=== PATIENT | male | born 1940 | race Caucasian/White ===

== ENCOUNTER 2017-09-27 11:43 | Emergency (ER) | payer MEDICARE ==
[2017-09-27] MEDS ORDERED: MAG HYDROX/AL HYDROX/SIMETH SUSP 30 ML UDCUP PO ONE (12:36)
[2017-09-27] MEDS ORDERED: ACETAMINOPHEN 325 MG TABLET PO ONE (12:36)
[2017-09-27] MEDS ORDERED: DIPHENHYDRAMINE HCL 25 MG/10 ML UDC PO ONE (12:36)
[2017-09-27] MEDS ORDERED: LIDOCAINE 2% VISCOUS SOLN 20 ML UDCUP PO ONE (12:36)
--- NOTE | 2017-09-27 12:37 | ER Document Report ---
ED ENT - General Chief Complaint: Sore Throat Stated Complaint: SORE THROAT, STIFF NECK Time Seen by Provider: 09/27/17 12:27 Mode of Arrival: Ambulatory Information source: Patient Notes: Patient is a 76-year-old male who presents to the ER today for sore throat and neck stiffness, bilateral eye drainage has been yellow/green in color, all times approximately 3 days. Patient has been taking Tylenol for his pain which is not been helping. Patient states that it hurts to eat and drink. He denies any cough, runny nose, sinus congestion or other symptoms. Patient does state that his granddaughter who lives with him recently was diagnosed with strep throat. He admits to feeling like he had fever and chills at home but they did not take his temperature.patient does wear oxygen all the time with a history of COPD. TRAVEL OUTSIDE OF THE [place] IN LAST 30 DAYS: No - Related Data Allergies/Adverse Reactions: No Known Allergies Allergy (Verified 09/27/17 12:02) Past Medical History - General Information source: Patient, Relative - Social History Smoking Status: Unknown if Ever Smoked Family History: Reviewed & Not Pertinent Review of Systems - Review of Systems Constitutional: See HPI EENT: See HPI Cardiovascular: No symptoms reported Respiratory: No symptoms reported Gastrointestinal: No symptoms reported Genitourinary: No symptoms reported Male Genitourinary: No symptoms reported Musculoskeletal: No symptoms reported Skin: No symptoms reported Hematologic/Lymphatic: No symptoms reported Neurological/Psychological: No symptoms reported Physical Exam - Vital signs Vitals: Temp Pulse Resp BP Pulse Ox 97.6 F 87 20 109/62 94 09/27/17 11:57 09/27/17 11:57 09/27/17 11:57 09/27/17 11:57 09/27/17 11:57 - Notes Notes: PHYSICAL EXAMINATION: GENERAL: Mildly ill-appearing, wearing nasal cannula oxygen, but in no acute distress. HEAD: Atraumatic, normocephalic. EYES: Pupils equal round and reactive to light, extraocular movements intact, sclera anicteric, conjunctiva with yellow/green discharge bilaterally, eyelashes matted ENT: ear canals without erythema or foreign body, TMs pearly soto with good bony landmarks, nares patent, oropharynx erythematous with bilaterally enlarged tonsils with copious white exudate. Moist mucous membranes. NECK: Normal range of motion, supple with tender bilateral cervical lymphadenopathy LUNGS: CTAB and equal. No wheezes rales or rhonchi. HEART: Regular rate and rhythm without murmurs ABDOMEN: Soft, no tenderness. No guarding, no rebound BACK: no vertebral tenderness, normal ROM GI/: no CVA tenderness EXTREMITIES: Normal range of motion, no pitting edema. No cyanosis. NEUROLOGICAL: Cranial nerves grossly intact. Normal sensory/motor exams. PSYCH: Normal mood, normal affect. SKIN: Warm, Dry, normal turgor, no rashes or lesions noted Course - Vital Signs Vital signs: Temp Pulse Resp BP Pulse Ox 98.3 F 106 H 18 105/49 L 92 09/27/17 13:42 09/27/17 13:42 09/27/17 13:42 09/27/17 13:42 09/27/17 13:42 Discharge - Discharge Clinical Impression: Strep throat exposure, Sore throat Conjunctivitis, acute, bilateral Qualifiers: Acute conjunctivitis type: unspecified Qualified Code(s): H10.33 - Unspecified acute conjunctivitis, bilateral Condition: Stable Disposition: HOME, SELF-CARE Additional Instructions: Return immediately for any new or worsening symptoms. Follow up with primary care provider, call tomorrow to make followup appointment. Prescriptions: Amoxicillin 500 mg PO TID #30 capsule Nystatin/Dexameth/Diphen [Magic Mouthwash ([facility] Formula) Susp] 5 ml PO QID #120 ml Polymyxin B Sulf/Trimethoprim [Polytrim Eye Drops] 1 drop OU Q3H #1 bot
--- NOTE | 2017-09-27 13:16 | RADIOLOGY REPORT (SQ) ---
EXAM DESCRIPTION: SOFT TISSUE NECK COMPLETED DATE/TIME: 09/27/2017 1:07 pm REASON FOR STUDY: sore throat, neck pain COMPARISON: None. NUMBER OF VIEWS: Two views. TECHNIQUE: AP and lateral radiographic image of the soft tissues of the neck. LIMITATIONS: None. FINDINGS: EPIGLOTTIS: Normal. Contour normal. Aryepiglottic folds normal. PREVERTEBRAL SOFT TISSUES: Normal. No soft tissue swelling. SUBGLOTTIC AREA: Normal. No narrowing. RETROPHARYNGEAL SPACE: Normal. No soft tissue masses. BONES: No significant findings. LUNG APICES: Normal. OTHER: Heavily calcified carotid bifurcations IMPRESSION: No prevertebral soft tissue swelling. Epiglottis normal thickness. Heavily calcified carotid bifurcations TECHNICAL DOCUMENTATION: JOB ID: [id number]- All Rights Reserved Reading location - IP/workstation name: [email or web address]
[2017-09-27 13:44] VITALS: BP 105/49
== END 2017-09-27 13:47 | disposition home or self-care (01) ==
LOC: ER 11:43
DX: J02.9 Acute pharyngitis, unspecified (principal); Z20.818 Contact with and (suspected) exposure to other bacterial communicable diseases; H10.33 Unspecified acute conjunctivitis, bilateral; M43.6 Torticollis; J44.9 Chronic obstructive pulmonary disease, unspecified; Z99.81 Dependence on supplemental oxygen
CPT/HCPCS: 99283; 87070; 87880; 70360; A9270 ×2; J3490

== ENCOUNTER 2017-10-30 17:09 | Emergency (ER) | payer MEDICARE ==
--- NOTE | 2017-10-30 17:58 | ER Document Report ---
ED General - General Mode of Arrival: Stretcher Information source: Patient TRAVEL OUTSIDE OF THE [place] IN LAST 30 DAYS: No <KALYANI ANGULO - Last Filed: 10/30/17 21:46> <MEETJAGUAR Velazco - Last Filed: 11/04/17 14:41> - General Chief Complaint: Laceration Stated Complaint: LEFT ARM LACERATION Time Seen by Provider: 10/30/17 17:49 Notes: 76 y.o male presents to the ED with a skin tear to his LUE. Pt reports that yesterday he was being wheeled through a door and sheared his arm on the door frame. Pt's daughter reports that yesterday he was not bleeding very much but today she cleaned the wound with Hydrogen-Peroxide and since has not stopped bleeding, bleeding through sizable gauze every hour. Pt reports that he is feeling weak and dizzy. Pt has a PMHx of [place], tripple bypass, and a stroke this past July. Pt is on Xarelto and Aspirin daily. Pt's last tetanus vaccination is unknown. (KALYANI ANGULO) - Related Data Allergies/Adverse Reactions: No Known Allergies Allergy (Verified 09/27/17 12:02) Past Medical History - General Information source: Patient - Social History Smoking Status: Never Smoker Chew tobacco use (# tins/day): No Drug Abuse: None Family History: Reviewed & Not Pertinent Patient has suicidal ideation: No Patient has homicidal ideation: No - Past Medical History Cardiac Medical History: Reports: Hx Heart Attack, Hx Hypercholesterolemia, Hx Hypertension Pulmonary Medical History: Reports: Hx COPD, Hx Pneumonia Endocrine Medical History: Reports: Hx Diabetes Mellitus Type 2 Renal/ Medical History: Denies: Hx Peritoneal Dialysis GI Medical History: Reports: Hx Gastroesophageal Reflux Disease Musculoskeletal Medical History: Reports Hx Arthritis Past Surgical History: Reports: Hx Abdominal Surgery, Hx Appendectomy, Hx Cardiac Surgery - triple bypass, AAA repair, Hx Tonsillectomy <KALYANI ANGULO - Last Filed: 10/30/17 21:46> Review of Systems - Review of Systems Constitutional: See HPI, Weakness, Other - dizziness EENT: No symptoms reported Cardiovascular: No symptoms reported Respiratory: No symptoms reported Gastrointestinal: No symptoms reported Genitourinary: No symptoms reported Male Genitourinary: No symptoms reported Musculoskeletal: No symptoms reported Skin: See HPI, Other - skin tear Hematologic/Lymphatic: No symptoms reported Neurological/Psychological: No symptoms reported -: Yes All other systems reviewed and negative <KALYANI ANGULO - Last Filed: 10/30/17 21:46> Physical Exam <KALYANI ANGULO - Last Filed: 10/30/17 21:46> - Skin Skin Temperature: Warm - Approximately 4-1/2 inch irregular skin tear with small amount of active bleeding on left upper extremity just proximal to the elbow on the lateral aspect of upper arm. No foreign bodies noted <JAGUAR DSOUZA - Last Filed: 11/04/17 14:41> - Vital signs Vitals: Temp Pulse Resp BP Pulse Ox 98.3 F 139 H 24 H 133/73 H 87 L 10/30/17 17:19 10/30/17 17:19 10/30/17 17:19 10/30/17 17:19 10/30/17 17:19 - Notes Notes: Physical Exam: General: Alert, appears well. HEENT: Normocephalic. Atraumatic. PERRL. Extraocular movements intact. No pallor. Oropharynx clear. Neck: Supple. Non-tender. Respiratory: No respiratory distress. Clear and equal breath sounds bilaterally. Cardiovascular: Regular rate and rhythm. Abdominal: Normal Inspection. Non-tender. No distension. Normal Bowel Sounds. Back: Non-tender. No deformity or step off. Extremities: Moves all four extremities. Upper extremities: Normal ROM. See skin below. Lower extremities: Normal inspection. No edema. Normal ROM. Neurological: Normal cognition. AAOx3. Normal speech. Psychological: Normal affect. Normal Mood. (KALYANI ANGULO) Course <KALYANI ANGULO - Last Filed: 10/30/17 21:46> <JAGUAR DSOUZA - Last Filed: 11/04/17 14:41> - Re-evaluation Re-evalutation: 10/30/17 18:15 3 packs of quarter inch Steri-Strips were used to approximate skin tear after skin tear was washed with Shur-Clens and saline. Unknown last tetanus shot per patient will be provided in the emergency room. Quick clot and then 4 x 4's were placed over Steri-Strips and then Coban pressure dressing applied. Patient tolerated procedure well. Advised patient and daughter at bedside to keep dressing on wound for at least 3days and then they can take off dressing and let Steri-Strips fall off naturally do not pull them off. Return precautions provided regarding any signs of infection never seek medical reevaluation. 10/30/17 18:29 Patient's on oxygen and home his oxygen had been taken off when initial vitals were performed. Discharge vitals patient normotensive, pulse rate of 94, history of A. fib, oxygen 97% on home O2 2 L. Patient denies any chest pain or shortness of breath asymptomatic will be discharged. (JAGUAR DSOUZA) - Vital Signs Vital signs: Temp Pulse Resp BP Pulse Ox 98.3 F 94 18 117/66 97 10/30/17 18:21 10/30/17 18:21 10/30/17 18:21 10/30/17 18:21 10/30/17 18:21 Procedures - Laceration/Wound Repair Left Arm Wound length (cm): 9 Wound's Depth, Shape: Superficial Laceration pre-procedure: Chloraprep applied Wound explored: Clean Irrigated w/ Saline (mLs): 20 Wound Repaired With: Steri-strips, Other - Quick clot and Koban <JAGUAR DSOUZA - Last Filed: 11/04/17 14:41> Discharge <KALYANI ANGULO - Last Filed: 10/30/17 21:46> <JAGUAR DSOUZA - Last Filed: 11/04/17 14:41> - Discharge Clinical Impression: Skin tear of left upper arm without complication Qualifiers: Encounter type: initial encounter Qualified Code(s): S41.112A - Laceration without foreign body of left upper arm, initial encounter Disposition: HOME, SELF-CARE Instructions: Skin Tear ([facility]), Tetanus Immunization Given ([facility]) Additional Instructions: Please keep pressure dressing on for 3 days then remove and keep Steri-Strips on until they fall off naturally. Per discussion, return to the emergency department or family doctor for any concerning signs of infection. Scribe Attestation: 11/04/17 14:41 I personally performed the services described in the documentation, reviewed and edited the documentation which was dictated to the scribe in my presence, and it accurately records my words and actions. (JAGUAR DSOUZA) Scribe Documentation - Scribe Written by Roxanna:: Roxanna Jensen 10/30/17 1800 acting as scribe for :: Meet <KALYANI ANGULO - Last Filed: 10/30/17 21:46>
[2017-10-30] MEDS ORDERED: DIPH/PERTUSS(ACELL)/TETANUS VAC/PF 0.5 ML SYR (>=10YO) IM ONE (18:18)
[2017-10-30 18:30] VITALS: BP 117/66
== END 2017-10-30 18:55 | disposition home or self-care (01) ==
LOC: ER 17:09
PROC: 0HQCXZZ Repair Left Upper Arm Skin, External Approach (ICD-10-PCS; principal; 2017-10-30)
DX: S41.112A Laceration without foreign body of left upper arm, initial encounter (principal); R53.1 Weakness; W22.8XXA Striking against or struck by other objects, initial encounter; I25.2 Old myocardial infarction; Z95.1 Presence of aortocoronary bypass graft; Z86.73 Personal history of transient ischemic attack (TIA), and cerebral infarction without residual deficits; Z79.01 Long term (current) use of anticoagulants; Z79.82 Long term (current) use of aspirin; I10 Essential (primary) hypertension; E11.9 Type 2 diabetes mellitus without complications; Z99.81 Dependence on supplemental oxygen
CPT/HCPCS: 90471; 90715; 99282

== ENCOUNTER 2017-10-31 13:38 | Emergency (ER) | payer MEDICARE ==
--- NOTE | 2017-10-31 14:57 | ER Document Report ---
ED Medical Screen (RME) - General Chief Complaint: Skin Problem Stated Complaint: LEFT ARM PAIN Time Seen by Provider: 10/31/17 14:55 Mode of Arrival: Wheelchair Information source: Patient, Relative Notes: Patient presents with chief complaint of skin tear to his left arm just distal to the elbow. Patient's family member states that he was seen here yesterday for this, Steri-Strips were placed however at the bleeding became so heavy that the Steri-Strips came off with the first dressing change. Family member reports dressing has been changed 4-5 times and has been saturated each time. Patient is on Xarelto and aspirin daily. Bandage was changed in triage, there is no hemorrhaging noted however there is a very slow trickle of bleeding and noted. I have greeted and performed a rapid initial assessment of this patient. A comprehensive ED assessment and evaluation of the patient, analysis of test results and completion of the medical decision making process will be conducted by additional ED providers. Dictation of this chart was performed using voice recognition software; therefore, there may be some unintended grammatical errors. TRAVEL OUTSIDE OF THE [place] IN LAST 30 DAYS: No - Related Data Allergies/Adverse Reactions: No Known Allergies Allergy (Verified 09/27/17 12:02) Past Medical History - Past Medical History Cardiac Medical History: Reports: Hx Heart Attack, Hx Hypercholesterolemia, Hx Hypertension Pulmonary Medical History: Reports: Hx COPD, Hx Pneumonia Endocrine Medical History: Reports: Hx Diabetes Mellitus Type 2 Renal/ Medical History: Denies: Hx Peritoneal Dialysis GI Medical History: Reports: Hx Gastroesophageal Reflux Disease Musculoskeltal Medical History: Reports Hx Arthritis Past Surgical History: Reports: Hx Abdominal Surgery, Hx Appendectomy, Hx Cardiac Surgery - triple bypass, AAA repair, Hx Tonsillectomy Physical Exam - Vital signs Vitals: Temp Pulse Resp BP Pulse Ox 98.2 F 75 16 111/71 92 10/31/17 13:55 10/31/17 13:55 10/31/17 13:55 10/31/17 13:55 10/31/17 13:55 Course - Vital Signs Vital signs: Temp Pulse Resp BP Pulse Ox 98.2 F 75 16 111/71 92 10/31/17 13:55 10/31/17 13:55 10/31/17 13:55 10/31/17 13:55 10/31/17 13:55
--- NOTE | 2017-10-31 16:34 | ER Document Report ---
ED General - General Chief Complaint: Skin Problem Stated Complaint: LEFT ARM PAIN Time Seen by Provider: 10/31/17 14:55 Mode of Arrival: Wheelchair TRAVEL OUTSIDE OF THE [place] IN LAST 30 DAYS: No - HPI Notes: 68-year-old male who was seen yesterday for a skin tear that he obtained while he was being wheeled to the door and he shared his arm on a door frame presents for reevaluation after he keeps bleeding through his bandages. Patient was given a tetanus shot yesterday, patient reports that he was advised yesterday that if he keeps bleeding through to come to the ED for Dermabond placed in a dressing of wound. Patient is taking Xarelto for history of A. fib. Denies any new trauma. Denies falling hitting head, patient has not been keeping the wound elevated above level of heart. Family states that patient bled through Steri-Strips that were placed yesterday. Denies fevers, chills, chest pain, palpitations, shortness of breath, dyspnea, nausea, vomiting, diarrhea, abdominal pain, hematuria,blurred vision, double vision, loss of vision, speech changes, LH, dizziness, syncope, headaches, wheezing, ST, URI, neck pain, weakness, bowel or bladder dysfunction, saddle anesthesia, numbness or tingling in bilateral upper or lower extremities equally, muscle paralysis, weakness in bilateral upper or lower extremities equally or rash. Denies IV drug use. - Related Data Allergies/Adverse Reactions: No Known Allergies Allergy (Verified 09/27/17 12:02) Past Medical History - General Information source: Patient, Relative - Social History Smoking Status: Unknown if Ever Smoked Family History: Reviewed & Not Pertinent - Past Medical History Cardiac Medical History: Reports: Hx Heart Attack, Hx Hypercholesterolemia, Hx Hypertension Pulmonary Medical History: Reports: Hx COPD, Hx Pneumonia Endocrine Medical History: Reports: Hx Diabetes Mellitus Type 2 Renal/ Medical History: Denies: Hx Peritoneal Dialysis GI Medical History: Reports: Hx Gastroesophageal Reflux Disease Musculoskeletal Medical History: Reports Hx Arthritis Past Surgical History: Reports: Hx Abdominal Surgery, Hx Appendectomy, Hx Cardiac Surgery - triple bypass, AAA repair, Hx Tonsillectomy Review of Systems - Review of Systems Constitutional: No symptoms reported EENT: No symptoms reported Cardiovascular: No symptoms reported Respiratory: No symptoms reported Gastrointestinal: No symptoms reported Genitourinary: No symptoms reported Male Genitourinary: No symptoms reported Musculoskeletal: No symptoms reported Skin: See HPI Hematologic/Lymphatic: No symptoms reported Neurological/Psychological: No symptoms reported Physical Exam - Vital signs Vitals: Temp Pulse Resp BP Pulse Ox 98.2 F 75 16 111/71 92 10/31/17 13:55 10/31/17 13:55 10/31/17 13:55 10/31/17 13:55 10/31/17 13:55 - Notes Notes: PHYSICAL EXAMINATION: GENERAL: Well-appearing, well-nourished and in no acute distress. HEAD: Atraumatic, normocephalic. EYES: Pupils equal round and reactive to light, extraocular movements intact, sclera anicteric, conjunctiva are normal. ENT: Nares patent, oropharynx clear without exudates. Moist mucous membranes. NECK: Normal range of motion, supple without lymphadenopathy LUNGS: Breath sounds clear to auscultation bilaterally and equal. No wheezes rales or rhonchi. HEART: Regular rate and rhythm without murmurs ABDOMEN: Soft, nontender, nondistended abdomen. No guarding, no rebound. No masses appreciated. Musculoskeletal: Normal range of motion, no pitting or edema. No cyanosis. NEUROLOGICAL: Cranial nerves grossly intact. Normal speech, normal gait. Normal sensory, motor exams PSYCH: Normal mood, normal affect. SKIN: Warm, Dry, normal turgor, no rashes or lesions noted. 5 cm linear well approximated skin tear that is slightly bleeding. No surrounding erythema, induration. Pulses +2 bilateral upper extremities equally. Full motor and sensory function of bilateral upper extremities equally. Design Drafter +2 bilaterally and equally. No other injury on inspection. Course - Re-evaluation Re-evalutation: 10/31/17 18:15 76-year-old male who is afebrile vitals stable and in no distress presents for evaluation of skin tear that keeps actually bleeding while he is on Xarelto and baby aspirin. Patient has not been keeping her arm elevated and does not have a compression dressing to wound and family took off earlier this morning. Tetanus is up-to-date. This provider remove dressing, irrigated pressure normal saline, foreign body seen. Once area was dry, area applied Dermabond to well approximated that helps her keep slightly bleeding to form a surgical glue clot. There is no bleeding once Dermabond was placed. Telfa gauze placed once the glue was dry, Coban wrapped around after several gauzes were placed on top of 12. Patient stayed in the emergency room for another 20 minutes to reassess to see if there was any active bleeding. No active bleeding was seen. After performing a Medical Screening Examination, I estimate there is LOW risk for OPEN FRACTURE, COMPARTMENT SYNDROME, TENDON RUPTURE, ACUTE NEUROVASCULAR INJURY , or RETAINED FOREIGN BODY, thus I consider the discharge disposition reasonable. Also, there is no evidence or peritonitis, sepsis, or toxicity. I have reevaluated this patient multiple times and no significant life threatening changes are noted. The patient and I have discussed the diagnosis and risks, and we agree with discharging home with close follow-up with the understanding that symptoms and presentations can change. We also discussed returning to the Emergency Department immediately if new or worsening symptoms occur. We have discussed the symptoms which are most concerning (e.g., changing or worsening pain, fever, numbness, weakness, cool or painful digits) that necessitate immediate return. - Vital Signs Vital signs: Temp Pulse Resp BP Pulse Ox 98.2 F 75 16 111/71 92 10/31/17 13:55 10/31/17 13:55 10/31/17 13:55 10/31/17 13:55 10/31/17 13:55 Discharge - Discharge Clinical Impression: Skin tear Skin tear of left upper arm without complication Qualifiers: Encounter type: initial encounter Qualified Code(s): S41.112A - Laceration without foreign body of left upper arm, initial encounter Condition: Stable Disposition: HOME, SELF-CARE Instructions: Skin Tear ([facility]) Additional Instructions: Dermabond (Skin Adhesive Closure) Skin adhesive (such as Dermabond) is a quick-drying glue that remains slightly flexible while it holds wound edges together. It can substitute for stitches on some cuts. The film will usually fall off the skin after 5 to 10 days. Keep the wound area clean and dry. Do not soak or scrub the wound. Don't swim. You can shower briefly after 24 hours. Gently blot the area dry with a soft towel. Don't apply ointments. If there is a dressing, change it immediately if it gets wet. Do not place tape directly over the adhesive film, because the tape may pull the film off your skin as you remove it. Don't bump the wound area. If there's risk of injury, keep the area well- padded. Avoid stretching of the skin. Do not scratch or pick at the adhesive film. Avoid prolonged exposure to sunlight or tanning lamps. Return if there is increasing pain, swelling, redness, or drainage, or if the wound edges seem to open or separate. Monitor for any signs and symptoms of infection such as redness, swelling, erythema around wound. Keep dressing on for 3 days or take up sooner if you are having any increased pain or extensive bleeding. Return to the ED if you are continually bleeding was placed. Will take longer to form a clot due to being on Xarelto. Return immediately for any new or worsening symptoms. Follow up with primary care provider, call tomorrow to make followup appointment. Referrals: GANGA CARSON MD [NO LOCAL MD] - Follow up in 3-5 days
[2017-10-31 18:52] VITALS: BP 108/53
== END 2017-10-31 18:52 | disposition home or self-care (01) ==
LOC: ER 13:38
DX: S41.112A Laceration without foreign body of left upper arm, initial encounter (principal); W22.8XXA Striking against or struck by other objects, initial encounter; I48.91 Unspecified atrial fibrillation; Z79.01 Long term (current) use of anticoagulants; I10 Essential (primary) hypertension; E11.9 Type 2 diabetes mellitus without complications; J44.9 Chronic obstructive pulmonary disease, unspecified; I25.2 Old myocardial infarction; Z95.1 Presence of aortocoronary bypass graft; Z79.82 Long term (current) use of aspirin
CPT/HCPCS: 99283

== ENCOUNTER → 2017-12-15 | Outpatient (CLI) | payer MEDICARE, BC ==
--- NOTE | 2017-12-15 10:34 | RADIOLOGY REPORT (SQ) ---
EXAM DESCRIPTION: U/S SCROTUM W/DOPPLER COMPLETED DATE/TIME: 12/15/2017 10:16 am REASON FOR STUDY: OTHER SPECIFIED DISORDERS OF THE MALE GENITAL ORGANS (N50.89) N50.89 OTHER SPECIF IED DISORDERS OF THE MALE GENITAL ORGANS COMPARISON: None. TECHNIQUE: Static and realtime galan scale imaging of the scrotum and testes. Selected color Doppler and spectral images recorded to document blood flow. LIMITATIONS: None. FINDINGS: RIGHT: TESTICLE: Normal size. Normal echotexture. Normal blood flow. No mass. EPIDIDYMIS: The epididymis demonstrates heterogeneous echotexture. It is normal in size. No focal m asses. HYDROCELE OR VARICOCELE: There is a hydrocele with echogenic debris. HERNIA OR EXTRA-TESTICULAR MASS: No. OTHER: There is thickening of the lateral scrotal wall. LEFT: TESTICLE: Normal size. Normal echotexture. Normal blood flow. No mass. EPIDIDYMIS: Normal. HYDROCELE OR VARICOCELE: There is a hydrocele with mobile debris. There is a varicocele as well. HERNIA OR EXTRA-TESTICULAR MASS: No. OTHER: No other significant finding. IMPRESSION: Thickening of the right lateral scrotal wall. There are bilateral hydroceles with debri s. The right epididymis is heterogeneous in echotexture. No evidence of torsion. TECHNICAL DOCUMENTATION: JOB ID: [id number]- All Rights Reserved Reading location - IP/workstation name: [email or web address]
== END ==
LOC: RAD 09:19
PROVIDERS: ATTEND Internal Medicine Geriatric Medicine
DX: N50.89 Other specified disorders of the male genital organs (principal)
CPT/HCPCS: 76870; 93976

== ENCOUNTER 2018-02-03 09:05 | Inpatient (IN) | payer MEDICARE, OTHER ==
[2018-02-03] MEDS ORDERED: IPRATROPIUM/ALBUTEROL 0.5-2.5 MG/3 ML AMPUL NEB ONE ×2 (09:27→09:31)
[2018-02-03] MEDS ORDERED: MAGNESIUM SULFATE/D5W 1 GM/100 ML RTUPB IV ONE ×2 (09:31→10:56)
[2018-02-03] MEDS ORDERED: METHYLPREDNISOLONE INJ 125 MG/2 ML SDV IV ONE (09:31)
[2018-02-03] MEDS ORDERED: ALBUTEROL SULFATE 0.083% NEB 2.5 MG/3 ML AMPUL NEB ONE ×2 (09:31→10:56)
[2018-02-03 10:00] LABS: ABSOLUTE BASOPHILS # (AUTO) 0.1 10^3/uL (0.0-0.2); ABSOLUTE EOSINOPHILS # (AUTO) 0.1 10^3/uL (0.0-0.6); ABSOLUTE MONOCYTES (AUTO) 0.7 10^3/uL (0.1-1.4); ABSOLUTE NEUT (AUTO) 6.3 10^3/uL (1.7-8.2); BASOPHILS % (AUTO) 1.3 % (0-2); EOSINOPHILS % (AUTO) 1.3 % (0-6); HEMATOCRIT 35.2 % (37.9-51.0); HEMOGLOBIN 11.5 g/dL (13.5-17.0); LYMPHOCYTES % (AUTO) 12.8 % (13-45); MEAN CORPUSCULAR HEMOGLOBIN 30.6 pg (27.0-33.4); MEAN CORPUSCULAR HGB CONC 32.5 g/dL (32.0-36.0); MEAN CORPUSCULAR VOLUME 94 fl (80-97); MONOCYTES % (AUTO) 8.1 % (3-13); PLATELET COUNT 259 10^3/uL (150-450); RED BLOOD COUNT 3.74 10^6/uL (4.35-5.55); RED CELL DISTRIBUTION WIDTH 17.1 % (11.5-14.0); SEGMENTED NEUTROPHILS % (AUTO) 76.5 % (42-78); TOTAL CELLS COUNTED % (AUTO) 100 %; VENOUS BLOOD BASE EXCESS -4.6 mmol/L; VENOUS BLOOD HCO3 20.9 mmol/L (20-32); VENOUS BLOOD PH 7.34 (7.30-7.42); WHITE BLOOD COUNT 8.2 10^3/uL (4.0-10.5)
[2018-02-03 10:05] LABS: INTERNATIONAL RATION (INR) 3.78; PROTHROMBIN TIME 39.1 SEC (11.4-15.4)
[2018-02-03 10:18] LABS: ALANINE AMINOTRANSFERASE 13 U/L (21-72); ALBUMIN 3.9 g/dL (3.5-5.0); ALKALINE PHOSPHATASE 112 U/L (38-126); ANION GAP 18 (5-19); ASPARTATE AMINO TRANSFERASE 15 U/L (17-59); BILIRUBIN,DIRECT 0.2 mg/dL (0.0-0.4); BILIRUBIN,TOTAL 0.9 mg/dL (0.2-1.3); BLOOD UREA NITROGEN 22 mg/dL (7-20); CALCIUM 9.6 mg/dL (8.4-10.2); CARBON DIOXIDE 21 mmol/L (22-30); CHLORIDE 106 mmol/L (98-107); CREATINE KINASE 50 U/L (55-170); GLUCOSE 160 mg/dL (75-110); LIPASE 101.4 U/L (23-300); POTASSIUM 4.1 mmol/L (3.6-5.0); SODIUM 145.1 mmol/L (137-145); TOTAL PROTEIN 7.3 g/dL (6.3-8.2)
[2018-02-03 10:29] LABS: CREATINE KINASE MB 2.03 ng/mL (<4.55); TROPONIN I 0.014 ng/mL
--- NOTE | 2018-02-03 10:42 | EKG REPORT ---
SEVERITY:- ABNORMAL ECG - ATRIAL FIBRILLATION PAIRED VENTRICULAR PREMATURE COMPLEXES LOW VOLTAGE IN FRONTAL LEADS MINIMAL ST DEPRESSION, LATERAL LEADS : Confirmed by: Silvia Reeves 03-Feb-2018 10:41:35
--- NOTE | 2018-02-03 11:01 | RADIOLOGY REPORT (SQ) ---
EXAM DESCRIPTION: CHEST SINGLE VIEW COMPLETED DATE/TIME: 02/03/2018 10:29 am REASON FOR STUDY: sob COMPARISON: None. EXAM PARAMETERS: NUMBER OF VIEWS: One view. TECHNIQUE: Single frontal radiographic view of the chest acquired. RADIATION DOSE: NA LIMITATIONS: None. FINDINGS: LUNGS AND PLEURA: There is an ill-defined, rounded opacity in the right midlung with a sma ll associated pleural effusion. MEDIASTINUM AND HILAR STRUCTURES: No masses. Contour normal. HEART AND VASCULAR STRUCTURES: Cardiomegaly status post median sternotomy. BONES: No acute findings. HARDWARE: None in the chest. OTHER: No other significant finding. IMPRESSION: 1. There is an ill-defined, rounded opacity in the right mid lung with a small associat ed pleural effusion, findings concerning for infection. Underlying mass cannot be excluded; consider CT to further evaluate or at minimum radiographic follow-up in 6-8 weeks to ensure complete resoluti on. 2. Cardiomegaly. TECHNICAL DOCUMENTATION: JOB ID: [id number] [employer]- All Rights Reserved Reading location - IP/workstation name: [email or web address]
[2018-02-03] MEDS ORDERED: LEVOFLOXACIN 500 MG/D5W RTU 500 MG/100 ML RTUPB IV ONE (11:03)
[2018-02-03] MEDS ORDERED: NORMAL SALINE 1000 ML 1,000 ML IV ONE (11:04)
--- NOTE | 2018-02-03 12:00 | RADIOLOGY REPORT (SQ) ---
EXAM DESCRIPTION: CT CHEST WITHOUT COMPLETED DATE/TIME: 02/03/2018 11:44 am REASON FOR STUDY: f/u chest xray findings very short of breath, improved after nebulizer treatment COMPARISON: AP chest 02/03/2018 TECHNIQUE: CT scan performed of the chest without intravenous contrast. Images reviewed with lung, soft tissue and bone windows. Reconstructed coronal and sagittal MPR images reviewed. All images st ored on PACS. All CT scanners at this facility use dose modulation, iterative reconstruction, and/or weight based d osing when appropriate to reduce radiation dose to as low as reasonably achievable (ALARA). [facility]: Dose Right [facility]: CareDose [facility]: Dose Right [facility]: Teradose 4D [facility]: Smart Splashscore RADIATION DOSE: CT Rad equipment meets quality standard of care and radiation dose reduction techniq ues were employed. CTDIvol: 19.8 mGy. DLP: 809 mGy-cm. mGy. LIMITATIONS: No technical limitations. FINDINGS: LUNGS AND PLEURA: Thickened interlobular septa are present throughout the lungs worrisome for interstitial pulmonary edema. Trace left and small right pleural effusions are present, with right-sided fluid tracking into the ma ernesto and minor fissures. There is spotty consolidation in the dependent portion of the right upper lobe and in both posterior costophrenic sulci, atelectasis favored over pneumonia. No pneumothorax HILAR AND MEDIASTINAL STRUCTURES: Mediastinal adenopathy follows: Right paratracheal 2.2 x 1.4 cm node axial image 21 Precarinal 3.3 x 1.7 cm lymph node axial image 25 Prevascular 2.8 x 1.7 cm lymph node axial image 24 Aortopulmonary window lymph node 2.8 x 1.7 cm axial image 25 Sub- carinal 3.6 x 1.6 cm lymph node axial image 35 HEART AND VASCULAR STRUCTURES: Moderate cardiomegaly, old CABG. Heavily calcified aortic valve and m itral annulus. No pericardial effusion UPPER ABDOMEN: Small hiatal hernia. Heavily calcified upper abdominal aorta and visceral arteries. THYROID AND OTHER SOFT TISSUES: No masses. No adenopathy. BONES: No significant finding. HARDWARE: None in the chest. OTHER: No other significant findings. IMPRESSION: Interstitial pulmonary edema with small right and trace left pleural effusions. Depende nt airspace disease in both lungs likely atelectasis. 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 Mediastinal adenopathy TECHNICAL DOCUMENTATION: JOB ID: [id number] Quality ID # [id number]: Final reports with documentation of one or more dose reduction techniques (e.g., Au tomated exposure control, adjustment of the mA and/or kV according to patient size, use of iterative reconstruction technique) 2010 [employer]- All Rights Reserved Reading location - IP/workstation name: [email or web address] [id number]
--- NOTE | 2018-02-03 14:52 | ER Document Report ---
ED General - General Chief Complaint: Breathing Difficulty Stated Complaint: DIFFICULTY BREATHING Time Seen by Provider: 02/03/18 09:22 TRAVEL OUTSIDE OF THE [place] IN LAST 30 DAYS: No - HPI Patient complains to provider of: Difficulty breathing Notes: Patient has a history of COPD CHF coming in for difficulty breathing along with the last 4 days. Patient states productive sputum as well night sweats no fevers. Patient denies any recent antibiotics. Patient states also having pain in his chest earlier this morning that has now resolved. Patient is on home O2 and did bring it here to the ER however has not been wearing it over the last few minutes. Patient upon triage was found to be hypoxic in the 70s. Patient was brought back to the main ER placed back on his oxygen. Patient slightly tachypneic. Denies any nausea vomiting denies any abdominal pain - Related Data Allergies/Adverse Reactions: No Known Allergies Allergy (Verified 09/27/17 12:02) Past Medical History - Social History Smoking Status: Never Smoker Chew tobacco use (# tins/day): No Frequency of alcohol use: None Family History: Reviewed & Not Pertinent Patient has suicidal ideation: No Patient has homicidal ideation: No - Past Medical History Cardiac Medical History: Reports: Hx Heart Attack, Hx Hypercholesterolemia, Hx Hypertension Pulmonary Medical History: Reports: Hx COPD, Hx Pneumonia Endocrine Medical History: Reports: Hx Diabetes Mellitus Type 2 Renal/ Medical History: Denies: Hx Peritoneal Dialysis GI Medical History: Reports: Hx Gastroesophageal Reflux Disease Musculoskeletal Medical History: Reports Hx Arthritis Past Surgical History: Reports: Hx Abdominal Surgery, Hx Appendectomy, Hx Cardiac Surgery - triple bypass, AAA repair, Hx Tonsillectomy Review of Systems - Review of Systems Constitutional: No symptoms reported EENT: No symptoms reported Cardiovascular: Chest pain Respiratory: Cough, Short of breath, Wheezing Gastrointestinal: No symptoms reported Genitourinary: No symptoms reported Male Genitourinary: No symptoms reported Musculoskeletal: No symptoms reported Skin: No symptoms reported Hematologic/Lymphatic: No symptoms reported Neurological/Psychological: No symptoms reported -: Yes All other systems reviewed and negative Physical Exam - Vital signs Vitals: Pulse Resp BP Pulse Ox 121 H 40 H 107/65 81 L 02/03/18 09:27 02/03/18 09:27 02/03/18 09:27 02/03/18 09:27 Interpretation: Hypoxic - General General appearance: Appears well, Alert - HEENT Head: Normocephalic, Atraumatic Eyes: Normal Pupils: PERRL - Respiratory Respiratory status: Respiratory distress Chest status: Nontender Breath sounds: Wheezing Chest palpation: Normal - Cardiovascular Rhythm: Regular Heart sounds: Normal auscultation Murmur: No - Abdominal Inspection: Normal Distension: No distension Bowel sounds: Normal Tenderness: Nontender Organomegaly: No organomegaly - Back Back: Normal, Nontender - Extremities General upper extremity: Normal inspection, Nontender, Normal color, Normal ROM , Normal temperature General lower extremity: Normal inspection, Nontender, Normal color, Normal ROM , Normal temperature, Normal weight bearing. No: Yair's sign - Neurological Neuro grossly intact: Yes Cognition: Normal Orientation: AAOx4 [place] Coma Scale Eye Opening: Spontaneous [place] Coma Scale Verbal: Oriented Kevin Coma Scale Motor: Obeys Commands [place] Coma Scale Total: 15 Speech: Normal Motor strength normal: LUE, RUE, LLE, RLE Sensory: Normal - Psychological Associated symptoms: Normal affect, Normal mood - Skin Skin Temperature: Warm Skin Moisture: Dry Skin Color: Normal Course - Re-evaluation Re-evalutation: 02/03/18 18:33 Chest x-ray with possible pneumonia with possible change of her CHF. Therefore CT scan was performed again showing possible CHF versus pneumonia. Patient was given antibiotics. Patient continued to not improve with just breathing to Mr. for was placed on BiPAP. At the BiPAP patient was able to rest discussed with PCP will admit the patient for further evaluation. - Vital Signs Vital signs: Temp Pulse Resp BP Pulse Ox 97.6 F 54 L 28 H 120/71 94 02/03/18 17:38 02/03/18 17:38 02/03/18 17:38 02/03/18 17:38 02/03/18 17:38 - Laboratory Result Diagrams: 02/03/18 09:30 02/03/18 09:30 Laboratory results interpreted by me: 02/03/18 02/03/18 02/03/18 09:30 09:30 09:30 RBC 3.74 L Hgb 11.5 L Hct 35.2 L RDW 17.1 H Lymphocytes % 12.8 L PT 39.1 H Sodium 145.1 H Carbon Dioxide 21 L BUN 22 H Creatinine 1.51 H Est GFR ( Amer) 54 L Est GFR (Non-Af Amer) 45 L Glucose 160 H Lactic Acid Magnesium 1.5 L AST 15 L ALT 13 L Creatine Kinase 50 L NT-Pro-B Natriuret Pep 02/03/18 02/03/18 09:30 10:00 RBC Hgb Hct RDW Lymphocytes % PT Sodium Carbon Dioxide BUN Creatinine Est GFR ( Amer) Est GFR (Non-Af Amer) Glucose Lactic Acid 2.5 H Magnesium AST ALT Creatine Kinase NT-Pro-B Natriuret Pep 3540 H Discharge - Discharge Clinical Impression: Respiratory distress, History of atrial fibrillation Pneumonia Qualifiers: Pneumonia type: due to unspecified organism Laterality: unspecified laterality Lung location: unspecified part of lung Qualified Code(s): J18.9 - Pneumonia, unspecified organism Condition: Stable Disposition: ADMITTED INPATIENT Admitting Provider: Vilma Solomon COVERING Unit Admitted: [facility]
[2018-02-03] MEDS ORDERED: ALBUTEROL SULFATE HFA (90 MCG/PUFF) 200 PUFF/8.5 GM MDI IH PRN (19:28)
[2018-02-03] MEDS ORDERED: AMLODIPINE PO SCH (19:30)
[2018-02-03] MEDS ORDERED: (PENDING PHARMACY ID) (Tiotropium Bromide [Spiriva Respimat] 2 PUFF) IH SCH (19:30)
[2018-02-03] MEDS ORDERED: (PENDING PHARMACY ID) (Lisinopril [Prinivil 2.5 Mg Tablet] 2.5 MG) PO SCH (19:30)
[2018-02-03] MEDS ORDERED: ATORVASTATIN PO SCH (19:30)
[2018-02-03] MEDS ORDERED: (PENDING PHARMACY ID) (Folic Acid [Folic Acid] 0.8 MG) PO SCH (19:30)
[2018-02-03] MEDS ORDERED: (PENDING PHARMACY ID) (Omega-3/Dha/Epa/Fish Oil [Fish Oil 1,000 Mg Softgel] 1 EACH) PO SCH (19:30)
[2018-02-03] MEDS ORDERED: (PENDING PHARMACY ID) (Docusate Calcium [Stool Softener] 240 MG) PO SCH (19:30)
[2018-02-03] MEDS ORDERED: (PENDING PHARMACY ID) (Atenolol [Tenormin] 25 MG) PO SCH (19:30)
[2018-02-03] MEDS ORDERED: (PENDING PHARMACY ID) (Cholecalciferol (Vitamin D3) [Vitamin D3 2000 Unit Tablet] 2,000 UN PO SCH (19:30)
[2018-02-03 19:56] LABS: ARTERIAL BLOOD BASE EXCESS -3.1 mmol/L; ARTERIAL BLOOD H2CO3 0.97 mmol/L (1.05-1.35); ARTERIAL BLOOD HCO3 20.5 mmol/L (20-24); ARTERIAL BLOOD PCO2 32.1 mmHg (35-45); ARTERIAL BLOOD PH 7.42 (7.35-7.45); ARTERIAL BLOOD PO2 57.8 mmHg (80-100); ARTERIAL BLOOD TOTAL CO2 21.5 mmol/L (23-27)
[2018-02-03 19:58] LABS: ARTERIAL BLOOD FIO2 40%
[2018-02-03] MEDS ORDERED: METFORMIN HCL 500 MG TABLET PO SCH (20:00)
[2018-02-03 20:06] LABS: INTERNATIONAL RATION (INR) 4.23; PROTHROMBIN TIME 42.7 SEC (11.4-15.4)
[2018-02-03 20:29] LABS: CREATINE KINASE MB 1.97 ng/mL (<4.55); TROPONIN I < 0.012 ng/mL
[2018-02-03] MEDS ORDERED: FAMOTIDINE 20 MG TABLET PO SCH (20:30)
--- NOTE | 2018-02-03 21:28 | PDOC H&P ---
History of Present Illness Admission Date/PCP: 02/03/18 15:14 EJ WATTS History of Present Illness: DONALD WESTON is a 77 year old male, he has a history of very severe chronic obstructive pulmonary disease, chronic systolic heart failure he came to the emergency room for evaluation of difficulty breathing for the last 4 days. He also complained of productive cough night sweats but no fever he normally is on home oxygen via nasal cannula at 2 L/min in the emergency room he was found to be hypoxic the oxygen saturation was in the 70s, he was also found to have tachycardia, the pulse rate was 121 bpm, he has a history of chronic atrial fibrillation on chronic anticoagulation with Coumadin. In the emergency room the initial chest x-ray could not completely rule out pneumonia versus CHF CT chest without contrast was ordered in the ER, it demonstrated thickened interlobular septa present throughout the lungs worrisome for interstitial pulmonary edema also found was trace bilateral pleural effusions with right- sided fluid tracking into the major and minor fissure there was also spotty consolidation in the dependent portion of the right upper lobe and in both posterior costophrenic sulci, the BNP was elevated suggesting congestive heart failure. A 2D echo was ordered because of concern that he may have CHF, 2D echo showed ejection fraction left ventricle 50-55% there is mild concentric left ventricular hypertrophy, the diastolic function could not be adequately assessed because of atrial fibrillation. The left atrium is severely dilated the right atrium is severely dilated there is mild to moderate mitral regurgitation, moderate tricuspid regurgitation there is severe pulmonary hypertension by echo the RVSP 65-70 mmHg based on the echo finding he probably have acute on chronic diastolic heart failure, the BNP is elevated, the left atrium is severely dilated this suggest diastolic dysfunction of left ventricle unfortunately this could not be assessed with Doppler because of the atrial fibrillation but one can make reasonable inference that he has diastolic heart failure. Pneumonia cannot be completely rule out, patient daughter stated that he has a history of recurrent pneumonia most likely because of very severe COPD the pulmonary hypertension is secondary to severe lung disease from COPD. He has a history of tobacco use though he has stopped smoking. Past Medical History Cardiac Medical History: Reports: Atrial Fibrillation, Myocardial Infarction, Hyperlipidema, Hypertension, Other - Chronic diastolic heart failure Pulmonary Medical History: Reports: Chronic Obstructive Pulmonary Disease (COPD) , Pneumonia Endocrine Medical History: Reports: Diabetes Mellitus Type 2 GI Medical History: Reports: Gastroesophageal Reflux Disease Musculoskeltal Medical History: Reports: Arthritis Past Surgical History Past Surgical History: Reports: Appendectomy, Tonsillectomy Social History Smoking Status: Never Smoker Last Time Smoked: 10 years ago Frequency of Alcohol Use: None Hx Recreational Drug Use: No Drugs: None Hx Prescription Drug Abuse: No Family History Family History: Reviewed & Not Pertinent Parental Family History Reviewed: Yes Children Family History Reviewed: Yes Sibling(s) Family History Reviewed.: Yes Medication/Allergy Home Medications: Albuterol Sulfate [Proair Hfa Inhalation Aerosol 8.5 gm Mdi] 1 puff IH Q4HP PRN 02/03/18 Allopurinol [Zyloprim 300 mg Tablet] 300 mg PO DAILY 02/03/18 Amlodipine/Atorvastatin [Amlodipine-Atorvast 10-40 mg] 1 each PO DAILY 02/03/18 Ascorbic Acid [Vitamin C 500 mg Tablet] 500 mg PO DAILY 02/03/18 Aspirin [Ecotrin 81 mg EC Tablet] 81 mg PO DAILY 02/03/18 Atenolol [Tenormin] 25 mg PO DAILY 02/03/18 Cholecalciferol (Vitamin D3) [Vitamin D3 2000 unit Tablet] 2,000 unit PO DAILY 02/03/18 Cyanocobalamin (Vitamin B-12) [Vitamin B-12] 1,000 mcg PO DAILY 02/03/18 Docusate Calcium [Stool Softener] 240 mg PO DAILY MDD 2 CAPS 02/03/18 Famotidine [Pepcid 20 mg Tablet] 20 mg PO BID 02/03/18 Ferrous Sulfate [Feosol 325 mg Tablet] 325 mg PO DAILY 02/03/18 Finasteride [Proscar 5 mg Tablet] 5 mg PO DAILY 02/03/18 Fluticasone/Salmeterol [Advair 500-50 Diskus 14 Dose/Diskus] 1 inh IH Q12 Folic Acid 0.8 mg PO DAILY 02/03/18 Furosemide [Lasix 20 mg Tablet] 20 mg PO QAM 02/03/18 Insulin Regular, Human [Humulin R (Pyxis) Insulin 100 Unit/ml 3Ml] 0 unit SUBCUT .SLD SCALE 02/03/18 Lisinopril [Prinivil 2.5 mg Tablet] 2.5 mg PO DAILY 02/03/18 Metformin HCl [Glucophage 500 mg Tablet] 500 mg PO BID 02/03/18 Chandler-3/Dha/Epa/Fish Oil [Fish Oil 1,000 mg Softgel] 1 each PO DAILY 02/03/18 Potassium Chloride [Klor-Con 10 Meq Capsule ER] 20 meq PO DAILY 02/03/18 Tamsulosin HCl [Flomax 0.4 mg Cap.sr] 0.4 mg PO DAILY 02/03/18 Tiotropium Yale [Spiriva Respimat] 2 puff IH DAILY 02/03/18 Warfarin Sodium [Coumadin 2.5 mg Tablet] 2.5 mg PO SUSA@219902/03/18 Warfarin Sodium [Coumadin 5 mg Tablet] 5 mg PO MOTUWETHFR@219902/03/18 Allergies/Adverse Reactions: No Known Allergies Allergy (Verified 09/27/17 12:02) Review of Systems Constitutional: PRESENT: chills Eyes: ABSENT: visual disturbances Ears: ABSENT: hearing changes Cardiovascular: ABSENT: chest pain, dyspnea on exertion, edema, orthropnea, palpitations Respiratory: PRESENT: cough, dyspnea Gastrointestinal: ABSENT: abdominal pain, constipation, diarrhea, hematemesis, hematochezia, nausea, vomiting Genitourinary: ABSENT: dysuria, hematuria Musculoskeletal: ABSENT: joint swelling Integumentary: ABSENT: rash, wounds Neurological: ABSENT: abnormal gait, abnormal speech, confusion, dizziness, focal weakness, syncope Psychiatric: ABSENT: anxiety, depression, homidical ideation, suicidal ideation Endocrine: ABSENT: cold intolerance, heat intolerance, menstrual abnormalities, polydipsia, polyuria Hematologic/Lymphatic: ABSENT: easy bleeding, easy bruising, lymphadenopathy Physical Exam Vital Signs: Temp Pulse Resp BP Pulse Ox 97.4 F 87 22 H 131/72 H 99 02/03/18 19:35 02/03/18 19:35 02/03/18 20:32 02/03/18 19:35 02/03/18 19:35 Intake & Output 02/02/18 02/03/18 02/04/18 06:59 06:59 06:59 Intake Total 0 Output Total 150 Balance -150 Weight 94.9 kg General appearance: PRESENT: severe distress Head exam: PRESENT: atraumatic, normocephalic Eye exam: PRESENT: PERRLA Neck exam: PRESENT: full ROM Respiratory exam: PRESENT: rhonchi Cardiovascular exam: PRESENT: RRR, +S1, +S2 Pulses: PRESENT: normal dorsalis pedis pul, +2 pedal pulses bilateral Vascular exam: PRESENT: normal capillary refill GI/Abdominal exam: PRESENT: normal bowel sounds, soft Rectal exam: PRESENT: deferred Neurological exam: PRESENT: alert, CN II-XII grossly intact Psychiatric exam: PRESENT: appropriate affect, normal mood Skin exam: PRESENT: dry, intact, warm Results Laboratory Results: 02/03/18 02/03/18 18:30 19:33 Carbonic Acid 0.97 L HCO3/H2CO3 Ratio 21:1 ABG pH 7.42 ABG pCO2 32.1 L ABG pO2 57.8 L ABG HCO3 20.5 ABG O2 Saturation 91.0 L ABG Base Excess -3.1 FiO2 40% Lactic Acid 1.9 02/03/18 02/03/18 02/03/18 15:27 19:45 19:45 Creatine Kinase 46 L CK-MB (CK-2) 1.97 Troponin I < 0.012 < 0.012 Impressions: Chest X-Ray 02/03/18 09:30 IMPRESSION: 1. There is an ill-defined, rounded opacity in the right mid lung with a small associated pleural effusion, findings concerning for infection. Underlying mass cannot be excluded; consider CT to further evaluate or at minimum radiographic follow-up in 6-8 weeks to ensure complete resolution. 2. Cardiomegaly. Chest CT 02/03/18 11:03 IMPRESSION: Interstitial pulmonary edema with small right and trace left pleural effusions. Dependent airspace disease in both lungs likely atelectasis. 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 Mediastinal adenopathy Assessment & Plan - Diagnosis (1) Acute hypoxemic respiratory failure Is this a current diagnosis for this admission?: Yes Plan: He has acute hypoxic respiratory failure presently on noninvasive positive pressure ventilation BiPAP hopefully we can prevent intubation, the etiology is most likely from the combination of acute diastolic heart failure and also pneumonia (2) Acute on chronic diastolic heart failure Is this a current diagnosis for this admission?: Yes Plan: continue diuretic and other anti-CHF regimen (3) Pneumonia Qualifiers: Pneumonia type: due to unspecified organism Laterality: right Lung location: upper lobe of lung Qualified Code(s): J18.1 - Lobar pneumonia, unspecified organism Is this a current diagnosis for this admission?: Yes Plan: Patient will be treated with antibiotic to cover acquired pneumonia (4) Pulmonary hypertension Is this a current diagnosis for this admission?: Yes Plan: This is secondary pulmonary hypertension due to very severe lung disease/COPD (5) Chronic atrial fibrillation Is this a current diagnosis for this admission?: Yes (6) COPD (chronic obstructive pulmonary disease) Qualifiers: COPD type: COPD with acute lower respiratory infection Qualified Code(s): J44.0 - Chronic obstructive pulmonary disease with acute lower respiratory infection Is this a current diagnosis for this admission?: Yes
[2018-02-03] MEDS ORDERED: WARFARIN SODIUM 5 MG TABLET PO SCH (22:00)
[2018-02-03] MEDS ORDERED: (PENDING PHARMACY ID) (Warfarin Sodium 5 MG) PO SCH (22:00)
[2018-02-03 22:26] LABS: APPEARANCE,URINE TURBID; BILIRUBIN,URINE NEGATIVE (NEGATIVE); GLUCOSE, URINE NEGATIVE (NEGATIVE); KETONES,URINE NEGATIVE (NEGATIVE); LEUKOCYTE ESTERASE,URINE LARGE (NEGATIVE); NITRITE,URINE NEGATIVE (NEGATIVE); PROTEIN,URINE 100 mg/dL (NEGATIVE); URINE SPECIFIC GRAVITY 1.014; UROBILINOGEN,URINE NEGATIVE mg/dL (<2.0)
[2018-02-03 22:27] LABS: COLOR,URINE YELLOW
[2018-02-03] MEDS ORDERED: AMLODIPINE BESYLATE 10 MG TABLET PO ONE ×2 (23:00→23:20)
[2018-02-03] MEDS: FUROSEMIDE 20 MG TABLET PO SCH (23:00)
[2018-02-03] MEDS: FERROUS SULFATE 325 MG TABLET PO SCH (23:00)
[2018-02-03] MEDS: ASPIRIN 81 MG TABLET, ENT COATED PO SCH (23:00)
[2018-02-03] MEDS: FINASTERIDE 5 MG TABLET PO SCH (23:01)
[2018-02-03] MEDS: POTASSIUM CHLORIDE 10 MEQ CAPSULE.ER PO SCH (23:01)
[2018-02-03] MEDS: TAMSULOSIN HCL 0.4 MG CAP.SR.24H PO SCH (23:01)
[2018-02-03] MEDS: ASCORBIC ACID 500 MG TABLET PO SCH (23:01)
[2018-02-03] MEDS: LISINOPRIL 5 MG TABLET PO SCH (23:02)
[2018-02-03] MEDS: ATENOLOL 50 MG TABLET PO SCH (23:03)
[2018-02-03] MEDS ORDERED: ATORVASTATIN CALCIUM 40 MG TABLET PO ONE (23:15)
[2018-02-03] MEDS ORDERED: FAMOTIDINE 20 MG TABLET PO ONE (23:15)
[2018-02-03] MEDS ORDERED: METFORMIN HCL 500 MG TABLET PO ONE (23:20)
[2018-02-03] MEDS: FLUTICASONE/SALMETEROL DISKUS 500-50 MCG/DOSE IH SCH (23:31)
[2018-02-03] MEDS: AMLODIPINE BESYLATE 10 MG TABLET PO SCH (23:41)
[2018-02-03] MEDS: CEFEPIME 2 GM/D5W RTU 2 GM/50 ML RTUPB IV SCH (23:41)
[2018-02-03] MEDS: ATORVASTATIN CALCIUM 40 MG TABLET PO SCH (23:41)
[2018-02-04 06:05] LABS: HEMATOCRIT 30.3 % (37.9-51.0); HEMOGLOBIN 10.1 g/dL (13.5-17.0); MEAN CORPUSCULAR HEMOGLOBIN 31.2 pg (27.0-33.4); MEAN CORPUSCULAR HGB CONC 33.3 g/dL (32.0-36.0); MEAN CORPUSCULAR VOLUME 94 fl (80-97); PLATELET COUNT 230 10^3/uL (150-450); RED BLOOD COUNT 3.24 10^6/uL (4.35-5.55); RED CELL DISTRIBUTION WIDTH 17.3 % (11.5-14.0); WHITE BLOOD COUNT 5.1 10^3/uL (4.0-10.5)
[2018-02-04 06:11] LABS: INTERNATIONAL RATION (INR) 4.91
[2018-02-04 06:26] LABS: ALANINE AMINOTRANSFERASE 18 U/L (21-72); ALBUMIN 3.3 g/dL (3.5-5.0); ALKALINE PHOSPHATASE 94 U/L (38-126); ANION GAP 14 (5-19); ASPARTATE AMINO TRANSFERASE 17 U/L (17-59); BILIRUBIN,DIRECT 0.3 mg/dL (0.0-0.4); BILIRUBIN,TOTAL 0.6 mg/dL (0.2-1.3); BLOOD UREA NITROGEN 30 mg/dL (7-20); CALCIUM 9.2 mg/dL (8.4-10.2); CARBON DIOXIDE 21 mmol/L (22-30); CHLORIDE 108 mmol/L (98-107); GLUCOSE 164 mg/dL (75-110); POTASSIUM 4.8 mmol/L (3.6-5.0); TOTAL PROTEIN 6.3 g/dL (6.3-8.2)
[2018-02-04] MEDS: FUROSEMIDE 20 MG TABLET PO SCH (09:23)
[2018-02-04] MEDS: FLUTICASONE/SALMETEROL DISKUS 500-50 MCG/DOSE IH SCH ×2 (09:27→21:53)
[2018-02-04] MEDS: POTASSIUM CHLORIDE 10 MEQ CAPSULE.ER PO SCH (09:29)
[2018-02-04] MEDS: FAMOTIDINE 20 MG TABLET PO SCH ×2 (09:30→17:13)
[2018-02-04] MEDS: FERROUS SULFATE 325 MG TABLET PO SCH (09:30)
[2018-02-04] MEDS: FINASTERIDE 5 MG TABLET PO SCH (09:30)
[2018-02-04] MEDS: TAMSULOSIN HCL 0.4 MG CAP.SR.24H PO SCH (09:30)
[2018-02-04] MEDS: OMEGA-3 ACID ETHYL ESTERS 1 GM CAPSULE PO SCH (09:31)
[2018-02-04] MEDS: DOCUSATE SODIUM 100 MG CAPSULE PO SCH (09:31)
[2018-02-04] MEDS: FOLIC ACID 1 MG TABLET PO SCH (09:31)
[2018-02-04] MEDS: ALLOPURINOL 300 MG TABLET PO SCH (09:31)
[2018-02-04] MEDS: ATORVASTATIN CALCIUM 40 MG TABLET PO SCH (09:32)
[2018-02-04] MEDS: CHOLECALCIFEROL (D3) 1,000 UNIT TABLET PO SCH (09:32)
[2018-02-04] MEDS: ASPIRIN 81 MG TABLET, ENT COATED PO SCH (09:33)
[2018-02-04] MEDS: AMLODIPINE BESYLATE 10 MG TABLET PO SCH (09:33)
[2018-02-04] MEDS: CYANOCOBALAMIN (VITAMIN B-12) 1,000 MCG TABLET PO SCH (09:33)
[2018-02-04] MEDS: METFORMIN HCL 500 MG TABLET PO SCH ×2 (09:33→17:13)
[2018-02-04] MEDS: LISINOPRIL 5 MG TABLET PO SCH (09:34)
[2018-02-04] MEDS: ATENOLOL 50 MG TABLET PO SCH (09:34)
[2018-02-04] MEDS: LEVOFLOXACIN 750 MG/D5W RTU 750 MG/150 ML RTUPB IV SCH (09:36)
[2018-02-04] MEDS: ASCORBIC ACID 500 MG TABLET PO SCH (09:36)
--- NOTE | 2018-02-04 09:50 | XCELERA REPORT ---
[address] [address] Transthoracic Echocardiogram Report Name: DONALD WESTON Age: 77 yrs Gender: Male : 1940 Patient Status: Inpatient Patient Location: [address] [place] [address] Study Date: 02/03/2018 07:52 PM Height: 68 in Weight: 209 lb BSA: 2.1 m2 Procedure: A complete two-dimensional transthoracic echocardiogram was performed (2D, M-mode, spectral and color flow Doppler). The study was technically adequate with some images being suboptimal in quality. Reason For Study: chf Ordering Physician: AMERICA CORREA Performed By: Shanae Grossman Interpretation Summary The Ejection Fraction estimate is 50-55% Left ventricular systolic function is borderline reduced. There is mild concentric left ventricular hypertrophy. The left ventricle is grossly normal size. LV diastolic function could not be adequately assessed. Wall motion cannot be accurately commented on, but no definite regional wall motion abnormalities noted. The right ventricle is mildly dilated. Right ventricular function cannot be assessed due to poor image quality. The left atrium is severely dilated. The right atrium is moderate to severely dilated. There is a mild to moderate amount of mitral regurgitation There is no mitral valve stenosis. There is mild aortic stenosis There is a trace to mild amount of aortic regurgitation There is a moderate amount of tricuspid regurgitation There is servere pulmonary hypertension by echo Best estimated RVSP is approximately approx 65-70 mm/Hg. The aortic root is not well visualized but is probably normal size. The inferior vena cava appeared dilated and decreased < 50% with respiration (RAP 15-20 mmHg) There is no pericardial effusion. MMode/2D Measurements & Calculations RVDd: 2.7 cm LVIDd: 5.5 cm FS: 29.2 % Ao root diam: 3.3 cm IVSd: 1.3 cm LVIDs: 3.9 cm EDV(Teich): 146.8 ml Ao root area: 8.4 cm2 LVPWd: 1.3 cm ESV(Teich): 65.3 ml LA dimension: 5.1 cm EF(Teich): 55.5 % LVOT diam: 2.0 cm LVOT area: 3.0 cm2 Doppler Measurements & Calculations MV E max joshua: MV P1/2t max joshua: Ao V2 max: AI max joshua: 133.8 cm/sec 152.0 cm/sec 251.1 cm/sec 187.9 cm/sec MV P1/2t: 71.8 msec Ao max PG: AI max PG: MVA(P1/2t): 3.1 cm2 25.2 mmHg 14.1 mmHg MV dec slope: Ao V2 mean: AI dec slope: 167.5 cm/sec 119.7 cm/sec2 620.2 cm/sec2 Ao mean PG: AI P1/2t: MV dec time: 0.21 sec13.2 mmHg 459.6 msec Ao V2 VTI: 54.8 cm CRISTINA(I,D): 1.1 cm2 CRISTINA(V,D): 1.2 cm2 LV V1 max PG: SV(LVOT): 58.9 ml PA V2 max: TR max joshua: 4.2 mmHg 105.9 cm/sec 361.1 cm/sec LV V1 mean PG: PA max PG: TR max P.9 mmHg 4.5 mmHg 52.1 mmHg LV V1 max: 102.0 cm/sec LV V1 mean: 63.4 cm/sec LV V1 VTI: 19.4 cm AV P1/2t-pr_phl: MV P1/2t-pr_phl: 459.6 msec 71.8 msec Left Ventricle The left ventricle is grossly normal size. There is mild concentric left ventricular hypertrophy. Left ventricular systolic function is borderline reduced. The Ejection Fraction estimate is 50-55%. LV diastolic function could not be adequately assessed. Wall motion cannot be accurately commented on, but no definite regional wall motion abnormalities noted. Right Ventricle The right ventricle is mildly dilated. Right ventricular function cannot be assessed due to poor image quality. Atria The right atrium is moderate to severely dilated. The left atrium is severely dilated. Mitral Valve There is mild mitral leaflet calcification. There is mild mitral annular calcification. There is no mitral valve stenosis. There is a mild to moderate amount of mitral regurgitation. Aortic Valve The aortic valve is mildly calcified. There is mild aortic stenosis. There is a trace to mild amount of aortic regurgitation. Tricuspid Valve The tricuspid valve is not well visualized, but is grossly normal. There is no tricuspid stenosis. There is a moderate amount of tricuspid regurgitation. There is servere pulmonary hypertension by echo. Best estimated RVSP is approximately approx 65-70 mm/Hg. Pulmonic Valve The pulmonic valve is not well visualized. Great Vessels The aortic root is not well visualized but is probably normal size. The inferior vena cava appeared dilated and decreased < 50% with respiration (RAP 15-20 mmHg). Effusions There is no pericardial effusion. : AMERICA CORREA > Silvia Reeves
[2018-02-04] MEDS ORDERED: GLUCAGON,HUMAN RECOMB 1 MG INJ IM PRN (13:17)
[2018-02-04] MEDS ORDERED: DEXTROSE 50%-WATER SYRINGE 25 GM/50 ML DOSE IV PRN (13:17)
[2018-02-04] MEDS ORDERED: DEXTROSE 50%-WATER SYRINGE 12.5 GM/25 ML DOSE IV PRN (13:17)
[2018-02-04] MEDS ORDERED: DEXTROSE 40% GEL 15 GM TUBE X 2 PO PRN (13:17)
[2018-02-04] MEDS ORDERED: DEXTROSE 40% GEL 15 GM TUBE PO PRN (13:17)
--- NOTE | 2018-02-04 13:23 | PDOC PROGRESS REPORT ---
Subjective Progress Note for:: 02/04/18 Subjective:: Patient seen by the bedside, he feels much better this morning, compared to yesterday, no longer requiring noninvasive positive pressure ventilation BiPAP, the INR is supratherapeutic Reason For Visit: PNEUMONIA, CHF Physical Exam Vital Signs: Temp Pulse Resp BP Pulse Ox 97.6 F 68 27 H 105/58 L 99 02/04/18 11:10 02/04/18 11:10 02/04/18 12:03 02/04/18 11:10 02/04/18 12:03 Intake & Output 02/03/18 02/04/18 02/05/18 06:59 06:59 06:59 Intake Total 500 150 Output Total 375 Balance 125 150 Weight 94.3 kg General appearance: PRESENT: no acute distress Head exam: PRESENT: atraumatic, normocephalic Eye exam: PRESENT: PERRLA Neck exam: PRESENT: full ROM Respiratory exam: PRESENT: clear to auscultation nelda Cardiovascular exam: PRESENT: RRR, +S1, +S2 Pulses: PRESENT: normal dorsalis pedis pul, +2 pedal pulses bilateral Vascular exam: PRESENT: normal capillary refill GI/Abdominal exam: PRESENT: normal bowel sounds, soft Rectal exam: PRESENT: deferred Neurological exam: PRESENT: alert, awake, oriented to person, oriented to place , oriented to time, oriented to situation, CN II-XII grossly intact Psychiatric exam: PRESENT: appropriate affect, normal mood Skin exam: PRESENT: dry, intact, warm. ABSENT: cyanosis, rash Results Laboratory Results: 02/04/18 05:43 02/04/18 05:43 02/03/18 02/03/18 02/03/18 18:30 19:33 21:45 WBC RBC Hgb Hct MCV MCH MCHC RDW Plt Count Carbonic Acid 0.97 L HCO3/H2CO3 Ratio 21:1 ABG pH 7.42 ABG pCO2 32.1 L ABG pO2 57.8 L ABG HCO3 20.5 ABG O2 Saturation 91.0 L ABG Base Excess -3.1 FiO2 40% Sodium Potassium Chloride Carbon Dioxide Anion Gap BUN Creatinine Est GFR ( Amer) Est GFR (Non-Af Amer) Glucose Lactic Acid 1.9 Calcium Total Bilirubin AST ALT Alkaline Phosphatase Total Protein Albumin Urine Color YELLOW Urine Appearance TURBID Urine pH 5.0 Ur Specific [place] 1.014 Urine Protein 100 H Urine Glucose (UA) NEGATIVE Urine Ketones NEGATIVE Urine Blood NEGATIVE Urine Nitrite NEGATIVE Ur Leukocyte Esterase LARGE H Urine WBC (Auto) >182 Urine RBC (Auto) 23 02/04/18 02/04/18 05:43 05:43 WBC 5.1 RBC 3.24 L Hgb 10.1 L Hct 30.3 L MCV 94 MCH 31.2 MCHC 33.3 RDW 17.3 H Plt Count 230 Carbonic Acid HCO3/H2CO3 Ratio ABG pH ABG pCO2 ABG pO2 ABG HCO3 ABG O2 Saturation ABG Base Excess FiO2 Sodium 143.0 Potassium 4.8 Chloride 108 H Carbon Dioxide 21 L Anion Gap 14 BUN 30 H Creatinine 1.51 H Est GFR ( Amer) 54 L Est GFR (Non-Af Amer) 45 L Glucose 164 H Lactic Acid Calcium 9.2 Total Bilirubin 0.6 AST 17 ALT 18 L Alkaline Phosphatase 94 Total Protein 6.3 Albumin 3.3 L Urine Color Urine Appearance Urine pH Ur Specific [place] Urine Protein Urine Glucose (UA) Urine Ketones Urine Blood Urine Nitrite Ur Leukocyte Esterase Urine WBC (Auto) Urine RBC (Auto) 02/03/18 21:45 Sputum Nocardia Susceptibility - Final Not Reportable 02/03/18 21:45 Sputum Nocardia Susceptibility - Final Not Reportable 02/03/18 21:45 Sputum Nocardia Susceptibility - Final Not Reportable 02/03/18 21:45 Sputum Nocardia Susceptibility - Final Not Reportable 02/03/18 21:45 Sputum Nocardia Susceptibility - Final Not Reportable 02/03/18 21:45 Sputum Nocardia Susceptibility - Final Not Reportable 02/03/18 21:45 Sputum Nocardia Susceptibility - Final Not Reportable 02/03/18 21:45 Sputum Microbiology Comment - Final Not Reportable 02/03/18 02/03/18 02/03/18 15:27 19:45 19:45 Creatine Kinase 46 L CK-MB (CK-2) 1.97 Troponin I < 0.012 < 0.012 NT-Pro-B Natriuret Pep 02/04/18 05:43 Creatine Kinase CK-MB (CK-2) Troponin I NT-Pro-B Natriuret Pep 4560 H Impressions: Chest X-Ray 02/03/18 09:30 IMPRESSION: 1. There is an ill-defined, rounded opacity in the right mid lung with a small associated pleural effusion, findings concerning for infection. Underlying mass cannot be excluded; consider CT to further evaluate or at minimum radiographic follow-up in 6-8 weeks to ensure complete resolution. 2. Cardiomegaly. Chest CT 02/03/18 11:03 IMPRESSION: Interstitial pulmonary edema with small right and trace left pleural effusions. Dependent airspace disease in both lungs likely atelectasis. 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 Mediastinal adenopathy Assessment & Plan - Diagnosis (1) Acute hypoxemic respiratory failure Is this a current diagnosis for this admission?: Yes (2) Acute on chronic diastolic heart failure Is this a current diagnosis for this admission?: Yes (3) Pneumonia Qualifiers: Pneumonia type: due to unspecified organism Laterality: right Lung location: upper lobe of lung Qualified Code(s): J18.1 - Lobar pneumonia, unspecified organism Is this a current diagnosis for this admission?: Yes (4) Pulmonary hypertension Is this a current diagnosis for this admission?: Yes (5) Chronic atrial fibrillation Is this a current diagnosis for this admission?: Yes (6) COPD (chronic obstructive pulmonary disease) Qualifiers: COPD type: COPD with acute lower respiratory infection Qualified Code(s): J44.0 - Chronic obstructive pulmonary disease with acute lower respiratory infection Is this a current diagnosis for this admission?: Yes - Plan Summary Plan Summary: Continue IV antibiotic and other treatment
[2018-02-04] MEDS ORDERED: TRAMADOL HCL 50 MG TABLET PO PRN (14:22)
[2018-02-04 14:56] LABS: APPEARANCE,URINE TURBID; BILIRUBIN,URINE NEGATIVE (NEGATIVE); COLOR,URINE YELLOW; GLUCOSE, URINE NEGATIVE (NEGATIVE); KETONES,URINE NEGATIVE (NEGATIVE); LEUKOCYTE ESTERASE,URINE LARGE (NEGATIVE); NITRITE,URINE NEGATIVE (NEGATIVE); PROTEIN,URINE 30 mg/dL (NEGATIVE); URINE SPECIFIC GRAVITY 1.016; UROBILINOGEN,URINE NEGATIVE mg/dL (<2.0)
[2018-02-04] MEDS: CEFEPIME 2 GM/D5W RTU 2 GM/50 ML RTUPB IV SCH (21:59)
[2018-02-04] MEDS ORDERED: WARFARIN SODIUM 2.5 MG TABLET PO SCH (22:00)
[2018-02-05 06:37] LABS: ABSOLUTE LYMPHOCYTES (AUTO) 1.3 10^3/uL (0.5-4.7); ABSOLUTE MONOCYTES (AUTO) 0.8 10^3/uL (0.1-1.4); ABSOLUTE NEUT (AUTO) 7.3 10^3/uL (1.7-8.2); BASOPHILS % (AUTO) 0.3 % (0-2); HEMATOCRIT 29.8 % (37.9-51.0); HEMOGLOBIN 9.8 g/dL (13.5-17.0); LYMPHOCYTES % (AUTO) 13.5 % (13-45); MEAN CORPUSCULAR HEMOGLOBIN 30.9 pg (27.0-33.4); MEAN CORPUSCULAR HGB CONC 32.7 g/dL (32.0-36.0); MEAN CORPUSCULAR VOLUME 95 fl (80-97); MONOCYTES % (AUTO) 8.9 % (3-13); PLATELET COUNT 237 10^3/uL (150-450); RED BLOOD COUNT 3.15 10^6/uL (4.35-5.55); RED CELL DISTRIBUTION WIDTH 17.2 % (11.5-14.0); SEGMENTED NEUTROPHILS % (AUTO) 77.3 % (42-78); TOTAL CELLS COUNTED % (AUTO) 100 %; WHITE BLOOD COUNT 9.5 10^3/uL (4.0-10.5)
[2018-02-05 07:07] LABS: ALANINE AMINOTRANSFERASE 27 U/L (21-72); ALBUMIN 3.2 g/dL (3.5-5.0); ALKALINE PHOSPHATASE 82 U/L (38-126); ANION GAP 9 (5-19); ASPARTATE AMINO TRANSFERASE 26 U/L (17-59); BILIRUBIN,DIRECT 0.6 mg/dL (0.0-0.4); BILIRUBIN,TOTAL 0.7 mg/dL (0.2-1.3); BLOOD UREA NITROGEN 46 mg/dL (7-20); CALCIUM 9.1 mg/dL (8.4-10.2); CARBON DIOXIDE 23 mmol/L (22-30); CHLORIDE 108 mmol/L (98-107); GLUCOSE 143 mg/dL (75-110); SODIUM 140.2 mmol/L (137-145); TOTAL PROTEIN 6.1 g/dL (6.3-8.2)
[2018-02-05 08:38] LABS: INTERNATIONAL RATION (INR) 5.88; PROTHROMBIN TIME 55.2 SEC (11.4-15.4)
[2018-02-05] MEDS: FUROSEMIDE 20 MG TABLET PO SCH (08:54)
[2018-02-05] MEDS: FLUTICASONE/SALMETEROL DISKUS 500-50 MCG/DOSE IH SCH ×2 (09:39→22:19)
[2018-02-05] MEDS: POTASSIUM CHLORIDE 10 MEQ CAPSULE.ER PO SCH (09:40)
[2018-02-05] MEDS: DOCUSATE SODIUM 100 MG CAPSULE PO SCH (09:40)
[2018-02-05] MEDS: TAMSULOSIN HCL 0.4 MG CAP.SR.24H PO SCH (09:41)
[2018-02-05] MEDS: FINASTERIDE 5 MG TABLET PO SCH (09:41)
[2018-02-05] MEDS: FAMOTIDINE 20 MG TABLET PO SCH ×2 (09:41→17:04)
[2018-02-05] MEDS: METFORMIN HCL 500 MG TABLET PO SCH ×2 (09:41→17:04)
[2018-02-05] MEDS: ASPIRIN 81 MG TABLET, ENT COATED PO SCH (09:42)
[2018-02-05] MEDS: FOLIC ACID 1 MG TABLET PO SCH (09:42)
[2018-02-05] MEDS: ASCORBIC ACID 500 MG TABLET PO SCH (09:42)
[2018-02-05] MEDS: ALLOPURINOL 300 MG TABLET PO SCH (09:42)
[2018-02-05] MEDS: ATORVASTATIN CALCIUM 40 MG TABLET PO SCH (09:42)
[2018-02-05] MEDS: FERROUS SULFATE 325 MG TABLET PO SCH (09:43)
[2018-02-05] MEDS: OMEGA-3 ACID ETHYL ESTERS 1 GM CAPSULE PO SCH (09:43)
[2018-02-05] MEDS: LISINOPRIL 5 MG TABLET PO SCH (09:44)
[2018-02-05] MEDS: AMLODIPINE BESYLATE 10 MG TABLET PO SCH (09:44)
[2018-02-05] MEDS: CHOLECALCIFEROL (D3) 1,000 UNIT TABLET PO SCH (09:44)
[2018-02-05] MEDS: ATENOLOL 50 MG TABLET PO SCH (09:45)
[2018-02-05] MEDS: CYANOCOBALAMIN (VITAMIN B-12) 1,000 MCG TABLET PO SCH (09:45)
--- NOTE | 2018-02-05 12:48 | PDOC PROGRESS REPORT ---
Subjective Progress Note for:: 02/05/18 Subjective:: Patient seen by the bedside, sputum culture grew cocci in clusters, INR supratherapeutic. Reason For Visit: PNEUMONIA, CHF Physical Exam Vital Signs: Temp Pulse Resp BP Pulse Ox 97.7 F 77 20 104/91 H 92 02/05/18 11:45 02/05/18 11:45 02/05/18 11:45 02/05/18 11:45 02/05/18 11:45 Intake & Output 02/04/18 02/05/18 02/06/18 06:59 06:59 06:59 Intake Total 500 1351 Output Total 375 625 Balance 125 726 Weight 94.3 kg 94.9 kg General appearance: PRESENT: no acute distress Eye exam: PRESENT: PERRLA Respiratory exam: PRESENT: clear to auscultation nelda Cardiovascular exam: PRESENT: +S1, +S2 GI/Abdominal exam: PRESENT: soft Neurological exam: PRESENT: alert Results Laboratory Results: 02/05/18 05:56 02/05/18 05:56 02/04/18 02/05/18 02/05/18 14:20 04:04 05:56 WBC 9.5 RBC 3.15 L Hgb 9.8 L Hct 29.8 L MCV 95 MCH 30.9 MCHC 32.7 RDW 17.2 H Plt Count 237 Seg Neutrophils % 77.3 Lymphocytes % 13.5 Monocytes % 8.9 Eosinophils % 0.0 Basophils % 0.3 Absolute Neutrophils 7.3 Absolute Lymphocytes 1.3 Absolute Monocytes 0.8 Absolute Eosinophils 0.0 Absolute Basophils 0.0 Sodium Potassium Chloride Carbon Dioxide Anion Gap BUN Creatinine Est GFR ( Amer) Est GFR (Non-Af Amer) Glucose Calcium Total Bilirubin AST ALT Alkaline Phosphatase Total Protein Albumin Urine Color YELLOW Urine Appearance TURBID Urine pH 5.0 Ur Specific [place] 1.016 Urine Protein 30 H Urine Glucose (UA) NEGATIVE Urine Ketones NEGATIVE Urine Blood NEGATIVE Urine Nitrite NEGATIVE Ur Leukocyte Esterase LARGE H Urine WBC (Auto) >182 Urine RBC (Auto) 30 Stool Occult Blood NEGATIVE 02/05/18 05:56 WBC RBC Hgb Hct MCV MCH MCHC RDW Plt Count Seg Neutrophils % Lymphocytes % Monocytes % Eosinophils % Basophils % Absolute Neutrophils Absolute Lymphocytes Absolute Monocytes Absolute Eosinophils Absolute Basophils Sodium 140.2 Potassium 5.0 Chloride 108 H Carbon Dioxide 23 Anion Gap 9 BUN 46 H Creatinine 1.66 H Est GFR ( Amer) 49 L Est GFR (Non-Af Amer) 40 L Glucose 143 H Calcium 9.1 Total Bilirubin 0.7 AST 26 ALT 27 Alkaline Phosphatase 82 Total Protein 6.1 L Albumin 3.2 L Urine Color Urine Appearance Urine pH Ur Specific [place] Urine Protein Urine Glucose (UA) Urine Ketones Urine Blood Urine Nitrite Ur Leukocyte Esterase Urine WBC (Auto) Urine RBC (Auto) Stool Occult Blood 02/03/18 02/03/18 02/03/18 15:27 19:45 19:45 Creatine Kinase 46 L CK-MB (CK-2) 1.97 Troponin I < 0.012 < 0.012 NT-Pro-B Natriuret Pep 02/04/18 05:43 Creatine Kinase CK-MB (CK-2) Troponin I NT-Pro-B Natriuret Pep 4560 H Impressions: Chest X-Ray 02/03/18 09:30 IMPRESSION: 1. There is an ill-defined, rounded opacity in the right mid lung with a small associated pleural effusion, findings concerning for infection. Underlying mass cannot be excluded; consider CT to further evaluate or at minimum radiographic follow-up in 6-8 weeks to ensure complete resolution. 2. Cardiomegaly. Chest CT 02/03/18 11:03 IMPRESSION: Interstitial pulmonary edema with small right and trace left pleural effusions. Dependent airspace disease in both lungs likely atelectasis. 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 Mediastinal adenopathy Assessment & Plan - Diagnosis (1) Acute hypoxemic respiratory failure Is this a current diagnosis for this admission?: Yes (2) Acute on chronic diastolic heart failure Is this a current diagnosis for this admission?: Yes (3) Pneumonia Qualifiers: Pneumonia type: due to unspecified organism Laterality: right Lung location: upper lobe of lung Qualified Code(s): J18.1 - Lobar pneumonia, unspecified organism Is this a current diagnosis for this admission?: Yes Plan: Continue present IV antibiotic coverage (4) Pulmonary hypertension Is this a current diagnosis for this admission?: Yes (5) Chronic atrial fibrillation Is this a current diagnosis for this admission?: Yes (6) COPD (chronic obstructive pulmonary disease) Qualifiers: COPD type: COPD with acute lower respiratory infection Qualified Code(s): J44.0 - Chronic obstructive pulmonary disease with acute lower respiratory infection Is this a current diagnosis for this admission?: Yes
[2018-02-05 15:54] LABS: FREE T3 2.75 pg/mL (2.77-5.27); FREE T4 (FREE THYROXINE) 1.1 ng/dL (0.78-2.19)
[2018-02-05 16:08] LABS: THYROID STIMULATING HORMONE 2.04 uIU/mL (0.47-4.68)
[2018-02-05] MEDS: CEFEPIME 2 GM/D5W RTU 2 GM/50 ML RTUPB IV SCH (22:19)
[2018-02-06 04:57] LABS: ABSOLUTE BASOPHILS # (AUTO) 0.1 10^3/uL (0.0-0.2); ABSOLUTE EOSINOPHILS # (AUTO) 0.2 10^3/uL (0.0-0.6); ABSOLUTE LYMPHOCYTES (AUTO) 1.5 10^3/uL (0.5-4.7); ABSOLUTE MONOCYTES (AUTO) 0.8 10^3/uL (0.1-1.4); ABSOLUTE NEUT (AUTO) 5.8 10^3/uL (1.7-8.2); BASOPHILS % (AUTO) 0.9 % (0-2); EOSINOPHILS % (AUTO) 2.4 % (0-6); HEMATOCRIT 29.8 % (37.9-51.0); HEMOGLOBIN 9.9 g/dL (13.5-17.0); LYMPHOCYTES % (AUTO) 17.4 % (13-45); MEAN CORPUSCULAR HEMOGLOBIN 31.4 pg (27.0-33.4); MEAN CORPUSCULAR HGB CONC 33.2 g/dL (32.0-36.0); MEAN CORPUSCULAR VOLUME 95 fl (80-97); MONOCYTES % (AUTO) 9.8 % (3-13); PLATELET COUNT 200 10^3/uL (150-450); RED BLOOD COUNT 3.15 10^6/uL (4.35-5.55); RED CELL DISTRIBUTION WIDTH 17.3 % (11.5-14.0); SEGMENTED NEUTROPHILS % (AUTO) 69.5 % (42-78); TOTAL CELLS COUNTED % (AUTO) 100 %; WHITE BLOOD COUNT 8.4 10^3/uL (4.0-10.5)
[2018-02-06 05:03] LABS: INTERNATIONAL RATION (INR) 4.65
[2018-02-06 05:18] LABS: ALANINE AMINOTRANSFERASE 26 U/L (21-72); ALKALINE PHOSPHATASE 77 U/L (38-126); ANION GAP 8 (5-19); ASPARTATE AMINO TRANSFERASE 25 U/L (17-59); BILIRUBIN,DIRECT 0.3 mg/dL (0.0-0.4); BILIRUBIN,TOTAL 0.5 mg/dL (0.2-1.3); BLOOD UREA NITROGEN 50 mg/dL (7-20); CARBON DIOXIDE 22 mmol/L (22-30); CHLORIDE 110 mmol/L (98-107); GLUCOSE 129 mg/dL (75-110); POTASSIUM 5.1 mmol/L (3.6-5.0); SODIUM 140.4 mmol/L (137-145); TOTAL PROTEIN 5.9 g/dL (6.3-8.2)
[2018-02-06] MEDS: FUROSEMIDE 20 MG TABLET PO SCH (08:20)
[2018-02-06] MEDS: ATORVASTATIN CALCIUM 40 MG TABLET PO SCH (10:44)
[2018-02-06] MEDS: OMEGA-3 ACID ETHYL ESTERS 1 GM CAPSULE PO SCH (10:44)
[2018-02-06] MEDS: LEVOFLOXACIN 750 MG/D5W RTU 750 MG/150 ML RTUPB IV SCH (10:44)
[2018-02-06] MEDS: ALLOPURINOL 300 MG TABLET PO SCH (10:45)
[2018-02-06] MEDS: FERROUS SULFATE 325 MG TABLET PO SCH (10:45)
[2018-02-06] MEDS: CHOLECALCIFEROL (D3) 1,000 UNIT TABLET PO SCH (10:45)
[2018-02-06] MEDS: ASPIRIN 81 MG TABLET, ENT COATED PO SCH (10:45)
[2018-02-06] MEDS: FAMOTIDINE 20 MG TABLET PO SCH ×2 (10:45→17:04)
[2018-02-06] MEDS: CYANOCOBALAMIN (VITAMIN B-12) 1,000 MCG TABLET PO SCH (10:45)
[2018-02-06] MEDS: AMLODIPINE BESYLATE 10 MG TABLET PO SCH (10:45)
[2018-02-06] MEDS: FINASTERIDE 5 MG TABLET PO SCH (10:46)
[2018-02-06] MEDS: DOCUSATE SODIUM 100 MG CAPSULE PO SCH (10:46)
[2018-02-06] MEDS: TAMSULOSIN HCL 0.4 MG CAP.SR.24H PO SCH (10:46)
[2018-02-06] MEDS: METFORMIN HCL 500 MG TABLET PO SCH ×2 (10:46→17:04)
[2018-02-06] MEDS: ASCORBIC ACID 500 MG TABLET PO SCH (10:46)
[2018-02-06] MEDS: FOLIC ACID 1 MG TABLET PO SCH (10:46)
[2018-02-06] MEDS: LISINOPRIL 5 MG TABLET PO SCH (10:47)
[2018-02-06] MEDS: FLUTICASONE/SALMETEROL DISKUS 500-50 MCG/DOSE IH SCH ×2 (10:52→21:34)
[2018-02-06] MEDS: INSULIN REG, HUMAN 100 UNIT/ML 3 ML VIAL (PYX) SUBCUT PRN (12:42)
--- NOTE | 2018-02-06 20:31 | PDOC PROGRESS REPORT ---
Subjective Progress Note for:: 02/06/18 Subjective:: Patient reported comparative improvement in his breathing. he denied chest pain. No fever or chills. No nausea, vomiting or abdominal pain. Reason For Visit: PNEUMONIA, CHF Physical Exam Vital Signs: Temp Pulse Resp BP Pulse Ox 97.6 F 72 19 124/58 L 86 L 02/06/18 16:27 02/06/18 16:27 02/06/18 16:27 02/06/18 16:27 02/06/18 16:27 Intake & Output 02/05/18 02/06/18 02/07/18 06:59 06:59 06:59 Intake Total 1351 1238 1044 Output Total 625 1150 500 Balance 726 88 544 Weight 94.9 kg 97.1 kg General appearance: PRESENT: mild distress - remain on supplemental oxygen via nasal cannula and BiPAP while sleeping., obese Head exam: PRESENT: atraumatic, normocephalic Eye exam: PRESENT: conjunctiva pink, EOMI, PERRLA. ABSENT: scleral icterus Ear exam: PRESENT: normal external ear exam Mouth exam: PRESENT: moist Respiratory exam: PRESENT: clear to auscultation nelda, decreased breath sounds Cardiovascular exam: PRESENT: RRR. ABSENT: diastolic murmur, rubs, systolic murmur Vascular exam: PRESENT: normal capillary refill. ABSENT: pallor GI/Abdominal exam: PRESENT: normal bowel sounds, soft. ABSENT: distended, guarding, mass, organolmegaly, rebound, tenderness Rectal exam: PRESENT: deferred Extremities exam: ABSENT: pedal edema Musculoskeletal exam: PRESENT: deformity - related to multiple joints involvement with arthritis Neurological exam: PRESENT: alert, awake, oriented to person, oriented to place , oriented to time, oriented to situation, CN II-XII grossly intact. ABSENT: motor sensory deficit Psychiatric exam: PRESENT: appropriate affect, normal mood. ABSENT: homicidal ideation, suicidal ideation Skin exam: PRESENT: dry, intact, warm. ABSENT: cyanosis, rash Results Laboratory Results: 02/06/18 04:21 02/06/18 04:21 02/06/18 02/06/18 04:21 04:21 WBC 8.4 RBC 3.15 L Hgb 9.9 L Hct 29.8 L MCV 95 MCH 31.4 MCHC 33.2 RDW 17.3 H Plt Count 200 Seg Neutrophils % 69.5 Lymphocytes % 17.4 Monocytes % 9.8 Eosinophils % 2.4 Basophils % 0.9 Absolute Neutrophils 5.8 Absolute Lymphocytes 1.5 Absolute Monocytes 0.8 Absolute Eosinophils 0.2 Absolute Basophils 0.1 Sodium 140.4 Potassium 5.1 H Chloride 110 H Carbon Dioxide 22 Anion Gap 8 BUN 50 H Creatinine 1.30 H Est GFR ( Amer) > 60 Est GFR (Non-Af Amer) 53 L Glucose 129 H Calcium 9.0 Total Bilirubin 0.5 AST 25 ALT 26 Alkaline Phosphatase 77 Total Protein 5.9 L Albumin 3.0 L 02/03/18 21:45 Sputum Gram Stain - Final 02/03/18 21:45 Sputum Sputum Culture - Final NORMAL GURU 02/03/18 02/03/18 02/03/18 15:27 19:45 19:45 Creatine Kinase 46 L CK-MB (CK-2) 1.97 Troponin I < 0.012 < 0.012 NT-Pro-B Natriuret Pep 02/04/18 05:43 Creatine Kinase CK-MB (CK-2) Troponin I NT-Pro-B Natriuret Pep 4560 H Impressions: Chest X-Ray 02/03/18 09:30 IMPRESSION: 1. There is an ill-defined, rounded opacity in the right mid lung with a small associated pleural effusion, findings concerning for infection. Underlying mass cannot be excluded; consider CT to further evaluate or at minimum radiographic follow-up in 6-8 weeks to ensure complete resolution. 2. Cardiomegaly. Chest CT 02/03/18 11:03 IMPRESSION: Interstitial pulmonary edema with small right and trace left pleural effusions. Dependent airspace disease in both lungs likely atelectasis. 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 (2) Lobar pneumonia, unspecified organism Is this a current diagnosis for this admission?: Yes Plan: Continue IV Levofloxacin and Cefepime coverage. Follow up on culture reports. (3) COPD (chronic obstructive pulmonary disease) Qualifiers: COPD type: COPD with acute lower respiratory infection Qualified Code(s): J44.0 - Chronic obstructive pulmonary disease with acute lower respiratory infection Is this a current diagnosis for this admission?: Yes Plan: Maintain on current bronchodilators therapy. Encouraged use of supplemental oxygen and BiPAP as arranged. (4) Chronic atrial fibrillation Is this a current diagnosis for this admission?: Yes Plan: Continue to hold Coumadin for INR > 3.2 to reduce risk of bleeding. (5) Diabetes mellitus type 2 in obese Is this a current diagnosis for this admission?: Yes Plan: Continue current medication and dietary restrictions management. (6) BPH loc w urin obs/LUTS Is this a current diagnosis for this admission?: Yes Plan: Maintain on pre-admission medication management. (7) HTN (hypertension) Qualifiers: Hypertension type: essential hypertension Qualified Code(s): I10 - Essential (primary) hypertension Is this a current diagnosis for this admission?: Yes Plan: Continue current anti HTN medication management. (8) HLD (hyperlipidemia) Qualifiers: Hyperlipidemia type: unspecified Qualified Code(s): E78.5 - Hyperlipidemia , unspecified Is this a current diagnosis for this admission?: Yes Plan: Maintain on pre-admission medication management. - Time Time Spent with patient: 25-34 minutes Medications reviewed and adjusted accordingly: Yes Anticipated discharge: Home with Homehealth Within: Other - Inpatient Certification Based on my medical assessment, after consideration of the patient's comorbidities, presenting symptoms, or acuity I expect that the services needed warrant INPATIENT care.: Yes I certify that my determination is in accordance with my understanding of Medicare's requirements for reasonable and necessary INPATIENT services [42 CFR 412.3e].: Yes Medical Necessity: Need Close Monitoring Due to Risk of Patient Decompensation, Need For IV Fluids, Need For Continuous Telemetry Monitoring, Need for Nebulizer Therapy and Monitoring of Response, Need for IV Antibiotics, Risk of Complication if Not Cared For in Hospital Post Hospital Care: D/C [employer] Documentation - Plan Summary Plan Summary: Continue IV Levofloxacin and Cefepime coverage. Follow up on culture reports. Maintain on IV Furosemide and anti HTN medication management. Continue accuchek achs with Humalog insulin sliding scale coverage. Obtain BMP, CBC with diff and NT-Pro BNP in am.
--- NOTE | 2018-02-06 21:10 | PDOC CONSULTATION ---
Consultation-Blank Consultation: CARDIOLOGY CONSULTATION by Dr. Sierra Yu, on 02/06/2018. Patient seen at 12:30 PM on 02/06/2018 REASON FOR CONSULTATION. Patient with a history of chronic atrial fibrillation with bradycardia, and patient with a history of coronary artery disease and coronary bypass graft surgery, old myocardial infarction with congestive heart failure. HISTORY OF PRESENT ILLNESS: Patient is a 77-year-old male with known history of oxygen dependent severe COPD, on 2 L of nasal cannula home oxygen, hypertension, diabetes mellitus, probably chronic chronic kidney disease, history of coronary artery disease, old myocardial infarction, and history of coronary bypass graft surgery, history of peripheral vascular disease, and probably chronic kidney disease admitted with a few days of increasing shortness of breath with cough and sputum production. The sputum was dark brown in color. The patient denies any chest pain or discomfort. The patient when he came in was on atenolol 12.5 mg p.o. daily, and his potassium was also elevated. Also of note is lactic acid was mildly elevated,, which later normalized. His GFR improved from 40-53 mL/min today. I had asked the nurse to stop the patient's atenolol, and since then the patient's heart rate has been in the 70s. He denies any chest pain or discomfort. He is not sure if he had a fever. He denies any leg edema or PND or orthopnea. He denies any rapid beating of the heart although in the emergency room his heart rate was 121. Later that night his heart rate was in the 30s, but with a stable blood pressure , with the patient being asymptomatic. This is resolved with the patient's atenolol being stopped. Also as per the wishes of the patient I discussed with the patient's daughter, and she states that the patient's has been seen to stop breathing in his sleep, and as that snoring when he sleeps. He has not had a sleep study. PAST MEDICAL HISTORY: The patient has history of coronary artery disease, history of myocardial infarction history of coronary bypass graft surgery, the details of which is not note. He had his coronary bypass graft surgery in [place]. Records elevated. He has had no recent anginal symptoms. It seems that he has not had a stress test in a few years. He has a history of hypertension. He also has a history of chronic atrial fibrillation and is on chronic anticoagulation with Coumadin. He states in July he had symptoms which led to the diagnosis of TIA, and this has not recurred. He has a history of diabetes mellitus. He has no history of thyroid disease. He has history of severe COPD and is on 2 L nasal cannula home oxygen. Recent symptoms of cough and sputum production suggestive of pneumonia. The chest x-ray also is consistent with a with mild heart associated heart failure, with a echo showing LV ejection fraction which is borderline reduced at 50-50%. He also has severe pulmonary hypertension by his echocardiogram. He also has mild aortic stenosis. He has mild to moderate mitral regurgitation, and moderate tricuspid regurgitation. He has symptoms suggestive of sleep apnea, but has not had a sleep study. He also has a history of peripheral vascular disease, and states that he had 2 abdominal aortic aneurysms that were repaired in the past. The patient is not very active and hence is no definite claudication. He does seem to have chronic renal failure, but the patient is not aware of this. PAST SURGICAL HISTORY: He has a history of coronary artery bypass graft surgery , history of 2 surgeries abdominal aortic aneurysm. He has had a appendectomy he also has a history of tonsillectomy. FAMILY HISTORY is positive for coronary artery disease, and hypertension, SOCIAL HISTORY: The patient quit smoking 10 years ago. There is no EtOH abuse. No history of chronic pain medication, or street drug abuse. ALLERGIES: No known allergies. DISPOSITION: The patient now is a full code. His daughter has decided get healthcare decision maker. REVIEW OF SYMPTOMS: CONSTITUTIONAL: He is not aware if he had fevers or not. He denies any chills. He did have night sweats. He has generalized fatigue and generalized weakness. HEAD: Denies headache or head injury. Eyes: No Diplopia or Amblyopia. No Amaurosis Fugax. EARS: No Vertigo. No Tinnitus. No Recurrent Ear Infections. NOSE: No History of Hayfever No History of Nosebleeds. MULTIPLE No Altered Taste Sensation. No Ulcers in the Mouth. No Bleeding from the Gums. THROAT: No Odynophagia or Dysphagia. No Recurrence of Clots. SKIN: No History of Skin Cancer or Psoriasis. No Pruritus. No Alert Discoloration of Skin. NECK: No History of Neck Pain. No History of Swelling in the Neck. No Goiter. LUNGS: History of COPD on Home Oxygen. Patient with Increasing Shortness of Breath and Cough Productive of Dark Brown Sputum. CT Scan Is Conducive with Right Upper Lobe Patchy Consolidation/Pneumonia. No History of Pulmonary Embolism. Symptoms of Sleep Apnea, but the Patient Has Not Had a Sleep Study. No Pleuritic Chest Pain. No Hemoptysis. CARDIAC: History of Coronary Artery Disease. Old NV. No Anginal Symptoms since Some Time. Rubio Artery Bypass Graft Surgery Present. Patient Seems to Have Mild Congestive Heart Failure. Cardiomyopathy with Borderline Reduced LV Ejection Fraction. He Has Mild Aortic Stenosis. Bradycardia. This Resolved with the Stopping of Atenolol. Most Likely the Patient Not Only Has a Synovial Disease but Also AV Vik Disease History of Hypertension. No Syncope. Patient Denies Palpitations. History of Chronic Atrial Fibrillation on Chronic Anticoagulation. The Patient's INR Is Supratherapeutic. GI: No History of Peptic Ulcer Disease. No History of GERD. No Fatty Food Intolerance. No History of GI Bleed. No History of Hepatitis. No History of Cirrhosis. No History of Altered Bowel Movements. ENDOCRINE History of Diabetes Mellitus Present. No History of Polydipsia Polyuria. No History of Heat or Cold Intolerance. No History of Thyroid Disorder. RENAL: The Patient Probably Has Chronic Kidney Disease but Does Not Know It.. No Symptoms of UTI. No History of Hematuria Pyuria or Dysuria. No Symptoms of Enlarged Prostate and Flomax. MUSCULOSKELETAL: Denies Arthritis or Collagen Vascular Disease. 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 No History of Headaches Migraines or CVA. No History of Seizures. PSYCHIATRIC. No History of Anxiety or Depression. No Suicidal Ideation. No Homicidal Ideation. VASCULAR: History of Peripheral Vascular Disease. History of Surgeries x2 for Abdominal Aortic Aneurysm. No Symptoms of Claudication, but the Patient Is Not Very Active. No History of DVT. Hematological: Patient Does Have Some Anemia Most Likely Secondary to His Chronic Kidney Disease. Note That the Patient Stool Occult Blood Is Negative.. No History of Bleeding Diathesis. No History of Clotting Disorders. METABOLIC: History of hyperlipidemia present patient on statin. History of gout patient on Zyloprim. History of obesity present. PHYSICAL EXAMINATION: The Patient Is Moderately Obese. He Is Mildly Short of Breath. There Is No Accessory Muscles of Respiration Use. He Is Well-Groomed. Selected Entries 02/06/18 02/06/18 12:08 12:12 Temperature 97.5 F Temperature Oral Source Pulse Rate 73 Blood Pressure 114/59 L Blood Pressure 77 Mean BP Location Left Arm BP Position Supine O2 Sat by Pulse 90 L Oximetry Fraction of 40 Inspired Oxygen (FIO2) Oxygen Flow 4.50 Rate Oxygen Delivery Nasal Cannula Method HEAD: Is atraumatic normocephalic. EYES: Pupils are equal round regular react to light and accommodation. EYES: Extraocular movements are normal. There is no clinical pallor. There is no scleral icterus. EARS: Tympanic membranes are intact. External auditory canals are clear. NOSE: There is no deviated nasal septum. There is no information of nasal mucous membrane. MOUTH: Mucous members of the mouth are moist. Tongue is moist. There is no ulcers in the mouth. There is no bleeding from the gums. THROAT: There is no redness of the oropharynx. There is no exudates. Skin: There is no petechia or ecchymosis. There is no skin rashes or skin lesions. NECK: Is supple. There is no JVD. Carotids are equal there is no bruits there is no lymphadenopathy. There is no goiter. There is no accessory muscles of respiration in use. Trachea central. LUNGS: Shows a few dry crackles in the right upper lobe there are scattered rhonchi. There is no wheezing. There is diminished air entry and prolonged expiration all over. There is hyperresonance on percussion. There is no chest wall tenderness on palpation. HEART: S1-S2 is heard there is no S3 gallop there is no spelled gallop. S1 is of variable intensity. There is murmur of tricuspid regurgitation and mitral regurgitation present. There is mild aortic stenosis murmur present. A 2 is preserved. There is no rub ABDOMEN: Soft obese. Nontender. There is no hepato-splenomegaly. Bowel sounds are well heard. Has no tender areas masses. There is no rebound guarding or rigidity. EXTREMITIES: Femorals are diminished femorals are deep there is no femoral bruits leg pulses are diminished. There is no pedal edema. There is no DVT or cellulitis. There is no calf tenderness. There is no cyanosis or clubbing. Capillary refill is normal. ASSISTANT INFANT TODDLER TEACHER: The patient is conscious awake alert oriented x3 with no focal deficits. PSYCHIATRIC: The patient's judgment and insight are intact. His affect is normal. 02/03/18 02/03/18 02/03/18 10:00 15:27 18:30 WBC Hgb Hct MCV MCH MCHC RDW Plt Count PT INR Carbonic Acid HCO3/H2CO3 Ratio ABG pH ABG pCO2 ABG pO2 ABG HCO3 ABG Total CO2 ABG O2 Saturation ABG Base Excess FiO2 Sodium Potassium Chloride Carbon Dioxide Anion Gap BUN Creatinine Est GFR (Non-Af Amer) Glucose Hemoglobin A1c % Lactic Acid 2.5 H 1.9 Calcium Total Bilirubin Direct Bilirubin Neonat Total Bilirubin Neonat Direct Bilirubin Neonat Indirect Bili AST ALT Alkaline Phosphatase Creatine Kinase CK-MB (CK-2) Troponin I < 0.012 NT-Pro-B Natriuret Pep Total Protein Albumin TSH Free T4 Free T3 pg/mL Stool Occult Blood AFB Smear 02/03/18 02/03/18 02/03/18 19:33 19:45 19:45 WBC Hgb Hct MCV MCH MCHC RDW Plt Count PT INR Carbonic Acid 0.97 L HCO3/H2CO3 Ratio 21:1 ABG pH 7.42 ABG pCO2 32.1 L ABG pO2 57.8 L ABG HCO3 20.5 ABG Total CO2 21.5 L ABG O2 Saturation 91.0 L ABG Base Excess -3.1 FiO2 40% Sodium Potassium Chloride Carbon Dioxide Anion Gap BUN Creatinine Est GFR (Non-Af Amer) Glucose Hemoglobin A1c % Lactic Acid Calcium Total Bilirubin Direct Bilirubin Neonat Total Bilirubin Neonat Direct Bilirubin Neonat Indirect Bili AST ALT Alkaline Phosphatase Creatine Kinase 46 L CK-MB (CK-2) 1.97 Troponin I < 0.012 NT-Pro-B Natriuret Pep Total Protein Albumin TSH Free T4 Free T3 pg/mL Stool Occult Blood AFB Smear 02/03/18 02/04/18 02/04/18 21:45 05:43 05:43 WBC Hgb Hct MCV MCH MCHC RDW Plt Count PT INR Carbonic Acid HCO3/H2CO3 Ratio ABG pH ABG pCO2 ABG pO2 ABG HCO3 ABG Total CO2 ABG O2 Saturation ABG Base Excess FiO2 Sodium Potassium Chloride Carbon Dioxide Anion Gap BUN Creatinine Est GFR (Non-Af Amer) Glucose Hemoglobin A1c % 6.3 H Lactic Acid Calcium Total Bilirubin Direct Bilirubin Neonat Total Bilirubin Neonat Direct Bilirubin Neonat Indirect Bili AST ALT Alkaline Phosphatase Creatine Kinase CK-MB (CK-2) Troponin I NT-Pro-B Natriuret Pep Total Protein 6.3 Albumin 3.3 L TSH Free T4 Free T3 pg/mL Stool Occult Blood AFB Smear NO ACID FAST BACILLI 02/04/18 02/04/18 02/05/18 05:43 10:22 04:04 WBC Hgb Hct MCV MCH MCHC RDW Plt Count PT INR Carbonic Acid HCO3/H2CO3 Ratio ABG pH ABG pCO2 ABG pO2 ABG HCO3 ABG Total CO2 ABG O2 Saturation ABG Base Excess FiO2 Sodium Potassium Chloride Carbon Dioxide Anion Gap BUN Creatinine Est GFR (Non-Af Amer) Glucose Hemoglobin A1c % Lactic Acid Calcium Total Bilirubin Direct Bilirubin Neonat Total Bilirubin Neonat Direct Bilirubin Neonat Indirect Bili AST ALT Alkaline Phosphatase Creatine Kinase CK-MB (CK-2) Troponin I NT-Pro-B Natriuret Pep 4560 H Total Protein Albumin TSH Free T4 Free T3 pg/mL Stool Occult Blood NEGATIVE AFB Smear NO ACID FAST BACILLI 02/05/18 02/05/18 02/05/18 05:56 05:56 10:40 WBC Hgb Hct MCV MCH MCHC RDW Plt Count PT INR Carbonic Acid HCO3/H2CO3 Ratio ABG pH ABG pCO2 ABG pO2 ABG HCO3 ABG Total CO2 ABG O2 Saturation ABG Base Excess FiO2 Sodium 140.2 Potassium 5.0 Chloride 108 H Carbon Dioxide 23 Anion Gap 9 BUN 46 H Creatinine 1.66 H Est GFR (Non-Af Amer) 40 L Glucose 143 H Hemoglobin A1c % Lactic Acid Calcium Total Bilirubin Direct Bilirubin Neonat Total Bilirubin Neonat Direct Bilirubin Neonat Indirect Bili AST ALT Alkaline Phosphatase Creatine Kinase CK-MB (CK-2) Troponin I NT-Pro-B Natriuret Pep Total Protein Albumin TSH 2.04 Free T4 1.10 Free T3 pg/mL 2.75 L Stool Occult Blood AFB Smear NO ACID FAST BACILLI 02/06/18 02/06/18 02/06/18 04:21 04:21 04:21 WBC 8.4 Hgb 9.9 L Hct 29.8 L MCV 95 MCH 31.4 MCHC 33.2 RDW 17.3 H Plt Count 200 PT 46.0 H INR 4.65 Carbonic Acid HCO3/H2CO3 Ratio ABG pH ABG pCO2 ABG pO2 ABG HCO3 ABG Total CO2 ABG O2 Saturation ABG Base Excess FiO2 Sodium 140.4 Potassium 5.1 H Chloride 110 H Carbon Dioxide 22 Anion Gap 8 BUN 50 H Creatinine 1.30 H Est GFR (Non-Af Amer) 53 L Glucose 129 H Hemoglobin A1c % Lactic Acid Calcium 9.0 Total Bilirubin 0.5 Direct Bilirubin 0.3 Neonat Total Bilirubin Not Reportable Neonat Direct Bilirubin Not Reportable Neonat Indirect Bili Not Reportable AST 25 ALT 26 Alkaline Phosphatase 77 Creatine Kinase CK-MB (CK-2) Troponin I NT-Pro-B Natriuret Pep Total Protein 5.9 L Albumin 3.0 L TSH Free T4 Free T3 pg/mL Stool Occult Blood AFB Smear 02/03/18 19:28 Albuterol Sulfate [Proair Hfa Inhalation Aerosol 8.5 gm Mdi] 1 puff IH Q4HP PRN 02/03/18 19:30 Tiotropium [place] [Spiriva Respimat] 2 puff IH .DAILY 02/03/18 20:00 Aspirin [Ecotrin 81 mg EC Tablet] 81 mg PO DAILY 02/03/18 20:30 Ascorbic Acid [Vitamin C 500 mg Tablet] 500 mg PO DAILY 02/03/18 21:00 Tamsulosin HCl [Flomax 0.4 mg Cap.sr] 0.4 mg PO DAILY 02/03/18 22:00 Amlodipine Besylate [Norvasc 10 mg Tablet] 10 mg PO DAILY Atorvastatin Calcium [Lipitor 40 mg Tablet] 40 mg PO DAILY Normal Saline [Saline Flush 2.5 ml Monoject Prefil Syrin] 2.5 ml IV Q8 Warfarin Sodium [Coumadin 5 mg Tablet] 5 mg PO [id number]@2200 02/04/18 10:00 Allopurinol [Zyloprim 300 mg Tablet] 300 mg PO DAILY Cholecalciferol (Vitamin D3) [Vitamin D3 1000 Unit Tablet] 2,000 unit PO DAILY Cyanocobalamin (Vitamin B-12) [Vitamin B-12 1000 Mcg Tablet] 1,000 mcg PO DAILY Metformin HCl [Glucophage 500 mg Tablet] 500 mg PO BID [place]-3 Acid Ethyl Esters [Lovaza 1 gm Capsule] 1 gm PO DAILY 02/04/18 13:17 Dextrose 50%-Water [Dextrose Inj 50% Syringe (25 gm/50 ml)] 12.5 gm IV PRN PRN Dextrose 50%-Water [Dextrose Inj 50% Syringe (25 gm/50 ml)] 25 gm IV PRN PRN Dextrose [Glutose 40% Gel 15 gm Tube] 15 gm PO PRN PRN Dextrose [Glutose 40% Gel 15 gm Tube] 30 gm PO PRN PRN 02/04/18 14:22 Tramadol HCl [Ultram 50 mg Tablet] 50 mg PO Q6HP PRN 02/04/18 22:00 Warfarin Sodium [Coumadin 2.5 mg Tablet] 2.5 mg PO SuSa@2200 On Hold, EKG: Shows atrial fibrillation with a controlled ventricular response. CHEST x- ray shows ill-defined infiltrate in the right middle lung. The patient's CT scan is suggestive of congestive heart failure and right upper lobe spotting consolidation. THE patient's echocardiogram shows borderline reduced LV ejection fraction of 50% to 55%. Mild concentric LVH. There is mild aortic stenosis which is hemodynamically insignificant. There is mild aortic regurgitation. There is mild to moderate mitral regurgitation. There is moderate tricuspid regurgitation there is severe pulmonary hypertension with right systolic pressure of 65-70 mmHg. IMPRESSION/RECOMMENDATION: 1. Bradycardia in a patient with chronic atrial fibrillation. This is most likely secondary to patient's potassium being slightly elevated, on the patient' s beta-corinne. The patient heart rate came up and bradycardia resolved after the patient's beta-corinne was stopped. 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 Recommend to stop all usage of AV vik blocking agents, and get her 30-day event monitor as an outpatient to assess if the patient's heart rate does go up. 2. PNEUMONIA: Continue antibiotics, and oxygen. 3. CHF: This seems to be systolic heart failure in a patient with borderline reduced LV ejection fraction compounded by valvular disease, and volume overload secondary to patient's renal failure. Note that the patient's GFR is improved slightly. We will be cautious in using diuretics. 4. Severe COPD on home oxygen: There might be an element of acute exacerbation of COPD also. Would recommend continue anti-COPD treatment, and nasal oxygen. Chronic atrial fibrillation: The patient is on chronic anticoagulation. Note that the patient's INR is supratherapeutic, and hence Coumadin at present is on hold. Resume Coumadin later. 5. Coronary artery disease in a patient with prior history of NV, and history of coronary bypass graft surgery. No evidence of NV this admission by biomarkers, and no anginal symptoms. Would recommend getting records from [place]. Continue Norvasc. Date of once the patient stabilizes, would recommend getting an outpatient Lexiscan Cardiolite stress test if the patient agrees. 6. Hypertension: Seems to be well-controlled. Continue current antihypertensives. 7. Chronic kidney disease at present stage III A. Most likely the patient has chronic underlying renal disease due to his diabetes. No all lab data available. Would recommend getting records from [place]. 8.Diabetes mellitus: Continue antidiabetic medication. 9. Peripheral vascular disease, at present seems to be stable. 10. Symptoms suggestive of obstructive sleep apnea, would recommend outpatient sleep study. This may help the patient's heart rate and also the patient's pulmonary hypertension. 11. Severe pulmonary hypertension. Later if the blood pressure allows will start the patient on an MARNIE inhibitor. 12. Hyperlipidemia: Continue statin. His medications have been reviewed. Plan of care/management plans discussed with attending physician. Medical decision making is of high complexity. 60 minutes spent on this patient more than 50% of time spent in direct patient care. As per patient's wishes discussed with the patient's daughter on the telephone. I have brought her up-to-date on the patient's clinical condition. We will follow with you.
[2018-02-06] MEDS: CEFEPIME 2 GM/D5W RTU 2 GM/50 ML RTUPB IV SCH (21:30)
[2018-02-06] MEDS ORDERED: WARFARIN SODIUM 5 MG TABLET PO SCH (22:00)
[2018-02-07 05:13] LABS: ABSOLUTE BASOPHILS # (AUTO) 0.1 10^3/uL (0.0-0.2); ABSOLUTE EOSINOPHILS # (AUTO) 0.4 10^3/uL (0.0-0.6); ABSOLUTE LYMPHOCYTES (AUTO) 1.7 10^3/uL (0.5-4.7); ABSOLUTE MONOCYTES (AUTO) 0.9 10^3/uL (0.1-1.4); BASOPHILS % (AUTO) 0.8 % (0-2); EOSINOPHILS % (AUTO) 4.7 % (0-6); HEMATOCRIT 30.5 % (37.9-51.0); HEMOGLOBIN 10.2 g/dL (13.5-17.0); LYMPHOCYTES % (AUTO) 18.3 % (13-45); MEAN CORPUSCULAR HEMOGLOBIN 31.5 pg (27.0-33.4); MEAN CORPUSCULAR HGB CONC 33.5 g/dL (32.0-36.0); MEAN CORPUSCULAR VOLUME 94 fl (80-97); MONOCYTES % (AUTO) 10.1 % (3-13); PLATELET COUNT 210 10^3/uL (150-450); RED BLOOD COUNT 3.24 10^6/uL (4.35-5.55); RED CELL DISTRIBUTION WIDTH 17.5 % (11.5-14.0); SEGMENTED NEUTROPHILS % (AUTO) 66.1 % (42-78); TOTAL CELLS COUNTED % (AUTO) 100 %
[2018-02-07 05:31] LABS: INTERNATIONAL RATION (INR) 2.85; PROTHROMBIN TIME 31.3 SEC (11.4-15.4)
[2018-02-07 05:34] LABS: ALANINE AMINOTRANSFERASE 19 U/L (21-72); ALBUMIN 3.1 g/dL (3.5-5.0); ALKALINE PHOSPHATASE 84 U/L (38-126); ANION GAP 13 (5-19); ASPARTATE AMINO TRANSFERASE 15 U/L (17-59); BILIRUBIN,DIRECT 0.2 mg/dL (0.0-0.4); BILIRUBIN,TOTAL 0.5 mg/dL (0.2-1.3); BLOOD UREA NITROGEN 46 mg/dL (7-20); CALCIUM 9.3 mg/dL (8.4-10.2); CARBON DIOXIDE 21 mmol/L (22-30); CHLORIDE 107 mmol/L (98-107); GLUCOSE 130 mg/dL (75-110); POTASSIUM 5.1 mmol/L (3.6-5.0); SODIUM 141.1 mmol/L (137-145); URIC ACID 5.5 mg/dL (3.5-8.5)
[2018-02-07] MEDS: FUROSEMIDE 20 MG TABLET PO SCH (08:29)
[2018-02-07] MEDS: DOCUSATE SODIUM 100 MG CAPSULE PO SCH (09:36)
[2018-02-07] MEDS: FERROUS SULFATE 325 MG TABLET PO SCH (09:36)
[2018-02-07] MEDS: FOLIC ACID 1 MG TABLET PO SCH (09:36)
[2018-02-07] MEDS: METFORMIN HCL 500 MG TABLET PO SCH ×2 (09:37→17:29)
[2018-02-07] MEDS: ALLOPURINOL 300 MG TABLET PO SCH (09:37)
[2018-02-07] MEDS: CHOLECALCIFEROL (D3) 1,000 UNIT TABLET PO SCH (09:37)
[2018-02-07] MEDS: ATORVASTATIN CALCIUM 40 MG TABLET PO SCH (09:37)
[2018-02-07] MEDS: FAMOTIDINE 20 MG TABLET PO SCH ×2 (09:37→17:29)
[2018-02-07] MEDS: ASCORBIC ACID 500 MG TABLET PO SCH (09:37)
[2018-02-07] MEDS: ASPIRIN 81 MG TABLET, ENT COATED PO SCH (09:37)
[2018-02-07] MEDS: TAMSULOSIN HCL 0.4 MG CAP.SR.24H PO SCH (09:37)
[2018-02-07] MEDS: CYANOCOBALAMIN (VITAMIN B-12) 1,000 MCG TABLET PO SCH (09:37)
[2018-02-07] MEDS: OMEGA-3 ACID ETHYL ESTERS 1 GM CAPSULE PO SCH (09:37)
[2018-02-07] MEDS: FLUTICASONE/SALMETEROL DISKUS 500-50 MCG/DOSE IH SCH ×2 (09:39→21:13)
[2018-02-07] MEDS: FINASTERIDE 5 MG TABLET PO SCH (09:41)
[2018-02-07] MEDS: LISINOPRIL 5 MG TABLET PO SCH ×2 (09:41→21:12)
[2018-02-07] MEDS: AMLODIPINE BESYLATE 10 MG TABLET PO SCH (09:41)
[2018-02-07] MEDS: INSULIN REG, HUMAN 100 UNIT/ML 3 ML VIAL (PYX) SUBCUT PRN (12:47)
[2018-02-07 15:18] LABS: APPEARANCE,URINE CLEAR; BILIRUBIN,URINE NEGATIVE (NEGATIVE); COLOR,URINE STRAW; GLUCOSE, URINE NEGATIVE (NEGATIVE); KETONES,URINE NEGATIVE (NEGATIVE); LEUKOCYTE ESTERASE,URINE NEGATIVE (NEGATIVE); NITRITE,URINE NEGATIVE (NEGATIVE); PROTEIN,URINE NEGATIVE (NEGATIVE); UROBILINOGEN,URINE NEGATIVE mg/dL (<2.0)
--- NOTE | 2018-02-07 20:20 | PDOC PROGRESS REPORT ---
Subjective Progress Note for:: 02/07/18 Subjective:: Patient reported comparative improvement in his breathing. he denied chest pain. No fever or chills. No nausea, vomiting or abdominal pain. Reason For Visit: PNEUMONIA, CHF Physical Exam Vital Signs: Temp Pulse Resp BP Pulse Ox 97.7 F 69 23 H 100/51 L 98 02/07/18 08:00 02/07/18 08:00 02/07/18 08:00 02/07/18 08:00 02/07/18 08:00 Intake & Output 02/06/18 02/07/18 02/08/18 06:59 06:59 06:59 Intake Total 1238 1244 Output Total 1150 1250 Balance 88 -6 Weight 97.1 kg 96.4 kg Physical Exam: General appearance: PRESENT: mild distress - remain on supplemental oxygen via nasal cannula and BiPAP while sleeping., obese Head exam: PRESENT: atraumatic, normocephalic Eye exam: PRESENT: conjunctiva pink, EOMI, PERRLA. ABSENT: scleral icterus Ear exam: PRESENT: normal external ear exam Mouth exam: PRESENT: moist Respiratory exam: PRESENT: clear to auscultation nelda, decreased breath sounds Cardiovascular exam: PRESENT: RRR. ABSENT: diastolic murmur, rubs, systolic murmur Vascular exam: PRESENT: normal capillary refill. ABSENT: pallor GI/Abdominal exam: PRESENT: normal bowel sounds, soft. ABSENT: distended, guarding, mass, organomegaly, rebound, tenderness Rectal exam: PRESENT: deferred Extremities exam: ABSENT: pedal edema Musculoskeletal exam: PRESENT: deformity - related to multiple joints involvement with arthritis Neurological exam: PRESENT: alert, awake, oriented to person, oriented to place , oriented to time, oriented to situation, CN II-XII grossly intact. ABSENT: motor sensory deficit Psychiatric exam: PRESENT: appropriate affect, normal mood. ABSENT: homicidal ideation, suicidal ideation Skin exam: PRESENT: dry, intact, warm. ABSENT: cyanosis, rash Results Laboratory Results: 02/07/18 04:37 02/07/18 04:37 02/07/18 02/07/18 04:37 04:37 WBC 9.0 RBC 3.24 L Hgb 10.2 L Hct 30.5 L MCV 94 MCH 31.5 MCHC 33.5 RDW 17.5 H Plt Count 210 Seg Neutrophils % 66.1 Lymphocytes % 18.3 Monocytes % 10.1 Eosinophils % 4.7 Basophils % 0.8 Absolute Neutrophils 6.0 Absolute Lymphocytes 1.7 Absolute Monocytes 0.9 Absolute Eosinophils 0.4 Absolute Basophils 0.1 Sodium 141.1 Potassium 5.1 H Chloride 107 Carbon Dioxide 21 L Anion Gap 13 BUN 46 H Creatinine 1.32 H Est GFR ( Amer) > 60 Est GFR (Non-Af Amer) 52 L Glucose 130 H Uric Acid 5.5 Calcium 9.3 Total Bilirubin 0.5 AST 15 L ALT 19 L Alkaline Phosphatase 84 Total Protein 6.0 L Albumin 3.1 L 02/03/18 21:45 Sputum Gram Stain - Final 02/03/18 21:45 Sputum Sputum Culture - Final NORMAL GURU 02/03/18 02/03/18 02/03/18 15:27 19:45 19:45 Creatine Kinase 46 L CK-MB (CK-2) 1.97 Troponin I < 0.012 < 0.012 NT-Pro-B Natriuret Pep 02/04/18 02/07/18 05:43 04:37 Creatine Kinase CK-MB (CK-2) Troponin I NT-Pro-B Natriuret Pep 4560 H 1960 H Impressions: Chest X-Ray 02/03/18 09:30 IMPRESSION: 1. There is an ill-defined, rounded opacity in the right mid lung with a small associated pleural effusion, findings concerning for infection. Underlying mass cannot be excluded; consider CT to further evaluate or at minimum radiographic follow-up in 6-8 weeks to ensure complete resolution. 2. Cardiomegaly. Chest CT 02/03/18 11:03 IMPRESSION: Interstitial pulmonary edema with small right and trace left pleural effusions. Dependent airspace disease in both lungs likely atelectasis. 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 Mediastinal adenopathy Assessment & Plan - Diagnosis (1) Acute on chronic diastolic heart failure Is this a current diagnosis for this admission?: Yes (2) Lobar pneumonia, unspecified organism Is this a current diagnosis for this admission?: Yes Plan: Continue IV Levofloxacin and Cefepime coverage. Follow up on culture reports. (3) COPD (chronic obstructive pulmonary disease) Qualifiers: COPD type: COPD with acute lower respiratory infection Qualified Code(s): J44.0 - Chronic obstructive pulmonary disease with acute lower respiratory infection Is this a current diagnosis for this admission?: Yes (4) Chronic atrial fibrillation Is this a current diagnosis for this admission?: Yes Plan: Continue to hold Coumadin for INR > 3.2 to reduce risk of bleeding. (5) Diabetes mellitus type 2 in obese Is this a current diagnosis for this admission?: Yes (6) BPH loc w urin obs/LUTS Is this a current diagnosis for this admission?: Yes (7) HTN (hypertension) Qualifiers: Hypertension type: essential hypertension Qualified Code(s): I10 - Essential (primary) hypertension Is this a current diagnosis for this admission?: Yes (8) HLD (hyperlipidemia) Qualifiers: Hyperlipidemia type: unspecified Qualified Code(s): E78.5 - Hyperlipidemia , unspecified Is this a current diagnosis for this admission?: Yes (9) UTI due to Klebsiella species Is this a current diagnosis for this admission?: Yes Plan: Continue IV Levofloxacin and Cefepime coverage. Consider discontinuation of Cefepime and change IV Levofloxacin to oral route if blood culture is no growth after 5 days. - Time Time Spent with patient: 25-34 minutes Medications reviewed and adjusted accordingly: Yes Anticipated discharge: Home with Homehealth - Inpatient Certification Based on my medical assessment, after consideration of the patient's comorbidities, presenting symptoms, or acuity I expect that the services needed warrant INPATIENT care.: Yes I certify that my determination is in accordance with my understanding of Medicare's requirements for reasonable and necessary INPATIENT services [42 CFR 412.3e].: Yes Medical Necessity: Need Close Monitoring Due to Risk of Patient Decompensation, Need For IV Fluids, Need For Continuous Telemetry Monitoring, Need for IV Antibiotics, Risk of Complication if Not Cared For in Hospital Post 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 Cardiology input appreciated. Cardiac status improving with downward trend of his NT-Pro BNP level. Maintain on all other current medication management.
[2018-02-07] MEDS: WARFARIN SODIUM 2 MG TABLET PO SCH (21:11)
[2018-02-07] MEDS: CEFEPIME 2 GM/D5W RTU 2 GM/50 ML RTUPB IV SCH (21:15)
--- NOTE | 2018-02-07 21:43 | Progress Note ---
Provider Note Provider Note: CARDIOLOGY PROGRESS NOTES by Dr. Sierra Yu on 02/07/2018. BJECTIVE: The patient states he feels much better. Earlier he did use the BiPAP. At present he is on nasal cannula. His shortness of breath is much improved but still does have some shortness of breath. His cough is improved, but still has some cough productive of some small quantities of sputum which is dark brown in color. There is no chest pain or discomfort. He has no leg edema. There is no PND orthopnea. The patient has no anginal symptoms. There is no arrhythmias seen on the monitor except for atrial fibrillation which is now a controlled ventricular response. The patient's INR is now therapeutic, and would recommend Coumadin be resumed. There is no TIA or CVA symptoms. There is no bleeding on Coumadin. The patient is moderately obese. He is not in any acute distress. He is well- groomed. Selected Entries 02/07/18 02/07/18 02/07/18 07:46 08:00 12:43 Temperature 97.7 F 97.4 F Temperature Axillary Oral Source Pulse Rate 69 71 Respiratory 17 Rate Blood Pressure 100/51 L 123/59 L Blood Pressure 67 80 Mean BP Location Left Arm Left Arm BP Position Prone Supine O2 Sat by Pulse 91 L Oximetry Fraction of 35 Inspired Oxygen (FIO2) Oxygen Flow 4.50 Rate Oxygen Delivery Nasal Cannula Method HEAD: Is atraumatic normocephalic. EYES: Pupils are equal round regular react to light and accommodation. EYES: Extraocular movements are normal. There is no clinical pallor. There is no scleral icterus. EARS: Tympanic membranes are intact. External auditory canals are clear. NOSE: There is no deviated nasal septum. There is no information of nasal mucous membrane. MOUTH: Mucous members of the mouth are moist. Tongue is moist. There is no ulcers in the mouth. There is no bleeding from the gums. THROAT: There is no redness of the oropharynx. There is no exudates. Skin: There is no petechia or ecchymosis. There is no skin rashes or skin lesions. NECK: Is supple. There is no JVD. Carotids are equal there is no bruits there is no lymphadenopathy. There is no goiter. There is no accessory muscles of respiration in use. Trachea central. LUNGS: Shows a few dry crackles in the right upper lobe there are scattered rhonchi. There is no wheezing. There is diminished air entry and prolonged expiration all over. There is hyperresonance on percussion. There is no chest wall tenderness on palpation. HEART: S1-S2 is heard there is no S3 gallop there is no spelled gallop. S1 is of variable intensity. There is murmur of tricuspid regurgitation and mitral regurgitation present. There is mild aortic stenosis murmur present. A 2 is preserved. There is no rub ABDOMEN: Soft obese. Nontender. There is no hepato-splenomegaly. Bowel sounds are well heard. Has no tender areas masses. There is no rebound guarding or rigidity. EXTREMITIES: Femorals are diminished femorals are deep there is no femoral bruits leg pulses are diminished. There is no pedal edema. There is no DVT or cellulitis. There is no calf tenderness. There is no cyanosis or clubbing. Capillary refill is normal. 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 PSYCHIATRIC: The patient's judgment and insight are intact. His affect is normal. 02/07/18 02/07/18 02/07/18 04:37 04:37 04:37 WBC 9.0 Hgb 10.2 L Hct 30.5 L Plt Count 210 PT 31.3 H INR 2.85 Sodium 141.1 Potassium 5.1 H Chloride 107 Carbon Dioxide 21 L BUN 46 H Creatinine 1.32 H Est GFR (Non-Af Amer) 52 L Glucose 130 H Uric Acid 5.5 Calcium 9.3 Total Bilirubin 0.5 Direct Bilirubin 0.2 Neonat Total Bilirubin Not Reportable Neonat Direct Bilirubin Not Reportable Neonat Indirect Bili Not Reportable AST 15 L ALT 19 L Alkaline Phosphatase 84 IMPRESSION/RECOMMENDATION: 1. Bradycardia in a patient with chronic atrial fibrillation. This is most likely secondary to patient's potassium being slightly elevated, on the patient' s beta-corinne. The patient heart rate came up and bradycardia resolved after the patient's beta-corinne was stopped. 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 Recommend to stop all usage of AV zahraa blocking agents, and get her 30-day event monitor as an outpatient to assess if the patient's heart rate does go up. 2. PNEUMONIA: Continue antibiotics, and oxygen. We will recheck the patient's chest x-ray in the a.m. 3. CHF: This seems to be systolic heart failure in a patient with borderline reduced LV ejection fraction compounded by valvular disease, and volume overload secondary to patient's renal failure. Note that the patient's GFR is improved slightly. We will be cautious in using diuretics. Would increase the patient's lisinopril to 2.5 mg p.o. every 12 hours. 4. Severe COPD on home oxygen: There might be an element of acute exacerbation of COPD also. Would recommend continue anti-COPD treatment, and nasal oxygen. Chronic atrial fibrillation: The patient is on chronic anticoagulation. Note that the patient's INR is therapeutic, and hence would recommend restarting Coumadin. 5. Coronary artery disease in a patient with prior history of DC, and history of coronary bypass graft surgery. No evidence of DC this admission by biomarkers, and no anginal symptoms. Would recommend getting records from [place]. Continue Norvasc. Date of once the patient stabilizes, would recommend getting an outpatient Lexiscan Cardiolite stress test if the patient agrees. 6. Hypertension: Seems to be well-controlled. Continue current antihypertensives. 7. Chronic kidney disease at present stage III A. Most likely the patient has chronic underlying renal disease due to his diabetes. No all lab data available. Would recommend getting records from [place]. 8.Diabetes mellitus: Continue antidiabetic medication. 9. Peripheral vascular disease, at present seems to be stable. 10. Symptoms suggestive of obstructive sleep apnea, would recommend outpatient sleep study. This may help the patient's heart rate and also the patient's pulmonary hypertension. We will place the patient empirically on BiPAP at night 11. Severe pulmonary hypertension. The patient's MARNIE inhibitor has been increased. 12. Hyperlipidemia: Continue statin. His medications have been reviewed. Medications adjusted. Plan of care/ management plans discussed with attending physician. Medical decision making is of high complexity. 60 minutes spent on this patient more than 50% of time spent in direct We will follow with you.
[2018-02-08 05:54] LABS: INTERNATIONAL RATION (INR) 1.98; PROTHROMBIN TIME 23.5 SEC (11.4-15.4)
[2018-02-08] MEDS: FUROSEMIDE 20 MG TABLET PO SCH (08:01)
[2018-02-08] MEDS: TIOTROPIUM BROMIDE DPI 5 CAP/KIT (18 MCG/CAP) IH SCH (09:38)
[2018-02-08] MEDS: FOLIC ACID 1 MG TABLET PO SCH (09:39)
[2018-02-08] MEDS: ASCORBIC ACID 500 MG TABLET PO SCH (09:39)
[2018-02-08] MEDS: DOCUSATE SODIUM 100 MG CAPSULE PO SCH (09:39)
[2018-02-08] MEDS: FLUTICASONE/SALMETEROL DISKUS 500-50 MCG/DOSE IH SCH ×2 (09:39→21:40)
[2018-02-08] MEDS: LEVOFLOXACIN 750 MG/D5W RTU 750 MG/150 ML RTUPB IV SCH (09:39)
[2018-02-08] MEDS: FAMOTIDINE 20 MG TABLET PO SCH ×2 (09:39→17:49)
[2018-02-08] MEDS: TAMSULOSIN HCL 0.4 MG CAP.SR.24H PO SCH (09:39)
[2018-02-08] MEDS: ASPIRIN 81 MG TABLET, ENT COATED PO SCH (09:39)
[2018-02-08] MEDS: METFORMIN HCL 500 MG TABLET PO SCH ×2 (09:39→17:49)
[2018-02-08] MEDS: ATORVASTATIN CALCIUM 40 MG TABLET PO SCH (09:40)
[2018-02-08] MEDS: FERROUS SULFATE 325 MG TABLET PO SCH (09:40)
[2018-02-08] MEDS: FINASTERIDE 5 MG TABLET PO SCH (09:40)
[2018-02-08] MEDS: ALLOPURINOL 300 MG TABLET PO SCH (09:40)
[2018-02-08] MEDS: OMEGA-3 ACID ETHYL ESTERS 1 GM CAPSULE PO SCH (09:40)
[2018-02-08] MEDS: AMLODIPINE BESYLATE 10 MG TABLET PO SCH (09:40)
[2018-02-08] MEDS: CHOLECALCIFEROL (D3) 1,000 UNIT TABLET PO SCH (09:40)
[2018-02-08] MEDS: CYANOCOBALAMIN (VITAMIN B-12) 1,000 MCG TABLET PO SCH (09:40)
[2018-02-08] MEDS: LISINOPRIL 5 MG TABLET PO SCH ×2 (09:40→21:39)
[2018-02-08 12:05] LABS: APPEARANCE,URINE CLEAR; BILIRUBIN,URINE NEGATIVE (NEGATIVE); COLOR,URINE YELLOW; GLUCOSE, URINE NEGATIVE (NEGATIVE); KETONES,URINE NEGATIVE (NEGATIVE); LEUKOCYTE ESTERASE,URINE TRACE (NEGATIVE); NITRITE,URINE NEGATIVE (NEGATIVE); PROTEIN,URINE NEGATIVE (NEGATIVE); URINE SPECIFIC GRAVITY 1.011; UROBILINOGEN,URINE NEGATIVE mg/dL (<2.0)
--- NOTE | 2018-02-08 14:09 | RADIOLOGY REPORT (SQ) ---
EXAM DESCRIPTION: CHEST SINGLE VIEW COMPLETED DATE/TIME: 02/08/2018 1:57 pm REASON FOR STUDY: AARON, IONA COMPARISON: 02/03/2018 EXAM PARAMETERS: NUMBER OF VIEWS: One view. TECHNIQUE: Single frontal radiographic view of the chest acquired. RADIATION DOSE: NA LIMITATIONS: None. FINDINGS: LUNGS AND PLEURA: The previously described consolidative process in the right lung base an d associated pleural changes are essentially unchanged. Remaining lung hernadez are clear. Further fo llowup is recommended. Chest CT scan may be of value for further evaluation. MEDIASTINUM AND HILAR STRUCTURES: No masses. Contour normal. HEART AND VASCULAR STRUCTURES: Cardiac silhouette remains enlarged and is unchanged in configuration. BONES: No acute findings. HARDWARE: Patient is status post median sternotomy. OTHER: No other significant finding. IMPRESSION: The previously described consolidative process in the right lung base and associated ple ural changes are essentially unchanged. Further followup is recommended. Chest CT scan may be of va lue for further evaluation. Other findings as noted above TECHNICAL DOCUMENTATION: JOB ID: [id number] [employer]- All Rights Reserved Reading location - IP/workstation name: [email or web address]
--- NOTE | 2018-02-08 18:41 | PDOC PROGRESS REPORT ---
Subjective Progress Note for:: 02/08/18 Subjective:: Patient denied any chest pain or difficulty with breathing. Remain on supplemental oxygen via nasal cannula. No fever or chills. No nausea, vomiting or abdominal pain. Reason For Visit: PNEUMONIA, CHF Physical Exam Vital Signs: Temp Pulse Resp BP Pulse Ox 97.8 F 71 18 121/63 98 02/08/18 07:52 02/08/18 07:52 02/08/18 07:52 02/08/18 07:52 02/08/18 07:52 Intake & Output 02/07/18 02/08/18 02/09/18 06:59 06:59 06:59 Intake Total 1244 642 Output Total 1250 950 Balance -6 -308 Weight 96.4 kg 95.2 kg Physical Exam: General appearance: PRESENT: mild distress - remain on supplemental oxygen via nasal cannula and BiPAP while sleeping., obese Head exam: PRESENT: atraumatic, normocephalic Eye exam: PRESENT: conjunctiva pink, EOMI, PERRLA. ABSENT: scleral icterus Ear exam: PRESENT: normal external ear exam Mouth exam: PRESENT: moist Respiratory exam: PRESENT: clear to auscultation nelda, decreased breath sounds Cardiovascular exam: PRESENT: RRR. ABSENT: diastolic murmur, rubs, systolic murmur Vascular exam: ABSENT: pallor GI/Abdominal exam: PRESENT: normal bowel sounds, soft. ABSENT: distended, guarding, mass, organomegaly, rebound, tenderness Rectal exam: PRESENT: deferred Extremities exam: ABSENT: pedal edema Musculoskeletal exam: PRESENT: deformity - related to multiple joints involvement with arthritis Neurological exam: PRESENT: alert, awake, oriented to person, oriented to place , oriented to time, oriented to situation, CN II-XII grossly intact. ABSENT: motor sensory deficit Psychiatric exam: PRESENT: appropriate affect, normal mood. ABSENT: homicidal ideation, suicidal ideation Skin exam: PRESENT: dry, intact, warm. ABSENT: cyanosis, rash Results Laboratory Results: 02/07/18 04:37 02/07/18 04:37 02/07/18 02/07/18 11:42 14:45 Urine Color STRAW Urine Appearance CLEAR Urine pH 5.0 Ur Specific [place] 1.010 Urine Protein NEGATIVE Urine Glucose (UA) NEGATIVE Urine Ketones NEGATIVE Urine Blood NEGATIVE Urine Nitrite NEGATIVE Ur Leukocyte Esterase NEGATIVE Urine WBC (Auto) 3 Urine RBC (Auto) 1 Stool Occult Blood NEGATIVE 02/04/18 10:22 Sputum AFB Smear Concentration - Final 02/04/18 10:22 Sputum Acid Fast Bacilli Smear - Final 02/03/18 21:45 Sputum AFB Smear Concentration - Final 02/03/18 21:45 Sputum Acid Fast Bacilli Smear - Final 02/03/18 02/03/18 02/03/18 15:27 19:45 19:45 Creatine Kinase 46 L CK-MB (CK-2) 1.97 Troponin I < 0.012 < 0.012 NT-Pro-B Natriuret Pep 02/04/18 02/07/18 05:43 04:37 Creatine Kinase CK-MB (CK-2) Troponin I NT-Pro-B Natriuret Pep 4560 H 1960 H Impressions: Chest X-Ray 02/03/18 09:30 IMPRESSION: 1. There is an ill-defined, rounded opacity in the right mid lung with a small associated pleural effusion, findings concerning for infection. Underlying mass cannot be excluded; consider CT to further evaluate or at minimum radiographic follow-up in 6-8 weeks to ensure complete resolution. 2. Cardiomegaly. Chest CT 02/03/18 11:03 IMPRESSION: Interstitial pulmonary edema with small right and trace left pleural effusions. Dependent airspace disease in both lungs likely atelectasis. 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 Mediastinal adenopathy Assessment & Plan - Diagnosis (1) Acute on chronic diastolic heart failure Is this a current diagnosis for this admission?: Yes (2) Lobar pneumonia, unspecified organism Is this a current diagnosis for this admission?: Yes (3) COPD (chronic obstructive pulmonary disease) Qualifiers: COPD type: COPD with acute lower respiratory infection Qualified Code(s): J44.0 - Chronic obstructive pulmonary disease with acute lower respiratory infection Is this a current diagnosis for this admission?: Yes (4) Chronic atrial fibrillation Is this a current diagnosis for this admission?: Yes (5) Diabetes mellitus type 2 in obese Is this a current diagnosis for this admission?: Yes (6) BPH loc w urin obs/LUTS Is this a current diagnosis for this admission?: Yes (7) HTN (hypertension) Qualifiers: Hypertension type: essential hypertension Qualified Code(s): I10 - Essential (primary) hypertension Is this a current diagnosis for this admission?: Yes (8) HLD (hyperlipidemia) Qualifiers: Hyperlipidemia type: unspecified Qualified Code(s): E78.5 - Hyperlipidemia , unspecified Is this a current diagnosis for this admission?: Yes (9) UTI due to Klebsiella species Is this a current diagnosis for this admission?: Yes - Time Time Spent with patient: 25-34 minutes Medications reviewed and adjusted accordingly: Yes Anticipated discharge: Home with Homehealth Within: within 24 hours - Inpatient Certification Based on my medical assessment, after consideration of the patient's comorbidities, presenting symptoms, or acuity I expect that the services needed warrant INPATIENT care.: Yes I certify that my determination is in accordance with my understanding of Medicare's requirements for reasonable and necessary INPATIENT services [42 CFR 412.3e].: Yes Medical Necessity: Need Close Monitoring Due to Risk of Patient Decompensation, Need For IV Fluids, Need For Continuous Telemetry Monitoring, Need for IV Antibiotics 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 Start on Levofloxacin 500 mg po daily. Maintain on other current medication management.
--- NOTE | 2018-02-08 19:01 | Progress Note ---
Provider Note Provider Note: PROGRESS NOTE ON 02/08/18
[2018-02-08] MEDS: WARFARIN SODIUM 2 MG TABLET PO SCH (21:38)
[2018-02-08] MEDS: LEVOFLOXACIN 500 MG TABLET PO SCH (21:40)
[2018-02-09] MEDS: FUROSEMIDE 20 MG TABLET PO SCH (07:45)
[2018-02-09] MEDS: OMEGA-3 ACID ETHYL ESTERS 1 GM CAPSULE PO SCH (10:15)
[2018-02-09] MEDS: FOLIC ACID 1 MG TABLET PO SCH (10:15)
[2018-02-09] MEDS: ASCORBIC ACID 500 MG TABLET PO SCH (10:15)
[2018-02-09] MEDS: ATORVASTATIN CALCIUM 40 MG TABLET PO SCH (10:15)
[2018-02-09] MEDS: CYANOCOBALAMIN (VITAMIN B-12) 1,000 MCG TABLET PO SCH (10:15)
[2018-02-09] MEDS: CHOLECALCIFEROL (D3) 1,000 UNIT TABLET PO SCH (10:15)
[2018-02-09] MEDS: FAMOTIDINE 20 MG TABLET PO SCH ×2 (10:15→17:19)
[2018-02-09] MEDS: ASPIRIN 81 MG TABLET, ENT COATED PO SCH (10:16)
[2018-02-09] MEDS: FERROUS SULFATE 325 MG TABLET PO SCH (10:16)
[2018-02-09] MEDS: METFORMIN HCL 500 MG TABLET PO SCH ×2 (10:16→17:19)
[2018-02-09] MEDS: ALLOPURINOL 300 MG TABLET PO SCH (10:16)
[2018-02-09] MEDS: TAMSULOSIN HCL 0.4 MG CAP.SR.24H PO SCH (10:16)
[2018-02-09] MEDS: LISINOPRIL 5 MG TABLET PO SCH ×2 (10:16→21:07)
[2018-02-09] MEDS: DOCUSATE SODIUM 100 MG CAPSULE PO SCH (10:16)
[2018-02-09] MEDS: AMLODIPINE BESYLATE 10 MG TABLET PO SCH (10:16)
[2018-02-09] MEDS: TIOTROPIUM BROMIDE DPI 5 CAP/KIT (18 MCG/CAP) IH SCH (10:19)
[2018-02-09] MEDS: FLUTICASONE/SALMETEROL DISKUS 500-50 MCG/DOSE IH SCH ×2 (10:20→21:08)
[2018-02-09] MEDS: FINASTERIDE 5 MG TABLET PO SCH (10:21)
[2018-02-09 12:41] LABS: ANION GAP 12 (5-19); BLOOD UREA NITROGEN 31 mg/dL (7-20); CALCIUM 10.2 mg/dL (8.4-10.2); CARBON DIOXIDE 28 mmol/L (22-30); CHLORIDE 101 mmol/L (98-107); GLUCOSE 133 mg/dL (75-110); POTASSIUM 5.2 mmol/L (3.6-5.0); SODIUM 140.5 mmol/L (137-145)
[2018-02-09 19:19] LABS: INTERNATIONAL RATION (INR) 1.41
[2018-02-09] MEDS: LEVOFLOXACIN 500 MG TABLET PO SCH (21:06)
--- NOTE | 2018-02-09 21:30 | Progress Note ---
Provider Note Provider Note: CARDIOLOGY PROGRESS NOTES by Dr. Sierra Yu on 02/09/2018 . SUBJECTIVE: The patient states he feels much better. Earlier he did use the BiPAP. At present he is on nasal cannula. His shortness of breath is much improved but still does have some shortness of breath. His cough is improved, but still has some cough productive of some small quantities of sputum which is dark brown in color. There is no chest pain or discomfort. He has no leg edema. There is no PND orthopnea. The patient has no anginal symptoms. There is no arrhythmias seen on the monitor except for atrial fibrillation which is now a controlled ventricular response. The patient's INR is now therapeutic, and would recommend Coumadin be resumed. There is no TIA or CVA symptoms. There is no bleeding on Coumadin. The patient is moderately obese. He is not in any acute distress. He is well- groomed. Selected Entries 02/09/18 11:54 Temperature 97.6 F Temperature Oral Source Pulse Rate 74 Respiratory 18 Rate Blood Pressure 113/64 Blood Pressure 80 Mean BP Location Right Arm BP Position Sitting O2 Sat by Pulse 96 Oximetry Oxygen Flow 4.00 Rate Oxygen Delivery Nasal Cannula Method HEAD: Is atraumatic normocephalic. EYES: Pupils are equal round regular react to light and accommodation. EYES: Extraocular movements are normal. There is no clinical pallor. There is no scleral icterus. EARS: Tympanic membranes are intact. External auditory canals are clear. NOSE: There is no deviated nasal septum. There is no information of nasal mucous membrane. MOUTH: Mucous members of the mouth are moist. Tongue is moist. There is no ulcers in the mouth. There is no bleeding from the gums. THROAT: There is no redness of the oropharynx. There is no exudates. Skin: There is no petechia or ecchymosis. There is no skin rashes or skin lesions. NECK: Is supple. There is no JVD. Carotids are equal there is no bruits there is no lymphadenopathy. There is no goiter. There is no accessory muscles of respiration in use. Trachea central. LUNGS: Shows a few dry crackles in the right upper lobe there are scattered rhonchi. There is no wheezing. There is diminished air entry and prolonged expiration all over. There is hyperresonance on percussion. There is no chest wall tenderness on palpation. HEART: S1-S2 is heard there is no S3 gallop there is no spelled gallop. S1 is of variable intensity. There is murmur of tricuspid regurgitation and mitral regurgitation present. There is mild aortic stenosis murmur present. A 2 is preserved. There is no rub ABDOMEN: Soft obese. Nontender. There is no hepato-splenomegaly. Bowel sounds are well heard. Has no tender areas masses. There is no rebound guarding or rigidity. EXTREMITIES: Femorals are diminished femorals are deep there is no femoral bruits leg pulses are diminished. There is no pedal edema. There is no DVT or cellulitis. There is no calf tenderness. There is no cyanosis or clubbing. Capillary refill is normal. 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 PSYCHIATRIC: The patient's judgment and insight are intact. His affect is normal. 02/09/18 11:36 Sodium 140.5 Potassium 5.2 H Chloride 101 Carbon Dioxide 28 BUN 31 H Creatinine 1.22 Est GFR (Non-Af Amer) 57 L Glucose 133 H Calcium 10.2 IMPRESSION/RECOMMENDATION: 1. Bradycardia in a patient with chronic atrial fibrillation. This is most likely secondary to patient's potassium being slightly elevated, on the patient' s beta-corinne. The patient heart rate came up and bradycardia resolved after the patient's beta-corinne was stopped. 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 Recommend to stop all usage of AV zahraa blocking agents, and get her 30-day event monitor as an outpatient to assess if the patient's heart rate does go up. Also will get IV Lexiscan Cardiolite stress test as an outpatient. 2. PNEUMONIA: Continue antibiotics, and oxygen. We will recheck the patient's chest x-ray in the a.m. 3. CHF: This seems to be systolic heart failure in a patient with borderline reduced LV ejection fraction compounded by valvular disease, and volume overload secondary to patient's renal failure. Note that the patient's GFR is improved slightly. We will be cautious in using diuretics. At present his heart failure is compensated.The patient's lisinopril has been increased to 2.5 mg p.o. every 12 hours. 4. Severe COPD on home oxygen: There might be an element of acute exacerbation of COPD also. Would recommend continue anti-COPD treatment, and nasal oxygen. Chronic atrial fibrillation: The patient is on chronic anticoagulation. Note that the patient's INR is therapeutic, and hence would recommend restarting Coumadin. 5. Coronary artery disease in a patient with prior history of NE, and history of coronary bypass graft surgery. No evidence of NE this admission by biomarkers, and no anginal symptoms. Would recommend getting records from [place]. Continue Norvasc. Date of once the patient stabilizes, would recommend getting an outpatient Lexiscan Cardiolite stress test if the patient agrees. 6. Hypertension: Seems to be well-controlled. Continue current antihypertensives. 7. Chronic kidney disease at present stage III A. His GFR is improved to 57 mL /min. Most likely the patient has chronic underlying renal disease due to his diabetes. Patient's potassium is still slightly elevated at 5.2 would recommend getting records from [place]. 8.Diabetes mellitus: Continue antidiabetic medication. 9. Peripheral vascular disease, at present seems to be stable. 10. Symptoms suggestive of obstructive sleep apnea, would recommend outpatient sleep study. This may help the patient's heart rate and also the patient's pulmonary hypertension. We will place the patient empirically on BiPAP at night 11. Severe pulmonary hypertension. The patient's MARNIE inhibitor has been increased. 12. Hyperlipidemia: Continue statin. His medications have been reviewed. Medications adjusted. Plan of care/ management plans discussed with attending physician. Medical decision making is of high complexity. 40 minutes spent on this patient more than 50% of time spent in direct care of the patient. The patient's cardiac status is stable.We will sign off. The patient desires to follow-up with me in the office. I have asked the patient is asked to follow-up with me in the office. My cell phone number given to the patient
[2018-02-09] MEDS ORDERED: WARFARIN SODIUM 2 MG TABLET PO SCH (22:00)
[2018-02-10 04:43] LABS: APPEARANCE,URINE CLEAR; BILIRUBIN,URINE NEGATIVE (NEGATIVE); COLOR,URINE YELLOW; GLUCOSE, URINE NEGATIVE (NEGATIVE); KETONES,URINE NEGATIVE (NEGATIVE); LEUKOCYTE ESTERASE,URINE NEGATIVE (NEGATIVE); NITRITE,URINE NEGATIVE (NEGATIVE); PROTEIN,URINE NEGATIVE (NEGATIVE); URINE SPECIFIC GRAVITY 1.012; UROBILINOGEN,URINE NEGATIVE mg/dL (<2.0)
[2018-02-10 05:38] LABS: INTERNATIONAL RATION (INR) 1.39; PROTHROMBIN TIME 17.8 SEC (11.4-15.4)
[2018-02-10] MEDS: FUROSEMIDE 20 MG TABLET PO SCH (07:37)
[2018-02-10] MEDS: FLUTICASONE/SALMETEROL DISKUS 500-50 MCG/DOSE IH SCH (09:26)
[2018-02-10] MEDS: TAMSULOSIN HCL 0.4 MG CAP.SR.24H PO SCH (09:27)
[2018-02-10] MEDS: DOCUSATE SODIUM 100 MG CAPSULE PO SCH (09:27)
[2018-02-10] MEDS: FOLIC ACID 1 MG TABLET PO SCH (09:27)
[2018-02-10] MEDS: OMEGA-3 ACID ETHYL ESTERS 1 GM CAPSULE PO SCH (09:27)
[2018-02-10] MEDS: CHOLECALCIFEROL (D3) 1,000 UNIT TABLET PO SCH (09:27)
[2018-02-10] MEDS: AMLODIPINE BESYLATE 10 MG TABLET PO SCH (09:27)
[2018-02-10] MEDS: ATORVASTATIN CALCIUM 40 MG TABLET PO SCH (09:28)
[2018-02-10] MEDS: ASCORBIC ACID 500 MG TABLET PO SCH (09:28)
[2018-02-10] MEDS: ALLOPURINOL 300 MG TABLET PO SCH (09:28)
[2018-02-10] MEDS: CYANOCOBALAMIN (VITAMIN B-12) 1,000 MCG TABLET PO SCH (09:28)
[2018-02-10] MEDS: LISINOPRIL 5 MG TABLET PO SCH (09:28)
[2018-02-10] MEDS: METFORMIN HCL 500 MG TABLET PO SCH (09:28)
[2018-02-10] MEDS: FAMOTIDINE 20 MG TABLET PO SCH (09:28)
[2018-02-10] MEDS: ASPIRIN 81 MG TABLET, ENT COATED PO SCH (09:28)
[2018-02-10] MEDS: FERROUS SULFATE 325 MG TABLET PO SCH (09:29)
[2018-02-10] MEDS: FINASTERIDE 5 MG TABLET PO SCH (09:29)
[2018-02-10] MEDS: TIOTROPIUM BROMIDE DPI 5 CAP/KIT (18 MCG/CAP) IH SCH (09:33)
[2018-02-10 16:20] VITALS: BP 116/69
--- NOTE | 2018-02-10 18:21 | PDOC DISCHARGE SUMMARY ---
General - Admit/Disc Date/PCP Admission Date/Primary Care Provider: 02/03/18 15:14 EJ MAC Discharge Date: 02/10/18 - Discharge Diagnosis (1) Acute on chronic diastolic heart failure Is this a current diagnosis for this admission?: Yes (2) Lobar pneumonia, unspecified organism Is this a current diagnosis for this admission?: Yes (3) COPD (chronic obstructive pulmonary disease) Is this a current diagnosis for this admission?: Yes (4) Chronic atrial fibrillation Is this a current diagnosis for this admission?: Yes (5) Diabetes mellitus type 2 in obese Is this a current diagnosis for this admission?: Yes (6) BPH loc w urin obs/LUTS Is this a current diagnosis for this admission?: Yes (7) HTN (hypertension) Is this a current diagnosis for this admission?: Yes (8) HLD (hyperlipidemia) Is this a current diagnosis for this admission?: Yes (9) UTI due to Klebsiella species Is this a current diagnosis for this admission?: Yes - Additional Information Discharge Diet: Cardiac, Diabetic Discharge Activity: Activity As Tolerated, Balance Activity w/Rest, Weigh Daily Prescriptions: Levofloxacin [Levaquin 500 mg Tablet] 500 mg PO QHS #5 tablet Home Medications: Albuterol Sulfate [Proair HFA Inhalation Aerosol 8.5 gm MDI] 1 puff IH Q4HP PRN 02/03/18 Allopurinol [Zyloprim 300 mg Tablet] 300 mg PO DAILY 02/03/18 Amlodipine/Atorvastatin [Amlodipine-Atorvast 10-40 mg] 1 each PO DAILY 02/03/18 Ascorbic Acid [Vitamin C 500 mg Tablet] 500 mg PO DAILY 02/03/18 Aspirin [Ecotrin 81 mg EC Tablet] 81 mg PO DAILY 02/03/18 Atenolol [Tenormin] 25 mg PO DAILY 02/03/18 Cholecalciferol (Vitamin D3) [Vitamin D3 2000 unit Tablet] 2,000 unit PO DAILY 02/03/18 Cyanocobalamin (Vitamin B-12) [Vitamin B-12] 1,000 mcg PO DAILY 02/03/18 Docusate Calcium [Stool Softener] 240 mg PO DAILY MDD 2 CAPS 02/03/18 Famotidine [Pepcid 20 mg Tablet] 20 mg PO BID 02/03/18 Ferrous Sulfate [Feosol 325 mg Tablet] 325 mg PO DAILY 02/03/18 Finasteride [Proscar 5 mg Tablet] 5 mg PO DAILY 02/03/18 Fluticasone/Salmeterol [Advair 500-50 Diskus 14 Dose/Diskus] 1 inh IH Q12 Folic Acid 0.8 mg PO DAILY 02/03/18 Furosemide [Lasix 20 mg Tablet] 20 mg PO QAM 02/03/18 Insulin Regular, Human [Humulin R (Reg) Insulin 100 unit/mL] 0 unit SUBCUT .SLD SCALE 02/03/18 Lisinopril [Prinivil 2.5 mg Tablet] 2.5 mg PO DAILY 02/03/18 Metformin HCl [Glucophage 500 mg Tablet] 500 mg PO BID 02/03/18 [place]-3/Dha/Epa/Fish Oil [Fish Oil 1,000 mg Softgel] 1 each PO DAILY 02/03/18 Tamsulosin HCl [Flomax 0.4 mg Cap.sr] 0.4 mg PO DAILY 02/03/18 Tiotropium [place] [Spiriva Respimat] 2 puff IH DAILY 02/03/18 Warfarin Sodium [Coumadin 2.5 mg Tablet] 2.5 mg PO SUSA@0 02/03/18 Warfarin Sodium [Coumadin 5 mg Tablet] 5 mg PO MOTUWETHFR@[id number]/03/18 Levofloxacin [Levaquin 500 mg Tablet] 500 mg PO QHS #5 tablet 02/09/18 History of Present Illness History of Present Illness: DONALD WESTON is a 77 year old male, he has a history of very severe chronic obstructive pulmonary disease, chronic systolic heart failure he came to the emergency room for evaluation of difficulty breathing for the last 4 days. He also complained of productive cough night sweats but no fever he normally is on home oxygen via nasal cannula at 2 L/min in the emergency room he was found to be hypoxic the oxygen saturation was in the 70s, he was also found to have tachycardia, the pulse rate was 121 bpm, he has a history of chronic atrial fibrillation on chronic anticoagulation with Coumadin. In the emergency room the initial chest x-ray could not completely rule out pneumonia versus CHF CT chest without contrast was ordered in the ER, it demonstrated thickened interlobular septa present throughout the lungs worrisome for interstitial pulmonary edema also found was trace bilateral pleural effusions with right- sided fluid tracking into the major and minor fissure there was also spotty consolidation in the dependent portion of the right upper lobe and in both posterior costophrenic sulci, the BNP was elevated suggesting congestive heart failure. A 2D echo was ordered because of concern that he may have CHF, 2D echo showed ejection fraction left ventricle 50-55% there is mild concentric left ventricular hypertrophy, the diastolic function could not be adequately assessed because of atrial fibrillation. The left atrium is severely dilated the right atrium is severely dilated there is mild to moderate mitral regurgitation, moderate tricuspid regurgitation there is severe pulmonary hypertension by echo the RVSP 65-70 mmHg based on the echo finding he probably have acute on chronic diastolic heart failure, the BNP is elevated, the left atrium is severely dilated this suggest diastolic dysfunction of left ventricle unfortunately this could not be assessed with Doppler because of the atrial fibrillation but one can make reasonable inference that he has diastolic heart failure. Pneumonia cannot be completely rule out, patient daughter stated that he has a history of recurrent pneumonia most likely because of very severe COPD the pulmonary hypertension is secondary to severe lung disease from COPD. He has a history of tobacco use though he has stopped smoking. Hospital Course Hospital Course: Patient was admitted for exacerbated COPD with hypoxemia and lobar pneumonia. The was managed with bronchodilators, IV steroid, and antibiotic coverage including IV Levofloxacin and Cefepime. His urine culture grew Klebsiella pneumoniae and Staphylococcus aureus sensitive to Levofloxacin and Cefepime coverage. There was concern for CHF and his TTE echocardiogram did revealed LVEF about 55% with severe pulmonary hypertension. He was seen in consultation by Dr. Machado, photography instructor. He remain on Coumadin therapy but his INR was elevated due to drug-drug interaction with his antibiotic therapy. Adjustment was made to his warfarin dosage during hospitalization. He will resume his preadmission schedule upon discharge. He was instructed to complete outpatient PT/INR on 02/13/18. He will need outpatient sleep study for obstructive sleep apnea. He will be discharge home with oral Levofloxacin 500 mg po daily for five days. he will follow up with Dr Machado and myself as instructed upon discharge. Physical Exam Vital Signs: Temp Pulse Resp BP Pulse Ox 97.9 F 75 18 116/69 98 02/10/18 15:47 02/10/18 15:47 02/10/18 15:47 02/10/18 15:47 02/10/18 15:47 Intake & Output 02/09/18 02/10/18 02/11/18 06:59 06:59 06:59 Intake Total 1497 640 592 Output Total 1750 5880 250 Balance -253 -910 342 Weight 96.7 kg 96 kg Physical Exam: General appearance: PRESENT: Remain on supplemental oxygen via nasal cannula, obese Head exam: PRESENT: atraumatic, normocephalic Eye exam: PRESENT: conjunctiva pink, EOMI, PERRLA. ABSENT: scleral icterus Ear exam: PRESENT: normal external ear exam Mouth exam: PRESENT: moist Respiratory exam: PRESENT: clear to auscultation nelda, decreased breath sounds Cardiovascular exam: PRESENT: RRR. ABSENT: diastolic murmur, rubs, systolic murmur Vascular exam: ABSENT: pallor GI/Abdominal exam: PRESENT: normal bowel sounds, soft. ABSENT: distended, guarding, mass, organomegaly, rebound, tenderness Rectal exam: PRESENT: deferred Extremities exam: ABSENT: pedal edema Musculoskeletal exam: PRESENT: deformity - related to multiple joints involvement with arthritis Neurological exam: PRESENT: alert, awake, oriented to person, oriented to place , oriented to time, oriented to situation, CN II-XII grossly intact. ABSENT: motor sensory deficit Psychiatric exam: PRESENT: appropriate affect, normal mood. ABSENT: homicidal ideation, suicidal ideation Skin exam: PRESENT: dry, intact, warm. ABSENT: cyanosis, rash Results Laboratory Results: 02/07/18 04:37 02/09/18 11:36 02/10/18 04:25 Urine Color YELLOW Urine Appearance CLEAR Urine pH 5.0 Ur Specific [place] 1.012 Urine Protein NEGATIVE Urine Glucose (UA) NEGATIVE Urine Ketones NEGATIVE Urine Blood NEGATIVE Urine Nitrite NEGATIVE Ur Leukocyte Esterase NEGATIVE Urine WBC (Auto) 4 Urine RBC (Auto) 3 02/03/18 21:45 Clean Catch Midstream Urine Culture - Final Staphylococcus Aureus Klebsiella Pneumoniae 02/03/18 02/03/18 02/03/18 15:27 19:45 19:45 Creatine Kinase 46 L CK-MB (CK-2) 1.97 Troponin I < 0.012 < 0.012 NT-Pro-B Natriuret Pep 02/04/18 02/07/18 05:43 04:37 Creatine Kinase CK-MB (CK-2) Troponin I NT-Pro-B Natriuret Pep 4560 H 1960 H Impressions: Chest CT 11/16/18 11:03 IMPRESSION: Interstitial pulmonary edema with small right and trace left pleural effusions. Dependent airspace disease in both lungs likely atelectasis. 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 Mediastinal adenopathy Chest X-Ray 02/08/18 00:00 IMPRESSION: The previously described consolidative process in the right lung base and associated pleural changes are essentially unchanged. Further followup is recommended. Chest CT scan may be of value for further evaluation. Other findings as noted above Qualifiers - * PATIENT BEING DISCHARGED WITH ANY OF THE FOLLOWING DIAGNOSIS: No Plan Discharge Plan: D/C home today. Follow up in the office with Dr. Machado and myself as instructed upon discharge.
--- NOTE | 2018-02-10 18:31 | PDOC PROGRESS REPORT ---
Subjective Progress Note for:: 02/09/18 Subjective:: Patient denied any chest pain or difficulty with breathing. Remain on supplemental oxygen via nasal cannula. No fever or chills. No nausea, vomiting or abdominal pain. Reason For Visit: PNEUMONIA, CHF Physical Exam Vital Signs: Temp Pulse Resp BP Pulse Ox 97.9 F 75 24 H 104/54 L 95 02/09/18 15:45 02/09/18 15:45 02/09/18 15:45 02/09/18 15:45 02/09/18 15:45 Intake & Output 02/08/18 02/09/18 02/10/18 06:59 06:59 06:59 Intake Total 642 1497 640 Output Total 950 1750 1025 Balance -308 -253 -385 Weight 95.2 kg 96.7 kg Physical Exam: General appearance: PRESENT: mild distress - remain on supplemental oxygen via nasal cannula and BiPAP while sleeping., obese Head exam: PRESENT: atraumatic, normocephalic Eye exam: PRESENT: conjunctiva pink, EOMI, PERRLA. ABSENT: scleral icterus Ear exam: PRESENT: normal external ear exam Mouth exam: PRESENT: moist Respiratory exam: PRESENT: clear to auscultation nelda, decreased breath sounds Cardiovascular exam: PRESENT: RRR. ABSENT: diastolic murmur, rubs, systolic murmur Vascular exam: ABSENT: pallor GI/Abdominal exam: PRESENT: normal bowel sounds, soft. ABSENT: distended, guarding, mass, organomegaly, rebound, tenderness Rectal exam: PRESENT: deferred Extremities exam: ABSENT: pedal edema Musculoskeletal exam: PRESENT: deformity - related to multiple joints involvement with arthritis Neurological exam: PRESENT: alert, awake, oriented to person, oriented to place , oriented to time, oriented to situation, CN II-XII grossly intact. ABSENT: motor sensory deficit Psychiatric exam: PRESENT: appropriate affect, normal mood. ABSENT: homicidal ideation, suicidal ideation Skin exam: PRESENT: dry, intact, warm. ABSENT: cyanosis, rash Results Laboratory Results: 02/07/18 04:37 02/09/18 11:36 02/09/18 02/09/18 09:34 11:36 Sodium 140.5 Potassium 5.2 H Chloride 101 Carbon Dioxide 28 Anion Gap 12 BUN 31 H Creatinine 1.22 Est GFR ( Amer) > 60 Est GFR (Non-Af Amer) 57 L Glucose 133 H Calcium 10.2 Stool Occult Blood NEGATIVE 02/03/18 21:45 Clean Catch Midstream Urine Culture - Final Staphylococcus Aureus Klebsiella Pneumoniae 02/03/18 02/03/18 02/03/18 15:27 19:45 19:45 Creatine Kinase 46 L CK-MB (CK-2) 1.97 Troponin I < 0.012 < 0.012 NT-Pro-B Natriuret Pep 02/04/18 02/07/18 05:43 04:37 Creatine Kinase CK-MB (CK-2) Troponin I NT-Pro-B Natriuret Pep 4560 H 1960 H Impressions: Chest CT 02/03/18 11:03 IMPRESSION: Interstitial pulmonary edema with small right and trace left pleural effusions. Dependent airspace disease in both lungs likely atelectasis. 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 Mediastinal adenopathy Chest X-Ray 02/08/18 00:00 IMPRESSION: The previously described consolidative process in the right lung base and associated pleural changes are essentially unchanged. Further followup is recommended. Chest CT scan may be of value for further evaluation. Other findings as noted above Assessment & Plan - Diagnosis (1) Acute on chronic diastolic heart failure Is this a current diagnosis for this admission?: Yes (2) Lobar pneumonia, unspecified organism Is this a current diagnosis for this admission?: Yes (3) COPD (chronic obstructive pulmonary disease) Qualifiers: COPD type: COPD with acute lower respiratory infection Qualified Code(s): J44.0 - Chronic obstructive pulmonary disease with acute lower respiratory infection Is this a current diagnosis for this admission?: Yes (4) Chronic atrial fibrillation Is this a current diagnosis for this admission?: Yes (5) Diabetes mellitus type 2 in obese Is this a current diagnosis for this admission?: Yes (6) BPH loc w urin obs/LUTS Is this a current diagnosis for this admission?: Yes (7) HTN (hypertension) Qualifiers: Hypertension type: essential hypertension Qualified Code(s): I10 - Essential (primary) hypertension Is this a current diagnosis for this admission?: Yes (8) HLD (hyperlipidemia) Qualifiers: Hyperlipidemia type: unspecified Qualified Code(s): E78.5 - Hyperlipidemia , unspecified Is this a current diagnosis for this admission?: Yes (9) UTI due to Klebsiella species Is this a current diagnosis for this admission?: Yes - Time Time Spent with patient: 25-34 minutes Medications reviewed and adjusted accordingly: Yes Anticipated discharge: Home with Homehealth Within: Other - Inpatient Certification Based on my medical assessment, after consideration of the patient's comorbidities, presenting symptoms, or acuity I expect that the services needed warrant INPATIENT care.: Yes I certify that my determination is in accordance with my understanding of Medicare's requirements for reasonable and necessary INPATIENT services [42 CFR 412.3e].: Yes Medical Necessity: Need Close Monitoring Due to Risk of Patient Decompensation, Need For IV Fluids, Need For Continuous Telemetry Monitoring, Need for Nebulizer Therapy and Monitoring of Response, Need for IV Antibiotics, Risk of Complication if Not Cared For in Hospital Post Hospital Care: D/C [employer] Documentation - Plan Summary Plan Summary: D/C IV Levofloxacin and Cefepime. Start on oral Levofloxacin 500 mg po daily. Continue Coumadin at current dosing since INR is presently sub-therapeutic due to drug-drug interaction. Possible d/c home tomorrow if patient remain clinically stable.
[2018-02-11] MEDS ORDERED: WARFARIN SODIUM 2.5 MG TABLET PO SCH (22:00)
== END 2018-02-10 16:55 | disposition home or self-care (01) | DRG 291 ==
LOC: ER 09:05 → EH 15:14 → 3S 17:24 → 3N 02-05 21:36
PROVIDERS: ADMIT Internal Medicine Geriatric Medicine; ATTEND Internal Medicine Geriatric Medicine
PROC: 5A09357 Assistance with Respiratory Ventilation, Less than 24 Consecutive Hours, Continuous Positive Airway Pressure (ICD-10-PCS; principal; 2018-02-03)
DX: I11.0 Hypertensive heart disease with heart failure (principal); I50.33 Acute on chronic diastolic (congestive) heart failure; J18.1 Lobar pneumonia, unspecified organism; J44.1 Chronic obstructive pulmonary disease with (acute) exacerbation; J44.0 Chronic obstructive pulmonary disease with (acute) lower respiratory infection; N39.0 Urinary tract infection, site not specified; B95.61 Methicillin susceptible Staphylococcus aureus infection as the cause of diseases classified elsewhere; B96.1 Klebsiella pneumoniae [K. pneumoniae] as the cause of diseases classified elsewhere; I48.2 Chronic atrial fibrillation; E11.9 Type 2 diabetes mellitus without complications; N40.1 Benign prostatic hyperplasia with lower urinary tract symptoms; E78.5 Hyperlipidemia, unspecified; K21.9 Gastro-esophageal reflux disease without esophagitis; I73.9 Peripheral vascular disease, unspecified; M19.90 Unspecified osteoarthritis, unspecified site; Z79.01 Long term (current) use of anticoagulants; Z79.84 Long term (current) use of oral hypoglycemic drugs; Z79.82 Long term (current) use of aspirin; Z79.899 Other long term (current) drug therapy; Z87.891 Personal history of nicotine dependence; Z95.1 Presence of aortocoronary bypass graft; I25.2 Old myocardial infarction
CPT/HCPCS: 36415; 36600; 71045; 71250; 80048; 80053; 81001; 82272; 82550; 82553; 82803; 82962; 83036; 83605; 83690; 83735; 83880; 84439; 84443; 84481; 84484; 84550; 85025; 85027; 85610; 87015; 87040; 87070; 87086; 87088; 87101; 87116; 87186; 87205; 87206; 93005; 93010; 93306; 94640; 94660; 96365; 96366; 96368; 96375; 99291; J0692; J1815; J1956; J2930; J3475; J3490; J7030; J7620

== ENCOUNTER 2018-02-20 11:02 | Inpatient (IN) | payer MEDICARE, OTHER ==
[2018-02-20] MEDS ORDERED: FUROSEMIDE INJ/PF 40 MG/4 ML SDV IV ONE (11:27)
--- NOTE | 2018-02-20 11:29 | ER Document Report ---
ED General - General Stated Complaint: DIFFICULTY BREATHING Time Seen by Provider: 02/20/18 11:19 Mode of Arrival: Medic Notes: 77-year-old male with a history of COPD and CHF presents emergency department with shortness of breath. EMS arrived at the scene and found the patient to be satting at 67% on 2 L nasal cannula. He noticed his lungs to be clear to auscultation. He was given Solu-Medrol 125 mg. Patient recently admitted to the hospital for CHF and pneumonia. Patient was admitted to the hospital on . Received levofloxacin and cefepime inpatient. He was discharged home on 02/09/18 with a prescription for levofloxacin. Patient states that he finished the antibiotic and has been getting progressively worse over the last few days. He denies any fever but states that he has been having some chills, rhinorrhea , sore throat, productive cough. He denies chest pain. TRAVEL OUTSIDE OF THE [place] IN LAST 30 DAYS: No - HPI Onset: Last week Onset/Duration: Gradual, Persistent Quality of pain: No pain Severity: Mild Associated symptoms: Productive cough, Rhinnorhea, Sore throat Exacerbated by: Denies Relieved by: Denies Similar symptoms previously: Yes Recently seen / treated by doctor: Yes - Related Data Allergies/Adverse Reactions: No Known Allergies Allergy (Verified 09/27/17 12:02) Past Medical History - General Information source: Patient - Social History Smoking Status: Former Smoker Family History: Reviewed & Not Pertinent - Past Medical History Cardiac Medical History: Reports: Hx Atrial Fibrillation, Hx Heart Attack, Hx Hypercholesterolemia, Hx Hypertension Pulmonary Medical History: Reports: Hx COPD, Hx Pneumonia Endocrine Medical History: Reports: Hx Diabetes Mellitus Type 2 Renal/ Medical History: Denies: Hx Peritoneal Dialysis GI Medical History: Reports: Hx Gastroesophageal Reflux Disease Musculoskeletal Medical History: Reports Hx Arthritis Past Surgical History: Reports: Hx Abdominal Surgery, Hx Appendectomy, Hx Cardiac Surgery - triple bypass, AAA repair, Hx Tonsillectomy Review of Systems - Review of Systems Constitutional: No symptoms reported EENT: No symptoms reported Cardiovascular: No symptoms reported Respiratory: Cough, Sputum Gastrointestinal: No symptoms reported Genitourinary: No symptoms reported Male Genitourinary: No symptoms reported Musculoskeletal: No symptoms reported Skin: No symptoms reported Hematologic/Lymphatic: No symptoms reported Neurological/Psychological: No symptoms reported -: Yes All other systems reviewed and negative Physical Exam - Vital signs Vitals: Pulse Ox 86 L 02/20/18 11:05 - Notes Notes: PHYSICAL EXAMINATION: GENERAL: Well-appearing, well-nourished and in no acute distress. HEAD: Atraumatic, normocephalic. EYES: Pupils equal round and reactive to light, extraocular movements intact, sclera anicteric, conjunctiva are normal. ENT: Nares patent, oropharynx clear without exudates. Moist mucous membranes. NECK: Normal range of motion, supple without lymphadenopathy LUNGS: Rhonchi to the bilateral lower lobes. HEART: Regular rate and rhythm without murmurs ABDOMEN: Soft, nontender, nondistended abdomen. No guarding, no rebound. No masses appreciated. Musculoskeletal: Normal range of motion. 2+ pitting edema bilateraly. NEUROLOGICAL: Cranial nerves grossly intact. Normal speech, normal gait. Normal sensory, motor exams PSYCH: Normal mood, normal affect. SKIN: Warm, Dry, normal turgor, no rashes or lesions noted. Course - Re-evaluation Re-evalutation: 02/20/18 11:40 EKG: Ventricular rate 63, QRS duration 96, QTc 410, atrial fibrillation, no ST segment elevation. Patient placed on Bipap. Chest x-ray shows opacities in the right lung that is stable from the previous chest x-ray done during patient's admission. I will start the patient on antibiotics to cover for HCAP. 02/20/18 14:36 I started the patient on vancomycin, zosyn, and levofloxacin for HCAP as the chest xray shows a R sided lower lobe opacity and patient is complaining of chills and a productive cough. He has lower extremity pitting edema and rhonchi on exam. I gave the patient 40mg of lasix. BNP is 3490 today. His last BNP was 1960. I contacted Dr. Watts. He will admit patient to [facility]. Patient currently on bipap and stable. - Vital Signs Vital signs: Temp Pulse Resp BP Pulse Ox 97.8 F 76 16 130/69 H 97 02/20/18 11:14 02/20/18 11:30 02/20/18 12:31 02/20/18 12:31 02/20/18 12:31 - Laboratory Result Diagrams: 02/20/18 11:25 02/20/18 11:25 Laboratory results interpreted by me: 02/20/18 02/20/18 02/20/18 11:25 11:25 11:25 RBC 3.52 L Hgb 10.9 L Hct 33.2 L RDW 17.3 H PT APTT BUN 23 H Glucose 128 H ALT 17 L Creatine Kinase 30 L NT-Pro-B Natriuret Pep 3490 H Urine Protein Ur Leukocyte Esterase Urine Ascorbic Acid 02/20/18 02/20/18 11:25 12:14 RBC Hgb Hct RDW PT 22.3 H APTT 46.6 H BUN Glucose ALT Creatine Kinase NT-Pro-B Natriuret Pep Urine Protein 30 H Ur Leukocyte Esterase TRACE H Urine Ascorbic Acid 40 H Discharge - Discharge Clinical Impression: Congestive heart failure Qualifiers: Heart failure type: unspecified Heart failure chronicity: unspecified Qualified Code(s): I50.9 - Heart failure, unspecified Pneumonia Qualifiers: Pneumonia type: due to unspecified organism Laterality: right Lung location: lower lobe of lung Qualified Code(s): J18.1 - Lobar pneumonia, unspecified organism Condition: Stable Disposition: ADMITTED OBSERVATION Admitting Provider: Vilma Unit Admitted: IMCU Referrals: EJ WATTS MD [Primary Care Provider] - Follow up as needed
--- NOTE | 2018-02-20 11:32 | RADIOLOGY REPORT (SQ) ---
EXAM DESCRIPTION: CHEST SINGLE VIEW COMPLETED DATE/TIME: 02/20/2018 11:24 am REASON FOR STUDY: sob COMPARISON: 02/08/2018 EXAM PARAMETERS: NUMBER OF VIEWS: One view. TECHNIQUE: Single frontal radiographic view of the chest acquired. RADIATION DOSE: NA LIMITATIONS: None. FINDINGS: LUNGS AND PLEURA: Persistent right pleural effusion including fluid in the fissures. Smal l left effusion. Right basilar opacity without significant change. MEDIASTINUM AND HILAR STRUCTURES: No masses. Contour normal. HEART AND VASCULAR STRUCTURES: Heart is enlarged. No overt failure. BONES: No acute findings. HARDWARE: Prior CABG. OTHER: No other significant finding. IMPRESSION: Extensive pleural reaction on the right and basilar opacities stable. Small left effusion. Cardiac enlargement without overt failure. TECHNICAL DOCUMENTATION: JOB ID: [id number] [email or web address]- All Rights Reserved Reading location - IP/workstation name: [email or web address]
[2018-02-20] MEDS ORDERED: PIPERACILLIN/TAZOBACTAM 3.375 GM VIAL IV ONE (11:38)
[2018-02-20] MEDS ORDERED: VANCOMYCIN HCL INJ 1000 MG VIAL IV ONE (11:38)
[2018-02-20] MEDS ORDERED: LEVOFLOXACIN 750 MG/D5W RTU 750 MG/150 ML RTUPB IV ONE (11:39)
[2018-02-20 11:45] LABS: RED BLOOD COUNT 3.52 10^6/uL (4.35-5.55); WHITE BLOOD COUNT 9.1 10^3/uL (4.0-10.5)
[2018-02-20 11:46] LABS: ABSOLUTE BASOPHILS # (AUTO) 0.1 10^3/uL (0.0-0.2); ABSOLUTE EOSINOPHILS # (AUTO) 0.3 10^3/uL (0.0-0.6); ABSOLUTE LYMPHOCYTES (AUTO) 1.9 10^3/uL (0.5-4.7); ABSOLUTE MONOCYTES (AUTO) 0.7 10^3/uL (0.1-1.4); ABSOLUTE NEUT (AUTO) 6.2 10^3/uL (1.7-8.2); BASOPHILS % (AUTO) 0.6 % (0-2); EOSINOPHILS % (AUTO) 3.1 % (0-6); HEMATOCRIT 33.2 % (37.9-51.0); HEMOGLOBIN 10.9 g/dL (13.5-17.0); LYMPHOCYTES % (AUTO) 21.1 % (13-45); MEAN CORPUSCULAR HGB CONC 32.9 g/dL (32.0-36.0); MEAN CORPUSCULAR VOLUME 94 fl (80-97); MONOCYTES % (AUTO) 7.6 % (3-13); PLATELET COUNT 206 10^3/uL (150-450); RED CELL DISTRIBUTION WIDTH 17.3 % (11.5-14.0); SEGMENTED NEUTROPHILS % (AUTO) 67.6 % (42-78); TOTAL CELLS COUNTED % (AUTO) 100 %
[2018-02-20 11:49] LABS: VENOUS BLOOD BASE EXCESS 0.8 mmol/L; VENOUS BLOOD HCO3 26.4 mmol/L (20-32); VENOUS BLOOD PCO2 45.7 mmHg (35-63); VENOUS BLOOD PH 7.38 (7.30-7.42)
[2018-02-20 11:55] LABS: INTERNATIONAL RATION (INR) 1.86; PROTHROMBIN TIME 22.3 SEC (11.4-15.4)
[2018-02-20 11:56] LABS: PARTIAL THROMBOPLASTIN TIME 46.6 SEC (23.5-35.8)
[2018-02-20 12:15] LABS: ALANINE AMINOTRANSFERASE 17 U/L (21-72); ALBUMIN 3.6 g/dL (3.5-5.0); ALKALINE PHOSPHATASE 115 U/L (38-126); ANION GAP 11 (5-19); ASPARTATE AMINO TRANSFERASE 27 U/L (17-59); BILIRUBIN,DIRECT 0.4 mg/dL (0.0-0.4); BILIRUBIN,TOTAL 0.9 mg/dL (0.2-1.3); BLOOD UREA NITROGEN 23 mg/dL (7-20); CALCIUM 9.2 mg/dL (8.4-10.2); CARBON DIOXIDE 25 mmol/L (22-30); CHLORIDE 107 mmol/L (98-107); CREATINE KINASE 30 U/L (55-170); GLUCOSE 128 mg/dL (75-110); POTASSIUM 3.7 mmol/L (3.6-5.0); SODIUM 143.4 mmol/L (137-145); TOTAL PROTEIN 6.8 g/dL (6.3-8.2)
[2018-02-20 12:25] LABS: CREATINE KINASE MB 1.19 ng/mL (<4.55); NT PRO BNP 3490 pg/mL (<450)
[2018-02-20 12:29] LABS: TROPONIN I < 0.012 ng/mL
[2018-02-20 12:34] LABS: APPEARANCE,URINE SLIGHTLY-CLOUDY; BILIRUBIN,URINE NEGATIVE (NEGATIVE); COLOR,URINE YELLOW; GLUCOSE, URINE NEGATIVE (NEGATIVE); KETONES,URINE NEGATIVE (NEGATIVE); LEUKOCYTE ESTERASE,URINE TRACE (NEGATIVE); NITRITE,URINE NEGATIVE (NEGATIVE); PROTEIN,URINE 30 mg/dL (NEGATIVE); URINE SPECIFIC GRAVITY 1.013; UROBILINOGEN,URINE NEGATIVE mg/dL (<2.0)
[2018-02-20 13:49] LABS: A TYPE INFLUENZA AG NEGATIVE (NEGATIVE); B INFLUENZA AG NEGATIVE (NEGATIVE)
[2018-02-20] MEDS ORDERED: VANCOMYCIN HCL INJ 1000 MG VIAL ONE (13:53)
--- NOTE | 2018-02-20 15:20 | EKG REPORT ---
SEVERITY:- ABNORMAL ECG - ATRIAL FIBRILLATION BORDERLINE T ABNORMALITIES, INFERIOR LEADS : Confirmed by: Silvia Reeves 20-Feb-2018 15:19:24
--- NOTE | 2018-02-20 21:30 | PDOC H&P ---
History of Present Illness Admission Date/PCP: 02/20/18 14:51 EJ OSUNKSHANNAN Patient complains of: Difficulty with breathing History of Present Illness: DONALD WESTON is a 77 year old male patient known to my practice who was brought to [facility] ED via EMS due to reported worsening shortness of breath with minimal exertion. Patient claimed compliance with his home medication and supplemental oxygen usage via nasal cannula at 2-4L/min. He reported that walking to his bathroom was enough to make him very short of breath. He denied any associated chest pain, awareness of any palpitation or irregular heartbeat. EMS crew found him hypoxemic in fel[place] with oxygen saturation at 67% on supplemental oxygen at 2L/min and clear lung upon auscultation. He was recently discharged from this hospital after treatment for Pneumonia and diastolic CHF. His initial ED evaluation was significant for elevated NT Pro-BNP. There was concern for possible pneumonia in view of his reported of chills, running nose, sore throat and productive cough in this elderly patient with end stage COPD on supplemental oxygen. Patient reported completion of his antibiotic since recent discharged home. 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 Past Medical History Cardiac Medical History: Reports: Atrial Fibrillation, Myocardial Infarction, Hyperlipidema, Hypertension Pulmonary Medical History: Reports: Chronic Obstructive Pulmonary Disease (COPD) , Pneumonia Endocrine Medical History: Reports: Diabetes Mellitus Type 2 GI Medical History: Reports: Gastroesophageal Reflux Disease Musculoskeltal Medical History: Reports: Arthritis Psychiatric Medical History: Denies: Depression Past Surgical History Past Surgical History: Reports: Appendectomy, Tonsillectomy Social History Smoking Status: Former Smoker Frequency of Alcohol Use: Occasional Hx Recreational Drug Use: No Drugs: None Hx Prescription Drug Abuse: No Family History Family History: Reviewed & Not Pertinent Parental Family History Reviewed: Yes Children Family History Reviewed: Yes Sibling(s) Family History Reviewed.: Yes Medication/Allergy Home Medications: Albuterol Sulfate [Proair HFA Inhalation Aerosol 8.5 gm MDI] 1 puff IH Q4HP PRN 02/03/18 Allopurinol [Zyloprim 300 mg Tablet] 300 mg PO DAILY 02/03/18 Amlodipine/Atorvastatin [Amlodipine-Atorvast 10-40 mg] 1 each PO DAILY 02/03/18 Ascorbic Acid [Vitamin C 500 mg Tablet] 500 mg PO DAILY 02/03/18 Aspirin [Ecotrin 81 mg EC Tablet] 81 mg PO DAILY 02/03/18 Atenolol [Tenormin] 25 mg PO DAILY 02/03/18 Cholecalciferol (Vitamin D3) [Vitamin D3 2000 unit Tablet] 2,000 unit PO DAILY 02/03/18 Cyanocobalamin (Vitamin B-12) [Vitamin B-12] 1,000 mcg PO DAILY 02/03/18 Docusate Calcium [Stool Softener] 240 mg PO DAILY MDD 2 CAPS 02/03/18 Famotidine [Pepcid 20 mg Tablet] 20 mg PO QPM 02/03/18 Ferrous Sulfate [Feosol 325 mg Tablet] 325 mg PO DAILY 02/03/18 Finasteride [Proscar 5 mg Tablet] 5 mg PO DAILY 02/03/18 Fluticasone/Salmeterol [Advair 500-50 Diskus 14 Dose/Diskus] 1 inh IH Q12 Folic Acid 0.8 mg PO DAILY 02/03/18 Furosemide [Lasix 20 mg Tablet] 20 mg PO QAM 02/03/18 Insulin Regular, Human [Humulin R (Reg) Insulin 100 unit/mL] 0 unit SUBCUT .SLD SCALE 02/03/18 Lisinopril [Prinivil 2.5 mg Tablet] 2.5 mg PO DAILY 02/03/18 Metformin HCl [Glucophage 500 mg Tablet] 500 mg PO BID 02/03/18 [place]-3/Dha/Epa/Fish Oil [Fish Oil 1,000 mg Softgel] 1 each PO DAILY 02/03/18 Tamsulosin HCl [Flomax 0.4 mg Cap.sr] 0.4 mg PO DAILY 02/03/18 Tiotropium [place] [Spiriva Respimat] 2 puff IH DAILY 02/03/18 Warfarin Sodium [Coumadin 2.5 mg Tablet] 2.5 mg PO SUSA@0 02/03/18 Warfarin Sodium [Coumadin 5 mg Tablet] 5 mg PO MOTUWETHFR@0 02/03/18 Allergies/Adverse Reactions: No Known Allergies Allergy (Verified 09/27/17 12:02) Review of Systems Constitutional: PRESENT: chills Eyes: PRESENT: visual disturbances Ears: ABSENT: hearing changes Nose, Mouth, and Throat: PRESENT: sore throat Cardiovascular: PRESENT: dyspnea on exertion Respiratory: PRESENT: cough, dyspnea, sputum Gastrointestinal: ABSENT: abdominal pain, constipation, diarrhea, hematemesis, hematochezia, nausea, vomiting Genitourinary: ABSENT: dysuria, hematuria Musculoskeletal: ABSENT: joint swelling Integumentary: ABSENT: rash, wounds Neurological: ABSENT: abnormal gait, abnormal speech, confusion, dizziness, focal weakness, syncope Psychiatric: ABSENT: anxiety, depression, homidical ideation, suicidal ideation Endocrine: ABSENT: cold intolerance, heat intolerance, polydipsia, polyuria Hematologic/Lymphatic: ABSENT: easy bleeding, easy bruising, lymphadenopathy Allergic/Immunologic: PRESENT: seasonal rhinorrhea Physical Exam Vital Signs: Temp Pulse Resp BP Pulse Ox 97.3 F 83 22 H 131/61 H 95 02/20/18 19:12 02/20/18 19:12 02/20/18 19:12 02/20/18 19:12 02/20/18 19:12 Intake & Output 02/19/18 02/20/18 02/21/18 06:59 06:59 06:59 Intake Total 150 Output Total 350 Balance -200 Weight 98.4 kg General appearance: PRESENT: mild distress - on non-rebreathing supplemental oxygen Head exam: PRESENT: atraumatic, normocephalic Eye exam: PRESENT: conjunctiva pink, EOMI, PERRLA. ABSENT: scleral icterus Ear exam: PRESENT: normal external ear exam Mouth exam: PRESENT: moist Respiratory exam: PRESENT: clear to auscultation nelda, decreased breath sounds - at lung bases Cardiovascular exam: PRESENT: irregular rhythm, +S1, +S2, systolic murmur Pulses: PRESENT: +1 pedal pulses bilateral Vascular exam: PRESENT: normal capillary refill. ABSENT: pallor GI/Abdominal exam: PRESENT: normal bowel sounds, soft. ABSENT: distended, guarding, mass, organolmegaly, rebound, tenderness Rectal exam: PRESENT: deferred Extremities exam: ABSENT: pedal edema Musculoskeletal exam: PRESENT: deformity - related to multuiple joint involvement with arthritis Neurological exam: PRESENT: alert, awake, oriented to person, oriented to place , oriented to time, oriented to situation, CN II-XII grossly intact. ABSENT: motor sensory deficit Psychiatric exam: PRESENT: appropriate affect, normal mood. ABSENT: homicidal ideation, suicidal ideation Skin exam: PRESENT: dry, intact, warm. ABSENT: cyanosis, rash Results Laboratory Results: I reviewed his lab results on [facility] and form significant part of my medical decision making. Impressions: Chest X-Ray 02/20/18 11:05 IMPRESSION: Extensive pleural reaction on the right and basilar opacities stable. Small left effusion. Cardiac enlargement without overt failure. Assessment & Plan - Diagnosis (1) Acute on chronic respiratory failure with hypoxemia Is this a current diagnosis for this admission?: Yes Plan: Taper off 100% non re-breathing supplemental oxygen. Patient may need noninvasive ventilatory support such as BiPAP, CPAP or AVAP during hospitalization and at home upon discharge. I will request pulmonary input in his management. (2) End stage chronic obstructive pulmonary disease Is this a current diagnosis for this admission?: Yes Plan: Continue preadmission medication management. He will remain on IV Solu Medrol therapy. (3) Acute on chronic diastolic heart failure Is this a current diagnosis for this admission?: Yes Plan: Although his chest X ray did not suggest overt CHF his elevated NT pro-BNP do suggest worsening cardiac status. I will request cardiology consultation with Dr. Machado with regard to his chronic Atrial fibrillation and diastolic CHF as contributing factors to his exertional dyspnea. (4) Chronic atrial fibrillation Plan: Patient have subtherapeutic INR level. He will receive adjusted dose of his Coumadin tonight. (5) Diabetes mellitus type 2 in obese Is this a current diagnosis for this admission?: Yes Plan: Continue preadmission medication management with sliding scale Humalog insulin coverage. (6) HTN (hypertension) Qualifiers: Hypertension type: essential hypertension Qualified Code(s): I10 - Essential (primary) hypertension Is this a current diagnosis for this admission?: Yes Plan: Continue preadmission medication management (7) HLD (hyperlipidemia) Qualifiers: Hyperlipidemia type: unspecified Qualified Code(s): E78.5 - Hyperlipidemia , unspecified Is this a current diagnosis for this admission?: Yes Plan: Continue preadmission medication management (8) BPH loc w urin obs/LUTS Is this a current diagnosis for this admission?: Yes Plan: Continue preadmission medication management - Time Time Spent: 50 to 70 Minutes Medications reviewed and adjusted accordingly: Yes Anticipated discharge: Home with Homehealth Within: within 48 hours - Plan Summary Plan Summary: Sew admitting physician orders peer outlined care plan above. I did discuss care plan with patient and he is in agreement at this time.
[2018-02-20] MEDS ORDERED: ALBUTEROL SULFATE HFA (90 MCG/PUFF) 200 PUFF/8.5 GM MDI IH PRN (21:32)
[2018-02-20] MEDS ORDERED: GLUCAGON,HUMAN RECOMB 1 MG INJ IM PRN (21:35)
[2018-02-20] MEDS ORDERED: DEXTROSE 50%-WATER 25 GM/50 ML DISP.SYRIN IV PRN ×2 (21:35)
[2018-02-20] MEDS ORDERED: DEXTROSE 40% GEL 15 GM TUBE PO PRN ×2 (21:35)
[2018-02-20] MEDS ORDERED: (PENDING PHARMACY ID) (Warfarin Sodium 5 MG) PO SCH (22:00)
[2018-02-20] MEDS ORDERED: WARFARIN SODIUM 5 MG TABLET PO SCH (22:00)
[2018-02-20] MEDS: ATORVASTATIN CALCIUM 40 MG TABLET PO SCH (22:23)
[2018-02-20] MEDS: FLUTICASONE/SALMETEROL DISKUS 500-50 MCG/DOSE IH SCH (22:23)
[2018-02-20] MEDS: INSULIN LISPRO 100 UNIT/ML 3 ML VIAL SUBCUT PRN (22:25)
[2018-02-21 05:40] LABS: INTERNATIONAL RATION (INR) 2.04; PROTHROMBIN TIME 24.1 SEC (11.4-15.4)
[2018-02-21 05:59] LABS: ANION GAP 14 (5-19); BLOOD UREA NITROGEN 27 mg/dL (7-20); CARBON DIOXIDE 23 mmol/L (22-30); CHLORIDE 105 mmol/L (98-107); GLUCOSE 173 mg/dL (75-110); SODIUM 142.1 mmol/L (137-145)
[2018-02-21] MEDS: ASCORBIC ACID 500 MG TABLET PO SCH (09:24)
[2018-02-21] MEDS: FOLIC ACID 1 MG TABLET PO SCH (09:24)
[2018-02-21] MEDS: FINASTERIDE 5 MG TABLET PO SCH (09:24)
[2018-02-21] MEDS: CYANOCOBALAMIN (VITAMIN B-12) 1,000 MCG TABLET PO SCH (09:25)
[2018-02-21] MEDS: METFORMIN HCL 500 MG TABLET PO SCH ×2 (09:25→17:29)
[2018-02-21] MEDS: TAMSULOSIN HCL 0.4 MG CAP.SR.24H PO SCH (09:25)
[2018-02-21] MEDS: AMLODIPINE BESYLATE 10 MG TABLET PO SCH (09:25)
[2018-02-21] MEDS: CHOLECALCIFEROL (D3) 1,000 UNIT TABLET PO SCH (09:25)
[2018-02-21] MEDS: ALLOPURINOL 300 MG TABLET PO SCH (09:25)
[2018-02-21] MEDS: ASPIRIN 81 MG TABLET, ENT COATED PO SCH (09:26)
[2018-02-21] MEDS: LISINOPRIL 5 MG TABLET PO SCH (09:26)
[2018-02-21] MEDS: FERROUS SULFATE 325 MG TABLET PO SCH (09:26)
[2018-02-21] MEDS: DOCUSATE SODIUM 100 MG CAPSULE PO SCH (09:26)
[2018-02-21] MEDS: OMEGA-3 ACID ETHYL ESTERS 1 GM CAPSULE PO SCH (09:27)
[2018-02-21] MEDS: ATENOLOL 50 MG TABLET PO SCH (09:28)
[2018-02-21] MEDS: FLUTICASONE/SALMETEROL DISKUS 500-50 MCG/DOSE IH SCH ×2 (09:28→22:20)
[2018-02-21] MEDS ORDERED: (PENDING PHARMACY ID) (Omega-3/Dha/Epa/Fish Oil [Fish Oil 1,000 Mg Softgel] 1 EACH) PO SCH (10:00)
[2018-02-21] MEDS ORDERED: (PENDING PHARMACY ID) (Cholecalciferol (Vitamin D3) [Vitamin D3 2000 Unit Tablet] 2,000 UN PO SCH (10:00)
[2018-02-21] MEDS ORDERED: (PENDING PHARMACY ID) (Folic Acid [Folic Acid] 0.8 MG) PO SCH (10:00)
[2018-02-21] MEDS ORDERED: (PENDING PHARMACY ID) (Tiotropium Bromide [Spiriva Respimat] 2 PUFF) IH SCH (10:00)
[2018-02-21] MEDS ORDERED: ATORVASTATIN PO SCH (10:00)
[2018-02-21] MEDS ORDERED: AMLODIPINE PO SCH (10:00)
[2018-02-21] MEDS ORDERED: (PENDING PHARMACY ID) (Docusate Calcium [Stool Softener] 240 MG) PO SCH (10:00)
[2018-02-21] MEDS ORDERED: (PENDING PHARMACY ID) (Lisinopril [Prinivil 2.5 Mg Tablet] 2.5 MG) PO SCH (10:00)
[2018-02-21] MEDS ORDERED: (PENDING PHARMACY ID) (Atenolol [Tenormin] 25 MG) PO SCH (10:00)
--- NOTE | 2018-02-21 11:21 | PDOC CONSULTATION ---
Consultation Consult Date: 02/21/18 Attending physician:: EJ WATTS Consult reason:: COPD/chronic respiratory failure/pleural effusion History of Present Illness Admission Date/PCP: 02/20/18 14:51 EJ WATTS History of Present Illness: DONALD WESTON is a 77 year old male, gentleman with increasing shortness of breath and a cough that is productive of clear phlegm he denies hemoptysis fever chills PBDs negative dates unknown chronic lung disease or adolescent. Admits to exposure to large amounts of passive smoke as a child as well as an adult he himself smoked 4 packs a day for 50 years currently down to half a pack a day. 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 2 dogs no recent travel he denies angina-like chest pain sleeps on 2 pillows occasional PND occasional nocturnal cough and admits to edema he admits to snoring restless sleep. 2-3 times per night on restful sleep and excessive daytime somnolence. Past Medical History Cardiac Medical History: Reports: Atrial Fibrillation, Myocardial Infarction, Hyperlipidema, Hypertension Pulmonary Medical History: Reports: Chronic Obstructive Pulmonary Disease (COPD) , Pneumonia Neurological Medical History: Denies: Multiple Sclerosis, Seizures Endocrine Medical History: Reports: Diabetes Mellitus Type 2 Denies: Hyperthyroidism, Hypothyroidism Renal/ Medical History: Denies: Chronic Kidney Disease, Nephrolithiasis Malignancy Medical History: Reports: Colorectal Cancer GI Medical History: Reports: Gastroesophageal Reflux Disease Denies: Crohn's Disease, Ulcerative Colitis Musculoskeltal Medical History: Reports: Arthritis Skin Medical History: Denies: Eczema, Psoriasis Psychiatric Medical History: Reports: Tobacco Dependency Denies: Depression Traumatic Medical History: Denies: Stab Wound Infectious Medical History: Denies: Hepatitis B, Hepatitis C, HIV Past Surgical History Past Surgical History: Reports: Appendectomy, Coronary Artery Bypass Graft - 3 vessels, Tonsillectomy, Other - AAA Social History Information Source: Patient, [facility] Records 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 Lives with: Family Smoking Status: Current Some Day Smoker Cigarettes Packs Per Day: 4 Number of Years Smokin Passive smoke exposure as: Both Frequency of Alcohol Use: Occasional Hx Recreational Drug Use: No Drugs: None Hx Prescription Drug Abuse: No Do you have pets?: Yes Have you had any respiratory illnesses as a child?: No Have you been exposed to any sick contacts recently?: No Have you had any recent respiratory illnesses?: No Have you travelled outside of [place] in the past 12 months?: No Family History Family History: Hypertension, Malignancy Parental Family History Reviewed: Yes Children Family History Reviewed: Yes Sibling(s) Family History Reviewed.: Yes Medication/Allergy Home Medications: Albuterol Sulfate [Proair HFA Inhalation Aerosol 8.5 gm MDI] 1 puff IH Q4HP PRN 02/03/18 Allopurinol [Zyloprim 300 mg Tablet] 300 mg PO DAILY 02/03/18 Amlodipine/Atorvastatin [Amlodipine-Atorvast 10-40 mg] 1 each PO DAILY 02/03/18 Ascorbic Acid [Vitamin C 500 mg Tablet] 500 mg PO DAILY 02/03/18 Aspirin [Ecotrin 81 mg EC Tablet] 81 mg PO DAILY 02/03/18 Atenolol [Tenormin] 25 mg PO DAILY 02/03/18 Cholecalciferol (Vitamin D3) [Vitamin D3 2000 unit Tablet] 2,000 unit PO DAILY 02/03/18 Cyanocobalamin (Vitamin B-12) [Vitamin B-12] 1,000 mcg PO DAILY 02/03/18 Docusate Calcium [Stool Softener] 240 mg PO DAILY MDD 2 CAPS 02/03/18 Famotidine [Pepcid 20 mg Tablet] 20 mg PO QPM 02/03/18 Ferrous Sulfate [Feosol 325 mg Tablet] 325 mg PO DAILY 02/03/18 Finasteride [Proscar 5 mg Tablet] 5 mg PO DAILY 02/03/18 Fluticasone/Salmeterol [Advair 500-50 Diskus 14 Dose/Diskus] 1 inh IH Q12 Folic Acid 0.8 mg PO DAILY 02/03/18 Furosemide [Lasix 20 mg Tablet] 20 mg PO QAM 02/03/18 Insulin Regular, Human [Humulin R (Reg) Insulin 100 unit/mL] 0 unit SUBCUT .SLD SCALE 02/03/18 Lisinopril [Prinivil 2.5 mg Tablet] 2.5 mg PO DAILY 02/03/18 Metformin HCl [Glucophage 500 mg Tablet] 500 mg PO BID 02/03/18 [place]-3/Dha/Epa/Fish Oil [Fish Oil 1,000 mg Softgel] 1 each PO DAILY 02/03/18 Tamsulosin HCl [Flomax 0.4 mg Cap.sr] 0.4 mg PO DAILY 02/03/18 Tiotropium [place] [Spiriva Respimat] 2 puff IH DAILY 02/03/18 Warfarin Sodium [Coumadin 2.5 mg Tablet] 2.5 mg PO SUSA@0 02/03/18 Warfarin Sodium [Coumadin 5 mg Tablet] 5 mg PO MOTUWETHFR@219902/03/18 Allergies/Adverse Reactions: No Known Allergies Allergy (Verified 09/27/17 12:02) Review of Systems Constitutional: ABSENT: fatigue, fever(s), night sweats Eyes: ABSENT: visual disturbances Nose, Mouth, and Throat: PRESENT: sore throat Cardiovascular: PRESENT: dyspnea on exertion, edema, orthropnea. ABSENT: chest pain Gastrointestinal: PRESENT: heartburn. ABSENT: abdominal pain, bloating, coffee ground emesis, hematemesis, hematochezia, melena Genitourinary: ABSENT: dysuria, hematuria Musculoskeletal: ABSENT: deformity, joint swelling Integumentary: ABSENT: pruritus, rash Neurological: ABSENT: abnormal gait, abnormal movements, abnormal speech, confusion, frequent falls, lack of coordination, memory loss Psychiatric: ABSENT: homidical ideation, suicidal ideation Endocrine: ABSENT: cold intolerance, heat intolerance, polydipsia, polyuria Hematologic/Lymphatic: PRESENT: easy bruising. ABSENT: lymphadenopathy Allergic/Immunologic: PRESENT: seasonal rhinorrhea Physical Exam Vital Signs: Temp Pulse Resp BP Pulse Ox 97.5 F 71 13 116/59 L 92 02/21/18 03:08 02/21/18 07:00 02/21/18 04:43 02/21/18 03:08 02/21/18 04:43 Intake & Output 02/20/18 02/21/18 02/22/18 06:59 06:59 06:59 Intake Total 150 Output Total 350 Balance -200 Weight 97.7 kg General appearance: PRESENT: no acute distress, cooperative, disheveled, obese, well-developed, well-nourished Head exam: PRESENT: atraumatic, normocephalic Eye exam: PRESENT: conjunctiva pale, EOMI. ABSENT: nystagmus, periorbital swelling, scleral icterus Mouth exam: PRESENT: dry mucosa, neck supple, tongue midline Neck exam: ABSENT: carotid bruit, JVD, lymphadenopathy, thyromegaly, tracheal deviation, tracheostomy Respiratory exam: PRESENT: decreased breath sounds - r ashley thorax, prolonged expiratory phas, rhonchi, unlabored, wheezes Cardiovascular exam: PRESENT: RRR, rubs, +S2 Pulses: PRESENT: normal radial pulses GI/Abdominal exam: PRESENT: soft. ABSENT: tenderness Extremities exam: ABSENT: calf tenderness, clubbing, joint swelling Musculoskeletal exam: ABSENT: deformity, dislocation Neurological exam: PRESENT: alert, awake Psychiatric exam: PRESENT: appropriate affect Skin exam: PRESENT: dry, warm Results Laboratory Results: 02/21/18 04:33 02/21/18 04:33 Sodium 142.1 Potassium 4.0 Chloride 105 Carbon Dioxide 23 Anion Gap 14 BUN 27 H Creatinine 1.07 Est GFR ( Amer) > 60 Est GFR (Non-Af Amer) > 60 Glucose 173 H Calcium 9.0 Impressions: Chest X-Ray 02/20/18 11:05 IMPRESSION: Extensive pleural reaction on the right and basilar opacities stable. Small left effusion. Cardiac enlargement without overt failure. Assessment & Plan - Diagnosis (1) Pleural effusion Is this a current diagnosis for this admission?: Yes Plan: needs R thoracentesis suggest hold warfarin cover with Lovenox (2) Acute on chronic respiratory failure with hypoxemia Is this a current diagnosis for this admission?: Yes Plan: Supplemental oxygen (3) End stage chronic obstructive pulmonary disease Is this a current diagnosis for this admission?: Yes Plan: Generic Name Dose Route Start Last Admin Trade Name Freq PRN Reason Stop Dose Admin Patient Own Medication 2 puff 02/21/18 10:00 Tiotropium [place] [Spiriva Respimat] 03/23/18 09:59 .DAILY TERRY Albuterol 1 puff 02/20/18 21:32 Proair Hfa Inhalation Aerosol 8.5 Gm Mdi 03/22/18 21:31 Q4HP PRN FOR WHEEZING Fluticasone/Salmeterol 1 inh 02/20/18 22:00 02/21/18 09:28 Advair 500-50 Diskus 14 Dose/Diskus IH 03/22/18 21:59 1 puff Q12 TERRY ABG on 2 L nasal cannula (4) History of atrial fibrillation Is this a current diagnosis for this admission?: Yes Plan: Stable this far (5) Pulmonary hypertension Is this a current diagnosis for this admission?: Yes
[2018-02-21] MEDS: INSULIN LISPRO 100 UNIT/ML 3 ML VIAL SUBCUT PRN (15:33)
--- NOTE | 2018-02-21 15:50 | Physician Advisory Note ---
Physician Advisor ProgressNote .: Pursuant to the plan for Iwona Azul, I have reviewed the medical record for this patient. Physician Advisor Statement: Nice documentation of Ac on Chr Hypoxemic Resp Failure, ac on chr diast CHF, chronic Afib. Please consider documenting, if you agree: 1. "pleural effusion, suspect due to " 2. "severe pulmonary HTN" Thanks, CK For chart reviewers, info consolidated in 1 place: Support for Inpt status: Given Solumedrol 125mg by EMS (per ED note), vanc/Zosyn/Levaquin in ED, Lasix 40mg IV at 11:46 in ED. Needing Bipap alt w/NRB high flow O2 all first day & so far through 2nd day - expected to continue for some time yet. Pulmonology plans dx-ic thoracentesis in AM to better clarify etiology of pleural effusion. Clearly will need at least 2MNs [facility] to stabilize him sufficiently for safe d/c. Appropriate for Inpt status. Support for Ac on Chr Resp failure: On chronic O2 2-4L. Sat 86% on 10L NRB at 11:05 on 02/20, & labored breathing, still unable to lie flat at 11:32 despite Bipap. Multiple other documentation from ED nursing of accessory muscle use despite high flow O2 w/NRB/Bipap, w/persistent tachypnea (even tachycardia at times despite Atenolol).... Support for dx Ac on Chr diast CHF: (+) MELVIN (H&P), orthopnea (pulm consult note), cardiomeg (CXR), LE pitting edema (ED note), pleural effusion (pulm consult note).
[2018-02-21] MEDS: FAMOTIDINE 20 MG TABLET PO SCH (17:29)
--- NOTE | 2018-02-21 18:14 | PDOC PROGRESS REPORT ---
Subjective Progress Note for:: 02/21/18 Subjective:: Patient reported some improvement in his breathing but remain on non- rebreathing supplemental oxygen. No chest pain. No nausea or vomiting. Tolerating oral feeding. Pulmonary consult input appreciated. Reason For Visit: END STAGE COPD WITH HYPOXEMIA;CHRONIC ATRIAL Physical Exam Vital Signs: Temp Pulse Resp BP Pulse Ox 97.3 F 62 20 106/60 94 02/21/18 11:05 02/21/18 14:00 02/21/18 11:05 02/21/18 11:05 02/21/18 12:10 Intake & Output 02/20/18 02/21/18 02/22/18 06:59 06:59 06:59 Intake Total 150 742 Output Total 350 400 Balance -200 342 Weight 97.7 kg General appearance: PRESENT: no acute distress, mild distress - on supplemental oxygen via non rebreathing face mask, well-developed, well-nourished Head exam: PRESENT: atraumatic, normocephalic Eye exam: PRESENT: conjunctiva pink, EOMI, PERRLA. ABSENT: scleral icterus Ear exam: PRESENT: normal external ear exam Mouth exam: PRESENT: moist Respiratory exam: PRESENT: clear to auscultation nelda, decreased breath sounds - at lung bases Cardiovascular exam: PRESENT: irregular rhythm, +S1, +S2 Vascular exam: PRESENT: normal capillary refill. ABSENT: pallor GI/Abdominal exam: PRESENT: normal bowel sounds, soft. ABSENT: distended, guarding, mass, organolmegaly, rebound, tenderness Extremities exam: ABSENT: pedal edema Neurological exam: PRESENT: alert, awake, oriented to person, oriented to place , oriented to time, oriented to situation, CN II-XII grossly intact. ABSENT: motor sensory deficit Psychiatric exam: PRESENT: appropriate affect, normal mood. ABSENT: homicidal ideation, suicidal ideation Skin exam: PRESENT: dry, intact, warm. ABSENT: cyanosis, rash Results Laboratory Results: 02/21/18 04:33 02/21/18 04:33 Sodium 142.1 Potassium 4.0 Chloride 105 Carbon Dioxide 23 Anion Gap 14 BUN 27 H Creatinine 1.07 Est GFR ( Amer) > 60 Est GFR (Non-Af Amer) > 60 Glucose 173 H Calcium 9.0 Impressions: Chest X-Ray 02/20/18 11:05 IMPRESSION: Extensive pleural reaction on the right and basilar opacities stable. Small left effusion. Cardiac enlargement without overt failure. Assessment & Plan - Diagnosis (1) Acute on chronic respiratory failure with hypoxemia Is this a current diagnosis for this admission?: Yes (2) End stage chronic obstructive pulmonary disease Is this a current diagnosis for this admission?: Yes (3) Acute on chronic diastolic heart failure Is this a current diagnosis for this admission?: Yes (5) Diabetes mellitus type 2 in obese Is this a current diagnosis for this admission?: Yes (6) HTN (hypertension) Qualifiers: Hypertension type: essential hypertension Qualified Code(s): I10 - Essential (primary) hypertension Is this a current diagnosis for this admission?: Yes (7) HLD (hyperlipidemia) Qualifiers: Hyperlipidemia type: unspecified Qualified Code(s): E78.5 - Hyperlipidemia , unspecified Is this a current diagnosis for this admission?: Yes (8) BPH loc w urin obs/LUTS Is this a current diagnosis for this admission?: Yes (9) Pleural effusion, right Is this a current diagnosis for this admission?: Yes Plan: Probably due to his CHF or recent pneumonia. Hold Coumadin therapy. Start on Lovenox 1mg/kg q12 hours. Arrange for right pleural thoracentesis with INR < 1.4. (10) Severe pulmonary arterial systolic hypertension Is this a current diagnosis for this admission?: Yes Plan: As per his echocardiogram on 02/03/18. Maintain on supplemental oxygen therapy. - Time Time Spent with patient: 25-34 minutes Medications reviewed and adjusted accordingly: Yes Anticipated discharge: Home with Homehealth Within: Other - Inpatient Certification Based on my medical assessment, after consideration of the patient's comorbidities, presenting symptoms, or acuity I expect that the services needed warrant INPATIENT care.: Yes I certify that my determination is in accordance with my understanding of Medicare's requirements for reasonable and necessary INPATIENT services [42 CFR 412.3e].: Yes Medical Necessity: Need Close Monitoring Due to Risk of Patient Decompensation, Need For Continuous Telemetry Monitoring, Need for Nebulizer Therapy and Monitoring of Response, Risk of Complication if Not Cared For in Hospital 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 Care plan as noted above. Follow up with radiology regarding right US guided thoracentesis. Change admission status to full admission.
--- NOTE | 2018-02-21 21:50 | PDOC CONSULTATION ---
Consultation-Blank Consultation: PAST MEDICAL HISTORY: The patient has history of coronary artery disease, history of myocardial infarction history of coronary bypass graft surgery, the details of which is not note. He had his coronary bypass graft surgery in [place]. Records elevated. He has had no recent anginal symptoms. It seems that he has not had a stress test in a few years. He has a history of hypertension. He also has a history of chronic atrial fibrillation and is on chronic anticoagulation with Coumadin. He states in July he had symptoms which led to the diagnosis of TIA, and this has not recurred. He has a history of diabetes mellitus. He has no history of thyroid disease. He has history of severe COPD and is on 2 L nasal cannula home oxygen. Recent symptoms of cough and sputum production suggestive of pneumonia. The chest x-ray also is consistent with a with mild heart associated heart failure, with a echo showing LV ejection fraction which is borderline reduced at 50-50%. He also has severe pulmonary hypertension by his echocardiogram. He also has mild aortic stenosis. He has mild to moderate mitral regurgitation, and moderate tricuspid regurgitation. He has symptoms suggestive of sleep apnea, but has not had a sleep study. He also has a history of peripheral vascular disease, and states that he had 2 abdominal aortic aneurysms that were repaired in the past. The patient is not very active and hence is no definite claudication. He does seem to have chronic renal failure, but the patient is not aware of this. PAST SURGICAL HISTORY: He has a history of coronary artery bypass graft surgery , history of 2 surgeries abdominal aortic aneurysm. He has had a appendectomy he also has a history of tonsillectomy. FAMILY HISTORY is positive for coronary artery disease, and hypertension, SOCIAL HISTORY: The patient quit smoking 10 years ago. There is no EtOH abuse. No history of chronic pain medication, or street drug abuse. ALLERGIES: No known allergies. DISPOSITION: The patient now is a full code. His daughter has decided get healthcare decision maker. REVIEW OF SYMPTOMS: CONSTITUTIONAL: He is not aware if he had fevers or not. He denies any chills. He did have night sweats. He has generalized fatigue and generalized weakness. HEAD: Denies headache or head injury. Eyes: No Diplopia or Amblyopia. No Amaurosis Fugax. EARS: No Vertigo. No Tinnitus. No Recurrent Ear Infections. NOSE: No History of Hayfever No History of Nosebleeds. MULTIPLE No Altered Taste Sensation. No Ulcers in the Mouth. No Bleeding from the Gums. THROAT: No Odynophagia or Dysphagia. No Recurrence of Clots. SKIN: No History of Skin Cancer or Psoriasis. No Pruritus. No Alert Discoloration of Skin. NECK: No History of Neck Pain. No History of Swelling in the Neck. No Goiter. LUNGS: History of COPD on Home Oxygen. Patient with Increasing Shortness of Breath and Cough Productive of Dark Brown Sputum. CT Scan Is Conducive with Right Upper Lobe Patchy Consolidation/Pneumonia. No History of Pulmonary Embolism. Symptoms of Sleep Apnea, but the Patient Has Not Had a Sleep Study. No Pleuritic Chest Pain. No Hemoptysis. CARDIAC: History of Coronary Artery Disease. Old AZ. No Anginal Symptoms since Some Time. Rubio Artery Bypass Graft Surgery Present. Patient Seems to Have Mild Congestive Heart Failure. Cardiomyopathy with Borderline Reduced LV Ejection Fraction. He Has Mild Aortic Stenosis. Bradycardia. This Resolved with the Stopping of Atenolol. Most Likely the Patient Not Only Has a Synovial Disease but Also AV Vik Disease History of Hypertension. No Syncope. Patient Denies Palpitations. History of Chronic Atrial Fibrillation on Chronic Anticoagulation. The Patient's INR Is Supratherapeutic. GI: No History of Peptic Ulcer Disease. No History of GERD. No Fatty Food Intolerance. No History of GI Bleed. No History of Hepatitis. No History of Cirrhosis. No History of Altered Bowel Movements. ENDOCRINE History of Diabetes Mellitus Present. No History of Polydipsia Polyuria. No History of Heat or Cold Intolerance. No History of Thyroid Disorder. RENAL: The Patient Probably Has Chronic Kidney Disease but Does Not Know It.. No Symptoms of UTI. No History of Hematuria Pyuria or Dysuria. No Symptoms of Enlarged Prostate and Flomax. MUSCULOSKELETAL: Denies Arthritis or Collagen Vascular Disease. ADOBE MAKER: History of TIA in the past with No Recurrence. No History of Headaches Migraines or CVA. No History of Seizures. PSYCHIATRIC. No History of Anxiety or Depression. No Suicidal Ideation. No Homicidal Ideation. VASCULAR: History of Peripheral Vascular Disease. History of Surgeries x2 for Abdominal Aortic Aneurysm. No Symptoms of Claudication, but the Patient Is Not Very Active. No History of DVT. Hematological: Patient Does Have Some Anemia Most Likely Secondary to His Chronic Kidney Disease. Note That the Patient Stool Occult Blood Is Negative.. No History of Bleeding Diathesis. No History of Clotting Disorders. METABOLIC: History of hyperlipidemia present patient on statin. History of gout patient on Zyloprim. History of obesity present. PHYSICAL EXAMINATION: The Patient Is Moderately Obese. He Is Mildly Short of Breath. There Is No Accessory Muscles of Respiration Use. He Is Well-Groomed. HEAD: Is atraumatic normocephalic. EYES: Pupils are equal round regular react to light and accommodation. EYES: Extraocular movements are normal. There is no clinical pallor. There is no scleral icterus. EARS: Tympanic membranes are intact. External auditory canals are clear. NOSE: There is no deviated nasal septum. There is no information of nasal mucous membrane. MOUTH: Mucous members of the mouth are moist. Tongue is moist. There is no ulcers in the mouth. There is no bleeding from the gums. THROAT: There is no redness of the oropharynx. There is no exudates. Skin: There is no petechia or ecchymosis. There is no skin rashes or skin lesions. NECK: Is supple. There is no JVD. Carotids are equal there is no bruits there is no lymphadenopathy. There is no goiter. There is no accessory muscles of respiration in use. Trachea central. LUNGS: Shows a few dry crackles in the right upper lobe there are scattered rhonchi. There is no wheezing. There is diminished air entry and prolonged expiration all over. There is hyperresonance on percussion. There is no chest wall tenderness on palpation. HEART: S1-S2 is heard there is no S3 gallop there is no spelled gallop. S1 is of variable intensity. There is murmur of tricuspid regurgitation and mitral regurgitation present. There is mild aortic stenosis murmur present. A 2 is preserved. There is no rub ABDOMEN: Soft obese. Nontender. There is no hepato-splenomegaly. Bowel sounds are well heard. Has no tender areas masses. There is no rebound guarding or rigidity. EXTREMITIES: Femorals are diminished femorals are deep there is no femoral bruits leg pulses are diminished. There is no pedal edema. There is no DVT or cellulitis. There is no calf tenderness. There is no cyanosis or clubbing. Capillary refill is normal. ADOBE MAKER: The patient is conscious awake alert oriented x3 with no focal deficits. PSYCHIATRIC: The patient's judgment and insight are intact. His affect is normal. IMPRESSION/RECOMMENDATION: 1. Bradycardia in a patient with chronic atrial fibrillation. This is most likely secondary to patient's potassium being slightly elevated, on the patient' s beta-corinne. The patient heart rate came up and bradycardia resolved after the patient's beta-corinne was stopped. 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 Recommend to stop all usage of AV vik blocking agents, and get her 30-day event monitor as an outpatient to assess if the patient's heart rate does go up. 2. PNEUMONIA: Continue antibiotics, and oxygen. 3. CHF: This seems to be systolic heart failure in a patient with borderline reduced LV ejection fraction compounded by valvular disease, and volume overload secondary to patient's renal failure. Note that the patient's GFR is improved slightly. We will be cautious in using diuretics. 4. Severe COPD on home oxygen: There might be an element of acute exacerbation of COPD also. Would recommend continue anti-COPD treatment, and nasal oxygen. Chronic atrial fibrillation: The patient is on chronic anticoagulation. Note that the patient's INR is supratherapeutic, and hence Coumadin at present is on hold. Resume Coumadin later. 5. Coronary artery disease in a patient with prior history of AZ, and history of coronary bypass graft surgery. No evidence of AZ this admission by biomarkers, and no anginal symptoms. Would recommend getting records from [place]. Continue Norvasc. Date of once the patient stabilizes, would recommend getting an outpatient Lexiscan Cardiolite stress test if the patient agrees. 6. Hypertension: Seems to be well-controlled. Continue current antihypertensives. 7. Chronic kidney disease at present stage III A. Most likely the patient has chronic underlying renal disease due to his diabetes. No all lab data available. Would recommend getting records from [place]. 8.Diabetes mellitus: Continue antidiabetic medication. 9. Peripheral vascular disease, at present seems to be stable. 10. Symptoms suggestive of obstructive sleep apnea, would recommend outpatient sleep study. This may help the patient's heart rate and also the patient's pulmonary hypertension. 11. Severe pulmonary hypertension. Later if the blood pressure allows will start the patient on an MARNIE inhibitor. 12. Hyperlipidemia: Continue statin. His medications have been reviewed. Plan of care/management plans discussed with attending physician. Medical decision making is of high complexity. 60 minutes spent on this patient more than 50% of time spent in direct patient care.
[2018-02-21] MEDS: ENOXAPARIN SODIUM INJ 100 MG/1 ML DISP.SYRIN SUBCUT SCH (22:21)
[2018-02-21] MEDS: ATORVASTATIN CALCIUM 40 MG TABLET PO SCH (22:21)
[2018-02-22 02:21] LABS: APPEARANCE,URINE SLIGHTLY-CLOUDY; BILIRUBIN,URINE NEGATIVE (NEGATIVE); COLOR,URINE YELLOW; GLUCOSE, URINE NEGATIVE (NEGATIVE); KETONES,URINE NEGATIVE (NEGATIVE); LEUKOCYTE ESTERASE,URINE MODERATE (NEGATIVE); NITRITE,URINE NEGATIVE (NEGATIVE); PROTEIN,URINE NEGATIVE (NEGATIVE); URINE SPECIFIC GRAVITY 1.016; UROBILINOGEN,URINE NEGATIVE mg/dL (<2.0)
[2018-02-22 05:50] LABS: HEMATOCRIT 29.3 % (37.9-51.0); HEMOGLOBIN 9.8 g/dL (13.5-17.0); MEAN CORPUSCULAR HEMOGLOBIN 31.5 pg (27.0-33.4); MEAN CORPUSCULAR HGB CONC 33.6 g/dL (32.0-36.0); MEAN CORPUSCULAR VOLUME 94 fl (80-97); PLATELET COUNT 198 10^3/uL (150-450); RED BLOOD COUNT 3.12 10^6/uL (4.35-5.55); RED CELL DISTRIBUTION WIDTH 16.7 % (11.5-14.0); WHITE BLOOD COUNT 8.4 10^3/uL (4.0-10.5)
[2018-02-22 05:52] LABS: INTERNATIONAL RATION (INR) 2.17; PROTHROMBIN TIME 25.2 SEC (11.4-15.4)
--- NOTE | 2018-02-22 08:30 | PDOC PROGRESS REPORT ---
Subjective Progress Note for:: 02/22/18 Subjective:: Patient reported episode of desaturation on supplemental oxygen on nasal cannula to 80% range. Currently remain on non-rebreathing face mask at 10 L/ min. No chest pain. No nausea or vomiting. Awaiting possible US guided right thoracentesis. Reason For Visit: END STAGE COPD WITH HYPOXEMIA;CHRONIC ATRIAL Physical Exam Vital Signs: Temp Pulse Resp BP Pulse Ox 97.7 F 58 L 20 107/69 96 02/22/18 03:48 02/22/18 07:00 02/22/18 03:48 02/22/18 03:48 02/22/18 03:48 Intake & Output 02/21/18 02/22/18 02/23/18 06:59 06:59 06:59 Output Total 300 Balance -300 Weight 98.8 kg Physical Exam: General appearance: PRESENT: no acute distress, mild distress - on supplemental oxygen via non-rebreathing face mask, well-developed, well-nourished Head exam: PRESENT: atraumatic, normocephalic Eye exam: PRESENT: conjunctiva pink, EOMI, PERRLA. ABSENT: scleral icterus Ear exam: PRESENT: normal external ear exam Mouth exam: PRESENT: moist Respiratory exam: PRESENT: clear to auscultation nelda, decreased breath sounds - at lung bases Cardiovascular exam: PRESENT: irregular rhythm, +S1, +S2 Vascular exam: PRESENT: normal capillary refill. ABSENT: pallor GI/Abdominal exam: PRESENT: normal bowel sounds, soft. ABSENT: distended, guarding, mass, organomegaly, rebound, tenderness Extremities exam: ABSENT: pedal edema Neurological exam: PRESENT: alert, awake, oriented to person, oriented to place , oriented to time, oriented to situation, CN II-XII grossly intact. ABSENT: motor sensory deficit Psychiatric exam: PRESENT: appropriate affect, normal mood. ABSENT: homicidal ideation, suicidal ideation Skin exam: PRESENT: dry, intact, warm. ABSENT: cyanosis, rash Results Laboratory Results: 02/22/18 05:23 PT/INR = 25.2 / 2.17 02/22/18 02/22/18 01:50 05:23 WBC 8.4 RBC 3.12 L Hgb 9.8 L Hct 29.3 L MCV 94 MCH 31.5 MCHC 33.6 RDW 16.7 H Plt Count 198 Urine Color YELLOW Urine Appearance SLIGHTLY-CLOUDY Urine pH 5.0 Ur Specific [place] 1.016 Urine Protein NEGATIVE Urine Glucose (UA) NEGATIVE Urine Ketones NEGATIVE Urine Blood NEGATIVE Urine Nitrite NEGATIVE Ur Leukocyte Esterase MODERATE H Urine WBC (Auto) 12 Urine RBC (Auto) 3 Impressions: Chest X-Ray 02/20/18 11:05 IMPRESSION: Extensive pleural reaction on the right and basilar opacities stable. Small left effusion. Cardiac enlargement without overt failure. Assessment & Plan - Diagnosis (1) Acute on chronic respiratory failure with hypoxemia Is this a current diagnosis for this admission?: Yes (2) End stage chronic obstructive pulmonary disease Is this a current diagnosis for this admission?: Yes (3) Acute on chronic diastolic heart failure Is this a current diagnosis for this admission?: Yes (5) Diabetes mellitus type 2 in obese Is this a current diagnosis for this admission?: Yes (6) HTN (hypertension) Qualifiers: Hypertension type: essential hypertension Qualified Code(s): I10 - Essential (primary) hypertension Is this a current diagnosis for this admission?: Yes (7) HLD (hyperlipidemia) Qualifiers: Hyperlipidemia type: unspecified Qualified Code(s): E78.5 - Hyperlipidemia , unspecified Is this a current diagnosis for this admission?: Yes (8) BPH loc w urin obs/LUTS Is this a current diagnosis for this admission?: Yes (9) Pleural effusion, right Is this a current diagnosis for this admission?: Yes (10) Severe pulmonary arterial systolic hypertension Is this a current diagnosis for this admission?: Yes - Time Time Spent with patient: 25-34 minutes Medications reviewed and adjusted accordingly: Yes Anticipated discharge: Home with Homehealth Within: Other - Inpatient Certification Based on my medical assessment, after consideration of the patient's comorbidities, presenting symptoms, or acuity I expect that the services needed warrant INPATIENT care.: Yes I certify that my determination is in accordance with my understanding of Medicare's requirements for reasonable and necessary INPATIENT services [42 CFR 412.3e].: Yes Medical Necessity: Need Close Monitoring Due to Risk of Patient Decompensation, Need For Continuous Telemetry Monitoring, Need for Nebulizer Therapy and Monitoring of Response, Risk of Complication if Not Cared For in Hospital 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 Follow INR trend, currently upward due to recent Coumadin therapy. Maintain on current supplemental oxygen therapy.
[2018-02-22] MEDS: DOCUSATE SODIUM 100 MG CAPSULE PO SCH (09:36)
[2018-02-22] MEDS: AMLODIPINE BESYLATE 10 MG TABLET PO SCH (09:36)
[2018-02-22] MEDS: ALLOPURINOL 300 MG TABLET PO SCH (09:36)
[2018-02-22] MEDS: ASPIRIN 81 MG TABLET, ENT COATED PO SCH (09:36)
[2018-02-22] MEDS: CHOLECALCIFEROL (D3) 1,000 UNIT TABLET PO SCH (09:36)
[2018-02-22] MEDS: FERROUS SULFATE 325 MG TABLET PO SCH (09:36)
[2018-02-22] MEDS: OMEGA-3 ACID ETHYL ESTERS 1 GM CAPSULE PO SCH (09:36)
[2018-02-22] MEDS: LISINOPRIL 5 MG TABLET PO SCH (09:36)
[2018-02-22] MEDS: TAMSULOSIN HCL 0.4 MG CAP.SR.24H PO SCH (09:36)
[2018-02-22] MEDS: METFORMIN HCL 500 MG TABLET PO SCH ×2 (09:36→17:53)
[2018-02-22] MEDS: ENOXAPARIN SODIUM INJ 100 MG/1 ML DISP.SYRIN SUBCUT SCH ×2 (09:37→21:38)
[2018-02-22] MEDS: FINASTERIDE 5 MG TABLET PO SCH (09:37)
[2018-02-22] MEDS: CYANOCOBALAMIN (VITAMIN B-12) 1,000 MCG TABLET PO SCH (09:37)
[2018-02-22] MEDS: FLUTICASONE/SALMETEROL DISKUS 500-50 MCG/DOSE IH SCH ×2 (09:37→21:57)
[2018-02-22] MEDS: FOLIC ACID 1 MG TABLET PO SCH (09:37)
[2018-02-22] MEDS: ATENOLOL 50 MG TABLET PO SCH (09:38)
[2018-02-22] MEDS: ASCORBIC ACID 500 MG TABLET PO SCH (09:49)
[2018-02-22 11:34] LABS: ARTERIAL BLOOD BASE EXCESS 0.3 mmol/L; ARTERIAL BLOOD H2CO3 1.21 mmol/L (1.05-1.35); ARTERIAL BLOOD HCO3 24.9 mmol/L (20-24); ARTERIAL BLOOD O2 SATURATION 81.7 % (94-98); ARTERIAL BLOOD PCO2 40.2 mmHg (35-45); ARTERIAL BLOOD PH 7.41 (7.35-7.45); ARTERIAL BLOOD PO2 45.2 mmHg (80-100); ARTERIAL BLOOD TOTAL CO2 26.1 mmol/L (23-27)
[2018-02-22 11:37] LABS: ARTERIAL BLOOD FIO2 6L
[2018-02-22 16:40] LABS: ARTERIAL BLOOD BASE EXCESS 2.8 mmol/L; ARTERIAL BLOOD H2CO3 1.62 mmol/L (1.05-1.35); ARTERIAL BLOOD HCO3 29.2 mmol/L (20-24); ARTERIAL BLOOD O2 SATURATION 78.3 % (94-98); ARTERIAL BLOOD PCO2 53.9 mmHg (35-45); ARTERIAL BLOOD PH 7.35 (7.35-7.45); ARTERIAL BLOOD PO2 45.3 mmHg (80-100); ARTERIAL BLOOD TOTAL CO2 30.8 mmol/L (23-27)
[2018-02-22 17:21] LABS: ARTERIAL BLOOD FIO2 15L
[2018-02-22] MEDS: FAMOTIDINE 20 MG TABLET PO SCH (17:53)
--- NOTE | 2018-02-22 18:04 | RADIOLOGY REPORT (SQ) ---
EXAM DESCRIPTION: CT CHEST WITHOUT COMPLETED DATE/TIME: 02/22/2018 5:02 pm REASON FOR STUDY: multiple cxr abn's I48.2 CHRONIC ATRIAL FIBRILLATION COMPARISON: Chest x-ray 02/20/2018 CT chest 02/03/2018 TECHNIQUE: CT scan performed of the chest without intravenous contrast. Images reviewed with lung, soft tissue and bone windows. Reconstructed coronal and sagittal MPR images reviewed. All images st ored on PACS. All CT scanners at this facility use dose modulation, iterative reconstruction, and/or weight based d osing when appropriate to reduce radiation dose to as low as reasonably achievable (ALARA). [facility]: Dose Right [facility]: CareDose [facility]: Dose Right [facility]: Teradose 4D [facility]: [employer] RADIATION DOSE: CT Rad equipment meets quality standard of care and radiation dose reduction techniq ues were employed. CTDIvol: 16.4 mGy. DLP: 660 mGy-cm. mGy. LIMITATIONS: No technical limitations. FINDINGS: LUNGS AND PLEURA: Moderate right pleural effusion is somewhat loculated. Smaller left ple ural effusion is present. Mild compressive atelectasis in the lower lobes. Ground-glass infiltrates . No mass is appreciated. HILAR AND MEDIASTINAL STRUCTURES: Multiple mediastinal nodes. The largest precarinal node measures 1 5 mm in short axis. There is a node in the aortopulmonary window that measures 18 mm in short axis. HEART AND VASCULAR STRUCTURES: Cardiomegaly. Aortic and coronary atherosclerosis. Prior CABG. UPPER ABDOMEN: Extensive atherosclerosis. THYROID AND OTHER SOFT TISSUES: No masses. No adenopathy. BONES: No significant finding. HARDWARE: Sternotomy wires. OTHER: No other significant findings. IMPRESSION: Pleural effusions as described. These have increased since the prior study. Mediastina l adenopathy. Atherosclerosis. Cardiomegaly. Mild pulmonary edema is suggested. TECHNICAL DOCUMENTATION: JOB ID: [id number] Quality ID # [id number]: Final reports with documentation of one or more dose reduction techniques (e.g., Au tomated exposure control, adjustment of the mA and/or kV according to patient size, use of iterative reconstruction technique) 2010 [employer]- All Rights Reserved Reading location - IP/workstation name: [email or web address]
[2018-02-22] MEDS: ATORVASTATIN CALCIUM 40 MG TABLET PO SCH (21:57)
[2018-02-23 02:34] LABS: ARTERIAL BLOOD H2CO3 1.29 mmol/L (1.05-1.35); ARTERIAL BLOOD HCO3 24.3 mmol/L (20-24); ARTERIAL BLOOD PH 7.37 (7.35-7.45); ARTERIAL BLOOD PO2 67.7 mmHg (80-100); ARTERIAL BLOOD TOTAL CO2 25.6 mmol/L (23-27)
[2018-02-23 02:37] LABS: ARTERIAL BLOOD FIO2 15L
[2018-02-23 07:14] LABS: INTERNATIONAL RATION (INR) 1.82
[2018-02-23 07:15] LABS: PARTIAL THROMBOPLASTIN TIME 46.2 SEC (23.5-35.8)
[2018-02-23] MEDS: ASPIRIN 81 MG TABLET, ENT COATED PO SCH (10:23)
[2018-02-23] MEDS: TAMSULOSIN HCL 0.4 MG CAP.SR.24H PO SCH (10:23)
[2018-02-23] MEDS: OMEGA-3 ACID ETHYL ESTERS 1 GM CAPSULE PO SCH (10:23)
[2018-02-23] MEDS: CYANOCOBALAMIN (VITAMIN B-12) 1,000 MCG TABLET PO SCH (10:23)
[2018-02-23] MEDS: DOCUSATE SODIUM 100 MG CAPSULE PO SCH (10:23)
[2018-02-23] MEDS: FINASTERIDE 5 MG TABLET PO SCH (10:23)
[2018-02-23] MEDS: FOLIC ACID 1 MG TABLET PO SCH (10:25)
[2018-02-23] MEDS: FERROUS SULFATE 325 MG TABLET PO SCH (10:25)
[2018-02-23] MEDS: LISINOPRIL 5 MG TABLET PO SCH (10:25)
[2018-02-23] MEDS: CHOLECALCIFEROL (D3) 1,000 UNIT TABLET PO SCH (10:25)
[2018-02-23] MEDS: ALLOPURINOL 300 MG TABLET PO SCH (10:25)
[2018-02-23] MEDS: FLUTICASONE/SALMETEROL DISKUS 500-50 MCG/DOSE IH SCH ×2 (10:26→21:17)
[2018-02-23] MEDS: METFORMIN HCL 500 MG TABLET PO SCH ×2 (10:26→18:15)
[2018-02-23] MEDS: AMLODIPINE BESYLATE 10 MG TABLET PO SCH (10:26)
[2018-02-23] MEDS: ASCORBIC ACID 500 MG TABLET PO SCH (10:27)
[2018-02-23] MEDS: ATENOLOL 50 MG TABLET PO SCH (10:27)
[2018-02-23] MEDS: ENOXAPARIN SODIUM INJ 100 MG/1 ML DISP.SYRIN SUBCUT SCH (12:25)
[2018-02-23] MEDS: INSULIN LISPRO 100 UNIT/ML 3 ML VIAL SUBCUT PRN (12:31)
[2018-02-23] MEDS ORDERED: NORMAL SALINE 250 ML IV PRN (13:09)
--- NOTE | 2018-02-23 13:17 | PDOC PROGRESS REPORT ---
Subjective Progress Note for:: 02/22/18 Subjective:: Patient wearing partial nonrebreather mask oximetry available Reason For Visit: END STAGE COPD WITH HYPOXEMIA;CHRONIC ATRIAL Physical Exam Vital Signs: Temp Pulse Resp BP Pulse Ox 97.5 F 71 19 117/62 100 02/22/18 07:00 02/22/18 07:00 02/22/18 07:00 02/22/18 07:00 02/22/18 09:28 Intake & Output 02/21/18 02/22/18 02/23/18 06:59 06:59 06:59 Output Total 300 Balance -300 Weight 98.8 kg General appearance: PRESENT: no acute distress, cooperative, disheveled, obese Head exam: PRESENT: atraumatic, normocephalic Eye exam: PRESENT: conjunctiva pale, EOMI. ABSENT: nystagmus, periorbital swelling, scleral icterus Mouth exam: PRESENT: dry mucosa, neck supple, tongue midline Neck exam: ABSENT: carotid bruit, JVD, lymphadenopathy, thyromegaly, tracheal deviation, tracheostomy Respiratory exam: PRESENT: decreased breath sounds, prolonged expiratory phas, rales, rhonchi, tachypnea. ABSENT: retraction, stridor Cardiovascular exam: PRESENT: irregular rhythm Pulses: PRESENT: normal radial pulses GI/Abdominal exam: PRESENT: soft. ABSENT: tenderness Extremities exam: PRESENT: pedal edema. ABSENT: calf tenderness, clubbing, joint swelling Musculoskeletal exam: ABSENT: deformity, dislocation Neurological exam: PRESENT: alert, awake Psychiatric exam: PRESENT: appropriate affect Skin exam: PRESENT: dry, warm Results Laboratory Results: 02/22/18 05:23 02/22/18 02/22/18 01:50 05:23 WBC 8.4 RBC 3.12 L Hgb 9.8 L Hct 29.3 L MCV 94 MCH 31.5 MCHC 33.6 RDW 16.7 H Plt Count 198 Urine Color YELLOW Urine Appearance SLIGHTLY-CLOUDY Urine pH 5.0 Ur Specific [place] 1.016 Urine Protein NEGATIVE Urine Glucose (UA) NEGATIVE Urine Ketones NEGATIVE Urine Blood NEGATIVE Urine Nitrite NEGATIVE Ur Leukocyte Esterase MODERATE H Urine WBC (Auto) 12 Urine RBC (Auto) 3 Impressions: Chest X-Ray 02/20/18 11:05 IMPRESSION: Extensive pleural reaction on the right and basilar opacities stable. Small left effusion. Cardiac enlargement without overt failure. Assessment & Plan - Diagnosis (1) Pleural effusion Is this a current diagnosis for this admission?: Yes Plan: Thoracentesis is needed IVELISSE hold on Coumadin hold on aspirin Lovenox until procedure is to be done (2) Acute on chronic respiratory failure with hypoxemia Is this a current diagnosis for this admission?: Yes Plan: ABGs she shows poor oxygenation will try high flow oxygen if not we will advance to BiPAP (3) End stage chronic obstructive pulmonary disease Is this a current diagnosis for this admission?: Yes Plan: Generic Name Dose Route Start Last Admin Trade Name Freq PRN Reason Stop Dose Admin Patient Own Medication 2 puff 02/21/18 10:00 Tiotropium Wesley [Spiriva Respimat] 03/23/18 09:59 .DAILY TERRY Albuterol 1 puff 02/20/18 21:32 Proair Hfa Inhalation Aerosol 8.5 Gm Mdi 03/22/18 21:31 Q4HP PRN FOR WHEEZING Fluticasone/Salmeterol 1 inh 02/20/18 22:00 02/21/18 09:28 Advair 500-50 Diskus 14 Dose/Diskus IH 03/22/18 21:59 1 puff Q12 TERRY ABG on 2 L nasal cannula (4) History of atrial fibrillation Is this a current diagnosis for this admission?: Yes Plan: Stable this far (5) Pulmonary hypertension Is this a current diagnosis for this admission?: Yes
--- NOTE | 2018-02-23 13:19 | PDOC PROGRESS REPORT ---
Subjective Progress Note for:: 02/23/18 Subjective:: Patient wearing bipap Reason For Visit: END STAGE COPD WITH HYPOXEMIA;CHRONIC ATRIAL Physical Exam Vital Signs: Temp Pulse Resp BP Pulse Ox 97.4 F 68 23 H 130/70 H 100 02/23/18 07:47 02/23/18 07:47 02/23/18 07:47 02/23/18 07:47 02/23/18 07:47 Pulse Oximeter Continuous Start: 02/22/18 10: 49 Freq: RTQ4 Status: Active Document 02/23/18 05:09 SFL (Rec: 02/23/18 05:11 SFL [id number]) Pulse Oximetry Assessment Oxygen Saturation (92-100) 95 Oxygen Delivery Method Bi-pap Fraction of Inspired Oxygen (FIO2) 65 Equipment Usage Equipment in Use Continuous SpO2 Machine # 11 Intake & Output 02/22/18 02/23/18 02/24/18 06:59 06:59 06:59 Intake Total 1205 Output Total 300 760 Balance -300 445 Weight 98.8 kg 100.2 kg General appearance: PRESENT: no acute distress, cooperative, disheveled, obese Head exam: PRESENT: atraumatic, normocephalic Eye exam: PRESENT: conjunctiva pale, EOMI. ABSENT: nystagmus Mouth exam: PRESENT: dry mucosa, neck supple, tongue midline Neck exam: ABSENT: carotid bruit, JVD, lymphadenopathy, thyromegaly, tracheal deviation, tracheostomy Respiratory exam: PRESENT: decreased breath sounds, prolonged expiratory phas, rales, rhonchi, unlabored. ABSENT: retraction, stridor Cardiovascular exam: PRESENT: irregular rhythm Pulses: PRESENT: normal radial pulses GI/Abdominal exam: PRESENT: soft. ABSENT: tenderness Extremities exam: PRESENT: calf tenderness, clubbing, pedal edema. ABSENT: joint swelling Musculoskeletal exam: PRESENT: deformity, dislocation Neurological exam: PRESENT: alert, awake Psychiatric exam: PRESENT: appropriate affect Skin exam: PRESENT: dry, warm Results Laboratory Results: 02/22/18 05:23 02/22/18 02/22/18 02/23/18 11:23 16:05 02:20 Carbonic Acid 1.21 1.62 H 1.29 HCO3/H2CO3 Ratio 20:1 18:1 18:1 ABG pH 7.41 7.35 7.37 ABG pCO2 40.2 53.9 H 43.0 ABG pO2 45.2 L 45.3 L 67.7 L ABG HCO3 24.9 H 29.2 H 24.3 H ABG O2 Saturation 81.7 L 78.3 L 93.0 L ABG Base Excess 0.3 2.8 -1.0 FiO2 6L 15L 15L Impressions: Chest X-Ray 02/20/18 11:05 IMPRESSION: Extensive pleural reaction on the right and basilar opacities stable. Small left effusion. Cardiac enlargement without overt failure. Chest CT 02/22/18 00:00 IMPRESSION: Pleural effusions as described. These have increased since the prior study. Mediastinal adenopathy. Atherosclerosis. Cardiomegaly. Mild pulmonary edema is suggested. Assessment & Plan - Diagnosis (1) Pleural effusion Is this a current diagnosis for this admission?: Yes Plan: We will administer FFP and vitamin K accelerate thoracentesis (2) Acute on chronic respiratory failure with hypoxemia Is this a current diagnosis for this admission?: Yes Plan: ABGs finally acceptable on bipap 15L min vol (3) End stage chronic obstructive pulmonary disease Is this a current diagnosis for this admission?: Yes Plan: Generic Name Dose Route Start Last Admin Trade Name Freq PRN Reason Stop Dose Admin Patient Own Medication 2 puff 02/21/18 10:00 Tiotropium Milner [Spiriva Respimat] 03/23/18 09:59 .DAILY TERRY Albuterol 1 puff 02/20/18 21:32 Proair Hfa Inhalation Aerosol 8.5 Gm Mdi 03/22/18 21:31 Q4HP PRN FOR WHEEZING Fluticasone/Salmeterol 1 inh 02/20/18 22:00 02/21/18 09:28 Advair 500-50 Diskus 14 Dose/Diskus 03/22/18 21:59 1 puff Q12 TERRY ABG on 2 L nasal cannula (4) History of atrial fibrillation Is this a current diagnosis for this admission?: Yes Plan: Stable this far (5) Pulmonary hypertension Is this a current diagnosis for this admission?: Yes
[2018-02-23] MEDS ORDERED: PHYTONADIONE INJ 10 MG/1 ML AMPULE SUBCUT ONE (14:00)
[2018-02-23 14:24] LABS: ARTERIAL BLOOD BASE EXCESS 2.8 mmol/L; ARTERIAL BLOOD H2CO3 1.37 mmol/L (1.05-1.35); ARTERIAL BLOOD HCO3 27.9 mmol/L (20-24); ARTERIAL BLOOD O2 SATURATION 96.2 % (94-98); ARTERIAL BLOOD PCO2 45.6 mmHg (35-45); ARTERIAL BLOOD PH 7.41 (7.35-7.45); ARTERIAL BLOOD PO2 83.3 mmHg (80-100); ARTERIAL BLOOD TOTAL CO2 29.3 mmol/L (23-27)
[2018-02-23 14:27] LABS: ARTERIAL BLOOD FIO2 65%
[2018-02-23] MEDS: FAMOTIDINE 20 MG TABLET PO SCH (18:15)
--- NOTE | 2018-02-23 19:08 | PDOC PROGRESS REPORT ---
Subjective Progress Note for:: 02/23/18 Subjective:: Patient continue to desaturate off BiPAP support. No chest pain. No nausea or vomiting. Awaiting possible US guided right thoracentesis tomorrow. He received FFP transfusion earlier today with SC Vitamin K to effectively bring INR below 1.4 against tomorrow thoracentesis. Reason For Visit: END STAGE COPD WITH HYPOXEMIA;CHRONIC ATRIAL Physical Exam Vital Signs: Temp Pulse Resp BP Pulse Ox 97.5 F 70 22 H 117/57 L 95 02/23/18 17:26 02/23/18 17:42 02/23/18 17:42 02/23/18 17:42 02/23/18 17:42 Pulse Oximeter Continuous Start: 02/22/18 10: 49 Freq: RTQ4 Status: Active Document 02/23/18 11:56 HCR (Rec: 02/23/18 11:57 HCR [id number]) Pulse Oximetry Assessment Oxygen Saturation (92-100) 90 Oxygen Flow Rate (L/min) 5.5 Oxygen Delivery Method Nasal Cannula Equipment Usage Equipment in Use Continuous SpO2 Machine # 11 Intake & Output 02/22/18 02/23/18 02/24/18 06:59 06:59 06:59 Intake Total 1205 775 Output Total 300 760 590 Balance -300 445 185 Weight 98.8 kg 100.2 kg Physical Exam: General appearance: PRESENT: no acute distress, mild distress - on supplemental oxygen via nasal cannula while eating and BiPAP otherwise. Head exam: PRESENT: atraumatic, normocephalic Eye exam: PRESENT: conjunctiva pink, EOMI, PERRLA. ABSENT: scleral icterus Ear exam: PRESENT: normal external ear exam Mouth exam: PRESENT: moist Respiratory exam: PRESENT: clear to auscultation nelda, decreased breath sounds - at lung bases Cardiovascular exam: PRESENT: irregular rhythm, +S1, +S2 Vascular exam: PRESENT: normal capillary refill. ABSENT: pallor GI/Abdominal exam: PRESENT: normal bowel sounds, soft. ABSENT: distended, guarding, mass, organomegaly, rebound, tenderness Extremities exam: ABSENT: pedal edema Neurological exam: PRESENT: alert, awake, oriented to person, oriented to place , oriented to time, oriented to situation, CN II-XII grossly intact. ABSENT: motor sensory deficit Psychiatric exam: PRESENT: appropriate affect, normal mood. ABSENT: homicidal ideation, suicidal ideation Skin exam: PRESENT: dry, intact, warm. ABSENT: cyanosis, rash Results Laboratory Results: 02/22/18 05:23 02/23/18 02/23/18 02/23/18 02:20 13:55 13:57 Carbonic Acid 1.29 1.37 H HCO3/H2CO3 Ratio 18:1 20:1 ABG pH 7.37 7.41 ABG pCO2 43.0 45.6 H ABG pO2 67.7 L 83.3 ABG HCO3 24.3 H 27.9 H ABG O2 Saturation 93.0 L 96.2 ABG Base Excess -1.0 2.8 FiO2 15L 65% Blood Type A POSITIVE Impressions: Chest X-Ray 02/20/18 11:05 IMPRESSION: Extensive pleural reaction on the right and basilar opacities stable. Small left effusion. Cardiac enlargement without overt failure. Chest CT 02/22/18 00:00 IMPRESSION: Pleural effusions as described. These have increased since the prior study. Mediastinal adenopathy. Atherosclerosis. Cardiomegaly. Mild pulmonary edema is suggested. Assessment & Plan - Diagnosis (1) Acute on chronic respiratory failure with hypoxemia Is this a current diagnosis for this admission?: Yes (2) End stage chronic obstructive pulmonary disease Is this a current diagnosis for this admission?: Yes (3) Acute on chronic diastolic heart failure Is this a current diagnosis for this admission?: Yes (5) Diabetes mellitus type 2 in obese Is this a current diagnosis for this admission?: Yes (6) HTN (hypertension) Qualifiers: Hypertension type: essential hypertension Qualified Code(s): I10 - Essential (primary) hypertension Is this a current diagnosis for this admission?: Yes (7) HLD (hyperlipidemia) Qualifiers: Hyperlipidemia type: unspecified Qualified Code(s): E78.5 - Hyperlipidemia , unspecified Is this a current diagnosis for this admission?: Yes (8) BPH loc w urin obs/LUTS Is this a current diagnosis for this admission?: Yes (9) Pleural effusion, right Is this a current diagnosis for this admission?: Yes (10) Severe pulmonary arterial systolic hypertension Is this a current diagnosis for this admission?: Yes - Time Time Spent with patient: 25-34 minutes Medications reviewed and adjusted accordingly: Yes Anticipated discharge: Home with Homehealth Within: Other - Inpatient Certification Based on my medical assessment, after consideration of the patient's comorbidities, presenting symptoms, or acuity I expect that the services needed warrant INPATIENT care.: Yes I certify that my determination is in accordance with my understanding of Medicare's requirements for reasonable and necessary INPATIENT services [42 CFR 412.3e].: Yes Medical Necessity: Need Close Monitoring Due to Risk of Patient Decompensation, Need For IV Fluids, Need For Continuous Telemetry Monitoring, Need for Nebulizer Therapy and Monitoring of Response, Risk of Complication if Not Cared For in Hospital 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 Follow up on INR status in AM.
[2018-02-23 20:42] LABS: PROTHROMBIN TIME 18.9 SEC (11.4-15.4)
[2018-02-23 20:43] LABS: PARTIAL THROMBOPLASTIN TIME 39.3 SEC (23.5-35.8)
[2018-02-23] MEDS: ATORVASTATIN CALCIUM 40 MG TABLET PO SCH (21:16)
[2018-02-24 06:15] LABS: HEMOGLOBIN 9.8 g/dL (13.5-17.0); MEAN CORPUSCULAR HEMOGLOBIN 31.7 pg (27.0-33.4); MEAN CORPUSCULAR HGB CONC 33.9 g/dL (32.0-36.0); MEAN CORPUSCULAR VOLUME 94 fl (80-97); PLATELET COUNT 183 10^3/uL (150-450); RED BLOOD COUNT 3.09 10^6/uL (4.35-5.55); RED CELL DISTRIBUTION WIDTH 16.9 % (11.5-14.0); WHITE BLOOD COUNT 6.6 10^3/uL (4.0-10.5)
[2018-02-24 06:27] LABS: PROTHROMBIN TIME 17.9 SEC (11.4-15.4)
[2018-02-24] MEDS: FLUTICASONE/SALMETEROL DISKUS 500-50 MCG/DOSE IH SCH ×2 (09:52→21:57)
[2018-02-24] MEDS: FERROUS SULFATE 325 MG TABLET PO SCH (09:53)
[2018-02-24] MEDS: METFORMIN HCL 500 MG TABLET PO SCH ×2 (09:53→17:44)
[2018-02-24] MEDS: DOCUSATE SODIUM 100 MG CAPSULE PO SCH (09:53)
[2018-02-24] MEDS: FOLIC ACID 1 MG TABLET PO SCH (09:54)
[2018-02-24] MEDS: ALLOPURINOL 300 MG TABLET PO SCH (09:54)
[2018-02-24] MEDS: TAMSULOSIN HCL 0.4 MG CAP.SR.24H PO SCH (09:54)
[2018-02-24] MEDS: CHOLECALCIFEROL (D3) 1,000 UNIT TABLET PO SCH (09:54)
[2018-02-24] MEDS: OMEGA-3 ACID ETHYL ESTERS 1 GM CAPSULE PO SCH (09:55)
[2018-02-24] MEDS: ASCORBIC ACID 500 MG TABLET PO SCH (09:55)
[2018-02-24] MEDS: CYANOCOBALAMIN (VITAMIN B-12) 1,000 MCG TABLET PO SCH (09:55)
[2018-02-24] MEDS: FINASTERIDE 5 MG TABLET PO SCH (09:55)
[2018-02-24] MEDS: AMLODIPINE BESYLATE 10 MG TABLET PO SCH (10:01)
[2018-02-24] MEDS: ATENOLOL 50 MG TABLET PO SCH (10:05)
[2018-02-24] MEDS: LISINOPRIL 5 MG TABLET PO SCH (10:06)
--- NOTE | 2018-02-24 12:05 | RADIOLOGY REPORT (SQ) ---
EXAM DESCRIPTION: CHEST SINGLE VIEW COMPLETED DATE/TIME: 02/24/2018 11:48 am REASON FOR STUDY: S/P RT THORACENTESIS COMPARISON: 02/20/2018 EXAM PARAMETERS: NUMBER OF VIEWS: One view. TECHNIQUE: Single frontal radiographic view of the chest acquired. RADIATION DOSE: NA LIMITATIONS: None. FINDINGS: LUNGS AND PLEURA: Small left pleural effusion. Persistent somewhat loculated right pleura l effusion may be slightly decreased compared to the earlier study. No pneumothorax. MEDIASTINUM AND HILAR STRUCTURES: No masses. Contour normal. HEART AND VASCULAR STRUCTURES: Cardiomegaly. No pulmonary edema. BONES: No acute findings. HARDWARE: Sternotomy wires. OTHER: No other significant finding. IMPRESSION: Pleural effusions. The right is slightly decreased. There is no pneumothorax. TECHNICAL DOCUMENTATION: JOB ID: [id number] [employer]- All Rights Reserved Reading location - IP/workstation name: [email or web address]
--- NOTE | 2018-02-24 12:16 | RADIOLOGY REPORT (SQ) ---
EXAM DESCRIPTION: U/S THORACENTESIS WITH IMAGING COMPLETED DATE/TIME: 02/24/2018 11:51 am REASON FOR STUDY: r pleural effusion I48.2 CHRONIC ATRIAL FIBRILLATION COMPARISON: CT chest 02/22/2018, 02/03/2018 LIMITATIONS: None. PROCEDURE: Procedure, risks, benefit, and alternative explained to patient who then gave written con sent. Patient has a multiloculated right pleural effusion. The most accessible pocket of fluid is in the r ight posterolateral costophrenic sulcus. Diffuse pleural thickening around the fluid pocket is prese nt The posterior right chest wall was marked using ultrasound guidance. A time-out was called for corre ct marking verification. Chest prepped and draped using sterile technique. Local anesthesia achieved using ml of 1% lidocaine injection. A 6fr Safe-T- Centesis set was introduced into the right pleur al space. Fluid was aspirated. The catheter was removed and the entry site was covered with sterile bandage. No immediate complications noted. 80 mL of kishore colored clear fluid was obtained, divided and sent for testing as per Dr. Winn. Images acquired during the procedure were stored on PACS. FINDINGS: ENTRY SITE: Right posterior costophrenic sulcus FLUID VOLUME: 80 mL FLUID ANALYSIS: Clear yellow fluid sent for testing OTHER: No pneumothorax on post procedure chest x-ray dictated separately. IMPRESSION: SUCCESSFUL THORACENTESIS USING ULTRASOUND GUIDANCE. COMMENT: Patient medication list reviewed: Yes- Quality ID# [id number]:Eligible professional attests to doc umenting in the medical record they obtained, updated, or reviewed the patient's current medications. TECHNICAL DOCUMENTATION: JOB ID: [id number] [employer]- All Rights Reserved Reading location - IP/workstation name: [email or web address]
[2018-02-24 13:10] LABS: FLUID TYPE PLEURAL
[2018-02-24 13:11] LABS: FLUID APPEARANCE SLIGHTLY HAZY; FLUID COLOR YELLOW; FLUID SOURCE LUNG; FLUID VISCOSITY LIQUID
--- NOTE | 2018-02-24 14:44 | PDOC PROGRESS REPORT ---
Subjective Progress Note for:: 02/24/18 Subjective:: s/p right thoracentesis with about 80cc of pleural fluid extraction. Patient reported no significant change in his breathing. Remain on BiPAP support. No chest pain. No nausea, vomiting, or abdominal pain. No fever or chills. Reason For Visit: END STAGE COPD WITH HYPOXEMIA;CHRONIC ATRIAL Physical Exam Vital Signs: Temp Pulse Resp BP Pulse Ox 97.3 F 69 24 H 115/58 L 100 02/24/18 03:11 02/24/18 07:00 02/24/18 12:30 02/24/18 03:11 02/24/18 12:30 Pulse Oximeter Continuous Start: 02/22/18 10: 49 Freq: RTQ4 Status: Active Document 02/24/18 12:30 [facility] [place] (Rec: 02/24/18 14:04 [facility] [place] [id number]) Pulse Oximetry Assessment Oxygen Saturation (92-100) 100 Oxygen Delivery Method Bi-pap Fraction of Inspired Oxygen (FIO2) 65 Equipment Usage Equipment in Use Continuous SpO2 Machine # N 11 Intake & Output 02/23/18 02/24/18 02/25/18 06:59 06:59 06:59 Intake Total 1205 975 Output Total 760 1040 Balance 445 -65 Weight 100.2 kg 102.2 kg Physical Exam: General appearance: PRESENT: mild distress - on supplemental oxygen via BiPAP and nasal cannula while eating. Head exam: PRESENT: atraumatic, normocephalic Eye exam: PRESENT: conjunctiva pink, EOMI, PERRLA. ABSENT: scleral icterus Ear exam: PRESENT: normal external ear exam Mouth exam: PRESENT: moist Respiratory exam: PRESENT: clear to auscultation nelda, decreased breath sounds - at lung bases Cardiovascular exam: PRESENT: irregular rhythm, +S1, +S2 Vascular exam: PRESENT: normal capillary refill. ABSENT: pallor GI/Abdominal exam: PRESENT: normal bowel sounds, soft. ABSENT: distended, guarding, mass, organomegaly, rebound, tenderness Extremities exam: ABSENT: pedal edema Neurological exam: PRESENT: alert, awake, oriented to person, oriented to place , oriented to time, oriented to situation, CN II-XII grossly intact. ABSENT: motor sensory deficit Psychiatric exam: PRESENT: appropriate affect, normal mood. ABSENT: homicidal ideation, suicidal ideation Skin exam: PRESENT: dry, intact, warm. ABSENT: cyanosis, rash Results Laboratory Results: 02/24/18 05:50 02/23/18 02/24/18 02/24/18 13:55 05:50 11:29 WBC 6.6 RBC 3.09 L Hgb 9.8 L Hct 29.0 L MCV 94 MCH 31.7 MCHC 33.9 RDW 16.9 H Plt Count 183 Fluid Type PLEURAL Fluid Source LUNG Fluid Color YELLOW Fluid Appearance SLIGHTLY HAZY Fluid Viscosity LIQUID Fluid WBC 153 Fluid RBC 4165 Blood Type A POSITIVE 02/22/18 13:54 Sputum Fungal Smear - Final 02/22/18 13:54 Sputum Fungal Smear - Final 02/22/18 13:54 Sputum AFB Smear Concentration - Final 02/22/18 13:54 Sputum Acid Fast Bacilli Smear - Final Impressions: Chest CT 02/22/18 00:00 IMPRESSION: Pleural effusions as described. These have increased since the prior study. Mediastinal adenopathy. Atherosclerosis. Cardiomegaly. Mild pulmonary edema is suggested. Chest X-Ray 02/24/18 00:00 IMPRESSION: Pleural effusions. The right is slightly decreased. There is no pneumothorax. Thoracentesis Ultrasound 02/24/18 11:22 IMPRESSION: SUCCESSFUL THORACENTESIS USING ULTRASOUND GUIDANCE. Assessment & Plan - Diagnosis (1) Acute on chronic respiratory failure with hypoxemia Is this a current diagnosis for this admission?: Yes (2) End stage chronic obstructive pulmonary disease Is this a current diagnosis for this admission?: Yes (3) Acute on chronic diastolic heart failure Is this a current diagnosis for this admission?: Yes (5) Diabetes mellitus type 2 in obese Is this a current diagnosis for this admission?: Yes (6) HTN (hypertension) Qualifiers: Hypertension type: essential hypertension Qualified Code(s): I10 - Essential (primary) hypertension Is this a current diagnosis for this admission?: Yes (7) HLD (hyperlipidemia) Qualifiers: Hyperlipidemia type: unspecified Qualified Code(s): E78.5 - Hyperlipidemia , unspecified Is this a current diagnosis for this admission?: Yes (8) BPH loc w urin obs/LUTS Is this a current diagnosis for this admission?: Yes (9) Pleural effusion, right Is this a current diagnosis for this admission?: Yes (10) Severe pulmonary arterial systolic hypertension Is this a current diagnosis for this admission?: Yes - Time Time Spent with patient: 25-34 minutes Medications reviewed and adjusted accordingly: Yes Anticipated discharge: Home with Homehealth Within: Other - Inpatient Certification Based on my medical assessment, after consideration of the patient's comorbidities, presenting symptoms, or acuity I expect that the services needed warrant INPATIENT care.: Yes I certify that my determination is in accordance with my understanding of Medicare's requirements for reasonable and necessary INPATIENT services [42 CFR 412.3e].: Yes Medical Necessity: Need Close Monitoring Due to Risk of Patient Decompensation, Need For Continuous Telemetry Monitoring, Need for Nebulizer Therapy and Monitoring of Response, Risk of Complication if Not Cared For in Hospital 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 I will discuss case with pulmonary product safety consultant regarding need for BiPAP or Trilogy at home upon discharge.
--- NOTE | 2018-02-24 15:11 | RADIOLOGY REPORT (SQ) ---
EXAM DESCRIPTION: CHEST SINGLE VIEW COMPLETED DATE/TIME: 02/24/2018 3:01 pm REASON FOR STUDY: S HOURS S/P RT THORACENTESIS COMPARISON: 02/24/2018 EXAM PARAMETERS: NUMBER OF VIEWS: One view. TECHNIQUE: Single frontal radiographic view of the chest acquired. RADIATION DOSE: NA LIMITATIONS: None. FINDINGS: LUNGS AND PLEURA: Stable appearance of a moderate layering right pleural effusion. No sig nificant pneumothorax status post thoracentesis. MEDIASTINUM AND HILAR STRUCTURES: No masses. Contour normal. HEART AND VASCULAR STRUCTURES: Stable cardiomegaly status post median sternotomy. BONES: No acute findings. HARDWARE: None in the chest. OTHER: No other significant finding. IMPRESSION: Stable AP examination with moderate, layering right pleural effusion. No significant pn eumothorax status post thoracentesis. Unchanged cardiomegaly. TECHNICAL DOCUMENTATION: JOB ID: [id number] [employer]- All Rights Reserved Reading location - IP/workstation name: [email or web address]
[2018-02-24] MEDS: FAMOTIDINE 20 MG TABLET PO SCH (17:44)
[2018-02-24] MEDS: ATORVASTATIN CALCIUM 40 MG TABLET PO SCH (21:57)
[2018-02-25 05:58] LABS: INTERNATIONAL RATION (INR) 1.19; PROTHROMBIN TIME 15.7 SEC (11.4-15.4)
[2018-02-25] MEDS: CHOLECALCIFEROL (D3) 1,000 UNIT TABLET PO SCH (10:29)
[2018-02-25] MEDS: FERROUS SULFATE 325 MG TABLET PO SCH (10:29)
[2018-02-25] MEDS: FOLIC ACID 1 MG TABLET PO SCH (10:29)
[2018-02-25] MEDS: OMEGA-3 ACID ETHYL ESTERS 1 GM CAPSULE PO SCH (10:29)
[2018-02-25] MEDS: TAMSULOSIN HCL 0.4 MG CAP.SR.24H PO SCH (10:29)
[2018-02-25] MEDS: METFORMIN HCL 500 MG TABLET PO SCH ×2 (10:29→17:05)
[2018-02-25] MEDS: LISINOPRIL 5 MG TABLET PO SCH (10:29)
[2018-02-25] MEDS: DOCUSATE SODIUM 100 MG CAPSULE PO SCH (10:29)
[2018-02-25] MEDS: FINASTERIDE 5 MG TABLET PO SCH (10:29)
[2018-02-25] MEDS: ATENOLOL 50 MG TABLET PO SCH (10:30)
[2018-02-25] MEDS: CYANOCOBALAMIN (VITAMIN B-12) 1,000 MCG TABLET PO SCH (10:30)
[2018-02-25] MEDS: ALLOPURINOL 300 MG TABLET PO SCH (10:30)
[2018-02-25] MEDS: AMLODIPINE BESYLATE 10 MG TABLET PO SCH (10:30)
[2018-02-25] MEDS: ASCORBIC ACID 500 MG TABLET PO SCH (10:31)
[2018-02-25] MEDS: FLUTICASONE/SALMETEROL DISKUS 500-50 MCG/DOSE IH SCH ×2 (10:31→23:26)
--- NOTE | 2018-02-25 12:31 | PDOC PROGRESS REPORT ---
Subjective Progress Note for:: 02/25/18 Subjective:: Patient is currently doing well Patient is currently on a BiPAP denied any chest pain to than any shortness of the breath Patient had a thoracocentesis done only 80 cc of the fluid came out Discussed with the pulmonary Dr. Ocasio today regarding the chest x-ray Patient otherwise denied any chest pain denied any shortness of the breath No fever no chills Reason For Visit: END STAGE COPD WITH HYPOXEMIA;CHRONIC ATRIAL Physical Exam Vital Signs: Temp Pulse Resp BP Pulse Ox 97.4 F 66 24 H 129/72 H 93 02/25/18 11:08 02/25/18 11:08 02/25/18 11:08 02/25/18 11:08 02/25/18 11:08 Pulse Oximeter Continuous Start: 02/22/18 10: 49 Freq: RTQ4 Status: Active Document 02/25/18 09:33 MED (Rec: 02/25/18 09:35 MED [id number]) Pulse Oximetry Assessment Oxygen Saturation (92-100) 96 Oxygen Delivery Method Bi-pap Fraction of Inspired Oxygen (FIO2) 60 Equipment Usage Equipment in Use Continuous SpO2 Machine # 11 Intake & Output 02/24/18 02/25/18 02/26/18 06:59 06:59 06:59 Intake Total 975 575 Output Total 1040 700 Balance -65 -125 Weight 102.2 kg 101.5 kg General appearance: PRESENT: no acute distress, well-developed, well-nourished Head exam: PRESENT: atraumatic, normocephalic Eye exam: PRESENT: conjunctiva pink, EOMI, PERRLA. ABSENT: scleral icterus Ear exam: PRESENT: normal external ear exam Mouth exam: PRESENT: moist, tongue midline Neck exam: PRESENT: full ROM. ABSENT: carotid bruit, JVD, lymphadenopathy, thyromegaly Respiratory exam: PRESENT: clear to auscultation nelda Cardiovascular exam: PRESENT: RRR. ABSENT: diastolic murmur, rubs, systolic murmur Pulses: PRESENT: normal dorsalis pedis pul, +2 pedal pulses bilateral Vascular exam: PRESENT: normal capillary refill GI/Abdominal exam: PRESENT: normal bowel sounds, soft. ABSENT: distended, guarding, mass, organolmegaly, rebound, tenderness Rectal exam: PRESENT: deferred Extremities exam: ABSENT: pedal edema Neurological exam: PRESENT: alert, awake, oriented to person, oriented to place , oriented to time, oriented to situation, CN II-XII grossly intact. ABSENT: motor sensory deficit Psychiatric exam: PRESENT: appropriate affect, normal mood. ABSENT: homicidal ideation, suicidal ideation Skin exam: PRESENT: dry, intact, warm. ABSENT: cyanosis, rash Results Laboratory Results: 02/24/18 05:50 02/24/18 11:29 Fluid Type PLEURAL Fluid Source LUNG Fluid Color YELLOW Fluid Appearance SLIGHTLY HAZY Fluid Viscosity LIQUID Fluid WBC 153 Fluid RBC 4165 02/22/18 13:54 Sputum Fungal Smear - Final 02/22/18 13:54 Sputum Fungal Smear - Final 02/22/18 13:54 Sputum AFB Smear Concentration - Final 02/22/18 13:54 Sputum Acid Fast Bacilli Smear - Final Impressions: Chest CT 02/22/18 00:00 IMPRESSION: Pleural effusions as described. These have increased since the prior study. Mediastinal adenopathy. Atherosclerosis. Cardiomegaly. Mild pulmonary edema is suggested. Chest X-Ray 02/24/18 00:00 IMPRESSION: Stable AP examination with moderate, layering right pleural effusion. No significant pneumothorax status post thoracentesis. Unchanged cardiomegaly. Thoracentesis Ultrasound 02/24/18 11:22 IMPRESSION: SUCCESSFUL THORACENTESIS USING ULTRASOUND GUIDANCE. Assessment & Plan - Diagnosis (1) Acute on chronic respiratory failure with hypoxemia Is this a current diagnosis for this admission?: Yes (2) Congestive heart failure Qualifiers: Heart failure type: unspecified Heart failure chronicity: unspecified Qualified Code(s): I50.9 - Heart failure, unspecified Is this a current diagnosis for this admission?: Yes (3) End stage chronic obstructive pulmonary disease Is this a current diagnosis for this admission?: Yes (4) Pleural effusion Is this a current diagnosis for this admission?: Yes (5) Pneumonia Qualifiers: Pneumonia type: due to unspecified organism Laterality: right Lung location: lower lobe of lung Qualified Code(s): J18.1 - Lobar pneumonia, unspecified organism Is this a current diagnosis for this admission?: Yes (6) COPD (chronic obstructive pulmonary disease) Qualifiers: COPD type: COPD with acute lower respiratory infection Qualified Code(s): J44.0 - Chronic obstructive pulmonary disease with acute lower respiratory infection Is this a current diagnosis for this admission?: Yes (7) Chronic atrial fibrillation Is this a current diagnosis for this admission?: Yes (8) Diabetes mellitus type 2 in obese Is this a current diagnosis for this admission?: Yes - Time Time Spent with patient: 15-24 minutes Medications reviewed and adjusted accordingly: Yes Anticipated discharge: Other Within: Other - Inpatient Certification Based on my medical assessment, after consideration of the patient's comorbidities, presenting symptoms, or acuity I expect that the services needed warrant INPATIENT care.: Yes I certify that my determination is in accordance with my understanding of Medicare's requirements for reasonable and necessary INPATIENT services [42 CFR 412.3e].: Yes - Plan Summary Plan Summary: That the patient on the Coumadin as per the patient's attending notes 5 mg resume the Lovenox until the INR is more than 1.5
[2018-02-25] MEDS: FAMOTIDINE 20 MG TABLET PO SCH (17:05)
[2018-02-25 17:31] LABS: TOTAL PROTEIN BODY FLUID 1.8 g/dL (.)
[2018-02-25] MEDS: ENOXAPARIN SODIUM INJ 100 MG/1 ML DISP.SYRIN SUBCUT SCH (17:51)
[2018-02-25 19:09] LABS: INTERNATIONAL RATION (INR) 1.15; PROTHROMBIN TIME 15.3 SEC (11.4-15.4)
[2018-02-25] MEDS ORDERED: WARFARIN SODIUM 2.5 MG TABLET PO SCH (22:00)
[2018-02-25] MEDS: WARFARIN SODIUM 5 MG TABLET PO SCH (23:26)
[2018-02-25] MEDS: ATORVASTATIN CALCIUM 40 MG TABLET PO SCH (23:26)
[2018-02-26 06:38] LABS: ARTERIAL BLOOD BASE EXCESS 3.1 mmol/L; ARTERIAL BLOOD FIO2 50%; ARTERIAL BLOOD H2CO3 1.39 mmol/L (1.05-1.35); ARTERIAL BLOOD HCO3 28.3 mmol/L (20-24); ARTERIAL BLOOD O2 SATURATION 80.9 % (94-98); ARTERIAL BLOOD PCO2 46.1 mmHg (35-45); ARTERIAL BLOOD PH 7.41 (7.35-7.45); ARTERIAL BLOOD TOTAL CO2 29.7 mmol/L (23-27)
[2018-02-26 06:55] LABS: INTERNATIONAL RATION (INR) 1.11; PROTHROMBIN TIME 14.9 SEC (11.4-15.4)
[2018-02-26] MEDS: ENOXAPARIN SODIUM INJ 100 MG/1 ML DISP.SYRIN SUBCUT SCH ×2 (06:56→17:11)
[2018-02-26 07:21] LABS: ANION GAP 10 (5-19); BLOOD UREA NITROGEN 26 mg/dL (7-20); CALCIUM 9.5 mg/dL (8.4-10.2); CARBON DIOXIDE 27 mmol/L (22-30); CHLORIDE 104 mmol/L (98-107); GLUCOSE 122 mg/dL (75-110); POTASSIUM 5.1 mmol/L (3.6-5.0); SODIUM 140.5 mmol/L (137-145)
[2018-02-26] MEDS: FLUTICASONE/SALMETEROL DISKUS 500-50 MCG/DOSE IH SCH ×2 (09:59→21:58)
[2018-02-26] MEDS: CYANOCOBALAMIN (VITAMIN B-12) 1,000 MCG TABLET PO SCH (10:00)
[2018-02-26] MEDS: DOCUSATE SODIUM 100 MG CAPSULE PO SCH (10:00)
[2018-02-26] MEDS: ATENOLOL 50 MG TABLET PO SCH (10:00)
[2018-02-26] MEDS: METFORMIN HCL 500 MG TABLET PO SCH ×2 (10:00→17:11)
[2018-02-26] MEDS: TAMSULOSIN HCL 0.4 MG CAP.SR.24H PO SCH (10:00)
[2018-02-26] MEDS: AMLODIPINE BESYLATE 10 MG TABLET PO SCH (10:00)
[2018-02-26] MEDS: FOLIC ACID 1 MG TABLET PO SCH (10:00)
[2018-02-26] MEDS: CHOLECALCIFEROL (D3) 1,000 UNIT TABLET PO SCH (10:00)
[2018-02-26] MEDS: OMEGA-3 ACID ETHYL ESTERS 1 GM CAPSULE PO SCH (10:00)
[2018-02-26] MEDS: FINASTERIDE 5 MG TABLET PO SCH (10:01)
[2018-02-26] MEDS: ALLOPURINOL 300 MG TABLET PO SCH (10:01)
[2018-02-26] MEDS: LISINOPRIL 5 MG TABLET PO SCH (10:01)
[2018-02-26] MEDS: FERROUS SULFATE 325 MG TABLET PO SCH (10:01)
[2018-02-26] MEDS: ASCORBIC ACID 500 MG TABLET PO SCH (10:04)
[2018-02-26 10:37] LABS: APPEARANCE,URINE CLEAR; BILIRUBIN,URINE NEGATIVE (NEGATIVE); COLOR,URINE YELLOW; GLUCOSE, URINE NEGATIVE (NEGATIVE); KETONES,URINE NEGATIVE (NEGATIVE); LEUKOCYTE ESTERASE,URINE MODERATE (NEGATIVE); NITRITE,URINE NEGATIVE (NEGATIVE); PROTEIN,URINE NEGATIVE (NEGATIVE); URINE SPECIFIC GRAVITY 1.013; UROBILINOGEN,URINE NEGATIVE mg/dL (<2.0)
--- NOTE | 2018-02-26 11:34 | PDOC PROGRESS REPORT ---
Subjective Progress Note for:: 02/26/18 Subjective:: Patient is currently doing well Patient is currently on a BiPAP denied any chest pain to than any shortness of the breath Patient had a thoracocentesis done only 80 cc of the fluid came out Discussed with the pulmonary Dr. Ocsaio today regarding the chest x-ray Patient otherwise denied any chest pain denied any shortness of the breath No fever no chills Reason For Visit: END STAGE COPD WITH HYPOXEMIA;CHRONIC ATRIAL Physical Exam Vital Signs: Temp Pulse Resp BP Pulse Ox 97.5 F 65 20 104/68 96 02/26/18 07:37 02/26/18 07:37 02/26/18 08:57 02/26/18 07:37 02/26/18 08:57 Pulse Oximeter Continuous Start: 02/22/18 10: 49 Freq: RTQ4 Status: Active Document 02/26/18 08:57 JDR (Rec: 02/26/18 08:58 JDR [email or web address]) Pulse Oximetry Assessment Oxygen Saturation (92-100) 96 Oxygen Delivery Method Bi-pap Fraction of Inspired Oxygen (FIO2) 50 Equipment Usage Equipment in Use Continuous Pulse Oximeter 24 Hour Charge Charge Now Continuous SpO2 Machine # 11 Intake & Output 02/25/18 02/26/18 02/27/18 06:59 06:59 06:59 Intake Total 575 1775 Output Total 700 875 Balance -125 900 Weight 101.5 kg 102.6 kg General appearance: PRESENT: no acute distress, well-developed, well-nourished Head exam: PRESENT: atraumatic, normocephalic Eye exam: PRESENT: conjunctiva pink, EOMI, PERRLA. ABSENT: scleral icterus Ear exam: PRESENT: normal external ear exam Mouth exam: PRESENT: moist, tongue midline Neck exam: PRESENT: full ROM. ABSENT: carotid bruit, JVD, lymphadenopathy, thyromegaly Respiratory exam: PRESENT: clear to auscultation nelda Cardiovascular exam: PRESENT: RRR. ABSENT: diastolic murmur, rubs, systolic murmur Pulses: PRESENT: normal dorsalis pedis pul, +2 pedal pulses bilateral Vascular exam: PRESENT: normal capillary refill GI/Abdominal exam: PRESENT: normal bowel sounds, soft. ABSENT: distended, guarding, mass, organolmegaly, rebound, tenderness Rectal exam: PRESENT: deferred Neurological exam: PRESENT: alert, awake, oriented to person, oriented to place , oriented to time, oriented to situation, CN II-XII grossly intact. ABSENT: motor sensory deficit Psychiatric exam: PRESENT: appropriate affect, normal mood. ABSENT: homicidal ideation, suicidal ideation Skin exam: PRESENT: dry, intact, warm. ABSENT: cyanosis, rash Results Laboratory Results: 02/24/18 05:50 02/26/18 06:40 02/24/18 02/24/18 02/26/18 11:29 11:29 06:23 Carbonic Acid 1.39 H HCO3/H2CO3 Ratio 20:1 ABG pH 7.41 ABG pCO2 46.1 H ABG pO2 45.0 L ABG HCO3 28.3 H ABG O2 Saturation 80.9 L ABG Base Excess 3.1 FiO2 50% Sodium Potassium Chloride Carbon Dioxide Anion Gap BUN Creatinine Est GFR ( Amer) Est GFR (Non-Af Amer) Glucose Calcium Urine Color Urine Appearance Urine pH Ur Specific [place] Urine Protein Urine Glucose (UA) Urine Ketones Urine Blood Urine Nitrite Ur Leukocyte Esterase Urine WBC (Auto) Urine RBC (Auto) Fluid Glucose 132 Fluid Total Protein 1.8 Fluid LDH 41 Fluid Amylase 45 02/26/18 02/26/18 06:40 10:15 Carbonic Acid HCO3/H2CO3 Ratio ABG pH ABG pCO2 ABG pO2 ABG HCO3 ABG O2 Saturation ABG Base Excess FiO2 Sodium 140.5 Potassium 5.1 H Chloride 104 Carbon Dioxide 27 Anion Gap 10 BUN 26 H Creatinine 0.99 Est GFR ( Amer) > 60 Est GFR (Non-Af Amer) > 60 Glucose 122 H Calcium 9.5 Urine Color YELLOW Urine Appearance CLEAR Urine pH 5.0 Ur Specific [place] 1.013 Urine Protein NEGATIVE Urine Glucose (UA) NEGATIVE Urine Ketones NEGATIVE Urine Blood NEGATIVE Urine Nitrite NEGATIVE Ur Leukocyte Esterase MODERATE H Urine WBC (Auto) 8 Urine RBC (Auto) 2 Fluid Glucose Fluid Total Protein Fluid LDH Fluid Amylase Impressions: Chest CT 02/22/18 00:00 IMPRESSION: Pleural effusions as described. These have increased since the prior study. Mediastinal adenopathy. Atherosclerosis. Cardiomegaly. Mild pulmonary edema is suggested. Chest X-Ray 02/24/18 00:00 IMPRESSION: Stable AP examination with moderate, layering right pleural effusion. No significant pneumothorax status post thoracentesis. Unchanged cardiomegaly. Thoracentesis Ultrasound 02/24/18 11:22 IMPRESSION: SUCCESSFUL THORACENTESIS USING ULTRASOUND GUIDANCE. Assessment & Plan - Diagnosis (1) Acute on chronic respiratory failure with hypoxemia Is this a current diagnosis for this admission?: Yes (2) Congestive heart failure Qualifiers: Heart failure type: unspecified Heart failure chronicity: unspecified Qualified Code(s): I50.9 - Heart failure, unspecified Is this a current diagnosis for this admission?: Yes (3) End stage chronic obstructive pulmonary disease Is this a current diagnosis for this admission?: Yes (4) Pleural effusion Is this a current diagnosis for this admission?: Yes (5) Pneumonia Qualifiers: Pneumonia type: due to unspecified organism Laterality: right Lung location: lower lobe of lung Qualified Code(s): J18.1 - Lobar pneumonia, unspecified organism Is this a current diagnosis for this admission?: Yes (6) COPD (chronic obstructive pulmonary disease) Qualifiers: COPD type: COPD with acute lower respiratory infection Qualified Code(s): J44.0 - Chronic obstructive pulmonary disease with acute lower respiratory infection Is this a current diagnosis for this admission?: Yes (7) Chronic atrial fibrillation Is this a current diagnosis for this admission?: Yes (8) Diabetes mellitus type 2 in obese Is this a current diagnosis for this admission?: Yes - Time Time Spent with patient: 15-24 minutes Medications reviewed and adjusted accordingly: Yes Anticipated discharge: Other Within: Other - Plan Summary Plan Summary: Continues to Coumadin we will check the INR in the morning
[2018-02-26] MEDS: FAMOTIDINE 20 MG TABLET PO SCH (17:11)
[2018-02-26] MEDS: WARFARIN SODIUM 5 MG TABLET PO SCH (21:57)
[2018-02-26] MEDS: ATORVASTATIN CALCIUM 40 MG TABLET PO SCH (21:58)
[2018-02-27] MEDS: ENOXAPARIN SODIUM INJ 100 MG/1 ML DISP.SYRIN SUBCUT SCH ×2 (05:47→17:12)
[2018-02-27 07:01] LABS: HEMATOCRIT 28.9 % (37.9-51.0); HEMOGLOBIN 9.6 g/dL (13.5-17.0); MEAN CORPUSCULAR HEMOGLOBIN 31.3 pg (27.0-33.4); MEAN CORPUSCULAR HGB CONC 33.4 g/dL (32.0-36.0); MEAN CORPUSCULAR VOLUME 94 fl (80-97); PLATELET COUNT 189 10^3/uL (150-450); RED BLOOD COUNT 3.07 10^6/uL (4.35-5.55); RED CELL DISTRIBUTION WIDTH 17.1 % (11.5-14.0); WHITE BLOOD COUNT 7.3 10^3/uL (4.0-10.5)
[2018-02-27 07:26] LABS: ANION GAP 10 (5-19); BLOOD UREA NITROGEN 24 mg/dL (7-20); CALCIUM 9.4 mg/dL (8.4-10.2); CARBON DIOXIDE 30 mmol/L (22-30); CHLORIDE 102 mmol/L (98-107); GLUCOSE 119 mg/dL (75-110); SODIUM 141.5 mmol/L (137-145)
[2018-02-27] MEDS: LISINOPRIL 5 MG TABLET PO SCH (09:11)
[2018-02-27] MEDS: ALLOPURINOL 300 MG TABLET PO SCH (09:12)
[2018-02-27] MEDS: CHOLECALCIFEROL (D3) 1,000 UNIT TABLET PO SCH (09:12)
[2018-02-27] MEDS: ATENOLOL 50 MG TABLET PO SCH (09:12)
[2018-02-27] MEDS: CYANOCOBALAMIN (VITAMIN B-12) 1,000 MCG TABLET PO SCH (09:13)
[2018-02-27] MEDS: FERROUS SULFATE 325 MG TABLET PO SCH (09:13)
[2018-02-27] MEDS: ASCORBIC ACID 500 MG TABLET PO SCH (09:13)
[2018-02-27] MEDS: FINASTERIDE 5 MG TABLET PO SCH (09:13)
[2018-02-27] MEDS: OMEGA-3 ACID ETHYL ESTERS 1 GM CAPSULE PO SCH (09:15)
[2018-02-27] MEDS: METFORMIN HCL 500 MG TABLET PO SCH ×2 (09:15→17:12)
[2018-02-27] MEDS: AMLODIPINE BESYLATE 10 MG TABLET PO SCH (09:15)
[2018-02-27] MEDS: FOLIC ACID 1 MG TABLET PO SCH (09:15)
[2018-02-27] MEDS: DOCUSATE SODIUM 100 MG CAPSULE PO SCH (09:16)
[2018-02-27] MEDS: TAMSULOSIN HCL 0.4 MG CAP.SR.24H PO SCH (09:16)
[2018-02-27 09:17] LABS: APPEARANCE,URINE SLIGHTLY-CLOUDY; BILIRUBIN,URINE NEGATIVE (NEGATIVE); COLOR,URINE YELLOW; GLUCOSE, URINE NEGATIVE (NEGATIVE); KETONES,URINE NEGATIVE (NEGATIVE); LEUKOCYTE ESTERASE,URINE MODERATE (NEGATIVE); NITRITE,URINE NEGATIVE (NEGATIVE); PROTEIN,URINE NEGATIVE (NEGATIVE); URINE SPECIFIC GRAVITY 1.013; UROBILINOGEN,URINE NEGATIVE mg/dL (<2.0)
[2018-02-27] MEDS: FLUTICASONE/SALMETEROL DISKUS 500-50 MCG/DOSE IH SCH ×2 (09:19→21:07)
[2018-02-27] MEDS: FAMOTIDINE 20 MG TABLET PO SCH (17:12)
--- NOTE | 2018-02-27 18:21 | PDOC PROGRESS REPORT ---
Subjective Progress Note for:: 02/27/18 Subjective:: Patient remain intolerance off BiPAP support at this time. Need non-rebreathing face mask to eat as per nursing report and desaturate into the 60's off BiPAP. No chest pain. Denied nausea, vomiting, or abdominal pain. Patient and family completed living will and [place] MOST form earlier today Reason For Visit: END STAGE COPD WITH HYPOXEMIA;CHRONIC ATRIAL Physical Exam Vital Signs: Temp Pulse Resp BP Pulse Ox 97.4 F 80 28 H 134/66 H 97 02/27/18 15:42 02/27/18 15:42 02/27/18 15:42 02/27/18 15:42 02/27/18 15:42 Pulse Oximeter Continuous Start: 02/22/18 10: 49 Freq: RTQ4 Status: Active Document 02/27/18 15:41 LDA (Rec: 02/27/18 15:43 LDA [id number]) Pulse Oximetry Assessment Oxygen Saturation (92-100) 96 Oxygen Delivery Method Bi-pap Fraction of Inspired Oxygen (FIO2) 50 Equipment Usage Equipment in Use Continuous SpO2 Machine # [id number] Intake & Output 02/26/18 02/27/18 02/28/18 06:59 06:59 06:59 Intake Total 1775 944 355 Output Total 875 1240 225 Balance 900 -296 130 Weight 102.6 kg 103.2 kg Physical Exam: General appearance: PRESENT: mild distress - on supplemental oxygen via BiPAP and non rebreathing face mask while eating. Head exam: PRESENT: atraumatic, normocephalic Eye exam: PRESENT: conjunctiva pink, EOMI, PERRLA. ABSENT: scleral icterus Ear exam: PRESENT: normal external ear exam Mouth exam: PRESENT: moist Respiratory exam: PRESENT: clear to auscultation nelda, decreased breath sounds - at lung bases Cardiovascular exam: PRESENT: irregular rhythm, +S1, +S2 Vascular exam: PRESENT: normal capillary refill. ABSENT: pallor GI/Abdominal exam: PRESENT: normal bowel sounds, soft. ABSENT: distended, guarding, mass, organomegaly, rebound, tenderness Extremities exam: ABSENT: pedal edema Neurological exam: PRESENT: alert, awake, oriented to person, oriented to place , oriented to time, oriented to situation, CN II-XII grossly intact. ABSENT: motor sensory deficit Psychiatric exam: PRESENT: appropriate affect, normal mood. ABSENT: homicidal ideation, suicidal ideation Skin exam: PRESENT: dry, intact, warm. ABSENT: cyanosis, rash Results Laboratory Results: 02/27/18 06:40 02/27/18 06:40 02/27/18 02/27/18 02/27/18 06:40 06:40 08:30 WBC 7.3 RBC 3.07 L Hgb 9.6 L Hct 28.9 L MCV 94 MCH 31.3 MCHC 33.4 RDW 17.1 H Plt Count 189 Sodium 141.5 Potassium 5.0 Chloride 102 Carbon Dioxide 30 Anion Gap 10 BUN 24 H Creatinine 1.12 Est GFR ( Amer) > 60 Est GFR (Non-Af Amer) > 60 Glucose 119 H Calcium 9.4 Urine Color YELLOW Urine Appearance SLIGHTLY-CLOUDY Urine pH 6.0 Ur Specific [place] 1.013 Urine Protein NEGATIVE Urine Glucose (UA) NEGATIVE Urine Ketones NEGATIVE Urine Blood NEGATIVE Urine Nitrite NEGATIVE Ur Leukocyte Esterase MODERATE H Urine WBC (Auto) 4 Urine RBC (Auto) 1 02/24/18 11:29 Pleural Fluid Fungal Smear - Final 02/24/18 11:29 Pleural Fluid Fungal Smear - Final 02/22/18 13:54 Sputum Gram Stain - Final 02/22/18 13:54 Sputum Sputum Culture - Final Staphylococcus Aureus Reduced Normal Alix 02/24/18 11:29 Pleural Fluid AFB Smear Concentration - Final 02/24/18 11:29 Pleural Fluid Acid Fast Bacilli Smear - Final Impressions: Chest CT 02/22/18 00:00 IMPRESSION: Pleural effusions as described. These have increased since the prior study. Mediastinal adenopathy. Atherosclerosis. Cardiomegaly. Mild pulmonary edema is suggested. Chest X-Ray 02/24/18 00:00 IMPRESSION: Stable AP examination with moderate, layering right pleural effusion. No significant pneumothorax status post thoracentesis. Unchanged cardiomegaly. Thoracentesis Ultrasound 02/24/18 11:22 IMPRESSION: SUCCESSFUL THORACENTESIS USING ULTRASOUND GUIDANCE. Assessment & Plan - Diagnosis (1) Acute on chronic respiratory failure with hypoxemia Is this a current diagnosis for this admission?: Yes (2) End stage chronic obstructive pulmonary disease Is this a current diagnosis for this admission?: Yes (3) Acute on chronic diastolic heart failure Is this a current diagnosis for this admission?: Yes (4) Chronic atrial fibrillation Is this a current diagnosis for this admission?: Yes (5) Diabetes mellitus type 2 in obese Is this a current diagnosis for this admission?: Yes (6) HTN (hypertension) Qualifiers: Hypertension type: essential hypertension Qualified Code(s): I10 - Essential (primary) hypertension Is this a current diagnosis for this admission?: Yes (7) HLD (hyperlipidemia) Qualifiers: Hyperlipidemia type: unspecified Qualified Code(s): E78.5 - Hyperlipidemia , unspecified Is this a current diagnosis for this admission?: Yes (8) BPH loc w urin obs/LUTS Is this a current diagnosis for this admission?: Yes (9) Pleural effusion, right Is this a current diagnosis for this admission?: Yes (10) Severe pulmonary arterial systolic hypertension Is this a current diagnosis for this admission?: Yes - Time Time Spent with patient: 25-34 minutes Medications reviewed and adjusted accordingly: Yes Anticipated discharge: Home with Homehealth Within: Other - Inpatient Certification Based on my medical assessment, after consideration of the patient's comorbidities, presenting symptoms, or acuity I expect that the services needed warrant INPATIENT care.: Yes I certify that my determination is in accordance with my understanding of Medicare's requirements for reasonable and necessary INPATIENT services [42 CFR 412.3e].: Yes Medical Necessity: Need Close Monitoring Due to Risk of Patient Decompensation, Need For Continuous Telemetry Monitoring, Need for Nebulizer Therapy and Monitoring of Response, Risk of Complication if Not Cared For in Hospital 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 Request for either Trilogy device or BiPAP for home use upon discharge. Obtain stat PT/INR in view of combination therapy with Lovenox and Coumadin. Adjust dosing based on INR findings.
[2018-02-27 18:46] LABS: INTERNATIONAL RATION (INR) 1.12
[2018-02-27] MEDS: WARFARIN SODIUM 5 MG TABLET PO SCH (21:07)
[2018-02-27] MEDS: ATORVASTATIN CALCIUM 40 MG TABLET PO SCH (21:07)
[2018-02-28] MEDS: ENOXAPARIN SODIUM INJ 100 MG/1 ML DISP.SYRIN SUBCUT SCH ×2 (05:33→17:39)
[2018-02-28 06:27] LABS: INTERNATIONAL RATION (INR) 1.05; PROTHROMBIN TIME 14.2 SEC (11.4-15.4)
[2018-02-28 06:37] LABS: ANION GAP 12 (5-19); BLOOD UREA NITROGEN 23 mg/dL (7-20); CALCIUM 9.5 mg/dL (8.4-10.2); CARBON DIOXIDE 26 mmol/L (22-30); CHLORIDE 102 mmol/L (98-107); GLUCOSE 127 mg/dL (75-110); POTASSIUM 4.9 mmol/L (3.6-5.0); SODIUM 139.9 mmol/L (137-145)
[2018-02-28] MEDS: TAMSULOSIN HCL 0.4 MG CAP.SR.24H PO SCH (09:44)
[2018-02-28] MEDS: CHOLECALCIFEROL (D3) 1,000 UNIT TABLET PO SCH (09:44)
[2018-02-28] MEDS: OMEGA-3 ACID ETHYL ESTERS 1 GM CAPSULE PO SCH (09:44)
[2018-02-28] MEDS: AMLODIPINE BESYLATE 10 MG TABLET PO SCH (09:45)
[2018-02-28] MEDS: METFORMIN HCL 500 MG TABLET PO SCH ×2 (09:45→17:39)
[2018-02-28] MEDS: ALLOPURINOL 300 MG TABLET PO SCH (09:45)
[2018-02-28] MEDS: LISINOPRIL 5 MG TABLET PO SCH (09:47)
[2018-02-28] MEDS: CYANOCOBALAMIN (VITAMIN B-12) 1,000 MCG TABLET PO SCH (09:48)
[2018-02-28] MEDS: ATENOLOL 50 MG TABLET PO SCH (09:48)
[2018-02-28] MEDS: FINASTERIDE 5 MG TABLET PO SCH (09:48)
[2018-02-28] MEDS: FOLIC ACID 1 MG TABLET PO SCH (09:49)
[2018-02-28] MEDS: FERROUS SULFATE 325 MG TABLET PO SCH (09:49)
[2018-02-28] MEDS: ASCORBIC ACID 500 MG TABLET PO SCH (09:50)
[2018-02-28] MEDS: DOCUSATE SODIUM 100 MG CAPSULE PO SCH (09:50)
[2018-02-28] MEDS: FLUTICASONE/SALMETEROL DISKUS 500-50 MCG/DOSE IH SCH ×2 (09:50→21:27)
[2018-02-28] MEDS: INSULIN LISPRO 100 UNIT/ML 3 ML VIAL SUBCUT PRN (13:05)
[2018-02-28] MEDS: FAMOTIDINE 20 MG TABLET PO SCH (17:39)
--- NOTE | 2018-02-28 18:38 | PDOC PROGRESS REPORT ---
Subjective Progress Note for:: 02/28/18 Subjective:: Patient's INR remain sub-therapeutic on oral Coumadin and SC Lovenox. No chest pain. Remain on BiPAP support. In need of Trilogy machine or BiPAP machine at home. Tolerating oral feeding with face mask non-rebreathing supplemental oxygen usage. No reported fever or chills. Reason For Visit: END STAGE COPD WITH HYPOXEMIA;CHRONIC ATRIAL Physical Exam Vital Signs: Temp Pulse Resp BP Pulse Ox 97.6 F 68 26 H 119/61 92 02/28/18 11:09 02/28/18 14:00 02/28/18 12:12 02/28/18 11:09 02/28/18 12:12 Pulse Oximeter Continuous Start: 02/22/18 10: 49 Freq: RTQ4 Status: Complete Document 02/28/18 12:12 [facility] (Rec: 02/28/18 12:13 [facility] [email or web address]) Pulse Oximetry Assessment Oxygen Saturation (92-100) 92 Oxygen Delivery Method Bi-pap Fraction of Inspired Oxygen (FIO2) 50 Equipment Usage Equipment in Use Continuous SpO2 Machine # 11 Intake & Output 02/27/18 02/28/18 03/01/18 06:59 06:59 06:59 Intake Total 944 1294 Output Total 1240 1025 Balance -296 269 Weight 103.2 kg 103.8 kg Physical Exam: General appearance: PRESENT: mild distress - on supplemental oxygen via BiPAP and non rebreathing face mask while eating. Head exam: PRESENT: atraumatic, normocephalic Eye exam: PRESENT: conjunctiva pink, EOMI, PERRLA. ABSENT: pallor, scleral icterus Ear exam: PRESENT: normal external ear exam Mouth exam: PRESENT: moist Respiratory exam: PRESENT: clear to auscultation nelda, decreased breath sounds - at lung bases Cardiovascular exam: PRESENT: irregular rhythm, +S1, +S2 GI/Abdominal exam: PRESENT: normal bowel sounds, soft. ABSENT: distended, guarding, mass, organomegaly, rebound, tenderness Extremities exam: ABSENT: pedal edema Neurological exam: PRESENT: alert, awake, oriented to person, oriented to place , oriented to time, oriented to situation, CN II-XII grossly intact. ABSENT: motor sensory deficit Psychiatric exam: PRESENT: appropriate affect, normal mood. ABSENT: homicidal ideation, suicidal ideation Skin exam: PRESENT: dry, intact, warm. ABSENT: cyanosis, rash Results Laboratory Results: 02/27/18 06:40 02/28/18 05:43 02/28/18 05:43 Sodium 139.9 Potassium 4.9 Chloride 102 Carbon Dioxide 26 Anion Gap 12 BUN 23 H Creatinine 1.10 Est GFR ( Amer) > 60 Est GFR (Non-Af Amer) > 60 Glucose 127 H Calcium 9.5 02/24/18 11:29 Pleural Fluid Gram Stain - Final 02/24/18 11:29 Pleural Fluid Body Fluid Culture - Final NO AEROBIC OR ANAEROBIC ORGANISMS RECOVERED 02/24/18 11:29 Pleural Fluid Fungal Smear - Final 02/24/18 11:29 Pleural Fluid Fungal Smear - Final Impressions: Chest CT 02/22/18 00:00 IMPRESSION: Pleural effusions as described. These have increased since the prior study. Mediastinal adenopathy. Atherosclerosis. Cardiomegaly. Mild pulmonary edema is suggested. Chest X-Ray 02/24/18 00:00 IMPRESSION: Stable AP examination with moderate, layering right pleural effusion. No significant pneumothorax status post thoracentesis. Unchanged cardiomegaly. Thoracentesis Ultrasound 02/24/18 11:22 IMPRESSION: SUCCESSFUL THORACENTESIS USING ULTRASOUND GUIDANCE. Assessment & Plan - Diagnosis (1) Acute on chronic respiratory failure with hypoxemia Is this a current diagnosis for this admission?: Yes (2) End stage chronic obstructive pulmonary disease Is this a current diagnosis for this admission?: Yes (3) Acute on chronic diastolic heart failure Is this a current diagnosis for this admission?: Yes (4) Chronic atrial fibrillation Is this a current diagnosis for this admission?: Yes (5) Diabetes mellitus type 2 in obese Is this a current diagnosis for this admission?: Yes (6) HTN (hypertension) Qualifiers: Hypertension type: essential hypertension Qualified Code(s): I10 - Essential (primary) hypertension Is this a current diagnosis for this admission?: Yes (7) HLD (hyperlipidemia) Qualifiers: Hyperlipidemia type: unspecified Qualified Code(s): E78.5 - Hyperlipidemia , unspecified Is this a current diagnosis for this admission?: Yes (8) BPH loc w urin obs/LUTS Is this a current diagnosis for this admission?: Yes (9) Pleural effusion, right Is this a current diagnosis for this admission?: Yes (10) Severe pulmonary arterial systolic hypertension Is this a current diagnosis for this admission?: Yes - Time Time Spent with patient: 25-34 minutes Medications reviewed and adjusted accordingly: Yes Anticipated discharge: Home with Homehealth Within: Other - Inpatient Certification Based on my medical assessment, after consideration of the patient's comorbidities, presenting symptoms, or acuity I expect that the services needed warrant INPATIENT care.: Yes I certify that my determination is in accordance with my understanding of Medicare's requirements for reasonable and necessary INPATIENT services [42 CFR 412.3e].: Yes Medical Necessity: Need Close Monitoring Due to Risk of Patient Decompensation, Need For Continuous Telemetry Monitoring, Need for Nebulizer Therapy and Monitoring of Response, Risk of Complication if Not Cared For in Hospital 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 Monitor INR. Continue all other current management. Requested for Trilogy or BiPAP machine set at home before discharge.
[2018-02-28] MEDS: ATORVASTATIN CALCIUM 40 MG TABLET PO SCH (21:27)
[2018-02-28] MEDS ORDERED: WARFARIN SODIUM 5 MG TABLET PO ONE (22:00)
[2018-03-01] MEDS: ENOXAPARIN SODIUM INJ 100 MG/1 ML DISP.SYRIN SUBCUT SCH ×2 (05:26→17:53)
[2018-03-01 05:51] LABS: HEMATOCRIT 29.2 % (37.9-51.0); HEMOGLOBIN 9.7 g/dL (13.5-17.0); MEAN CORPUSCULAR HEMOGLOBIN 31.1 pg (27.0-33.4); MEAN CORPUSCULAR HGB CONC 33.1 g/dL (32.0-36.0); MEAN CORPUSCULAR VOLUME 94 fl (80-97); PLATELET COUNT 194 10^3/uL (150-450); RED BLOOD COUNT 3.11 10^6/uL (4.35-5.55); RED CELL DISTRIBUTION WIDTH 17.2 % (11.5-14.0); WHITE BLOOD COUNT 7.1 10^3/uL (4.0-10.5)
[2018-03-01 05:57] LABS: INTERNATIONAL RATION (INR) 1.15; PROTHROMBIN TIME 15.3 SEC (11.4-15.4)
--- NOTE | 2018-03-01 08:29 | PDOC PROGRESS REPORT ---
Subjective Progress Note for:: 03/01/18 Subjective:: Patient remain on ventilatory support with BiPAP and non rebreathing face mask. He denied any chest pain. His INR demonstrate upward trend but remain sub therapeutic at 1.15. He will receive another dose of 10 mg tonight. No nausea, vomiting or abdominal pain. Reason For Visit: END STAGE COPD WITH HYPOXEMIA;CHRONIC ATRIAL Physical Exam Vital Signs: Temp Pulse Resp BP Pulse Ox 98.4 F 80 23 H 130/66 H 93 03/01/18 00:22 03/01/18 02:00 03/01/18 04:42 03/01/18 00:22 03/01/18 00:25 Pulse Oximeter Continuous Start: 02/22/18 10: 49 Freq: RTQ4 Status: Complete Document 02/28/18 12:12 [facility] (Rec: 02/28/18 12:13 [facility] [id number]) Pulse Oximetry Assessment Oxygen Saturation (92-100) 92 Oxygen Delivery Method Bi-pap Fraction of Inspired Oxygen (FIO2) 50 Equipment Usage Equipment in Use Continuous SpO2 Machine # 11 Intake & Output 02/28/18 03/01/18 03/02/18 06:59 06:59 06:59 Intake Total 1294 1348 Output Total 1025 800 Balance 269 548 Weight 103.8 kg 103.9 kg Physical Exam: General appearance: PRESENT: mild distress - on supplemental oxygen via BiPAP and non rebreathing face mask while eating. Head exam: PRESENT: atraumatic, normocephalic Eye exam: PRESENT: conjunctiva pink, EOMI, PERRLA. ABSENT: pallor, scleral icterus Ear exam: PRESENT: normal external ear exam Mouth exam: PRESENT: moist Respiratory exam: PRESENT: clear to auscultation nelda, decreased breath sounds - at lung bases Cardiovascular exam: PRESENT: irregular rhythm, +S1, +S2 GI/Abdominal exam: PRESENT: normal bowel sounds, soft. ABSENT: distended, guarding, mass, organomegaly, rebound, tenderness Extremities exam: ABSENT: pedal edema Neurological exam: PRESENT: alert, awake, oriented to person, oriented to place , oriented to time, oriented to situation, CN II-XII grossly intact. ABSENT: motor sensory deficit Psychiatric exam: PRESENT: appropriate affect, normal mood. ABSENT: homicidal ideation, suicidal ideation Skin exam: PRESENT: dry, intact, warm, resolving ecchymotic lesions on upper extremities. ABSENT: cyanosis, rash Results Laboratory Results: 03/01/18 05:05 02/28/18 05:43 03/01/18 05:05 WBC 7.1 RBC 3.11 L Hgb 9.7 L Hct 29.2 L MCV 94 MCH 31.1 MCHC 33.1 RDW 17.2 H Plt Count 194 02/24/18 11:29 Pleural Fluid Gram Stain - Final 02/24/18 11:29 Pleural Fluid Body Fluid Culture - Final NO AEROBIC OR ANAEROBIC ORGANISMS RECOVERED Impressions: Chest CT 02/22/18 00:00 IMPRESSION: Pleural effusions as described. These have increased since the prior study. Mediastinal adenopathy. Atherosclerosis. Cardiomegaly. Mild pulmonary edema is suggested. Chest X-Ray 02/24/18 00:00 IMPRESSION: Stable AP examination with moderate, layering right pleural effusion. No significant pneumothorax status post thoracentesis. Unchanged cardiomegaly. Thoracentesis Ultrasound 02/24/18 11:22 IMPRESSION: SUCCESSFUL THORACENTESIS USING ULTRASOUND GUIDANCE. Assessment & Plan - Diagnosis (1) Acute on chronic respiratory failure with hypoxemia Is this a current diagnosis for this admission?: Yes (2) End stage chronic obstructive pulmonary disease Is this a current diagnosis for this admission?: Yes (3) Acute on chronic diastolic heart failure Is this a current diagnosis for this admission?: Yes (4) Chronic atrial fibrillation Is this a current diagnosis for this admission?: Yes (5) Diabetes mellitus type 2 in obese Is this a current diagnosis for this admission?: Yes (6) HTN (hypertension) Qualifiers: Hypertension type: essential hypertension Qualified Code(s): I10 - Essential (primary) hypertension Is this a current diagnosis for this admission?: Yes (7) HLD (hyperlipidemia) Qualifiers: Hyperlipidemia type: unspecified Qualified Code(s): E78.5 - Hyperlipidemia , unspecified Is this a current diagnosis for this admission?: Yes (8) BPH loc w urin obs/LUTS Is this a current diagnosis for this admission?: Yes (9) Pleural effusion, right Is this a current diagnosis for this admission?: Yes (10) Severe pulmonary arterial systolic hypertension Is this a current diagnosis for this admission?: Yes - Time Time Spent with patient: 25-34 minutes Medications reviewed and adjusted accordingly: Yes Anticipated discharge: Home with Homehealth Within: Other - Inpatient Certification Based on my medical assessment, after consideration of the patient's comorbidities, presenting symptoms, or acuity I expect that the services needed warrant INPATIENT care.: Yes I certify that my determination is in accordance with my understanding of Medicare's requirements for reasonable and necessary INPATIENT services [42 CFR 412.3e].: Yes Medical Necessity: Need Close Monitoring Due to Risk of Patient Decompensation, Need For Continuous Telemetry Monitoring, Need for Nebulizer Therapy and Monitoring of Response, Risk of Complication if Not Cared For in Hospital Post Hospital Care: D/C Field Care Manager Documentation - Plan Summary Plan Summary: Continue current medication management. Increase Coumadin to 10 mg p.o x 1 dose tonight. Follow up on requested home device.
[2018-03-01] MEDS: ATENOLOL 50 MG TABLET PO SCH (09:52)
[2018-03-01] MEDS: FLUTICASONE/SALMETEROL DISKUS 500-50 MCG/DOSE IH SCH ×2 (09:52→21:31)
[2018-03-01] MEDS: AMLODIPINE BESYLATE 10 MG TABLET PO SCH (09:52)
[2018-03-01] MEDS: FERROUS SULFATE 325 MG TABLET PO SCH (09:52)
[2018-03-01] MEDS: DOCUSATE SODIUM 100 MG CAPSULE PO SCH (09:52)
[2018-03-01] MEDS: FOLIC ACID 1 MG TABLET PO SCH (09:55)
[2018-03-01] MEDS: LISINOPRIL 5 MG TABLET PO SCH (09:55)
[2018-03-01] MEDS: CYANOCOBALAMIN (VITAMIN B-12) 1,000 MCG TABLET PO SCH (09:55)
[2018-03-01] MEDS: METFORMIN HCL 500 MG TABLET PO SCH ×2 (09:55→17:54)
[2018-03-01] MEDS: ALLOPURINOL 300 MG TABLET PO SCH (09:55)
[2018-03-01] MEDS: FINASTERIDE 5 MG TABLET PO SCH (09:56)
[2018-03-01] MEDS: TAMSULOSIN HCL 0.4 MG CAP.SR.24H PO SCH (09:57)
[2018-03-01] MEDS: OMEGA-3 ACID ETHYL ESTERS 1 GM CAPSULE PO SCH (09:57)
[2018-03-01] MEDS: ASCORBIC ACID 500 MG TABLET PO SCH (09:57)
[2018-03-01] MEDS: CHOLECALCIFEROL (D3) 1,000 UNIT TABLET PO SCH (09:58)
[2018-03-01] MEDS: FAMOTIDINE 20 MG TABLET PO SCH (17:54)
[2018-03-01] MEDS: WARFARIN SODIUM 5 MG TABLET PO SCH (21:26)
[2018-03-01] MEDS: ATORVASTATIN CALCIUM 40 MG TABLET PO SCH (21:31)
[2018-03-01] MEDS ORDERED: WARFARIN SODIUM 5 MG TABLET PO ONE (22:00)
[2018-03-02] MEDS: ENOXAPARIN SODIUM INJ 100 MG/1 ML DISP.SYRIN SUBCUT SCH ×2 (05:20→17:25)
[2018-03-02 06:41] LABS: INTERNATIONAL RATION (INR) 1.31; PROTHROMBIN TIME 16.9 SEC (11.4-15.4)
[2018-03-02] MEDS: OMEGA-3 ACID ETHYL ESTERS 1 GM CAPSULE PO SCH (10:40)
[2018-03-02] MEDS: FINASTERIDE 5 MG TABLET PO SCH (10:40)
[2018-03-02] MEDS: AMLODIPINE BESYLATE 10 MG TABLET PO SCH (10:40)
[2018-03-02] MEDS: ATENOLOL 50 MG TABLET PO SCH (10:40)
[2018-03-02] MEDS: LISINOPRIL 5 MG TABLET PO SCH (10:40)
[2018-03-02] MEDS: FOLIC ACID 1 MG TABLET PO SCH (10:41)
[2018-03-02] MEDS: METFORMIN HCL 500 MG TABLET PO SCH ×2 (10:41→17:25)
[2018-03-02] MEDS: TAMSULOSIN HCL 0.4 MG CAP.SR.24H PO SCH (10:41)
[2018-03-02] MEDS: ALLOPURINOL 300 MG TABLET PO SCH (10:41)
[2018-03-02] MEDS: DOCUSATE SODIUM 100 MG CAPSULE PO SCH (10:41)
[2018-03-02] MEDS: CHOLECALCIFEROL (D3) 1,000 UNIT TABLET PO SCH (10:41)
[2018-03-02] MEDS: FERROUS SULFATE 325 MG TABLET PO SCH (10:41)
[2018-03-02] MEDS: CYANOCOBALAMIN (VITAMIN B-12) 1,000 MCG TABLET PO SCH (10:41)
[2018-03-02] MEDS: FLUTICASONE/SALMETEROL DISKUS 500-50 MCG/DOSE IH SCH ×2 (10:42→21:21)
[2018-03-02] MEDS: ASCORBIC ACID 500 MG TABLET PO SCH (10:43)
--- NOTE | 2018-03-02 13:02 | PDOC PROGRESS REPORT ---
Subjective Progress Note for:: 02/24/18 Subjective:: Patient wearing bipap Reason For Visit: END STAGE COPD WITH HYPOXEMIA;CHRONIC ATRIAL Physical Exam Vital Signs: Temp Pulse Resp BP Pulse Ox 97.3 F 69 22 H 115/58 L 96 02/24/18 03:11 02/24/18 07:00 02/24/18 09:17 02/24/18 03:11 02/24/18 09:17 Pulse Oximeter Continuous Start: 02/22/18 10: 49 Freq: RTQ4 Status: Active Document 02/24/18 09:17 [facility] (Rec: 02/24/18 09:21 [facility] [id number]) Pulse Oximetry Assessment Oxygen Saturation (92-100) 96 Oxygen Delivery Method Bi-pap Fraction of Inspired Oxygen (FIO2) 65 Equipment Usage Equipment in Use Continuous SpO2 Machine # N 11 Intake & Output 02/23/18 02/24/18 02/25/18 06:59 06:59 06:59 Intake Total 1205 975 Output Total 760 1040 Balance 445 -65 Weight 100.2 kg 102.2 kg General appearance: PRESENT: no acute distress, cooperative, disheveled, obese Head exam: PRESENT: atraumatic, normocephalic Eye exam: PRESENT: conjunctiva pale. ABSENT: nystagmus, scleral icterus Mouth exam: PRESENT: dry mucosa, neck supple, tongue midline Neck exam: ABSENT: carotid bruit, JVD, lymphadenopathy, thyromegaly, tracheal deviation, tracheostomy Respiratory exam: PRESENT: decreased breath sounds, prolonged expiratory phas, rales, rhonchi, tachypnea, unlabored, wheezes. ABSENT: retraction, stridor Cardiovascular exam: PRESENT: RRR, +S1, +S2 Pulses: PRESENT: normal radial pulses GI/Abdominal exam: PRESENT: soft. ABSENT: tenderness Extremities exam: PRESENT: pedal edema. ABSENT: calf tenderness, clubbing, joint swelling Musculoskeletal exam: ABSENT: deformity, dislocation Neurological exam: PRESENT: alert, awake Psychiatric exam: PRESENT: appropriate affect Skin exam: PRESENT: dry, warm Results Laboratory Results: 02/24/18 05:50 02/23/18 02/23/18 02/24/18 13:55 13:57 05:50 WBC 6.6 RBC 3.09 L Hgb 9.8 L Hct 29.0 L MCV 94 MCH 31.7 MCHC 33.9 RDW 16.9 H Plt Count 183 Carbonic Acid 1.37 H HCO3/H2CO3 Ratio 20:1 ABG pH 7.41 ABG pCO2 45.6 H ABG pO2 83.3 ABG HCO3 27.9 H ABG O2 Saturation 96.2 ABG Base Excess 2.8 FiO2 65% Blood Type A POSITIVE Impressions: Chest X-Ray 02/20/18 11:05 IMPRESSION: Extensive pleural reaction on the right and basilar opacities stable. Small left effusion. Cardiac enlargement without overt failure. Chest CT 02/22/18 00:00 IMPRESSION: Pleural effusions as described. These have increased since the prior study. Mediastinal adenopathy. Atherosclerosis. Cardiomegaly. Mild pulmonary edema is suggested. Assessment & Plan - Diagnosis (1) Pleural effusion Is this a current diagnosis for this admission?: Yes Plan: hopefully thoracentesis (2) Acute on chronic respiratory failure with hypoxemia Is this a current diagnosis for this admission?: Yes Plan: ABGs finally acceptable on bipap 15L min vol (3) End stage chronic obstructive pulmonary disease Is this a current diagnosis for this admission?: Yes Plan: Generic Name Dose Route Start Last Admin Trade Name Freq PRN Reason Stop Dose Admin Patient Own Medication 2 puff 02/21/18 10:00 Tiotropium [place] [Spiriva Respimat] 03/23/18 09:59 .DAILY TERRY Albuterol 1 puff 02/20/18 21:32 Proair Hfa Inhalation Aerosol 8.5 Gm Mdi 03/22/18 21:31 Q4HP PRN FOR WHEEZING Fluticasone/Salmeterol 1 inh 02/20/18 22:00 02/21/18 09:28 Advair 500-50 Diskus 14 Dose/Diskus 03/22/18 21:59 1 puff Q12 TERRY ABG on 2 L nasal cannula (4) History of atrial fibrillation Is this a current diagnosis for this admission?: Yes Plan: Stable this far (5) Pulmonary hypertension Is this a current diagnosis for this admission?: Yes Plan: Certainly contributory but not idiopathic
--- NOTE | 2018-03-02 13:04 | PDOC PROGRESS REPORT ---
Subjective Progress Note for:: 03/02/18 Subjective:: Minimally improved Reason For Visit: END STAGE COPD WITH HYPOXEMIA;CHRONIC ATRIAL Physical Exam Vital Signs: Temp Pulse Resp BP Pulse Ox 97.2 F 71 25 H 130/65 H 93 03/02/18 11:37 03/02/18 11:37 03/02/18 11:37 03/02/18 11:37 03/02/18 11:37 Pulse Oximeter Continuous Start: 02/22/18 10: 49 Freq: RTQ4 Status: Complete Document 02/28/18 12:12 [facility] (Rec: 02/28/18 12:13 [facility] [id number]) Pulse Oximetry Assessment Oxygen Saturation (92-100) 92 Oxygen Delivery Method Bi-pap Fraction of Inspired Oxygen (FIO2) 50 Equipment Usage Equipment in Use Continuous SpO2 Machine # 11 Intake & Output 03/01/18 03/02/18 03/03/18 06:59 06:59 06:59 Intake Total 1348 1051 473 Output Total 800 1675 Balance 548 -624 473 Weight 103.9 kg 103.4 kg General appearance: PRESENT: no acute distress, cooperative, disheveled, obese Head exam: PRESENT: atraumatic, normocephalic Eye exam: PRESENT: conjunctiva pale, EOMI. ABSENT: nystagmus, scleral icterus Mouth exam: PRESENT: dry mucosa, neck supple, tongue midline Neck exam: ABSENT: carotid bruit, JVD, lymphadenopathy, thyromegaly, tracheal deviation, tracheostomy Respiratory exam: PRESENT: decreased breath sounds, prolonged expiratory phas, rhonchi, tachypnea, wheezes. ABSENT: retraction, stridor Cardiovascular exam: PRESENT: RRR, +S1, +S2 Pulses: PRESENT: normal radial pulses GI/Abdominal exam: PRESENT: soft. ABSENT: tenderness Extremities exam: PRESENT: pedal edema. ABSENT: calf tenderness, clubbing, joint swelling Musculoskeletal exam: ABSENT: deformity, dislocation Neurological exam: PRESENT: alert, awake Psychiatric exam: PRESENT: appropriate affect Skin exam: PRESENT: dry, warm Results Laboratory Results: 03/01/18 05:05 02/28/18 05:43 02/22/18 13:54 Sputum Fungal Smear - Final 02/22/18 13:54 Sputum Fungal Smear - Final Impressions: Chest CT 02/22/18 00:00 IMPRESSION: Pleural effusions as described. These have increased since the prior study. Mediastinal adenopathy. Atherosclerosis. Cardiomegaly. Mild pulmonary edema is suggested. Chest X-Ray 02/24/18 00:00 IMPRESSION: Stable AP examination with moderate, layering right pleural effusion. No significant pneumothorax status post thoracentesis. Unchanged cardiomegaly. Thoracentesis Ultrasound 02/24/18 11:22 IMPRESSION: SUCCESSFUL THORACENTESIS USING ULTRASOUND GUIDANCE. Assessment & Plan - Diagnosis (1) Pleural effusion Is this a current diagnosis for this admission?: Yes Plan: thoracentesis Completed (2) Acute on chronic respiratory failure with hypoxemia Is this a current diagnosis for this admission?: Yes Plan: ABGs finally acceptable on bipap 15L min vol (3) End stage chronic obstructive pulmonary disease Is this a current diagnosis for this admission?: Yes Plan: Generic Name Dose Route Start Last Admin Trade Name Freq PRN Reason Stop Dose Admin Patient Own Medication 2 puff 02/21/18 10:00 Tiotropium [place] [Spiriva Respimat] 03/23/18 09:59 .DAILY TERRY Albuterol 1 puff 02/20/18 21:32 Proair Hfa Inhalation Aerosol 8.5 Gm Mdi 03/22/18 21:31 Q4HP PRN FOR WHEEZING Fluticasone/Salmeterol 1 inh 02/20/18 22:00 02/21/18 09:28 Advair 500-50 Diskus 14 Dose/Diskus 03/22/18 21:59 1 puff Q12 TERRY ABG on 2 L nasal cannula (4) History of atrial fibrillation Is this a current diagnosis for this admission?: Yes Plan: Stable this far (5) Pulmonary hypertension Is this a current diagnosis for this admission?: Yes Plan: Certainly contributory but not idiopathic
--- NOTE | 2018-03-02 15:26 | RADIOLOGY REPORT (SQ) ---
EXAM DESCRIPTION: CHEST 2 VIEWS COMPLETED DATE/TIME: 03/02/2018 2:49 pm REASON FOR STUDY: resp failure COMPARISON: 02/24/2018 EXAM PARAMETERS: NUMBER OF VIEWS: two views TECHNIQUE: Digital Frontal and Lateral radiographic views of the chest acquired. RADIATION DOSE: NA LIMITATIONS: none FINDINGS: LUNGS AND PLEURA: No significant interval change in the loculated appearing right pleural effusion. Small left pleural effusion. No evidence of pneumothorax. MEDIASTINUM AND HILAR STRUCTURES: No masses or contour abnormalities. HEART AND VASCULAR STRUCTURES: Cardiomegaly, stable finding. BONES: No acute findings. HARDWARE: Prior anterior median sternotomy. OTHER: No other significant finding. IMPRESSION: 1. No significant interval changes since the prior study dated 02/24/2018. Bilateral pl eural effusions. TECHNICAL DOCUMENTATION: JOB ID: [id number] [employer]- All Rights Reserved Reading location - IP/workstation name: [email or web address]
[2018-03-02] MEDS: FAMOTIDINE 20 MG TABLET PO SCH (17:25)
--- NOTE | 2018-03-02 19:16 | PDOC PROGRESS REPORT ---
Subjective Progress Note for:: 03/02/18 Subjective:: Patient remain on ventilatory support with BiPAP and non rebreathing face mask. He denied any chest pain. No nausea, vomiting or abdominal pain. Reason For Visit: END STAGE COPD WITH HYPOXEMIA;CHRONIC ATRIAL Physical Exam Vital Signs: Temp Pulse Resp BP Pulse Ox 97.4 F 78 26 H 116/63 95 03/02/18 15:24 03/02/18 15:24 03/02/18 15:24 03/02/18 15:24 03/02/18 15:24 Pulse Oximeter Continuous Start: 02/22/18 10: 49 Freq: RTQ4 Status: Complete Document 02/28/18 12:12 [facility] (Rec: 02/28/18 12:13 [facility] [id number]) Pulse Oximetry Assessment Oxygen Saturation (92-100) 92 Oxygen Delivery Method Bi-pap Fraction of Inspired Oxygen (FIO2) 50 Equipment Usage Equipment in Use Continuous SpO2 Machine # 11 Intake & Output 03/01/18 03/02/18 03/03/18 06:59 06:59 06:59 Intake Total 1348 1051 473 Output Total 800 1675 800 Balance 548 -624 -327 Weight 103.9 kg 103.4 kg Physical Exam: General appearance: PRESENT: mild distress - on supplemental oxygen via BiPAP and non rebreathing face mask while eating. Head exam: PRESENT: atraumatic, normocephalic Eye exam: PRESENT: conjunctiva pink, EOMI, PERRLA. ABSENT: pallor, scleral icterus Ear exam: PRESENT: normal external ear exam Mouth exam: PRESENT: moist Respiratory exam: PRESENT: clear to auscultation nelda, decreased breath sounds - at lung bases Cardiovascular exam: PRESENT: irregular rhythm, +S1, +S2 GI/Abdominal exam: PRESENT: normal bowel sounds, soft. ABSENT: distended, guarding, mass, organomegaly, rebound, tenderness Extremities exam: ABSENT: pedal edema Neurological exam: PRESENT: alert, awake, oriented to person, oriented to place , oriented to time, oriented to situation, CN II-XII grossly intact. ABSENT: motor sensory deficit Psychiatric exam: PRESENT: appropriate affect, normal mood. ABSENT: homicidal ideation, suicidal ideation Skin exam: PRESENT: dry, intact, warm, resolving ecchymotic lesions on upper extremities. ABSENT: cyanosis, rash Results Laboratory Results: 03/01/18 05:05 02/28/18 05:43 02/22/18 13:54 Sputum Fungal Smear - Final 02/22/18 13:54 Sputum Fungal Smear - Final Impressions: Chest CT 02/22/18 00:00 IMPRESSION: Pleural effusions as described. These have increased since the prior study. Mediastinal adenopathy. Atherosclerosis. Cardiomegaly. Mild pulmonary edema is suggested. Thoracentesis Ultrasound 02/24/18 11:22 IMPRESSION: SUCCESSFUL THORACENTESIS USING ULTRASOUND GUIDANCE. Chest X-Ray 03/02/18 00:00 IMPRESSION: 1. No significant interval changes since the prior study dated 02/24/2018. Bilateral pleural effusions. Assessment & Plan - Diagnosis (1) Acute on chronic respiratory failure with hypoxemia Is this a current diagnosis for this admission?: Yes (2) End stage chronic obstructive pulmonary disease Is this a current diagnosis for this admission?: Yes (3) Acute on chronic diastolic heart failure Is this a current diagnosis for this admission?: Yes (4) Chronic atrial fibrillation Is this a current diagnosis for this admission?: Yes (5) Diabetes mellitus type 2 in obese Is this a current diagnosis for this admission?: Yes (6) HTN (hypertension) Qualifiers: Hypertension type: essential hypertension Qualified Code(s): I10 - Essential (primary) hypertension Is this a current diagnosis for this admission?: Yes (7) HLD (hyperlipidemia) Qualifiers: Hyperlipidemia type: unspecified Qualified Code(s): E78.5 - Hyperlipidemia , unspecified Is this a current diagnosis for this admission?: Yes (8) BPH loc w urin obs/LUTS Is this a current diagnosis for this admission?: Yes (9) Pleural effusion, right Is this a current diagnosis for this admission?: Yes (10) Severe pulmonary arterial systolic hypertension Is this a current diagnosis for this admission?: Yes - Time Time Spent with patient: 25-34 minutes Medications reviewed and adjusted accordingly: Yes Anticipated discharge: Home with Homehealth Within: Other - Inpatient Certification Based on my medical assessment, after consideration of the patient's comorbidities, presenting symptoms, or acuity I expect that the services needed warrant INPATIENT care.: Yes I certify that my determination is in accordance with my understanding of Medicare's requirements for reasonable and necessary INPATIENT services [42 CFR 412.3e].: Yes Medical Necessity: Need Close Monitoring Due to Risk of Patient Decompensation, Need For Continuous Telemetry Monitoring, Need for Nebulizer Therapy and Monitoring of Response, Risk of Complication if Not Cared For in Hospital Post Hospital Care: D/C Egg Packer Documentation - Plan Summary Plan Summary: Continue current medication management. INR remain subtherapeutic. Coumadin 10 mg po x 1 dose tonight. Continue Lovenox therapy. Follow up on INR status. Pulmonary consult input appreciated.
[2018-03-02] MEDS ORDERED: WARFARIN SODIUM 5 MG TABLET PO ONE (20:30)
[2018-03-02] MEDS: ATORVASTATIN CALCIUM 40 MG TABLET PO SCH (21:20)
[2018-03-03] MEDS: ENOXAPARIN SODIUM INJ 100 MG/1 ML DISP.SYRIN SUBCUT SCH ×2 (05:21→18:03)
[2018-03-03 05:53] LABS: HEMATOCRIT 28.6 % (37.9-51.0); HEMOGLOBIN 9.5 g/dL (13.5-17.0); MEAN CORPUSCULAR HEMOGLOBIN 31.4 pg (27.0-33.4); MEAN CORPUSCULAR HGB CONC 33.2 g/dL (32.0-36.0); MEAN CORPUSCULAR VOLUME 95 fl (80-97); PLATELET COUNT 196 10^3/uL (150-450); RED BLOOD COUNT 3.03 10^6/uL (4.35-5.55); RED CELL DISTRIBUTION WIDTH 16.8 % (11.5-14.0); WHITE BLOOD COUNT 6.3 10^3/uL (4.0-10.5)
[2018-03-03 06:05] LABS: ARTERIAL BLOOD BASE EXCESS 3.3 mmol/L; ARTERIAL BLOOD H2CO3 1.29 mmol/L (1.05-1.35); ARTERIAL BLOOD O2 SATURATION 91.8 % (94-98); ARTERIAL BLOOD PCO2 42.9 mmHg (35-45); ARTERIAL BLOOD PH 7.43 (7.35-7.45); ARTERIAL BLOOD PO2 60.3 mmHg (80-100); ARTERIAL BLOOD TOTAL CO2 29.3 mmol/L (23-27)
[2018-03-03 06:07] LABS: ARTERIAL BLOOD FIO2 45%
[2018-03-03 06:08] LABS: ANION GAP 7 (5-19); BLOOD UREA NITROGEN 20 mg/dL (7-20); CALCIUM 9.3 mg/dL (8.4-10.2); CARBON DIOXIDE 28 mmol/L (22-30); CHLORIDE 106 mmol/L (98-107); GLUCOSE 118 mg/dL (75-110); POTASSIUM 4.6 mmol/L (3.6-5.0); SODIUM 141.2 mmol/L (137-145)
[2018-03-03] MEDS: FLUTICASONE/SALMETEROL DISKUS 500-50 MCG/DOSE IH SCH ×2 (09:50→21:57)
[2018-03-03] MEDS: OMEGA-3 ACID ETHYL ESTERS 1 GM CAPSULE PO SCH (09:51)
[2018-03-03] MEDS: ASCORBIC ACID 500 MG TABLET PO SCH (09:51)
[2018-03-03] MEDS: AMLODIPINE BESYLATE 10 MG TABLET PO SCH (09:51)
[2018-03-03] MEDS: FOLIC ACID 1 MG TABLET PO SCH (09:51)
[2018-03-03] MEDS: ALLOPURINOL 300 MG TABLET PO SCH (09:51)
[2018-03-03] MEDS: CYANOCOBALAMIN (VITAMIN B-12) 1,000 MCG TABLET PO SCH (09:52)
[2018-03-03] MEDS: FINASTERIDE 5 MG TABLET PO SCH (09:52)
[2018-03-03] MEDS: DOCUSATE SODIUM 100 MG CAPSULE PO SCH (09:52)
[2018-03-03] MEDS: CHOLECALCIFEROL (D3) 1,000 UNIT TABLET PO SCH (09:52)
[2018-03-03] MEDS: LISINOPRIL 5 MG TABLET PO SCH (09:52)
[2018-03-03] MEDS: METFORMIN HCL 500 MG TABLET PO SCH ×2 (09:52→18:05)
[2018-03-03] MEDS: TAMSULOSIN HCL 0.4 MG CAP.SR.24H PO SCH (09:53)
[2018-03-03] MEDS: FERROUS SULFATE 325 MG TABLET PO SCH (09:53)
[2018-03-03] MEDS: ATENOLOL 50 MG TABLET PO SCH (09:53)
--- NOTE | 2018-03-03 16:15 | PDOC PROGRESS REPORT ---
Subjective Progress Note for:: 03/03/18 Reason For Visit: END STAGE COPD WITH HYPOXEMIA;CHRONIC ATRIAL Physical Exam Vital Signs: Temp Pulse Resp BP Pulse Ox 97.5 F 73 28 H 124/69 90 L 03/03/18 12:05 03/03/18 14:00 03/03/18 12:36 03/03/18 12:05 03/03/18 12:05 Pulse Oximeter Continuous Start: 02/22/18 10: 49 Freq: RTQ4 Status: Complete Document 02/28/18 12:12 [facility] (Rec: 02/28/18 12:13 [facility] [id number]) Pulse Oximetry Assessment Oxygen Saturation (92-100) 92 Oxygen Delivery Method Bi-pap Fraction of Inspired Oxygen (FIO2) 50 Equipment Usage Equipment in Use Continuous SpO2 Machine # 11 Intake & Output 03/02/18 03/03/18 03/04/18 06:59 06:59 06:59 Intake Total 1051 723 473 Output Total 1670 1500 Balance -324 -592 473 Weight 103.4 kg 102.5 kg Physical Exam: General appearance: PRESENT: mild distress - on supplemental oxygen via BiPAP and non-rebreathing face mask while eating. Head exam: PRESENT: atraumatic, normocephalic Eye exam: PRESENT: conjunctiva pink, EOMI, PERRLA. ABSENT: pallor, scleral icterus Ear exam: PRESENT: normal external ear exam Mouth exam: PRESENT: moist Respiratory exam: PRESENT: clear to auscultation nelda, decreased breath sounds - at lung bases Cardiovascular exam: PRESENT: irregular rhythm, +S1, +S2 GI/Abdominal exam: PRESENT: normal bowel sounds, soft. ABSENT: distended, guarding, mass, organomegaly, rebound, tenderness Extremities exam: ABSENT: pedal edema Neurological exam: PRESENT: alert, awake, oriented to person, oriented to place , oriented to time, oriented to situation, CN II-XII grossly intact. ABSENT: motor sensory deficit Psychiatric exam: PRESENT: appropriate affect, normal mood. ABSENT: homicidal ideation, suicidal ideation Skin exam: PRESENT: dry, intact, warm, resolving ecchymotic lesions on upper extremities. ABSENT: cyanosis, rash Results Laboratory Results: 03/03/18 05:28 03/03/18 05:28 12/14/18 12/14/18 12/14/18 05:28 05:28 05:50 WBC 6.3 RBC 3.03 L Hgb 9.5 L Hct 28.6 L MCV 95 MCH 31.4 MCHC 33.2 RDW 16.8 H Plt Count 196 Carbonic Acid 1.29 HCO3/H2CO3 Ratio 21:1 ABG pH 7.43 ABG pCO2 42.9 ABG pO2 60.3 L ABG HCO3 28.0 H ABG O2 Saturation 91.8 L ABG Base Excess 3.3 FiO2 45% Sodium 141.2 Potassium 4.6 Chloride 106 Carbon Dioxide 28 Anion Gap 7 BUN 20 Creatinine 1.02 Est GFR ( Amer) > 60 Est GFR (Non-Af Amer) > 60 Glucose 118 H Calcium 9.3 Magnesium 1.8 02/22/18 13:54 Sputum Fungal Smear - Final 02/22/18 13:54 Sputum Fungal Smear - Final Impressions: Chest CT 02/22/18 00:00 IMPRESSION: Pleural effusions as described. These have increased since the prior study. Mediastinal adenopathy. Atherosclerosis. Cardiomegaly. Mild pulmonary edema is suggested. Thoracentesis Ultrasound 02/24/18 11:22 IMPRESSION: SUCCESSFUL THORACENTESIS USING ULTRASOUND GUIDANCE. Chest X-Ray 03/02/18 00:00 IMPRESSION: 1. No significant interval changes since the prior study dated 02/24/2018. Bilateral pleural effusions. Assessment & Plan - Diagnosis (1) Acute on chronic respiratory failure with hypoxemia Is this a current diagnosis for this admission?: Yes (2) End stage chronic obstructive pulmonary disease Is this a current diagnosis for this admission?: Yes (3) Acute on chronic diastolic heart failure Is this a current diagnosis for this admission?: Yes (4) Chronic atrial fibrillation Is this a current diagnosis for this admission?: Yes (5) Diabetes mellitus type 2 in obese Is this a current diagnosis for this admission?: Yes (6) HTN (hypertension) Qualifiers: Hypertension type: essential hypertension Qualified Code(s): I10 - Essential (primary) hypertension Is this a current diagnosis for this admission?: Yes (7) HLD (hyperlipidemia) Qualifiers: Hyperlipidemia type: unspecified Qualified Code(s): E78.5 - Hyperlipidemia , unspecified Is this a current diagnosis for this admission?: Yes (8) BPH loc w urin obs/LUTS Is this a current diagnosis for this admission?: Yes (9) Pleural effusion, right Is this a current diagnosis for this admission?: Yes (10) Severe pulmonary arterial systolic hypertension Is this a current diagnosis for this admission?: Yes - Time Time Spent with patient: 25-34 minutes Medications reviewed and adjusted accordingly: Yes Anticipated discharge: Home with Homehealth Within: Other - Inpatient Certification Based on my medical assessment, after consideration of the patient's comorbidities, presenting symptoms, or acuity I expect that the services needed warrant INPATIENT care.: Yes I certify that my determination is in accordance with my understanding of Medicare's requirements for reasonable and necessary INPATIENT services [42 CFR 412.3e].: Yes Medical Necessity: Need Close Monitoring Due to Risk of Patient Decompensation, Need For Continuous Telemetry Monitoring, Need for Nebulizer Therapy and Monitoring of Response, Risk of Complication if Not Cared For in Hospital Post Hospital Care: D/C 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 We will look into high flow supplemental device. Continue on current medication management.
[2018-03-03 17:40] LABS: INTERNATIONAL RATION (INR) 1.86; PROTHROMBIN TIME 22.4 SEC (11.4-15.4)
[2018-03-03] MEDS: FAMOTIDINE 20 MG TABLET PO SCH (18:03)
[2018-03-03] MEDS: ATORVASTATIN CALCIUM 40 MG TABLET PO SCH (21:57)
[2018-03-03] MEDS: WARFARIN SODIUM 5 MG TABLET PO SCH (21:57)
[2018-03-04 05:10] LABS: APPEARANCE,URINE CLEAR; BILIRUBIN,URINE NEGATIVE (NEGATIVE); COLOR,URINE YELLOW; GLUCOSE, URINE NEGATIVE (NEGATIVE); KETONES,URINE NEGATIVE (NEGATIVE); LEUKOCYTE ESTERASE,URINE NEGATIVE (NEGATIVE); NITRITE,URINE NEGATIVE (NEGATIVE); PROTEIN,URINE NEGATIVE (NEGATIVE); URINE SPECIFIC GRAVITY 1.013; UROBILINOGEN,URINE NEGATIVE mg/dL (<2.0)
[2018-03-04 07:07] LABS: INTERNATIONAL RATION (INR) 2.02; PROTHROMBIN TIME 23.8 SEC (11.4-15.4)
[2018-03-04] MEDS: ENOXAPARIN SODIUM INJ 100 MG/1 ML DISP.SYRIN SUBCUT SCH ×2 (07:14→17:21)
[2018-03-04] MEDS: METFORMIN HCL 500 MG TABLET PO SCH ×2 (09:06→17:21)
[2018-03-04] MEDS: OMEGA-3 ACID ETHYL ESTERS 1 GM CAPSULE PO SCH (09:06)
[2018-03-04] MEDS: FOLIC ACID 1 MG TABLET PO SCH (09:06)
[2018-03-04] MEDS: AMLODIPINE BESYLATE 10 MG TABLET PO SCH (09:06)
[2018-03-04] MEDS: FINASTERIDE 5 MG TABLET PO SCH (09:06)
[2018-03-04] MEDS: ALLOPURINOL 300 MG TABLET PO SCH (09:06)
[2018-03-04] MEDS: DOCUSATE SODIUM 100 MG CAPSULE PO SCH (09:06)
[2018-03-04] MEDS: FERROUS SULFATE 325 MG TABLET PO SCH (09:06)
[2018-03-04] MEDS: ATENOLOL 50 MG TABLET PO SCH (09:07)
[2018-03-04] MEDS: CHOLECALCIFEROL (D3) 1,000 UNIT TABLET PO SCH (09:07)
[2018-03-04] MEDS: LISINOPRIL 5 MG TABLET PO SCH (09:07)
[2018-03-04] MEDS: TAMSULOSIN HCL 0.4 MG CAP.SR.24H PO SCH (09:08)
[2018-03-04] MEDS: ASCORBIC ACID 500 MG TABLET PO SCH (09:08)
[2018-03-04] MEDS: FLUTICASONE/SALMETEROL DISKUS 500-50 MCG/DOSE IH SCH ×2 (09:08→21:06)
[2018-03-04] MEDS: CYANOCOBALAMIN (VITAMIN B-12) 1,000 MCG TABLET PO SCH (09:08)
--- NOTE | 2018-03-04 15:24 | PDOC PROGRESS REPORT ---
Subjective Progress Note for:: 03/04/18 Subjective:: Patient was intolerant of high flow nasal cannula supplemental oxygen trial last night with reported desaturation and complaint about dizziness and feeling of drowning. He is current back on BiPAP support and use of non-rebreathing face mask while eating. He denied any chest pain. No nausea, vomiting or abdominal pain. No fever or chills. Per regulatory requirement he does not qualify for BiPAP or Trilogy support at home. Reason For Visit: END STAGE COPD WITH HYPOXEMIA;CHRONIC ATRIAL Physical Exam Vital Signs: Temp Pulse Resp BP Pulse Ox 98.6 F 79 18 125/89 H 96 03/04/18 12:00 03/04/18 12:00 03/04/18 12:00 03/04/18 12:00 03/04/18 12:00 Pulse Oximeter Continuous Start: 02/22/18 10: 49 Freq: RTQ4 Status: Complete Document 02/28/18 12:12 [facility] (Rec: 02/28/18 12:13 [facility] [id number]) Pulse Oximetry Assessment Oxygen Saturation (92-100) 92 Oxygen Delivery Method Bi-pap Fraction of Inspired Oxygen (FIO2) 50 Equipment Usage Equipment in Use Continuous SpO2 Machine # 11 Intake & Output 03/03/18 03/04/18 03/05/18 06:59 06:59 06:59 Intake Total 723 1105 300 Output Total 1500 650 200 Balance -777 455 100 Weight 102.5 kg 103.8 kg Physical Exam: General appearance: PRESENT: mild distress - on supplemental oxygen via BiPAP and non-rebreathing face mask while eating. Head exam: PRESENT: atraumatic, normocephalic Eye exam: PRESENT: conjunctiva pink, EOMI, PERRLA. ABSENT: pallor, scleral icterus Ear exam: PRESENT: normal external ear exam Mouth exam: PRESENT: moist Respiratory exam: PRESENT: clear to auscultation nelda, decreased breath sounds - at lung bases Cardiovascular exam: PRESENT: irregular rhythm, +S1, +S2 GI/Abdominal exam: PRESENT: normal bowel sounds, soft. ABSENT: distended, guarding, mass, organomegaly, rebound, tenderness Extremities exam: ABSENT: pedal edema Neurological exam: PRESENT: alert, awake, oriented to person, oriented to place , oriented to time, oriented to situation, CN II-XII grossly intact. ABSENT: motor sensory deficit Psychiatric exam: PRESENT: appropriate affect, normal mood. ABSENT: homicidal ideation, suicidal ideation Skin exam: PRESENT: dry, intact, warm, resolving ecchymotic lesions on upper extremities. ABSENT: cyanosis, rash Results Laboratory Results: 03/03/18 05:28 03/03/18 05:28 03/04/18 04:20 Urine Color YELLOW Urine Appearance CLEAR Urine pH 7.0 Ur Specific [place] 1.013 Urine Protein NEGATIVE Urine Glucose (UA) NEGATIVE Urine Ketones NEGATIVE Urine Blood NEGATIVE Urine Nitrite NEGATIVE Ur Leukocyte Esterase NEGATIVE Urine WBC (Auto) 2 Urine RBC (Auto) 1 Impressions: Chest CT 02/22/18 00:00 IMPRESSION: Pleural effusions as described. These have increased since the prior study. Mediastinal adenopathy. Atherosclerosis. Cardiomegaly. Mild pulmonary edema is suggested. Thoracentesis Ultrasound 02/24/18 11:22 IMPRESSION: SUCCESSFUL THORACENTESIS USING ULTRASOUND GUIDANCE. Chest X-Ray 03/02/18 00:00 IMPRESSION: 1. No significant interval changes since the prior study dated 02/24/2018. Bilateral pleural effusions. Assessment & Plan - Diagnosis (1) Acute on chronic respiratory failure with hypoxemia Is this a current diagnosis for this admission?: Yes (2) End stage chronic obstructive pulmonary disease Is this a current diagnosis for this admission?: Yes (3) Acute on chronic diastolic heart failure Is this a current diagnosis for this admission?: Yes (4) Chronic atrial fibrillation Is this a current diagnosis for this admission?: Yes (5) Diabetes mellitus type 2 in obese Is this a current diagnosis for this admission?: Yes (6) HTN (hypertension) Qualifiers: Hypertension type: essential hypertension Qualified Code(s): I10 - Essential (primary) hypertension Is this a current diagnosis for this admission?: Yes (7) HLD (hyperlipidemia) Qualifiers: Hyperlipidemia type: unspecified Qualified Code(s): E78.5 - Hyperlipidemia , unspecified Is this a current diagnosis for this admission?: Yes (8) BPH loc w urin obs/LUTS Is this a current diagnosis for this admission?: Yes (9) Pleural effusion, right Is this a current diagnosis for this admission?: Yes (10) Severe pulmonary arterial systolic hypertension Is this a current diagnosis for this admission?: Yes - Time Time Spent with patient: 25-34 minutes Medications reviewed and adjusted accordingly: Yes Anticipated discharge: Home with Homehealth Within: Other - Inpatient Certification Based on my medical assessment, after consideration of the patient's comorbidities, presenting symptoms, or acuity I expect that the services needed warrant INPATIENT care.: Yes I certify that my determination is in accordance with my understanding of Medicare's requirements for reasonable and necessary INPATIENT services [42 CFR 412.3e].: Yes Medical Necessity: Need Close Monitoring Due to Risk of Patient Decompensation, Need For Continuous Telemetry Monitoring, Risk of Complication if Not Cared For in Hospital Post Hospital Care: D/C Tobacco Sweeper Documentation - Plan Summary Plan Summary: Start trial of oximizer device for supplemental oxygen management for his end stage COPD with oxygen dependency.
[2018-03-04] MEDS: FAMOTIDINE 20 MG TABLET PO SCH (17:21)
[2018-03-04] MEDS: ATORVASTATIN CALCIUM 40 MG TABLET PO SCH (21:06)
[2018-03-04] MEDS: WARFARIN SODIUM 2.5 MG TABLET PO SCH (21:06)
[2018-03-05] MEDS: ENOXAPARIN SODIUM INJ 100 MG/1 ML DISP.SYRIN SUBCUT SCH ×2 (05:20→17:40)
[2018-03-05 06:48] LABS: INTERNATIONAL RATION (INR) 1.96; PROTHROMBIN TIME 23.3 SEC (11.4-15.4)
[2018-03-05] MEDS: FLUTICASONE/SALMETEROL DISKUS 500-50 MCG/DOSE IH SCH ×2 (09:55→22:09)
[2018-03-05] MEDS: LISINOPRIL 5 MG TABLET PO SCH (09:56)
[2018-03-05] MEDS: FINASTERIDE 5 MG TABLET PO SCH (09:56)
[2018-03-05] MEDS: OMEGA-3 ACID ETHYL ESTERS 1 GM CAPSULE PO SCH (09:56)
[2018-03-05] MEDS: AMLODIPINE BESYLATE 10 MG TABLET PO SCH (09:56)
[2018-03-05] MEDS: TAMSULOSIN HCL 0.4 MG CAP.SR.24H PO SCH (09:56)
[2018-03-05] MEDS: CHOLECALCIFEROL (D3) 1,000 UNIT TABLET PO SCH (09:58)
[2018-03-05] MEDS: ATENOLOL 50 MG TABLET PO SCH (09:58)
[2018-03-05] MEDS: CYANOCOBALAMIN (VITAMIN B-12) 1,000 MCG TABLET PO SCH (09:58)
[2018-03-05] MEDS: DOCUSATE SODIUM 100 MG CAPSULE PO SCH (09:58)
[2018-03-05] MEDS: FERROUS SULFATE 325 MG TABLET PO SCH (09:58)
[2018-03-05] MEDS: FOLIC ACID 1 MG TABLET PO SCH (09:58)
[2018-03-05] MEDS: ALLOPURINOL 300 MG TABLET PO SCH (09:58)
[2018-03-05] MEDS: METFORMIN HCL 500 MG TABLET PO SCH ×2 (09:58→17:40)
[2018-03-05] MEDS: ASCORBIC ACID 500 MG TABLET PO SCH (09:59)
--- NOTE | 2018-03-05 11:56 | PDOC PROGRESS REPORT ---
Subjective Progress Note for:: 03/04/18 Subjective:: improved Reason For Visit: END STAGE COPD WITH HYPOXEMIA;CHRONIC ATRIAL Physical Exam Vital Signs: Temp Pulse Resp BP Pulse Ox 98.2 F 64 28 H 127/90 H 91 L 03/05/18 07:20 03/05/18 07:20 03/05/18 07:20 03/05/18 07:20 03/05/18 07:20 Pulse Oximeter Continuous Start: 02/22/18 10: 49 Freq: RTQ4 Status: Complete Document 02/28/18 12:12 [facility] (Rec: 02/28/18 12:13 [facility] [id number]) Pulse Oximetry Assessment Oxygen Saturation (92-100) 92 Oxygen Delivery Method Bi-pap Fraction of Inspired Oxygen (FIO2) 50 Equipment Usage Equipment in Use Continuous SpO2 Machine # 11 Intake & Output 03/04/18 03/05/18 03/06/18 06:59 06:59 06:59 Intake Total 1105 837 Output Total 650 1350 Balance 455 -513 Weight 103.8 kg 103.8 kg General appearance: PRESENT: no acute distress, cooperative, disheveled, obese Head exam: PRESENT: atraumatic, normocephalic Eye exam: PRESENT: conjunctiva pale, EOMI. ABSENT: nystagmus, scleral icterus Mouth exam: PRESENT: dry mucosa, neck supple, tongue midline Neck exam: ABSENT: carotid bruit, JVD, lymphadenopathy, thyromegaly, tracheal deviation, tracheostomy Respiratory exam: PRESENT: decreased breath sounds, prolonged expiratory phas, rhonchi, wheezes. ABSENT: retraction, stridor Cardiovascular exam: PRESENT: RRR, +S1, +S2, tachycardia Pulses: PRESENT: normal radial pulses GI/Abdominal exam: PRESENT: soft. ABSENT: tenderness Extremities exam: PRESENT: pedal edema. ABSENT: calf tenderness, clubbing, joint swelling Musculoskeletal exam: ABSENT: deformity, dislocation Neurological exam: PRESENT: alert, awake Psychiatric exam: PRESENT: appropriate affect Skin exam: PRESENT: dry, warm Results Laboratory Results: 03/03/18 05:28 03/03/18 05:28 Impressions: Chest CT 02/22/18 00:00 IMPRESSION: Pleural effusions as described. These have increased since the prior study. Mediastinal adenopathy. Atherosclerosis. Cardiomegaly. Mild pulmonary edema is suggested. Thoracentesis Ultrasound 02/24/18 11:22 IMPRESSION: SUCCESSFUL THORACENTESIS USING ULTRASOUND GUIDANCE. Chest X-Ray 03/02/18 00:00 IMPRESSION: 1. No significant interval changes since the prior study dated 02/24/2018. Bilateral pleural effusions. Assessment & Plan - Diagnosis (1) Pleural effusion Is this a current diagnosis for this admission?: Yes Plan: stable (2) Acute on chronic respiratory failure with hypoxemia Is this a current diagnosis for this admission?: Yes Plan: ABGs finally acceptable on bipap 15L min vol (3) End stage chronic obstructive pulmonary disease Is this a current diagnosis for this admission?: Yes Plan: Generic Name Dose Route Start Last Admin Trade Name Freq PRN Reason Stop Dose Admin Patient Own Medication 2 puff 02/21/18 10:00 Tiotropium [place] [Spiriva Respimat] 03/23/18 09:59 .DAILY TERRY Albuterol 1 puff 02/20/18 21:32 Proair Hfa Inhalation Aerosol 8.5 Gm Mdi 03/22/18 21:31 Q4HP PRN FOR WHEEZING Fluticasone/Salmeterol 1 inh 02/20/18 22:00 02/21/18 09:28 Advair 500-50 Diskus 14 Dose/Diskus 03/22/18 21:59 1 puff Q12 TERRY ABG on 2 L nasal cannula (4) History of atrial fibrillation Is this a current diagnosis for this admission?: Yes Plan: Stable this far (5) Pulmonary hypertension Is this a current diagnosis for this admission?: Yes Plan: Certainly contributory but not idiopathic
--- NOTE | 2018-03-05 16:00 | PDOC PROGRESS REPORT ---
Subjective Progress Note for:: 03/05/18 Subjective:: Patient denied chest pain. He remain in BiPAP support. No nausea, vomiting or abdominal pain. No fever or chills. Reason For Visit: END STAGE COPD WITH HYPOXEMIA;CHRONIC ATRIAL Physical Exam Vital Signs: Temp Pulse Resp BP Pulse Ox 97.6 F 70 23 H 125/65 88 L 03/05/18 12:00 03/05/18 12:00 03/05/18 12:00 03/05/18 12:00 03/05/18 12:00 Pulse Oximeter Continuous Start: 02/22/18 10: 49 Freq: RTQ4 Status: Complete Document 02/28/18 12:12 [facility] (Rec: 02/28/18 12:13 [facility] [id number]) Pulse Oximetry Assessment Oxygen Saturation (92-100) 92 Oxygen Delivery Method Bi-pap Fraction of Inspired Oxygen (FIO2) 50 Equipment Usage Equipment in Use Continuous SpO2 Machine # 11 Intake & Output 03/04/18 03/05/18 03/06/18 06:59 06:59 06:59 Intake Total 1105 837 Output Total 650 1350 Balance 455 -513 Weight 103.8 kg 103.8 kg Physical Exam: General appearance: PRESENT: mild distress - on supplemental oxygen via BiPAP and non-rebreathing face mask while eating. Head exam: PRESENT: atraumatic, normocephalic Eye exam: PRESENT: conjunctiva pink, EOMI, PERRLA. ABSENT: pallor, scleral icterus Ear exam: PRESENT: normal external ear exam Mouth exam: PRESENT: moist Respiratory exam: PRESENT: clear to auscultation nelda, decreased breath sounds - at lung bases Cardiovascular exam: PRESENT: irregular rhythm, +S1, +S2 GI/Abdominal exam: PRESENT: normal bowel sounds, soft. ABSENT: distended, guarding, mass, organomegaly, rebound, tenderness Extremities exam: ABSENT: pedal edema Neurological exam: PRESENT: alert, awake, oriented to person, oriented to place , oriented to time, oriented to situation, CN II-XII grossly intact. ABSENT: motor sensory deficit Psychiatric exam: PRESENT: appropriate affect, normal mood. ABSENT: homicidal ideation, suicidal ideation Skin exam: PRESENT: dry, intact, warm ABSENT: cyanosis, rash Results Laboratory Results: 03/03/18 05:28 03/03/18 05:28 Impressions: Chest CT 02/22/18 00:00 IMPRESSION: Pleural effusions as described. These have increased since the prior study. Mediastinal adenopathy. Atherosclerosis. Cardiomegaly. Mild pulmonary edema is suggested. Thoracentesis Ultrasound 02/24/18 11:22 IMPRESSION: SUCCESSFUL THORACENTESIS USING ULTRASOUND GUIDANCE. Chest X-Ray 03/02/18 00:00 IMPRESSION: 1. No significant interval changes since the prior study dated 02/24/2018. Bilateral pleural effusions. Assessment & Plan - Diagnosis (1) Acute on chronic respiratory failure with hypoxemia Is this a current diagnosis for this admission?: Yes (2) End stage chronic obstructive pulmonary disease Is this a current diagnosis for this admission?: Yes (3) Acute on chronic diastolic heart failure Is this a current diagnosis for this admission?: Yes (4) Chronic atrial fibrillation Is this a current diagnosis for this admission?: Yes (5) Diabetes mellitus type 2 in obese Is this a current diagnosis for this admission?: Yes (6) HTN (hypertension) Qualifiers: Hypertension type: essential hypertension Qualified Code(s): I10 - Essential (primary) hypertension Is this a current diagnosis for this admission?: Yes (7) HLD (hyperlipidemia) Qualifiers: Hyperlipidemia type: unspecified Qualified Code(s): E78.5 - Hyperlipidemia , unspecified Is this a current diagnosis for this admission?: Yes (8) BPH loc w urin obs/LUTS Is this a current diagnosis for this admission?: Yes (9) Pleural effusion, right Is this a current diagnosis for this admission?: Yes (10) Severe pulmonary arterial systolic hypertension Is this a current diagnosis for this admission?: Yes - Time Time Spent with patient: 25-34 minutes Medications reviewed and adjusted accordingly: Yes Anticipated discharge: Home with Homehealth, SNF Within: Other - Inpatient Certification Based on my medical assessment, after consideration of the patient's comorbidities, presenting symptoms, or acuity I expect that the services needed warrant INPATIENT care.: Yes I certify that my determination is in accordance with my understanding of Medicare's requirements for reasonable and necessary INPATIENT services [42 CFR 412.3e].: Yes Medical Necessity: Need Close Monitoring Due to Risk of Patient Decompensation, Need For Continuous Telemetry Monitoring, Need for Nebulizer Therapy and Monitoring of Response, Risk of Complication if Not Cared For in Hospital Post Hospital Care: D/C Computer Science Teacher Documentation, D/C or Transfer Summary - Plan Summary Plan Summary: Continue current medication management. I will arrange with warehouse logistics manager and discharge team regarding disposition plan and qualification for assistive device at home or transfer to LTAC facility.
[2018-03-05] MEDS: FAMOTIDINE 20 MG TABLET PO SCH (17:40)
[2018-03-05] MEDS: ATORVASTATIN CALCIUM 40 MG TABLET PO SCH (22:09)
[2018-03-05] MEDS: WARFARIN SODIUM 2.5 MG TABLET PO SCH (22:09)
[2018-03-06] MEDS: ENOXAPARIN SODIUM INJ 100 MG/1 ML DISP.SYRIN SUBCUT SCH ×2 (06:53→17:55)
[2018-03-06 07:12] LABS: HEMATOCRIT 28.4 % (37.9-51.0); HEMOGLOBIN 9.4 g/dL (13.5-17.0); MEAN CORPUSCULAR HEMOGLOBIN 31.5 pg (27.0-33.4); MEAN CORPUSCULAR VOLUME 95 fl (80-97); PLATELET COUNT 178 10^3/uL (150-450); RED BLOOD COUNT 2.98 10^6/uL (4.35-5.55); RED CELL DISTRIBUTION WIDTH 17.1 % (11.5-14.0); WHITE BLOOD COUNT 6.9 10^3/uL (4.0-10.5)
[2018-03-06 07:24] LABS: INTERNATIONAL RATION (INR) 1.79; PROTHROMBIN TIME 21.6 SEC (11.4-15.4)
[2018-03-06] MEDS: ATENOLOL 50 MG TABLET PO SCH (09:40)
[2018-03-06] MEDS: LISINOPRIL 5 MG TABLET PO SCH (09:41)
[2018-03-06] MEDS: CYANOCOBALAMIN (VITAMIN B-12) 1,000 MCG TABLET PO SCH (09:43)
[2018-03-06] MEDS: ALLOPURINOL 300 MG TABLET PO SCH (09:43)
[2018-03-06] MEDS: METFORMIN HCL 500 MG TABLET PO SCH ×2 (09:43→17:54)
[2018-03-06] MEDS: FOLIC ACID 1 MG TABLET PO SCH (09:43)
[2018-03-06] MEDS: DOCUSATE SODIUM 100 MG CAPSULE PO SCH (09:44)
[2018-03-06] MEDS: OMEGA-3 ACID ETHYL ESTERS 1 GM CAPSULE PO SCH (09:44)
[2018-03-06] MEDS: CHOLECALCIFEROL (D3) 1,000 UNIT TABLET PO SCH (09:44)
[2018-03-06] MEDS: ASCORBIC ACID 500 MG TABLET PO SCH (09:44)
[2018-03-06] MEDS: FINASTERIDE 5 MG TABLET PO SCH (09:44)
[2018-03-06] MEDS: AMLODIPINE BESYLATE 10 MG TABLET PO SCH (09:44)
[2018-03-06] MEDS: TAMSULOSIN HCL 0.4 MG CAP.SR.24H PO SCH (09:45)
[2018-03-06] MEDS: FLUTICASONE/SALMETEROL DISKUS 500-50 MCG/DOSE IH SCH ×2 (09:45→21:35)
[2018-03-06] MEDS: FERROUS SULFATE 325 MG TABLET PO SCH (09:45)
[2018-03-06] MEDS ORDERED: WARFARIN SODIUM 5 MG TABLET PO SCH (13:42)
[2018-03-06] MEDS ORDERED: WARFARIN SODIUM 2.5 MG TABLET PO SCH (13:42)
--- NOTE | 2018-03-06 15:38 | PDOC PROGRESS REPORT ---
Subjective Progress Note for:: 03/06/18 Subjective:: Patient remain dependent on BiPAP support with need for higher pressure support and oxygen concentration earlier today. No chest pain. No nausea, vomiting or abdominal pain. No reported fever or chills. Reason For Visit: END STAGE COPD WITH HYPOXEMIA;CHRONIC ATRIAL Physical Exam Vital Signs: Temp Pulse Resp BP Pulse Ox 97.4 F 64 26 H 117/57 L 94 03/06/18 11:42 03/06/18 11:42 03/06/18 11:42 03/06/18 11:42 03/06/18 11:42 Pulse Oximeter Continuous Start: 02/22/18 10: 49 Freq: RTQ4 Status: Complete Document 02/28/18 12:12 [facility] (Rec: 02/28/18 12:13 [facility] [id number]) Pulse Oximetry Assessment Oxygen Saturation (92-100) 92 Oxygen Delivery Method Bi-pap Fraction of Inspired Oxygen (FIO2) 50 Equipment Usage Equipment in Use Continuous SpO2 Machine # 11 Intake & Output 03/05/18 03/06/18 03/07/18 06:59 06:59 06:59 Intake Total 837 961 237 Output Total 1350 1325 Balance -513 -364 237 Weight 103.8 kg 101.5 kg Physical Exam: General appearance: PRESENT: mild distress - on supplemental oxygen via BiPAP and non-rebreathing face mask while eating. Head exam: PRESENT: atraumatic, normocephalic Eye exam: PRESENT: conjunctiva pink, EOMI, PERRLA. ABSENT: pallor, scleral icterus Ear exam: PRESENT: normal external ear exam Mouth exam: PRESENT: moist Respiratory exam: PRESENT: clear to auscultation nelda, decreased breath sounds - at lung bases Cardiovascular exam: PRESENT: irregular rhythm, +S1, +S2 GI/Abdominal exam: PRESENT: normal bowel sounds, soft. ABSENT: distended, guarding, mass, organomegaly, rebound, tenderness Extremities exam: ABSENT: pedal edema Neurological exam: PRESENT: alert, awake, oriented to person, oriented to place , oriented to time, oriented to situation, CN II-XII grossly intact. ABSENT: motor sensory deficit Psychiatric exam: PRESENT: appropriate affect, normal mood. ABSENT: homicidal ideation, suicidal ideation Skin exam: PRESENT: dry, intact, warm ABSENT: cyanosis, rash Results Laboratory Results: 03/06/18 06:54 12/14/18 05:28 03/06/18 06:54 WBC 6.9 RBC 2.98 L Hgb 9.4 L Hct 28.4 L MCV 95 MCH 31.5 MCHC 33.0 RDW 17.1 H Plt Count 178 Impressions: Chest CT 02/22/18 00:00 IMPRESSION: Pleural effusions as described. These have increased since the prior study. Mediastinal adenopathy. Atherosclerosis. Cardiomegaly. Mild pulmonary edema is suggested. Thoracentesis Ultrasound 02/24/18 11:22 IMPRESSION: SUCCESSFUL THORACENTESIS USING ULTRASOUND GUIDANCE. Chest X-Ray 03/02/18 00:00 IMPRESSION: 1. No significant interval changes since the prior study dated 02/24/2018. Bilateral pleural effusions. Assessment & Plan - Diagnosis (1) Acute on chronic respiratory failure with hypoxemia Is this a current diagnosis for this admission?: Yes (2) End stage chronic obstructive pulmonary disease Is this a current diagnosis for this admission?: Yes (3) Acute on chronic diastolic heart failure Is this a current diagnosis for this admission?: Yes (4) Chronic atrial fibrillation Is this a current diagnosis for this admission?: Yes (5) Diabetes mellitus type 2 in obese Is this a current diagnosis for this admission?: Yes (6) HTN (hypertension) Qualifiers: Hypertension type: essential hypertension Qualified Code(s): I10 - Essential (primary) hypertension Is this a current diagnosis for this admission?: Yes (7) HLD (hyperlipidemia) Qualifiers: Hyperlipidemia type: unspecified Qualified Code(s): E78.5 - Hyperlipidemia , unspecified Is this a current diagnosis for this admission?: Yes (8) BPH loc w urin obs/LUTS Is this a current diagnosis for this admission?: Yes (9) Pleural effusion, right Is this a current diagnosis for this admission?: Yes (10) Severe pulmonary arterial systolic hypertension Is this a current diagnosis for this admission?: Yes - Time Time Spent with patient: 25-34 minutes Medications reviewed and adjusted accordingly: Yes Anticipated discharge: Other - LTAC facility Within: Other - Inpatient Certification Based on my medical assessment, after consideration of the patient's comorbidities, presenting symptoms, or acuity I expect that the services needed warrant INPATIENT care.: Yes I certify that my determination is in accordance with my understanding of Medicare's requirements for reasonable and necessary INPATIENT services [42 CFR 412.3e].: Yes Medical Necessity: Need Close Monitoring Due to Risk of Patient Decompensation, Need For Continuous Telemetry Monitoring, Need for Nebulizer Therapy and Monitoring of Response, Risk of Complication if Not Cared For in Hospital Post Hospital Care: D/C Human Service Coordinator Documentation, D/C or Transfer Summary - Plan Summary Plan Summary: We will continue on all current medication management. I discussed disposition efforts with the assigned equipment planner and pulmonary job service consultant.
[2018-03-06] MEDS: FAMOTIDINE 20 MG TABLET PO SCH (17:55)
[2018-03-06] MEDS: WARFARIN SODIUM 3 MG TABLET PO SCH (21:35)
[2018-03-06] MEDS: ATORVASTATIN CALCIUM 40 MG TABLET PO SCH (21:35)
[2018-03-07] MEDS: ENOXAPARIN SODIUM INJ 100 MG/1 ML DISP.SYRIN SUBCUT SCH ×2 (05:11→18:54)
[2018-03-07] MEDS: CHOLECALCIFEROL (D3) 1,000 UNIT TABLET PO SCH (10:47)
[2018-03-07] MEDS: METFORMIN HCL 500 MG TABLET PO SCH ×2 (10:48→18:54)
[2018-03-07] MEDS: OMEGA-3 ACID ETHYL ESTERS 1 GM CAPSULE PO SCH (10:48)
[2018-03-07] MEDS: FINASTERIDE 5 MG TABLET PO SCH (10:48)
[2018-03-07] MEDS: DOCUSATE SODIUM 100 MG CAPSULE PO SCH (10:48)
[2018-03-07] MEDS: AMLODIPINE BESYLATE 10 MG TABLET PO SCH (10:49)
[2018-03-07] MEDS: LISINOPRIL 5 MG TABLET PO SCH (10:49)
[2018-03-07] MEDS: TAMSULOSIN HCL 0.4 MG CAP.SR.24H PO SCH (10:49)
[2018-03-07] MEDS: FERROUS SULFATE 325 MG TABLET PO SCH (10:49)
[2018-03-07] MEDS: ALLOPURINOL 300 MG TABLET PO SCH (10:49)
[2018-03-07] MEDS: FOLIC ACID 1 MG TABLET PO SCH (10:49)
[2018-03-07] MEDS: CYANOCOBALAMIN (VITAMIN B-12) 1,000 MCG TABLET PO SCH (10:49)
[2018-03-07] MEDS: FLUTICASONE/SALMETEROL DISKUS 500-50 MCG/DOSE IH SCH (10:51)
[2018-03-07] MEDS: ASCORBIC ACID 500 MG TABLET PO SCH (10:51)
[2018-03-07] MEDS: ATENOLOL 50 MG TABLET PO SCH (10:51)
--- NOTE | 2018-03-07 18:08 | PDOC PROGRESS REPORT ---
Subjective Progress Note for:: 03/07/18 Subjective:: Same SaO2 approximately 84% on upon arrival in the room she is awake cooperative Reason For Visit: END STAGE COPD WITH HYPOXEMIA;CHRONIC ATRIAL Physical Exam Vital Signs: Temp Pulse Resp BP Pulse Ox 98.2 F 70 23 H 136/82 H 92 03/07/18 08:07 03/07/18 14:00 03/07/18 10:18 03/07/18 08:07 03/07/18 10:18 Pulse Oximeter Continuous Start: 02/22/18 10: 49 Freq: RTQ4 Status: Complete Document 02/28/18 12:12 [facility] (Rec: 02/28/18 12:13 [facility] [id number]) Pulse Oximetry Assessment Oxygen Saturation (92-100) 92 Oxygen Delivery Method Bi-pap Fraction of Inspired Oxygen (FIO2) 50 Equipment Usage Equipment in Use Continuous SpO2 Machine # 11 Intake & Output 03/06/18 03/07/18 03/08/18 06:59 06:59 06:59 Intake Total 961 355 Output Total 1325 300 Balance -364 55 Weight 101.5 kg 101.8 kg General appearance: PRESENT: no acute distress, cooperative, disheveled, obese Head exam: PRESENT: atraumatic, normocephalic Eye exam: PRESENT: conjunctiva pale, EOMI. ABSENT: nystagmus, scleral icterus Mouth exam: PRESENT: dry mucosa, neck supple, tongue midline Neck exam: ABSENT: carotid bruit, JVD, lymphadenopathy, thyromegaly, tracheal deviation, tracheostomy Respiratory exam: PRESENT: decreased breath sounds, prolonged expiratory phas, rales, rhonchi, symmetrical, tachypnea, unlabored, wheezes. ABSENT: retraction , stridor Cardiovascular exam: PRESENT: RRR, +S1, +S2, tachycardia Pulses: PRESENT: normal radial pulses GI/Abdominal exam: PRESENT: soft. ABSENT: tenderness Extremities exam: PRESENT: joint swelling, pedal edema. ABSENT: calf tenderness , clubbing Musculoskeletal exam: ABSENT: deformity, dislocation Neurological exam: PRESENT: alert, awake Psychiatric exam: PRESENT: appropriate affect Skin exam: PRESENT: dry, warm Results Laboratory Results: 03/06/18 06:54 03/03/18 05:28 Impressions: Chest CT 02/22/18 00:00 IMPRESSION: Pleural effusions as described. These have increased since the prior study. Mediastinal adenopathy. Atherosclerosis. Cardiomegaly. Mild pulmonary edema is suggested. Thoracentesis Ultrasound 02/24/18 11:22 IMPRESSION: SUCCESSFUL THORACENTESIS USING ULTRASOUND GUIDANCE. Chest X-Ray 03/02/18 00:00 IMPRESSION: 1. No significant interval changes since the prior study dated 02/24/2018. Bilateral pleural effusions. Assessment & Plan - Diagnosis (1) Pleural effusion Is this a current diagnosis for this admission?: Yes Plan: stable (2) Acute on chronic respiratory failure with hypoxemia Is this a current diagnosis for this admission?: Yes Plan: ABGs finally acceptable on bipap 15L min vol (3) End stage chronic obstructive pulmonary disease Is this a current diagnosis for this admission?: Yes Plan: Generic Name Dose Route Start Last Admin Trade Name Freq PRN Reason Stop Dose Admin Patient Own Medication 2 puff 02/21/18 10:00 Tiotropium [place] [Spiriva Respimat] 03/23/18 09:59 .DAILY TERRY Albuterol 1 puff 02/20/18 21:32 Proair Hfa Inhalation Aerosol 8.5 Gm Mdi 03/22/18 21:31 Q4HP PRN FOR WHEEZING Fluticasone/Salmeterol 1 inh 02/20/18 22:00 02/21/18 09:28 Advair 500-50 Diskus 14 Dose/Diskus 03/22/18 21:59 1 puff Q12 TERRY ABG on 2 L nasal cannula (4) History of atrial fibrillation Is this a current diagnosis for this admission?: Yes Plan: Stable this far (5) Pulmonary hypertension Is this a current diagnosis for this admission?: Yes Plan: Certainly contributory but not idiopathic
--- NOTE | 2018-03-07 18:24 | Pulmonary Function Test ---
Pulmonary Function Test Date of Procedure:: 03/07/18 INDICATION:: Dyspnea Referring Provider: Dr. Dada Esparza - Report Spirometry: FVC 1.69 L 50% FEV1 1.18 L 45% FEV1/FVC % 70 predicted 79 FEF 25-75% 0.71 L 28% Impression: Severe obstructive ventilatory defect is inferred based on the decrease in flow in FEF 25-75%. Severe restrictive ventilatory defect is also inferred but cannot be diagnosed on the basis of spirometry alone. (Restrictive defect may mask the degree of obstruction.
[2018-03-07] MEDS: NYSTATIN CREAM 15 GM TP SCH ×2 (18:51→18:52)
[2018-03-07] MEDS: FAMOTIDINE 20 MG TABLET PO SCH (18:54)
--- NOTE | 2018-03-07 19:03 | PDOC PROGRESS REPORT ---
Subjective Progress Note for:: 03/07/18 Subjective:: Patient continue to demonstrate significant oxygen dependency. He remain on BiPAP support and face mask supplemental oxygen. No chest pain. No nausea, vomiting or abdominal pain. Reason For Visit: END STAGE COPD WITH HYPOXEMIA;CHRONIC ATRIAL Physical Exam Vital Signs: Temp Pulse Resp BP Pulse Ox 97.3 F 73 24 H 111/46 L 100 03/07/18 15:46 03/07/18 15:46 03/07/18 15:46 03/07/18 15:46 03/07/18 15:46 Pulse Oximeter Continuous Start: 02/22/18 10: 49 Freq: RTQ4 Status: Complete Document 02/28/18 12:12 [facility] (Rec: 02/28/18 12:13 [facility] [id number]) Pulse Oximetry Assessment Oxygen Saturation (92-100) 92 Oxygen Delivery Method Bi-pap Fraction of Inspired Oxygen (FIO2) 50 Equipment Usage Equipment in Use Continuous SpO2 Machine # 11 Intake & Output 03/06/18 03/07/18 03/08/18 06:59 06:59 06:59 Intake Total 961 355 978 Output Total 1325 300 550 Balance -364 55 428 Weight 101.5 kg 101.8 kg Physical Exam: General appearance: PRESENT: mild distress - on supplemental oxygen via BiPAP and non-rebreathing face mask while eating. Head exam: PRESENT: atraumatic, normocephalic Eye exam: PRESENT: conjunctiva pink, EOMI, PERRLA. ABSENT: pallor, scleral icterus Ear exam: PRESENT: normal external ear exam Mouth exam: PRESENT: moist Respiratory exam: PRESENT: clear to auscultation nelda, decreased breath sounds - at lung bases Cardiovascular exam: PRESENT: irregular rhythm, +S1, +S2 GI/Abdominal exam: PRESENT: normal bowel sounds, soft. ABSENT: distended, guarding, mass, organomegaly, rebound, tenderness Extremities exam: ABSENT: pedal edema Neurological exam: PRESENT: alert, awake, oriented to person, oriented to place , oriented to time, oriented to situation, CN II-XII grossly intact. ABSENT: motor sensory deficit Psychiatric exam: PRESENT: appropriate affect, normal mood. ABSENT: homicidal ideation, suicidal ideation Skin exam: PRESENT: dry, intact, warm ABSENT: cyanosis, rash Results Laboratory Results: 03/06/18 06:54 03/03/18 05:28 Impressions: Chest CT 02/22/18 00:00 IMPRESSION: Pleural effusions as described. These have increased since the prior study. Mediastinal adenopathy. Atherosclerosis. Cardiomegaly. Mild pulmonary edema is suggested. Thoracentesis Ultrasound 02/24/18 11:22 IMPRESSION: SUCCESSFUL THORACENTESIS USING ULTRASOUND GUIDANCE. Chest X-Ray 03/02/18 00:00 IMPRESSION: 1. No significant interval changes since the prior study dated 02/24/2018. Bilateral pleural effusions. Assessment & Plan - Diagnosis (1) Acute on chronic respiratory failure with hypoxemia Is this a current diagnosis for this admission?: Yes (2) End stage chronic obstructive pulmonary disease Is this a current diagnosis for this admission?: Yes (3) Acute on chronic diastolic heart failure Is this a current diagnosis for this admission?: Yes (4) Chronic atrial fibrillation Is this a current diagnosis for this admission?: Yes (5) Diabetes mellitus type 2 in obese Is this a current diagnosis for this admission?: Yes (6) HTN (hypertension) Qualifiers: Hypertension type: essential hypertension Qualified Code(s): I10 - Essential (primary) hypertension Is this a current diagnosis for this admission?: Yes (7) HLD (hyperlipidemia) Qualifiers: Hyperlipidemia type: unspecified Qualified Code(s): E78.5 - Hyperlipidemia , unspecified Is this a current diagnosis for this admission?: Yes (8) BPH loc w urin obs/LUTS Is this a current diagnosis for this admission?: Yes (9) Pleural effusion, right Is this a current diagnosis for this admission?: Yes (10) Severe pulmonary arterial systolic hypertension Is this a current diagnosis for this admission?: Yes - Time Time Spent with patient: 25-34 minutes Medications reviewed and adjusted accordingly: Yes Anticipated discharge: Home with Homehealth Within: Other - Inpatient Certification Based on my medical assessment, after consideration of the patient's comorbidities, presenting symptoms, or acuity I expect that the services needed warrant INPATIENT care.: Yes I certify that my determination is in accordance with my understanding of Medicare's requirements for reasonable and necessary INPATIENT services [42 CFR 412.3e].: Yes Medical Necessity: Need Close Monitoring Due to Risk of Patient Decompensation, Need For Continuous Telemetry Monitoring, Need for Nebulizer Therapy and Monitoring of Response, Risk of Complication if Not Cared For in Hospital Post Hospital Care: D/C Bulk Gas Specialist Documentation - Plan Summary Plan Summary: Patient PFT suggested severe obstructive and note restrictive lung disease process. D/C Advair. Start on Budesonide 0.5mg Neb [id number] and DuoNeb 1 unit dose [id number]. We will try Trilogy therapy while on admission to access his response before discharge home. I had extensive discussion with daughter during this bedside visit regarding discharge plan. Patient be better off in LTAC environment but did not qualify at this time. Increase Coumadin to 6mg daily except on Tuesday and Tuesday to take 3 mg due to suboptimal INR level.
[2018-03-07] MEDS: BUDESONIDE NEB 0.5 MG/2 ML AMPUL NEB SCH (20:36)
[2018-03-07] MEDS: IPRATROPIUM/ALBUTEROL 0.5-2.5 MG/3 ML AMPUL NEB SCH (20:36)
[2018-03-07] MEDS: ATORVASTATIN CALCIUM 40 MG TABLET PO SCH (21:38)
[2018-03-07] MEDS: WARFARIN SODIUM 3 MG TABLET PO SCH (21:39)
[2018-03-08] MEDS: BUDESONIDE NEB 0.5 MG/2 ML AMPUL NEB SCH ×4 (02:08→21:07)
[2018-03-08] MEDS: ENOXAPARIN SODIUM INJ 100 MG/1 ML DISP.SYRIN SUBCUT SCH ×2 (06:42→17:20)
[2018-03-08 07:14] LABS: HEMATOCRIT 29.5 % (37.9-51.0); HEMOGLOBIN 9.8 g/dL (13.5-17.0); MEAN CORPUSCULAR HEMOGLOBIN 31.6 pg (27.0-33.4); MEAN CORPUSCULAR HGB CONC 33.1 g/dL (32.0-36.0); MEAN CORPUSCULAR VOLUME 96 fl (80-97); PLATELET COUNT 180 10^3/uL (150-450); RED BLOOD COUNT 3.09 10^6/uL (4.35-5.55); RED CELL DISTRIBUTION WIDTH 16.8 % (11.5-14.0); WHITE BLOOD COUNT 7.3 10^3/uL (4.0-10.5)
[2018-03-08 07:36] LABS: INTERNATIONAL RATION (INR) 2.16; PROTHROMBIN TIME 25.1 SEC (11.4-15.4)
[2018-03-08] MEDS: IPRATROPIUM/ALBUTEROL 0.5-2.5 MG/3 ML AMPUL NEB SCH ×4 (09:36→21:07)
[2018-03-08] MEDS: OMEGA-3 ACID ETHYL ESTERS 1 GM CAPSULE PO SCH (09:38)
[2018-03-08] MEDS: NYSTATIN CREAM 15 GM TP SCH ×2 (09:38→17:20)
[2018-03-08] MEDS: ASCORBIC ACID 500 MG TABLET PO SCH (09:39)
[2018-03-08] MEDS: AMLODIPINE BESYLATE 10 MG TABLET PO SCH (09:40)
[2018-03-08] MEDS: ATENOLOL 50 MG TABLET PO SCH (09:41)
[2018-03-08] MEDS: CYANOCOBALAMIN (VITAMIN B-12) 1,000 MCG TABLET PO SCH (09:41)
[2018-03-08] MEDS: METFORMIN HCL 500 MG TABLET PO SCH ×2 (09:42→17:19)
[2018-03-08] MEDS: FINASTERIDE 5 MG TABLET PO SCH (09:42)
[2018-03-08] MEDS: DOCUSATE SODIUM 100 MG CAPSULE PO SCH (09:43)
[2018-03-08] MEDS: TAMSULOSIN HCL 0.4 MG CAP.SR.24H PO SCH (09:43)
[2018-03-08] MEDS: FERROUS SULFATE 325 MG TABLET PO SCH (09:43)
[2018-03-08] MEDS: CHOLECALCIFEROL (D3) 1,000 UNIT TABLET PO SCH (09:44)
[2018-03-08] MEDS: ALLOPURINOL 300 MG TABLET PO SCH (09:44)
[2018-03-08] MEDS: FOLIC ACID 1 MG TABLET PO SCH (09:47)
[2018-03-08] MEDS: LISINOPRIL 5 MG TABLET PO SCH (09:48)
[2018-03-08] MEDS: FAMOTIDINE 20 MG TABLET PO SCH (17:19)
[2018-03-08] MEDS: INSULIN LISPRO 100 UNIT/ML 3 ML VIAL SUBCUT PRN (17:19)
--- NOTE | 2018-03-08 20:37 | PDOC PROGRESS REPORT ---
Subjective Progress Note for:: 03/08/18 Subjective:: Patient and family were instructed on Trilogy machine usage today. Currently remain on BiPAP support but at the same setting for the Trilogy per riveting machine operator, Dr. Winn. He denied any chest pain. No abdominal pain, nausea or vomiting. No abdominal pain. No fever or chills. Reason For Visit: END STAGE COPD WITH HYPOXEMIA;CHRONIC ATRIAL Physical Exam Vital Signs: Temp Pulse Resp BP Pulse Ox 97.4 F 67 19 102/62 95 03/08/18 16:18 03/08/18 20:04 03/08/18 17:00 03/08/18 16:18 03/08/18 17:00 Pulse Oximeter Continuous Start: 02/22/18 10:49 Freq: RTQ4 Status: Complete Protocol: Document 02/28/18 12:12 [facility] (Rec: 02/28/18 12:13 [facility] [id number]) Pulse Oximetry Assessment Oxygen Saturation (92-100) 92 Oxygen Delivery Method Bi-pap Fraction of Inspired Oxygen (FIO2) 50 Equipment Usage Equipment in Use Continuous SpO2 Machine # 11 Intake & Output 03/07/18 03/08/18 03/09/18 06:59 06:59 06:59 Intake Total 826 616 5180 Output Total 300 950 400 Balance 55 28 1317 Weight 101.8 kg 101 kg Physical Exam: General appearance: PRESENT: mild distress - on supplemental oxygen via BiPAP and non-rebreathing face mask while eating. Head exam: PRESENT: atraumatic, normocephalic Eye exam: PRESENT: conjunctiva pink, EOMI, PERRLA. ABSENT: pallor, scleral icterus Ear exam: PRESENT: normal external ear exam Mouth exam: PRESENT: moist Respiratory exam: PRESENT: clear to auscultation nelda, decreased breath sounds - at lung bases Cardiovascular exam: PRESENT: irregular rhythm, +S1, +S2 GI/Abdominal exam: PRESENT: normal bowel sounds, soft. ABSENT: distended, guarding, mass, organomegaly, rebound, tenderness Extremities exam: ABSENT: pedal edema Neurological exam: PRESENT: alert, awake, oriented to person, oriented to place, oriented to time, oriented to situation, CN II-XII grossly intact. ABSENT: motor sensory deficit Psychiatric exam: PRESENT: appropriate affect, normal mood. ABSENT: homicidal ideation, suicidal ideation Skin exam: PRESENT: dry, intact, warm ABSENT: cyanosis, rash Results Laboratory Results: 03/08/18 06:55 03/03/18 05:28 03/08/18 06:55 WBC 7.3 RBC 3.09 L Hgb 9.8 L Hct 29.5 L MCV 96 MCH 31.6 MCHC 33.1 RDW 16.8 H Plt Count 180 02/20/18 02/20/18 11:25 11:25 Creatine Kinase 30 L CK-MB (CK-2) 1.19 Troponin I < 0.012 NT-Pro-B Natriuret Pep 3490 H Impressions: Chest CT 02/22/18 00:00 IMPRESSION: Pleural effusions as described. These have increased since the prior study. Mediastinal adenopathy. Atherosclerosis. Cardiomegaly. Mild pulmonary edema is suggested. Thoracentesis Ultrasound 02/24/18 11:22 IMPRESSION: SUCCESSFUL THORACENTESIS USING ULTRASOUND GUIDANCE. Chest X-Ray 03/02/18 00:00 IMPRESSION: 1. No significant interval changes since the prior study dated 02/24/2018. Bilateral pleural effusions. Assessment & Plan - Diagnosis (1) Acute on chronic respiratory failure with hypoxemia Is this a current diagnosis for this admission?: Yes (2) End stage chronic obstructive pulmonary disease Is this a current diagnosis for this admission?: Yes (3) Acute on chronic diastolic heart failure Is this a current diagnosis for this admission?: Yes (4) Chronic atrial fibrillation Is this a current diagnosis for this admission?: Yes (5) Diabetes mellitus type 2 in obese Is this a current diagnosis for this admission?: Yes (6) HTN (hypertension) Qualifiers: Hypertension type: essential hypertension Qualified Code(s): I10 - Es sential (primary) hypertension Is this a current diagnosis for this admission?: Yes (7) HLD (hyperlipidemia) Qualifiers: Hyperlipidemia type: unspecified Qualified Code(s): E78.5 - Hyperlipidemia, unspecified Is this a current diagnosis for this admission?: Yes (8) BPH loc w urin obs/LUTS Is this a current diagnosis for this admission?: Yes (9) Pleural effusion, right Is this a current diagnosis for this admission?: Yes (10) Severe pulmonary arterial systolic hypertension Is this a current diagnosis for this admission?: Yes - Time Time Spent with patient: 25-34 minutes Medications reviewed and adjusted accordingly: Yes Anticipated discharge: Home with Homehealth Within: Other - Inpatient Certification Based on my medical assessment, after consideration of the patient's comorbidities, presenting symptoms, or acuity I expect that the services needed warrant INPATIENT care.: Yes I certify that my determination is in accordance with my understanding of Medicare's requirements for reasonable and necessary INPATIENT services [42 CFR 412.3e].: Yes Medical Necessity: Need Close Monitoring Due to Risk of Patient Decompensation, Need For Continuous Telemetry Monitoring, Need for Nebulizer Therapy and Monitoring of Response, Risk of Complication if Not Cared For in Hospital Post Hospital Care: D/C Sales Order Coordinator Documentation - Plan Summary Plan Summary: Decrease Pulmocort neb treatment to bid from tomorrow. Continue all other current medication management. Consider discharge home on Brovana and Pulmocort bid therapy.
[2018-03-08] MEDS: WARFARIN SODIUM 3 MG TABLET PO SCH (21:19)
[2018-03-08] MEDS: ATORVASTATIN CALCIUM 40 MG TABLET PO SCH (21:19)
[2018-03-09] MEDS: BUDESONIDE NEB 0.5 MG/2 ML AMPUL NEB SCH ×4 (02:10→20:02)
[2018-03-09] MEDS: ENOXAPARIN SODIUM INJ 100 MG/1 ML DISP.SYRIN SUBCUT SCH ×2 (05:07→19:31)
[2018-03-09 07:05] LABS: INTERNATIONAL RATION (INR) 2.55; PROTHROMBIN TIME 28.6 SEC (11.4-15.4)
[2018-03-09] MEDS: IPRATROPIUM/ALBUTEROL 0.5-2.5 MG/3 ML AMPUL NEB SCH ×4 (09:21→19:51)
[2018-03-09] MEDS: ASCORBIC ACID 500 MG TABLET PO SCH (10:00)
[2018-03-09] MEDS: NYSTATIN CREAM 15 GM TP SCH ×2 (10:00→21:00)
[2018-03-09] MEDS: ATENOLOL 50 MG TABLET PO SCH (12:35)
[2018-03-09] MEDS: FINASTERIDE 5 MG TABLET PO SCH (12:35)
[2018-03-09] MEDS: CHOLECALCIFEROL (D3) 1,000 UNIT TABLET PO SCH (12:36)
[2018-03-09] MEDS: OMEGA-3 ACID ETHYL ESTERS 1 GM CAPSULE PO SCH (12:36)
[2018-03-09] MEDS: TAMSULOSIN HCL 0.4 MG CAP.SR.24H PO SCH (12:36)
[2018-03-09] MEDS: METFORMIN HCL 500 MG TABLET PO SCH ×2 (12:37→20:59)
[2018-03-09] MEDS: LISINOPRIL 5 MG TABLET PO SCH (12:37)
[2018-03-09] MEDS: AMLODIPINE BESYLATE 10 MG TABLET PO SCH (12:37)
[2018-03-09] MEDS: ALLOPURINOL 300 MG TABLET PO SCH (12:38)
[2018-03-09] MEDS: FERROUS SULFATE 325 MG TABLET PO SCH (12:38)
[2018-03-09] MEDS: FOLIC ACID 1 MG TABLET PO SCH (12:38)
[2018-03-09] MEDS: CYANOCOBALAMIN (VITAMIN B-12) 1,000 MCG TABLET PO SCH (12:38)
[2018-03-09] MEDS: DOCUSATE SODIUM 100 MG CAPSULE PO SCH (12:38)
--- NOTE | 2018-03-09 19:30 | PDOC PROGRESS REPORT ---
Subjective Progress Note for:: 03/09/18 Subjective:: Patient denied any chest pain. No abdominal pain, nausea or vomiting. No fever or chills. He remain on BiPAP support and face mask non-rebreathing supplemental oxygen. Reason For Visit: END STAGE COPD WITH HYPOXEMIA;CHRONIC ATRIAL Physical Exam Vital Signs: Temp Pulse Resp BP Pulse Ox 97.6 F 78 25 H 96/68 L 93 03/09/18 15:28 03/09/18 16:14 03/09/18 16:14 03/09/18 15:28 03/09/18 16:14 Pulse Oximeter Continuous Start: 02/22/18 10:49 Freq: RTQ4 Status: Complete Protocol: Document 02/28/18 12:12 [facility] (Rec: 02/28/18 12:13 [facility] [id number]) Pulse Oximetry Assessment Oxygen Saturation (92-100) 92 Oxygen Delivery Method Bi-pap Fraction of Inspired Oxygen (FIO2) 50 Equipment Usage Equipment in Use Continuous SpO2 Machine # 11 Intake & Output 03/08/18 03/09/18 03/10/18 06:59 06:59 06:59 Intake Total 978 1867 711 Output Total 950 600 325 Balance 28 1267 386 Weight 101 kg 102.3 kg Physical Exam: General appearance: PRESENT: mild distress - on supplemental oxygen via BiPAP and non-rebreathing face mask while eating. Head exam: PRESENT: atraumatic, normocephalic Eye exam: PRESENT: conjunctiva pink, EOMI, PERRLA. ABSENT: pallor, scleral icterus Ear exam: PRESENT: normal external ear exam Mouth exam: PRESENT: moist Respiratory exam: PRESENT: clear to auscultation nelda, decreased breath sounds - at lung bases Cardiovascular exam: PRESENT: irregular rhythm, +S1, +S2 GI/Abdominal exam: PRESENT: normal bowel sounds, soft. ABSENT: distended, guarding, mass, organomegaly, rebound, tenderness Extremities exam: ABSENT: pedal edema Neurological exam: PRESENT: alert, awake, oriented to person, oriented to place, oriented to time, oriented to situation, CN II-XII grossly intact. ABSENT: motor sensory deficit Psychiatric exam: PRESENT: appropriate affect, normal mood. ABSENT: homicidal ideation, suicidal ideation Skin exam: PRESENT: dry, intact, warm ABSENT: cyanosis, rash Results Laboratory Results: 03/08/18 06:55 03/03/18 05:28 PT / INR 28.6 / 2.55 02/20/18 02/20/18 11:25 11:25 Creatine Kinase 30 L CK-MB (CK-2) 1.19 Troponin I < 0.012 NT-Pro-B Natriuret Pep 3490 H Impressions: Chest CT 02/22/18 00:00 IMPRESSION: Pleural effusions as described. These have increased since the prior study. Mediastinal adenopathy. Atherosclerosis. Cardiomegaly. Mild pulmonary edema is suggested. Thoracentesis Ultrasound 02/24/18 11:22 IMPRESSION: SUCCESSFUL THORACENTESIS USING ULTRASOUND GUIDANCE. Chest X-Ray 03/02/18 00:00 IMPRESSION: 1. No significant interval changes since the prior study dated 02/24/2018. Bilateral pleural effusions. Assessment & Plan - Diagnosis (1) Acute on chronic respiratory failure with hypoxemia Is this a current diagnosis for this admission?: Yes (2) End stage chronic obstructive pulmonary disease Is this a current diagnosis for this admission?: Yes (3) Acute on chronic diastolic heart failure Is this a current diagnosis for this admission?: Yes (4) Chronic atrial fibrillation Is this a current diagnosis for this admission?: Yes (5) Diabetes mellitus type 2 in obese Is this a current diagnosis for this admission?: Yes (6) HTN (hypertension) Qualifiers: Hypertension type: essential hypertension Qualified Code(s): I10 - Essential (primary) hypertension Is this a current diagnosis for this admission?: Yes (7) HLD (hyperlipidemia) Qualifiers: Hyperlipidemia type: unspecified Qualified Code(s): E78.5 - Hyperlipidemia, unspecified Is this a current diagnosis for this admission?: Yes (8) BPH loc w urin obs/LUTS Is this a current diagnosis for this admission?: Yes (9) Pleural effusion, right Is this a current diagnosis for this admission?: Yes (10) Severe pulmonary arterial systolic hypertension Is this a current diagnosis for this admission?: Yes - Time Time Spent with patient: 25-34 minutes Medications reviewed and adjusted accordingly: Yes Anticipated discharge: Home with Homehealth Within: Other - Inpatient Certification Based on my medical assessment, after consideration of the patient's comorbidities, presenting symptoms, or acuity I expect that the services needed warrant INPATIENT care.: Yes I certify that my determination is in accordance with my understanding of Medicare's requirements for reasonable and necessary INPATIENT services [42 CFR 412.3e].: Yes Medical Necessity: Need Close Monitoring Due to Risk of Patient Decompensation, Need For Continuous Telemetry Monitoring, Need for Nebulizer Therapy and Monitoring of Response, Risk of Complication if Not Cared For in Hospital Post Hospital Care: D/C Geek Squad Manager Documentation - Plan Summary Plan Summary: Attempts at his discharge was delayed today due to home delivery of his home oxygen supply. He has been approved for home Trilogy device. Patient and family requested for home setup with oxygen before there are comfortable with his discharge plan. Continue current medication management with Pulmicort administration decrease to bid. D/C Lovenox therapy.
[2018-03-09] MEDS: FAMOTIDINE 20 MG TABLET PO SCH (20:59)
[2018-03-09] MEDS: WARFARIN SODIUM 3 MG TABLET PO SCH (22:19)
[2018-03-09] MEDS: ATORVASTATIN CALCIUM 40 MG TABLET PO SCH (22:19)
[2018-03-10 05:57] LABS: PROTHROMBIN TIME 25.5 SEC (11.4-15.4)
[2018-03-10] MEDS: IPRATROPIUM/ALBUTEROL 0.5-2.5 MG/3 ML AMPUL NEB SCH ×3 (08:57→16:41)
[2018-03-10] MEDS: BUDESONIDE NEB 0.5 MG/2 ML AMPUL NEB SCH (08:57)
[2018-03-10] MEDS: DOCUSATE SODIUM 100 MG CAPSULE PO SCH (11:13)
[2018-03-10] MEDS: CHOLECALCIFEROL (D3) 1,000 UNIT TABLET PO SCH (11:13)
[2018-03-10] MEDS: FERROUS SULFATE 325 MG TABLET PO SCH (11:14)
[2018-03-10] MEDS: LISINOPRIL 5 MG TABLET PO SCH (11:15)
[2018-03-10] MEDS: OMEGA-3 ACID ETHYL ESTERS 1 GM CAPSULE PO SCH (11:15)
[2018-03-10] MEDS: METFORMIN HCL 500 MG TABLET PO SCH (11:15)
[2018-03-10] MEDS: TAMSULOSIN HCL 0.4 MG CAP.SR.24H PO SCH (11:15)
[2018-03-10] MEDS: ALLOPURINOL 300 MG TABLET PO SCH (11:15)
[2018-03-10] MEDS: FINASTERIDE 5 MG TABLET PO SCH (11:15)
[2018-03-10] MEDS: AMLODIPINE BESYLATE 10 MG TABLET PO SCH (11:15)
[2018-03-10] MEDS: FOLIC ACID 1 MG TABLET PO SCH (11:15)
[2018-03-10] MEDS: ATENOLOL 50 MG TABLET PO SCH (11:16)
[2018-03-10] MEDS: ASCORBIC ACID 500 MG TABLET PO SCH (11:17)
[2018-03-10] MEDS: CYANOCOBALAMIN (VITAMIN B-12) 1,000 MCG TABLET PO SCH (11:18)
[2018-03-10] MEDS: NYSTATIN CREAM 15 GM TP SCH (11:18)
[2018-03-10 16:50] VITALS: BP 131/61
--- NOTE | 2018-03-10 17:03 | PDOC DISCHARGE SUMMARY ---
General - Admit/Disc Date/PCP Admission Date/Primary Care Provider: 02/21/18 18:27 EJJEN WATTS Discharge Date: 03/10/18 - Discharge Diagnosis (1) Acute on chronic respiratory failure with hypoxemia Is this a current diagnosis for this admission?: Yes (2) End stage chronic obstructive pulmonary disease Is this a current diagnosis for this admission?: Yes (3) Acute on chronic diastolic heart failure Is this a current diagnosis for this admission?: Yes (4) Chronic atrial fibrillation Is this a current diagnosis for this admission?: Yes (5) Diabetes mellitus type 2 in obese Is this a current diagnosis for this admission?: Yes (6) HTN (hypertension) Is this a current diagnosis for this admission?: Yes (7) HLD (hyperlipidemia) Is this a current diagnosis for this admission?: Yes (8) BPH loc w urin obs/LUTS Is this a current diagnosis for this admission?: Yes (9) Pleural effusion, right Is this a current diagnosis for this admission?: Yes (10) Severe pulmonary arterial systolic hypertension Is this a current diagnosis for this admission?: Yes - Additional Information Discharge Diet: Cardiac, Diabetic Discharge Activity: Activity As Tolerated, Balance Activity w/Rest, Weigh Daily Prescriptions: Allopurinol [Zyloprim 300 mg Tablet] 300 mg PO DAILY #90 tablet Amlodipine/Atorvastatin [Amlodipine-Atorvast 10-40 mg] 1 each PO DAILY #90 tablet Atenolol [Tenormin] 25 mg PO DAILY #90 tablet Budesonide [Pulmicort Neb 0.5 mg/2 ml Ampul] 0.5 mg NEB RTQ12 #120 ampul.neb Cyanocobalamin (Vitamin B-12) [Vitamin B-12] 1,000 mcg PO DAILY #90 capsule Docusate Calcium [Stool Softener] 240 mg PO DAILY #90 capsule MDD 2 CAPS Famotidine [Pepcid 20 mg Tablet] 20 mg PO QPM #90 tablet Ferrous Sulfate [Feosol 325 mg Tablet] 325 mg PO DAILY #90 tablet Finasteride [Proscar 5 mg Tablet] 5 mg PO DAILY #90 tablet Folic Acid 0.8 mg PO DAILY #90 tablet Formoterol Fumarate [Perforomist] 20 mcg IH Q12 #180 unit Ipratropium/Albuterol Sulfate [Duoneb 3 ml Ampul] 3 ml NEB RTQ4HP PRN #120 vial.neb PRN Reason: Lisinopril [Prinivil 2.5 mg Tablet] 2.5 mg PO DAILY #90 tablet Metformin HCl [Glucophage 500 mg Tablet] 500 mg PO BID #180 tablet Nystatin [Mycostatin Cream 15 gm] 1 applic TP BID #60 gm Kopperl-3/Dha/Epa/Fish Oil [Fish Oil 1,000 mg Softgel] 1 each PO DAILY #90 capsule Tamsulosin HCl [Flomax 0.4 mg Cap.sr] 0.4 mg PO DAILY #90 cap.sr.24h Tiotropium [place] [Spiriva Respimat] 2 puff IH DAILY #90 mist.inhal Warfarin Sodium [Coumadin 3 mg Tablet] 3 mg PO SuSa@2199 #30 tablet Warfarin Sodium [Coumadin 3 mg Tablet] 6 mg PO MoTuWeThFr@2199 #60 tablet Home Medications: Ascorbic Acid [Vitamin C 500 mg Tablet] 500 mg PO DAILY 02/03/18 Aspirin [Ecotrin 81 mg EC Tablet] 81 mg PO DAILY 02/03/18 Cholecalciferol (Vitamin D3) [Vitamin D3 2000 unit Tablet] 2,000 unit PO DAILY 02/03/18 Furosemide [Lasix 20 mg Tablet] 20 mg PO QAM 02/03/18 Insulin Regular, Human [Humulin R (Reg) Insulin 100 unit/mL] 0 unit SUBCUT .SLD SCALE 02/03/18 Allopurinol [Zyloprim 300 mg Tablet] 300 mg PO DAILY #90 tablet 03/10/18 Amlodipine/Atorvastatin [Amlodipine-Atorvast 10-40 mg] 1 each PO DAILY #90 tablet 03/10/18 Atenolol [Tenormin] 25 mg PO DAILY #90 tablet 03/10/18 Budesonide [Pulmicort Neb 0.5 mg/2 ml Ampul] 0.5 mg NEB RTQ12 #120 ampul.neb 03/10/18 Cyanocobalamin (Vitamin B-12) [Vitamin B-12] 1,000 mcg PO DAILY #90 capsule 03/10/18 Docusate Calcium [Stool Softener] 240 mg PO DAILY #90 capsule MDD 2 CAPS 03/10/18 Famotidine [Pepcid 20 mg Tablet] 20 mg PO QPM #90 tablet 03/10/18 Ferrous Sulfate [Feosol 325 mg Tablet] 325 mg PO DAILY #90 tablet 03/10/18 Finasteride [Proscar 5 mg Tablet] 5 mg PO DAILY #90 tablet 03/10/18 Folic Acid 0.8 mg PO DAILY #90 tablet 03/10/18 Formoterol Fumarate [Perforomist] 20 mcg IH Q12 #180 unit 03/10/18 Ipratropium/Albuterol Sulfate [Duoneb 3 ml Ampul] 3 ml NEB RTQ4HP PRN #120 vial.neb 03/10/18 Lisinopril [Prinivil 2.5 mg Tablet] 2.5 mg PO DAILY #90 tablet 03/10/18 Metformin HCl [Glucophage 500 mg Tablet] 500 mg PO BID #180 tablet 03/10/18 Nystatin [Mycostatin Cream 15 gm] 1 applic TP BID #60 gm 03/10/18 Kopperl-3/Dha/Epa/Fish Oil [Fish Oil 1,000 mg Softgel] 1 each PO DAILY #90 capsule 03/10/18 Tamsulosin HCl [Flomax 0.4 mg Cap.sr] 0.4 mg PO DAILY #90 cap.sr.24h 03/10/18 Tiotropium [place] [Spiriva Respimat] 2 puff IH DAILY #90 mist.inhal 03/10/18 Warfarin Sodium [Coumadin 3 mg Tablet] 3 mg PO SuSa@2200 #30 tablet 03/10/18 Warfarin Sodium [Coumadin 3 mg Tablet] 6 mg PO MoTuWeThFr@2200 #60 tablet 03/10/18 History of Present Illness Patient complains of: worsening shortness of breath with minimal exertion. History of Present Illness: DONALD WESTON is a 77 year old male patient known to my practice who was brought to the ED via EMS due to reported worsening shortness of breath with minimal exertion. Patient claimed compliance with his home medication and supplemental oxygen usage via nasal cannula at 2-4L/min. He reported that walking to his bathroom was enough to make him very short of breath. He denied any associated chest pain, awareness of any palpitation or irregular heartbeat. EMS crew found him hypoxemic in felid with oxygen saturation at 67% on supplemental oxygen at 2L/min and clear lung upon auscultation. He was recently discharged from this hospital after treatment for Pneumonia and diastolic CHF. His initial ED evaluation was significant for elevated NT Pro-BNP. There was concern for possible pneumonia in view of his reported of chills, running nose, sore throat and productive cough in this elderly patient with end stage COPD on supplemental oxygen. Patient reported completion of his antibiotic since recent discharged home. His morbidities include chronic atrial fibrillation, Hypertension, CAD with old [place], Hyperlipidemia, Diabetes Mellitus Type 2, Gas troesophageal Reflux Disease, Osteoarthritis. Hospital Course Hospital Course: Patient was admitted for worsening SOB with exertional despite use of bronchodil ators and supplemental oxygen at home. Initial concern was possible exacerbated COPD and congestive heart failure. He was seen in consultation by Dr. Winn, garage door hanger, and Dr. Machado, central office mechanic for input into his care due to complexity of his presentation. Patient was maintain on BiPAP support due to associated hypoxemia and demonstrable desaturation of pulse oximetry oxygen reading whenever he was taken off such support. His chest CT scan revealed multiple spotty adenopathy with left loculated pleural effusion that was comparative bigger than right side finding. His left US guided thoracentesis revealed about 88 ml of pleural fluid and cytology evaluation was devoid of atypia or malignant cells. His echocardiogram that was done on 02/03/2018 suggested LV EF at 50-55% with mild concentric LVH, mild RV dilatation, severely dilated left atrium and moderate to severely dilated right atrium. There was severe pulmonary hypertension by echo criteria on this study. His bedside PFT revealed severe obstructive ventilatory defect with inferred severe restrictive ventilatory restriction. His care was complicated by difficulty with weaning him off noninvasive ventilatory support. Patient was eventually approved for Trilogy support with supplemental oxygen upon discharge. He will be discharge home today in fairly stable condition but poor prognosis and high risk of readmission due to end stage COPD with hypoxemia. he will follow up with Dr. Winn and myself as instructed upon discharge. Physical Exam Vital Signs: Temp Pulse Resp BP Pulse Ox 97.7 F 80 25 H 118/63 92 03/10/18 07:50 03/10/18 07:50 03/10/18 07:50 03/10/18 07:50 03/10/18 07:50 Pulse Oximeter Continuous Start: 02/22/18 10:49 Freq: RTQ4 Status: Complete Protocol: Document 02/28/18 12:12 [facility] (Rec: 02/28/18 12:13 [facility] [id number]) Pulse Oximetry Assessment Oxygen Saturation (92-100) 92 Oxygen Delivery Method Bi-pap Fraction of Inspired Oxygen (FIO2) 50 Equipment Usage Equipment in Use Continuous SpO2 Machine # 11 Intake & Output 03/09/18 03/10/18 03/11/18 06:59 06:59 06:59 Intake Total 1867 1011 Output Total 600 750 Balance 1267 261 Weight 102.3 kg 102.6 kg Physical Exam: General appearance: PRESENT: mild distress - on supplemental oxygen via BiPAP and non-rebreathing face mask while eating. Head exam: PRESENT: atraumatic, normocephalic Eye exam: PRESENT: conjunctiva pink, EOMI, PERRLA. ABSENT: pallor, scleral icterus Ear exam: PRESENT: normal external ear exam Mouth exam: PRESENT: moist Respiratory exam: PRESENT: clear to auscultation nelda, decreased breath sounds - at lung bases Cardiovascular exam: PRESENT: irregular rhythm, +S1, +S2 GI/Abdominal exam: PRESENT: normal bowel sounds, soft. ABSENT: distended, guarding, mass, organomegaly, rebound, tenderness Extremities exam: ABSENT: pedal edema Neurological exam: PRESENT: alert, awake, oriented to person, oriented to place, oriented to time, oriented to situation, CN II-XII grossly intact. ABSENT: motor sensory deficit Psychiatric exam: PRESENT: appropriate affect, normal mood. ABSENT: homicidal ideation, suicidal ideation Skin exam: PRESENT: dry, intact, warm ABSENT: cyanosis, rash Results Laboratory Results: 03/08/18 06:55 03/03/18 05:28 02/20/18 02/20/18 11:25 11:25 Creatine Kinase 30 L CK-MB (CK-2) 1.19 Troponin I < 0.012 NT-Pro-B Natriuret Pep 3490 H Impressions: Chest CT 02/22/18 00:00 IMPRESSION: Pleural effusions as described. These have increased since the prior study. Mediastinal adenopathy. Atherosclerosis. Cardiomegaly. Mild pulmonary edema is suggested. Thoracentesis Ultrasound 02/24/18 11:22 IMPRESSION: SUCCESSFUL THORACENTESIS USING ULTRASOUND GUIDANCE. Chest X-Ray 03/02/18 00:00 IMPRESSION: 1. No significant interval changes since the prior study dated 02/24/2018. Bilateral pleural effusions. Qualifiers - * PATIENT BEING DISCHARGED WITH ANY OF THE FOLLOWING DIAGNOSIS: No Plan Discharge Plan: Discharge home today with follow up appointment as instructed upon discharge.
[2018-03-11] MEDS ORDERED: WARFARIN SODIUM 3 MG TABLET PO SCH (22:00)
== END 2018-03-10 18:00 | disposition home health service (06) | DRG 189 ==
LOC: ER 11:02 → EH 14:51 → 3N 18:50 → OBSVTOIN 02-21 18:27 → 3S 02-21 20:06 → UNDODISIN 03-10 16:43
PROVIDERS: ADMIT Internal Medicine Geriatric Medicine; ATTEND Internal Medicine Geriatric Medicine
PROC: 5A09557 Assistance with Respiratory Ventilation, Greater than 96 Consecutive Hours, Continuous Positive Airway Pressure (ICD-10-PCS; principal; 2018-02-22)
PROC: 30233L1 Transfusion of Nonautologous Fresh Plasma into Peripheral Vein, Percutaneous Approach (ICD-10-PCS; 2018-02-23)
PROC: 0W993ZX Drainage of Right Pleural Cavity, Percutaneous Approach, Diagnostic (ICD-10-PCS; 2018-02-24)
PROC: 3E0F73Z Introduction of Anti-inflammatory into Respiratory Tract, Via Natural or Artificial Opening (ICD-10-PCS; 2018-03-07)
DX: J96.21 Acute and chronic respiratory failure with hypoxia (principal); I50.33 Acute on chronic diastolic (congestive) heart failure; J18.1 Lobar pneumonia, unspecified organism; J90 Pleural effusion, not elsewhere classified; J44.0 Chronic obstructive pulmonary disease with (acute) lower respiratory infection; I13.10 Hypertensive heart and chronic kidney disease without heart failure, with stage 1 through stage 4 chronic kidney disease, or unspecified chronic kidney disease; I48.2 Chronic atrial fibrillation; I27.22 Pulmonary hypertension due to left heart disease; J44.9 Chronic obstructive pulmonary disease, unspecified; E78.00 Pure hypercholesterolemia, unspecified; N40.1 Benign prostatic hyperplasia with lower urinary tract symptoms; I27.21 Secondary pulmonary arterial hypertension; I25.10 Atherosclerotic heart disease of native coronary artery without angina pectoris; K21.9 Gastro-esophageal reflux disease without esophagitis; M19.90 Unspecified osteoarthritis, unspecified site; N18.3 Chronic kidney disease, stage 3 (moderate); G47.33 Obstructive sleep apnea (adult) (pediatric); I08.3 Combined rheumatic disorders of mitral, aortic and tricuspid valves; E11.51 Type 2 diabetes mellitus with diabetic peripheral angiopathy without gangrene; E66.9 Obesity, unspecified; Z71.3 Dietary counseling and surveillance; I25.2 Old myocardial infarction; Z79.4 Long term (current) use of insulin; Z79.01 Long term (current) use of anticoagulants; Z79.82 Long term (current) use of aspirin; Z79.899 Other long term (current) drug therapy; Z79.84 Long term (current) use of oral hypoglycemic drugs; Z95.1 Presence of aortocoronary bypass graft; Z99.81 Dependence on supplemental oxygen; Z87.891 Personal history of nicotine dependence; Z85.038 Personal history of other malignant neoplasm of large intestine; Z82.49 Family history of ischemic heart disease and other diseases of the circulatory system; Z80.9 Family history of malignant neoplasm, unspecified
CPT/HCPCS: 32555; 36415; 36430; 36600; 71045; 71046; 71250; 80048; 80053; 81001; 82150; 82550; 82553; 82803; 82945; 82962; 83615; 83735; 83880; 84157; 84484; 85025; 85027; 85610; 85730; 86900; 86901; 87015; 87040; 87070; 87075; 87077; 87101; 87116; 87186; 87205; 87206; 87804; 88305; 89050; 93005; 93010; 94660; 94762; 96365; 96366; 96367; 96368; 96375; 99285; G0378; J1650; J1815; J1940; J1956; J2543; J3370; J3430; J3490; J7620; P9017

== ENCOUNTER 2018-03-11 03:04 | Inpatient (IN) | payer MEDICARE, OTHER ==
--- NOTE | 2018-03-11 03:13 | ER Document Report ---
ED General - General Stated Complaint: TROUBLE BREATHING Time Seen by Provider: 03/11/18 03:12 Notes: Patient is a 77-year-old male who presents with complaint of difficulty breathing. He was just discharged from hospital after being on BiPAP for long period time. They sent him home with a trilogy machine. He says since going home his breathing has rapidly become much worse. When paramedics arrived his O2 saturation was 68%. They placed him on their own CPAP which only brought his oxygen saturations in the 70s. He denies any fevers. No chest pain. He says he just feels very short of breath. No abdominal pain. No other complaints at this time. TRAVEL OUTSIDE OF THE [place] IN LAST 30 DAYS: No - Related Data Allergies/Adverse Reactions: No Known Allergies Allergy (Verified 03/11/18 03:24) Past Medical History - Social History Smoking Status: Former Smoker Frequency of alcohol use: None Drug Abuse: None Family History: Hypertension, Malignancy - Past Medical History Cardiac Medical History: Reports: Hx Atrial Fibrillation, Hx Heart Attack, Hx Hypercholesterolemia, Hx Hypertension Pulmonary Medical History: Reports: Hx COPD, Hx Pneumonia Neurological Medical History: Denies: Hx Seizures Endocrine Medical History: Reports: Hx Diabetes Mellitus Type 2. Denies: Hx Hyperthyroidism, Hx Hypothyroidism Renal/ Medical History: Denies: Hx Peritoneal Dialysis Malignancy Medical History: Reports Hx Colorectal Cancer GI Medical History: Reports: Hx Gastroesophageal Reflux Disease. Denies: Hx Crohn's Disease, Hx Ulcerative Colitis Musculoskeletal Medical History: Reports Hx Arthritis Skin Medical History: Denies Hx Eczema, Denies Hx Psoriasis Psychiatric Medical History: Denies: Hx Depression Infectious Medical History: Denies: Hx HIV Past Surgical History: Reports: Hx Abdominal Surgery, Hx Appendectomy, Hx Cardiac Surgery - triple bypass, AAA repair, Hx Coronary Artery Bypass Graft - 3 vessels, Hx Tonsillectomy, Other - AAA - Immunizations Hx Pneumococcal Vaccination: 03/10/16 Review of Systems - Review of Systems Notes: My Normal Review Basic REVIEW OF SYSTEMS: CONSTITUTIONAL : Denies. Recent hospitalization. EENT: Denies eye, ear, throat, or mouth pain or symptoms. Denies nasal or sinus congestion. CARDIOVASCULAR: Denies chest pain. RESPIRATORY: Cold to breathing GASTROINTESTINAL: Denies abdominal pain. Denies nausea, vomiting, or diarrhea. MUSCULOSKELETAL: Denies neck or back pain or joint pain or swelling. SKIN: Denies rash or skin lesions. NEUROLOGICAL: Denies altered mental status or loss of consciousness. ALL OTHER SYSTEMS REVIEWED AND NEGATIVE. Physical Exam - Vital signs Vitals: Resp BP Pulse Ox 25 H 135/80 H 92 03/11/18 03:08 03/11/18 03:08 03/11/18 03:08 - Notes Notes: General Appearance: Well nourished, alert, cooperative, moderate acute distress, no obvious discomfort. Vitals: reviewed, See vital signs table. Head: no swelling or tenderness to the head Eyes: PERRL, EOMI, Conjuctiva clear Mouth: No decreasd moisture Lungs: Some basilar rales. Accessory muscle use. Patient able speak in 2-3 word sentences. Heart: Tachycardic rate, Regular rythm, No murmur, no rub Abdomen: Normal BS, soft, No rigidity, No abdominal tenderness, No guarding, no rebound, Extremities: good pulses in all extremities, no swelling or tenderness in the extremities, no edema. Skin: warm, dry, appropriate color, no rash Neuro: speech clear, oriented x 3, normal affect, responds appropriately to questions. Course - Re-evaluation Re-evalutation: 03/11/18 04:39 Patient continues look much improved on the BiPAP. His oxygen saturations about 96%. This is with an FiO2 of 100%. He seems very BiPAP dependent. He is awake alert answering all questions appropriately and does not have any increased work of breathing on the BiPAP. I will consult the hospitalist for consideration for admission. Patient's chest x-ray is read as possible pneumonia. I reviewed his chest x-ray and this appears chronic. I compared it to all his chest x-rays going back to January. He has the exact same pattern on his chest x-rays. He has no leukocytosis and no fever. I will not start on antibiotics as I do not believe this is related to pneumonia. 03/11/18 04:43 03/11/18 05:01 I did speak with Dr. Diallo who is covering for Dr. Watts. He agrees to accept the patient on behalf of of Dr. Watts Dictation of this chart was performed using voice recognition software; therefore, there may be some unintended grammatical errors. - Vital Signs Vital signs: Temp Pulse Resp BP Pulse Ox 97.6 F 102 H 22 H 115/73 94 03/11/18 04:00 03/11/18 03:16 03/11/18 04:30 03/11/18 04:01 03/11/18 04:30 - Laboratory Result Diagrams: 03/11/18 03:15 03/11/18 03:15 Laboratory results interpreted by me: 03/11/18 03/11/18 03:15 03:15 RBC 3.31 L Hgb 10.4 L Hct 31.4 L RDW 17.1 H Glucose 159 H Alkaline Phosphatase 143 H - EKG Interpretation by Me Additional EKG results interpreted by me: 03/11/18 03:13 EKGs reviewed and interpreted by me. EKG shows A. fib with a rate of 101 bpm. Occasional PVC. No ST segment elevation. Some mild ST segment depression in lateral precordial leads. QRS duration and QT intervals are within normal range. Discharge - Discharge Clinical Impression: Acute hypoxemic respiratory failure, Acute on chronic diastolic heart failure Pulmonary edema Qualifiers: Chronicity: chronic Qualified Code(s): J81.1 - Chronic pulmonary edema Condition: Stable Disposition: ADMITTED INPATIENT Admitting Provider: Vilma Unit Admitted: IMCU Referrals: EJ WATTS MD [Primary Care Provider] - Follow up as needed
[2018-03-11 03:25] LABS: ABSOLUTE BASOPHILS # (AUTO) 0.1 10^3/uL (0.0-0.2); ABSOLUTE EOSINOPHILS # (AUTO) 0.1 10^3/uL (0.0-0.6); ABSOLUTE LYMPHOCYTES (AUTO) 1.5 10^3/uL (0.5-4.7); ABSOLUTE MONOCYTES (AUTO) 0.5 10^3/uL (0.1-1.4); ABSOLUTE NEUT (AUTO) 4.1 10^3/uL (1.7-8.2); BASOPHILS % (AUTO) 0.8 % (0-2); EOSINOPHILS % (AUTO) 1.8 % (0-6); HEMATOCRIT 31.4 % (37.9-51.0); HEMOGLOBIN 10.4 g/dL (13.5-17.0); LYMPHOCYTES % (AUTO) 23.7 % (13-45); MEAN CORPUSCULAR HEMOGLOBIN 31.4 pg (27.0-33.4); MEAN CORPUSCULAR HGB CONC 33.1 g/dL (32.0-36.0); MEAN CORPUSCULAR VOLUME 95 fl (80-97); MONOCYTES % (AUTO) 7.7 % (3-13); PLATELET COUNT 192 10^3/uL (150-450); RED BLOOD COUNT 3.31 10^6/uL (4.35-5.55); RED CELL DISTRIBUTION WIDTH 17.1 % (11.5-14.0); TOTAL CELLS COUNTED % (AUTO) 100 %; WHITE BLOOD COUNT 6.2 10^3/uL (4.0-10.5)
[2018-03-11 03:29] LABS: VENOUS BLOOD BASE EXCESS 1.5 mmol/L; VENOUS BLOOD HCO3 27.2 mmol/L (20-32); VENOUS BLOOD PCO2 47.3 mmHg (35-63); VENOUS BLOOD PH 7.38 (7.30-7.42)
--- NOTE | 2018-03-11 03:41 | RADIOLOGY REPORT (SQ) ---
CLINICAL HISTORY: dyspnea COMPARISON: None. TECHNIQUE: XR CHEST 1 VIEW 03/11/2018 3:14 AM CARPET MECHANIC FINDINGS: Cardiac silhouette is enlarged. Sternotomy was performed. There is bibasilar airspace disease. There is a moderate right pleural effusion. There is a small left pleural effusion. There is no pneumothorax. There are no acute osseous findings. IMPRESSION: Bibasilar pneumonia with pleural effusions.
[2018-03-11 03:42] LABS: ALANINE AMINOTRANSFERASE 25 U/L (21-72); ALBUMIN 3.8 g/dL (3.5-5.0); ALKALINE PHOSPHATASE 143 U/L (38-126); ANION GAP 11 (5-19); ASPARTATE AMINO TRANSFERASE 24 U/L (17-59); BILIRUBIN,DIRECT 0.3 mg/dL (0.0-0.4); BILIRUBIN,TOTAL 0.9 mg/dL (0.2-1.3); BLOOD UREA NITROGEN 20 mg/dL (7-20); CALCIUM 9.6 mg/dL (8.4-10.2); CARBON DIOXIDE 24 mmol/L (22-30); CHLORIDE 105 mmol/L (98-107); GLUCOSE 159 mg/dL (75-110); POTASSIUM 4.7 mmol/L (3.6-5.0); SODIUM 139.5 mmol/L (137-145); TOTAL PROTEIN 6.7 g/dL (6.3-8.2)
[2018-03-11] MEDS ORDERED: FUROSEMIDE INJ/PF 20 MG/2 ML SDV IV ONE (04:31)
[2018-03-11] MEDS ORDERED: ENOXAPARIN SODIUM INJ 40 MG/0.4 ML DISP.SYRIN SUBCUT SCH (06:00)
[2018-03-11 06:07] LABS: INTERNATIONAL RATION (INR) 2.27; PROTHROMBIN TIME 26.1 SEC (11.4-15.4)
[2018-03-11 06:08] LABS: PARTIAL THROMBOPLASTIN TIME 53.2 SEC (23.5-35.8)
[2018-03-11 06:25] LABS: LIPASE 136.3 U/L (23-300); PHOSPHORUS 3.2 mg/dL (2.5-4.5)
--- NOTE | 2018-03-11 06:40 | EKG REPORT ---
SEVERITY:- ABNORMAL ECG - ATRIAL FIBRILLATION PAIRED VENTRICULAR PREMATURE COMPLEXES : Confirmed by: Aime Gomez MD 11-Mar-2018 06:38:53
[2018-03-11 06:42] LABS: FREE T4 (FREE THYROXINE) 1.36 ng/dL (0.78-2.19)
[2018-03-11 06:52] LABS: ARTERIAL BLOOD BASE EXCESS 3.5 mmol/L; ARTERIAL BLOOD HCO3 28.2 mmol/L (20-24); ARTERIAL BLOOD O2 SATURATION 91.8 % (94-98); ARTERIAL BLOOD PCO2 43.3 mmHg (35-45); ARTERIAL BLOOD PH 7.43 (7.35-7.45); ARTERIAL BLOOD PO2 60.6 mmHg (80-100); ARTERIAL BLOOD TOTAL CO2 29.5 mmol/L (23-27)
[2018-03-11 06:54] LABS: ARTERIAL BLOOD FIO2 100%
[2018-03-11 06:56] LABS: THYROID STIMULATING HORMONE 1.89 uIU/mL (0.47-4.68)
[2018-03-11 07:07] LABS: CREATINE KINASE MB 0.85 ng/mL (<4.55)
[2018-03-11 07:09] LABS: TROPONIN I < 0.012 ng/mL
[2018-03-11 13:22] LABS: CREATINE KINASE MB 1.02 ng/mL (<4.55)
[2018-03-11 13:27] LABS: TROPONIN I < 0.012 ng/mL
[2018-03-11] MEDS ORDERED: (PENDING PHARMACY ID) (Tiotropium Bromide [Spiriva Respimat] 2 PUFF) IH SCH ×2 (15:00→16:00)
[2018-03-11] MEDS ORDERED: (PENDING PHARMACY ID) (Folic Acid [Folic Acid] 0.8 MG) PO SCH ×2 (15:00→16:00)
[2018-03-11] MEDS ORDERED: ATORVASTATIN PO SCH (15:00)
[2018-03-11] MEDS ORDERED: (PENDING PHARMACY ID) (Docusate Calcium [Stool Softener] 240 MG) PO SCH ×2 (15:00→16:00)
[2018-03-11] MEDS ORDERED: (PENDING PHARMACY ID) (Lisinopril [Prinivil 2.5 Mg Tablet] 2.5 MG) PO SCH (15:00)
[2018-03-11] MEDS ORDERED: (PENDING PHARMACY ID) (Ascorbic Acid [Vitamin C] 500 MG) PO SCH (15:00)
[2018-03-11] MEDS ORDERED: FORMOTEROL FUMARATE 20 MCG IH SCH ×2 (15:00→16:00)
[2018-03-11] MEDS ORDERED: AMLODIPINE PO SCH (15:00)
[2018-03-11] MEDS ORDERED: (PENDING PHARMACY ID) (Cholecalciferol (Vitamin D3) [Vitamin D3] 2,000 UNIT) PO SCH (15:00)
[2018-03-11] MEDS ORDERED: (PENDING PHARMACY ID) (Atenolol [Tenormin] 25 MG) PO SCH (15:00)
[2018-03-11] MEDS: CHOLECALCIFEROL (D3) 1,000 UNIT TABLET PO SCH (17:06)
[2018-03-11] MEDS: AMLODIPINE BESYLATE 5 MG TABLET PO SCH (17:06)
[2018-03-11] MEDS: FUROSEMIDE 20 MG TABLET PO SCH (17:06)
[2018-03-11] MEDS: ALLOPURINOL 300 MG TABLET PO SCH (17:06)
[2018-03-11] MEDS: FINASTERIDE 5 MG TABLET PO SCH (17:06)
[2018-03-11] MEDS: ATORVASTATIN CALCIUM 40 MG TABLET PO SCH (17:06)
[2018-03-11] MEDS: FERROUS SULFATE 325 MG TABLET PO SCH (17:07)
[2018-03-11] MEDS: CYANOCOBALAMIN (VITAMIN B-12) 1,000 MCG TABLET PO SCH (17:07)
[2018-03-11] MEDS: LISINOPRIL 5 MG TABLET PO SCH (17:07)
[2018-03-11] MEDS: ASCORBIC ACID 500 MG TABLET PO SCH (17:07)
[2018-03-11] MEDS: TAMSULOSIN HCL 0.4 MG CAP.SR.24H PO SCH (17:08)
[2018-03-11] MEDS: ATENOLOL 50 MG TABLET PO SCH (17:08)
[2018-03-11] MEDS: ASPIRIN 81 MG TABLET, ENT COATED PO SCH (17:08)
[2018-03-11] MEDS: FAMOTIDINE 20 MG TABLET PO SCH (17:10)
[2018-03-11] MEDS: METFORMIN HCL 500 MG TABLET PO SCH (17:10)
--- NOTE | 2018-03-11 17:51 | PDOC H&P ---
History of Present Illness Admission Date/PCP: 03/11/18 05:10 [facility] History of Present Illness: DONALD WESTON is a 77 year old maleThis patient was discharged yesterday, he has multiple chronic comorbid conditions including chronic respiratory failure, end-stage COPD, chronic diastolic heart failure, chronic atrial fibrillation, type 2 diabetes mellitus, hypertension, BPH. He was discharged home yesterday on noninvasive positive pressure ventilation trilogy, patient daughter stated that patient could not operate the noninvasive positive pressure ventilation device, trilogy, the oxygen saturation was in the low 70s patient was very symptomatic, EMS was called, he was Ambu bag and transferred to the emergency room where he was evaluated and admission into the hospital was advised.Basically this patient cannot independently breathe without a form of mechanical device, I saw on the floor he was comfortable on the BiPAP machine. 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 Past Medical History Cardiac Medical History: Reports: Atrial Fibrillation, Congestive Heart Failure, Coronary Artery Disease, Myocardial Infarction, Hyperlipidema, Hypertension Pulmonary Medical History: Reports: Chronic Obstructive Pulmonary Disease (COPD), Pneumonia Endocrine Medical History: Reports: Diabetes Mellitus Type 2 Malignancy Medical History: Reports: Colorectal Cancer GI Medical History: Reports: Gastroesophageal Reflux Disease Musculoskeltal Medical History: Reports: Arthritis Infectious Medical History: Denies: HIV Past Surgical History Past Surgical History: Reports: Appendectomy, Coronary Artery Bypass Graft - 3 vessels, Tonsillectomy, Other - AAA Social History Smoking Status: Former Smoker Frequency of Alcohol Use: None Hx Recreational Drug Use: No Drugs: None Hx Prescription Drug Abuse: No - Advance Directive Resuscitation Status: Full Code Family History Family History: Hypertension, Malignancy Parental Family History Reviewed: Yes Children Family History Reviewed: Yes Sibling(s) Family History Reviewed.: Yes Medication/Allergy Home Medications: Allopurinol [Zyloprim 300 mg Tablet] 300 mg PO DAILY 03/11/18 Amlodipine/Atorvastatin [Amlodipine-Atorvast 10-40 mg] 1 each PO DAILY 03/11/18 Ascorbic Acid [Vitamin C] 500 mg PO DAILY 03/11/18 Aspirin [Ecotrin] 81 mg PO DAILY 03/11/18 Atenolol [Tenormin] 25 mg PO DAILY 03/11/18 Budesonide [Pulmicort Neb 0.5 mg/2 ml Ampul] 0.5 mg NEB RTQ12 03/11/18 Cholecalciferol (Vitamin D3) [Vitamin D] 2,000 unit PO DAILY 03/11/18 Cyanocobalamin (Vitamin B-12) [Vitamin B-12] 1,000 mcg PO DAILY 03/11/18 Docusate Calcium [Stool Softener] 240 mg PO DAILY 03/11/18 Famotidine [Pepcid] 20 mg PO QPM 03/11/18 Ferrous Sulfate [Feosol 325 mg Tablet] 325 mg PO DAILY 03/11/18 Finasteride [Proscar 5 mg Tablet] 5 mg PO DAILY 03/11/18 Folic Acid 0.8 mg PO DAILY 03/11/18 Formoterol Fumarate [Perforomist] 20 mcg IH Q12 03/11/18 Furosemide [Lasix 20 mg Tablet] 20 mg PO QAM 03/11/18 Insulin Regular, Human [Humulin R (Pyxis) Insulin 100 Unit/ml 3Ml] 0 unit SUBCUT .SLD SCALE 03/11/18 Ipratropium/Albuterol Sulfate [Duoneb 3 ml Ampul] 3 ml NEB RTQ4HP PRN 03/11/18 Lisinopril [Prinivil 2.5 mg Tablet] 2.5 mg PO DAILY 03/11/18 Metformin HCl [Glucophage 500 mg Tablet] 500 mg PO BID 03/11/18 Nystatin [Mycostatin Cream] 1 applic TP BID 03/11/18 [place]-3/Dha/Epa/Fish Oil [[place]-3 Fish Oil 1,000 Mg Sfgl] 1,000 mg PO DAILY Tamsulosin HCl [Flomax 0.4 mg Cap.sr] 0.4 mg PO DAILY 03/11/18 Tiotropium [place] [Spiriva Respimat] 2 puff IH DAILY 03/11/18 Warfarin Sodium [Coumadin 3 mg Tablet] 3 mg PO SUSA@219903/11/18 Warfarin Sodium [Coumadin] 6 mg PO MOTUWETHFR@219903/11/18 Allergies/Adverse Reactions: No Known Allergies Allergy (Verified 03/11/18 03:24) Review of Systems Cardiovascular: PRESENT: dyspnea on exertion Respiratory: PRESENT: dyspnea Gastrointestinal: PRESENT: bloating Neurological: PRESENT: abnormal gait Physical Exam Vital Signs: Temp Pulse Resp BP Pulse Ox 97.7 F 68 26 H 104/63 97 03/11/18 15:43 03/11/18 15:43 03/11/18 16:47 03/11/18 15:43 03/11/18 15:43 Intake & Output 03/10/18 03/11/18 03/12/18 06:59 06:59 06:59 Intake Total 0 Balance 0 Weight 100.1 kg 102.4 kg General appearance: PRESENT: other - Patient on BiPAP machine Head exam: PRESENT: atraumatic, normocephalic Eye exam: PRESENT: conjunctiva pink, EOMI, PERRLA Neck exam: PRESENT: full ROM Respiratory exam: PRESENT: decreased breath sounds Cardiovascular exam: PRESENT: RRR, +S1, +S2 Pulses: PRESENT: normal dorsalis pedis pul, +2 pedal pulses bilateral Vascular exam: PRESENT: normal capillary refill GI/Abdominal exam: PRESENT: distended, normal bowel sounds, soft, other - Ventral hernia Rectal exam: PRESENT: deferred Neurological exam: PRESENT: alert, awake, oriented to person, oriented to place, oriented to time, oriented to situation, CN II-XII grossly intact Psychiatric exam: PRESENT: appropriate affect, normal mood Skin exam: PRESENT: dry, intact, warm Results Laboratory Results: 03/11/18 03:15 03/11/18 03:15 03/11/18 03/11/18 03/11/18 03:15 03:15 03:15 WBC 6.2 RBC 3.31 L Hgb 10.4 L Hct 31.4 L MCV 95 MCH 31.4 MCHC 33.1 RDW 17.1 H Plt Count 192 Seg Neutrophils % 66.0 Lymphocytes % 23.7 Monocytes % 7.7 Eosinophils % 1.8 Basophils % 0.8 Absolute Neutrophils 4.1 Absolute Lymphocytes 1.5 Absolute Monocytes 0.5 Absolute Eosinophils 0.1 Absolute Basophils 0.1 Carbonic Acid HCO3/H2CO3 Ratio ABG pH ABG pCO2 ABG pO2 ABG HCO3 ABG O2 Saturation ABG Base Excess VBG pH 7.38 VBG pCO2 47.3 VBG HCO3 27.2 VBG Base Excess 1.5 FiO2 Sodium 139.5 Potassium 4.7 Chloride 105 Carbon Dioxide 24 Anion Gap 11 BUN 20 Creatinine 1.11 Est GFR ( Amer) > 60 Est GFR (Non-Af Amer) > 60 Glucose 159 H Calcium 9.6 Phosphorus Magnesium Total Bilirubin 0.9 AST 24 ALT 25 Alkaline Phosphatase 143 H Ammonia Total Protein 6.7 Albumin 3.8 Amylase Lipase TSH Free T4 03/11/18 03/11/18 03/11/18 03:15 03:15 06:26 WBC RBC Hgb Hct MCV MCH MCHC RDW Plt Count Seg Neutrophils % Lymphocytes % Monocytes % Eosinophils % Basophils % Absolute Neutrophils Absolute Lymphocytes Absolute Monocytes Absolute Eosinophils Absolute Basophils Carbonic Acid HCO3/H2CO3 Ratio ABG pH ABG pCO2 ABG pO2 ABG HCO3 ABG O2 Saturation ABG Base Excess VBG pH VBG pCO2 VBG HCO3 VBG Base Excess FiO2 Sodium Potassium Chloride Carbon Dioxide Anion Gap BUN Creatinine Est GFR ( Amer) Est GFR (Non-Af Amer) Glucose Calcium Phosphorus 3.2 Magnesium 1.9 Total Bilirubin AST ALT Alkaline Phosphatase Ammonia < 8.7 L Total Protein Albumin Amylase 63 Lipase 136.3 TSH 1.89 Free T4 1.36 03/11/18 06:35 WBC RBC Hgb Hct MCV MCH MCHC RDW Plt Count Seg Neutrophils % Lymphocytes % Monocytes % Eosinophils % Basophils % Absolute Neutrophils Absolute Lymphocytes Absolute Monocytes Absolute Eosinophils Absolute Basophils Carbonic Acid 1.30 HCO3/H2CO3 Ratio 21:1 ABG pH 7.43 ABG pCO2 43.3 ABG pO2 60.6 L ABG HCO3 28.2 H ABG O2 Saturation 91.8 L ABG Base Excess 3.5 VBG pH VBG pCO2 VBG HCO3 VBG Base Excess FiO2 100% Sodium Potassium Chloride Carbon Dioxide Anion Gap BUN Creatinine Est GFR ( Amer) Est GFR (Non-Af Amer) Glucose Calcium Phosphorus Magnesium Total Bilirubin AST ALT Alkaline Phosphatase Ammonia Total Protein Albumin Amylase Lipase TSH Free T4 03/11/18 03/11/18 03/11/18 03:15 06:26 06:26 Creatine Kinase 26 L CK-MB (CK-2) 0.85 Troponin I < 0.012 < 0.012 03/11/18 03/11/18 12:32 12:32 Creatine Kinase 27 L CK-MB (CK-2) 1.02 Troponin I < 0.012 Impressions: Chest X-Ray 03/11/18 03:14 IMPRESSION: Bibasilar pneumonia with pleural effusions. Assessment & Plan - Diagnosis (1) Acute and chronic respiratory failure Qualifiers: Respiratory failure complication: hypoxia and hypercapnia Qualified Code(s): J96.21 - Acute and chronic respiratory failure with hypoxia; J96.22 - Acute and chronic respiratory failure with hypercapnia Is this a current diagnosis for this admission?: Yes Plan: Continue BiPAP support patient is essentially BiPAP dependent, Needs to address CODE STATUS (2) Chronic diastolic heart failure Is this a current diagnosis for this admission?: Yes (3) Chronic atrial fibrillation Is this a current diagnosis for this admission?: Yes (4) Respiratory distress Is this a current diagnosis for this admission?: Yes (5) Severe pulmonary arterial systolic hypertension Is this a current diagnosis for this admission?: Yes
[2018-03-11 18:45] LABS: TROPONIN I < 0.012 ng/mL
[2018-03-11 19:10] LABS: APPEARANCE,URINE CLEAR; BILIRUBIN,URINE NEGATIVE (NEGATIVE); COLOR,URINE YELLOW; GLUCOSE, URINE NEGATIVE (NEGATIVE); KETONES,URINE NEGATIVE (NEGATIVE); LEUKOCYTE ESTERASE,URINE NEGATIVE (NEGATIVE); NITRITE,URINE NEGATIVE (NEGATIVE); PROTEIN,URINE 30 mg/dL (NEGATIVE); URINE SPECIFIC GRAVITY 1.013; UROBILINOGEN,URINE NEGATIVE mg/dL (<2.0)
[2018-03-11 19:23] LABS: URINE AMPHETAMINES SCREEN NEGATIVE; URINE BARBITURATES SCREEN NEGATIVE; URINE BENZODIAZEPINES SCREEN NEGATIVE; URINE COCAINE SCREEN NEGATIVE; URINE MARIJUANA (THC) SCREEN NEGATIVE; URINE METHADONE SCREEN NEGATIVE; URINE PHENCYCLIDINE SCREEN NEGATIVE
[2018-03-11] MEDS: BUDESONIDE NEB 0.5 MG/2 ML AMPUL NEB SCH (20:09)
[2018-03-11 21:51] LABS: INTERNATIONAL RATION (INR) 2.14; PROTHROMBIN TIME 24.9 SEC (11.4-15.4)
[2018-03-11] MEDS ORDERED: (PENDING PHARMACY ID) (Warfarin Sodium 3 MG) PO SCH (22:00)
[2018-03-11] MEDS: WARFARIN SODIUM 3 MG TABLET PO SCH (22:18)
[2018-03-12 06:17] LABS: ABSOLUTE BASOPHILS # (AUTO) 0.1 10^3/uL (0.0-0.2); ABSOLUTE EOSINOPHILS # (AUTO) 0.2 10^3/uL (0.0-0.6); ABSOLUTE LYMPHOCYTES (AUTO) 0.8 10^3/uL (0.5-4.7); ABSOLUTE MONOCYTES (AUTO) 0.5 10^3/uL (0.1-1.4); BASOPHILS % (AUTO) 1.5 % (0-2); EOSINOPHILS % (AUTO) 3.3 % (0-6); HEMOGLOBIN 9.6 g/dL (13.5-17.0); LYMPHOCYTES % (AUTO) 14.6 % (13-45); MEAN CORPUSCULAR HEMOGLOBIN 31.2 pg (27.0-33.4); MEAN CORPUSCULAR VOLUME 95 fl (80-97); MONOCYTES % (AUTO) 9.3 % (3-13); PLATELET COUNT 193 10^3/uL (150-450); RED BLOOD COUNT 3.07 10^6/uL (4.35-5.55); RED CELL DISTRIBUTION WIDTH 16.4 % (11.5-14.0); SEGMENTED NEUTROPHILS % (AUTO) 71.3 % (42-78); TOTAL CELLS COUNTED % (AUTO) 100 %; WHITE BLOOD COUNT 5.7 10^3/uL (4.0-10.5)
[2018-03-12 06:41] LABS: ALANINE AMINOTRANSFERASE 23 U/L (21-72); ALBUMIN 3.4 g/dL (3.5-5.0); ALKALINE PHOSPHATASE 117 U/L (38-126); ANION GAP 7 (5-19); ASPARTATE AMINO TRANSFERASE 17 U/L (17-59); BILIRUBIN,DIRECT 0.3 mg/dL (0.0-0.4); BILIRUBIN,TOTAL 0.9 mg/dL (0.2-1.3); BLOOD UREA NITROGEN 18 mg/dL (7-20); CALCIUM 9.5 mg/dL (8.4-10.2); CARBON DIOXIDE 28 mmol/L (22-30); CHLORIDE 104 mmol/L (98-107); CHOLESTEROL 106.13 mg/dL (0-200); GLUCOSE 131 mg/dL (75-110); POTASSIUM 4.4 mmol/L (3.6-5.0); SODIUM 138.8 mmol/L (137-145); TOTAL PROTEIN 6.1 g/dL (6.3-8.2); TRIGLYCERIDES 97 mg/dL (<150)
[2018-03-12 06:51] LABS: DIRECT LDL 58 mg/dL (<100)
[2018-03-12] MEDS: IPRATROPIUM/ALBUTEROL 0.5-2.5 MG/3 ML AMPUL NEB PRN (08:32)
[2018-03-12] MEDS: BUDESONIDE NEB 0.5 MG/2 ML AMPUL NEB SCH ×2 (08:32→20:48)
[2018-03-12] MEDS: ASPIRIN 81 MG TABLET, ENT COATED PO SCH (10:10)
[2018-03-12] MEDS: ASCORBIC ACID 500 MG TABLET PO SCH (10:10)
[2018-03-12] MEDS: ALLOPURINOL 300 MG TABLET PO SCH (10:10)
[2018-03-12] MEDS: METFORMIN HCL 500 MG TABLET PO SCH ×2 (10:10→18:28)
[2018-03-12] MEDS: ATORVASTATIN CALCIUM 40 MG TABLET PO SCH (10:10)
[2018-03-12] MEDS: LISINOPRIL 5 MG TABLET PO SCH (10:10)
[2018-03-12] MEDS: CYANOCOBALAMIN (VITAMIN B-12) 1,000 MCG TABLET PO SCH (10:11)
[2018-03-12] MEDS: ATENOLOL 50 MG TABLET PO SCH (10:11)
[2018-03-12] MEDS: FERROUS SULFATE 325 MG TABLET PO SCH (10:11)
[2018-03-12] MEDS: AMLODIPINE BESYLATE 5 MG TABLET PO SCH (10:11)
[2018-03-12] MEDS: TAMSULOSIN HCL 0.4 MG CAP.SR.24H PO SCH (10:11)
[2018-03-12] MEDS: FINASTERIDE 5 MG TABLET PO SCH (10:11)
[2018-03-12] MEDS: CHOLECALCIFEROL (D3) 1,000 UNIT TABLET PO SCH (10:11)
[2018-03-12] MEDS: FUROSEMIDE 20 MG TABLET PO SCH (10:11)
--- NOTE | 2018-03-12 14:22 | PDOC PROGRESS REPORT ---
Subjective Progress Note for:: 03/12/18 Subjective:: Patient seen by the bedside he continues to require BiPAP for breathing, blood culture grew gram positive patricia most likely corynebacterium or bacillus or Clostridium likely from contamination presently not on antibiotic chest x-ray suggests pneumonia most likely it is fluid. He has no fever he has no leukocytosis to suggest infection Reason For Visit: RESPIRATORY FAILURE Physical Exam Vital Signs: Temp Pulse Resp BP Pulse Ox 97.6 F 71 29 H 119/63 91 L 03/12/18 11:56 03/12/18 11:56 03/12/18 13:45 03/12/18 11:56 03/12/18 13:45 Intake & Output 03/11/18 03/12/18 03/13/18 06:59 06:59 06:59 Intake Total 220 118 Output Total 1600 310 Balance -1380 -192 Weight 100.1 kg 101.2 kg General appearance: PRESENT: severe distress Eye exam: PRESENT: PERRLA Respiratory exam: PRESENT: other - Auscultation of the chest reveal equal air entry in both lung hernadez Cardiovascular exam: PRESENT: +S1, +S2, systolic murmur GI/Abdominal exam: PRESENT: hernia, soft Neurological exam: PRESENT: alert Results Laboratory Results: 03/12/18 06:06 03/12/18 06:06 03/11/18 03/12/18 03/12/18 17:20 06:06 06:06 WBC 5.7 RBC 3.07 L Hgb 9.6 L Hct 29.0 L MCV 95 MCH 31.2 MCHC 33.0 RDW 16.4 H Plt Count 193 Seg Neutrophils % 71.3 Lymphocytes % 14.6 Monocytes % 9.3 Eosinophils % 3.3 Basophils % 1.5 Absolute Neutrophils 4.0 Absolute Lymphocytes 0.8 Absolute Monocytes 0.5 Absolute Eosinophils 0.2 Absolute Basophils 0.1 Sodium 138.8 Potassium 4.4 Chloride 104 Carbon Dioxide 28 Anion Gap 7 BUN 18 Creatinine 1.02 Est GFR ( Amer) > 60 Est GFR (Non-Af Amer) > 60 Glucose 131 H Calcium 9.5 Magnesium Total Bilirubin 0.9 AST 17 ALT 23 Alkaline Phosphatase 117 Total Protein 6.1 L Albumin 3.4 L Triglycerides 97 Cholesterol 106.13 LDL Cholesterol Direct 58 VLDL Cholesterol 19.0 HDL Cholesterol 32 L Urine Color YELLOW Urine Appearance CLEAR Urine pH 6.0 Ur Specific [place] 1.013 Urine Protein 30 H Urine Glucose (UA) NEGATIVE Urine Ketones NEGATIVE Urine Blood NEGATIVE Urine Nitrite NEGATIVE Ur Leukocyte Esterase NEGATIVE Urine WBC (Auto) 2 Urine RBC (Auto) 1 03/12/18 06:06 WBC RBC Hgb Hct MCV MCH MCHC RDW Plt Count Seg Neutrophils % Lymphocytes % Monocytes % Eosinophils % Basophils % Absolute Neutrophils Absolute Lymphocytes Absolute Monocytes Absolute Eosinophils Absolute Basophils Sodium Potassium Chloride Carbon Dioxide Anion Gap BUN Creatinine Est GFR ( Amer) Est GFR (Non-Af Amer) Glucose Calcium Magnesium 1.9 Total Bilirubin AST ALT Alkaline Phosphatase Total Protein Albumin Triglycerides Cholesterol LDL Cholesterol Direct VLDL Cholesterol HDL Cholesterol Urine Color Urine Appearance Urine pH Ur Specific [place] Urine Protein Urine Glucose (UA) Urine Ketones Urine Blood Urine Nitrite Ur Leukocyte Esterase Urine WBC (Auto) Urine RBC (Auto) 03/11/18 03/11/18 03/11/18 03:15 06:26 06:26 Creatine Kinase 26 L CK-MB (CK-2) 0.85 Troponin I < 0.012 < 0.012 03/11/18 03/11/18 03/11/18 12:32 12:32 18:09 Creatine Kinase 27 L 33 L CK-MB (CK-2) 1.02 Troponin I < 0.012 03/11/18 18:09 Creatine Kinase CK-MB (CK-2) 1.10 Troponin I < 0.012 Impressions: Chest X-Ray 03/11/18 03:14 IMPRESSION: Bibasilar pneumonia with pleural effusions. Assessment & Plan - Diagnosis (1) Acute and chronic respiratory failure Qualifiers: Respiratory failure complication: hypoxia and hypercapnia Qualified Code(s): J96.21 - Acute and chronic respiratory failure with hypoxia; J96.22 - Acute and chronic respiratory failure with hypercapnia Is this a current diagnosis for this admission?: Yes (2) Chronic diastolic heart failure Is this a current diagnosis for this admission?: Yes (3) Chronic atrial fibrillation Is this a current diagnosis for this admission?: Yes (4) Respiratory distress Is this a current diagnosis for this admission?: Yes (5) Severe pulmonary arterial systolic hypertension Is this a current diagnosis for this admission?: Yes - Plan Summary Plan Summary: Continue noninvasive positive pressure ventilation with BiPAP continue present treatment
[2018-03-12] MEDS: FAMOTIDINE 20 MG TABLET PO SCH (18:28)
[2018-03-12 21:04] LABS: INTERNATIONAL RATION (INR) 2.22; PROTHROMBIN TIME 25.7 SEC (11.4-15.4)
[2018-03-12] MEDS: WARFARIN SODIUM 3 MG TABLET PO SCH (21:05)
[2018-03-13] MEDS: IPRATROPIUM/ALBUTEROL 0.5-2.5 MG/3 ML AMPUL NEB PRN ×2 (03:28→08:11)
[2018-03-13 05:31] LABS: ABSOLUTE BASOPHILS # (AUTO) 0.1 10^3/uL (0.0-0.2); ABSOLUTE EOSINOPHILS # (AUTO) 0.2 10^3/uL (0.0-0.6); ABSOLUTE MONOCYTES (AUTO) 0.8 10^3/uL (0.1-1.4); ABSOLUTE NEUT (AUTO) 5.1 10^3/uL (1.7-8.2); HEMATOCRIT 27.9 % (37.9-51.0); HEMOGLOBIN 9.4 g/dL (13.5-17.0); LYMPHOCYTES % (AUTO) 14.6 % (13-45); MEAN CORPUSCULAR HEMOGLOBIN 31.9 pg (27.0-33.4); MEAN CORPUSCULAR HGB CONC 33.7 g/dL (32.0-36.0); MEAN CORPUSCULAR VOLUME 95 fl (80-97); MONOCYTES % (AUTO) 10.7 % (3-13); PLATELET COUNT 187 10^3/uL (150-450); RED BLOOD COUNT 2.94 10^6/uL (4.35-5.55); RED CELL DISTRIBUTION WIDTH 16.3 % (11.5-14.0); SEGMENTED NEUTROPHILS % (AUTO) 70.7 % (42-78); TOTAL CELLS COUNTED % (AUTO) 100 %; WHITE BLOOD COUNT 7.2 10^3/uL (4.0-10.5)
[2018-03-13 05:55] LABS: ALANINE AMINOTRANSFERASE 20 U/L (21-72); ALBUMIN 3.2 g/dL (3.5-5.0); ALKALINE PHOSPHATASE 111 U/L (38-126); ANION GAP 9 (5-19); ASPARTATE AMINO TRANSFERASE 14 U/L (17-59); BILIRUBIN,DIRECT 0.3 mg/dL (0.0-0.4); BILIRUBIN,TOTAL 0.9 mg/dL (0.2-1.3); BLOOD UREA NITROGEN 17 mg/dL (7-20); CALCIUM 9.4 mg/dL (8.4-10.2); CARBON DIOXIDE 27 mmol/L (22-30); CHLORIDE 102 mmol/L (98-107); GLUCOSE 119 mg/dL (75-110); POTASSIUM 4.2 mmol/L (3.6-5.0); TOTAL PROTEIN 5.8 g/dL (6.3-8.2)
[2018-03-13] MEDS: BUDESONIDE NEB 0.5 MG/2 ML AMPUL NEB SCH ×2 (08:11→19:37)
[2018-03-13 09:39] LABS: ARTERIAL BLOOD BASE EXCESS 2.3 mmol/L; ARTERIAL BLOOD FIO2 100%; ARTERIAL BLOOD H2CO3 1.19 mmol/L (1.05-1.35); ARTERIAL BLOOD HCO3 26.5 mmol/L (20-24); ARTERIAL BLOOD O2 SATURATION 99.3 % (94-98); ARTERIAL BLOOD PCO2 39.7 mmHg (35-45); ARTERIAL BLOOD PH 7.44 (7.35-7.45); ARTERIAL BLOOD PO2 189.4 mmHg (80-100); ARTERIAL BLOOD TOTAL CO2 27.8 mmol/L (23-27)
[2018-03-13] MEDS: ATENOLOL 50 MG TABLET PO SCH (11:15)
[2018-03-13] MEDS: CHOLECALCIFEROL (D3) 1,000 UNIT TABLET PO SCH (11:15)
[2018-03-13] MEDS: ASCORBIC ACID 500 MG TABLET PO SCH (11:16)
[2018-03-13] MEDS: LISINOPRIL 5 MG TABLET PO SCH (11:16)
[2018-03-13] MEDS: CYANOCOBALAMIN (VITAMIN B-12) 1,000 MCG TABLET PO SCH (11:16)
[2018-03-13] MEDS: FINASTERIDE 5 MG TABLET PO SCH (11:16)
[2018-03-13] MEDS: TAMSULOSIN HCL 0.4 MG CAP.SR.24H PO SCH (11:17)
[2018-03-13] MEDS: METFORMIN HCL 500 MG TABLET PO SCH ×2 (11:17→19:06)
[2018-03-13] MEDS: AMLODIPINE BESYLATE 5 MG TABLET PO SCH (11:17)
[2018-03-13] MEDS: FERROUS SULFATE 325 MG TABLET PO SCH (11:17)
[2018-03-13] MEDS: FUROSEMIDE 20 MG TABLET PO SCH (11:18)
[2018-03-13] MEDS: ASPIRIN 81 MG TABLET, ENT COATED PO SCH (11:18)
[2018-03-13] MEDS: ATORVASTATIN CALCIUM 40 MG TABLET PO SCH (11:18)
[2018-03-13] MEDS: ALLOPURINOL 300 MG TABLET PO SCH (11:19)
--- NOTE | 2018-03-13 16:08 | PDOC PROGRESS REPORT ---
Subjective Progress Note for:: 03/13/18 Subjective:: Patient was seen by the bedside, he continues to depend on noninvasive positive pressure ventilation , BiPAP, the urine culture grew staph aureus, staph aureus is not atypical uropathogen staph aureus in the urine suggests a distant foci/source for the bacteria. The blood culture grew gram positive patricia, this could be cornybacterium, bacillus or Clostridium the specific pathogen is yet to be identified. Patient overall condition is very poor. He was seen by lmonary today regarding his dependency on BiPAP Reason For Visit: RESPIRATORY FAILURE Physical Exam Vital Signs: Temp Pulse Resp BP Pulse Ox 98.3 F 81 28 H 130/70 H 99 03/13/18 11:59 03/13/18 11:59 03/13/18 12:00 03/13/18 11:59 03/13/18 12:00 Intake & Output 03/12/18 03/13/18 03/14/18 06:59 06:59 06:59 Intake Total 220 118 236 Output Total 1600 885 550 Balance -1380 -767 -314 Weight 101.2 kg 100 kg General appearance: PRESENT: other - Patient on BiPAP Eye exam: PRESENT: PERRLA Respiratory exam: PRESENT: decreased breath sounds Cardiovascular exam: PRESENT: +S1, +S2 GI/Abdominal exam: PRESENT: soft Neurological exam: PRESENT: alert Results Laboratory Results: 03/13/18 04:49 03/13/18 04:49 03/13/18 03/13/18 03/13/18 04:49 04:49 09:15 WBC 7.2 RBC 2.94 L Hgb 9.4 L Hct 27.9 L MCV 95 MCH 31.9 MCHC 33.7 RDW 16.3 H Plt Count 187 Seg Neutrophils % 70.7 Lymphocytes % 14.6 Monocytes % 10.7 Eosinophils % 3.0 Basophils % 1.0 Absolute Neutrophils 5.1 Absolute Lymphocytes 1.0 Absolute Monocytes 0.8 Absolute Eosinophils 0.2 Absolute Basophils 0.1 Carbonic Acid 1.19 HCO3/H2CO3 Ratio 22:1 ABG pH 7.44 ABG pCO2 39.7 ABG pO2 189.4 H ABG HCO3 26.5 H ABG O2 Saturation 99.3 H ABG Base Excess 2.3 FiO2 100% Sodium 138.0 Potassium 4.2 Chloride 102 Carbon Dioxide 27 Anion Gap 9 BUN 17 Creatinine 1.03 Est GFR ( Amer) > 60 Est GFR (Non-Af Amer) > 60 Glucose 119 H Calcium 9.4 Total Bilirubin 0.9 AST 14 L ALT 20 L Alkaline Phosphatase 111 Total Protein 5.8 L Albumin 3.2 L 03/11/18 17:20 Clean Catch Midstream Urine Culture - Final Staphylococcus Aureus 03/11/18 03/11/18 03/11/18 03:15 06:26 06:26 Creatine Kinase 26 L CK-MB (CK-2) 0.85 Troponin I < 0.012 < 0.012 03/11/18 03/11/18 03/11/18 12:32 12:32 18:09 Creatine Kinase 27 L 33 L CK-MB (CK-2) 1.02 Troponin I < 0.012 03/11/18 18:09 Creatine Kinase CK-MB (CK-2) 1.10 Troponin I < 0.012 Impressions: Chest X-Ray 03/11/18 03:14 IMPRESSION: Bibasilar pneumonia with pleural effusions. Assessment & Plan - Diagnosis (1) Acute and chronic respiratory failure Qualifiers: Respiratory failure complication: hypoxia and hypercapnia Qualified Code(s): J96.21 - Acute and chronic respiratory failure with hypoxia; J96.22 - Acute and chronic respiratory failure with hypercapnia Is this a current diagnosis for this admission?: Yes (2) Chronic diastolic heart failure Is this a current diagnosis for this admission?: Yes (3) Chronic atrial fibrillation Is this a current diagnosis for this admission?: Yes (4) Respiratory distress Is this a current diagnosis for this admission?: Yes (5) Severe pulmonary arterial systolic hypertension Is this a current diagnosis for this admission?: Yes (6) Urinary tract infection Qualifiers: Urinary tract infection type: site unspecified Hematuria presence: without hematuria Qualified Code(s): N39.0 - Urinary tract infection, site not specified Is this a current diagnosis for this admission?: Yes Plan: Start ceftriaxone
[2018-03-13] MEDS ORDERED: PROMETHAZINE HCL INJ 25 MG/1 ML VIAL ONE (17:31)
[2018-03-13] MEDS: FAMOTIDINE 20 MG TABLET PO SCH (19:06)
[2018-03-13] MEDS: CEFTRIAXONE SODIUM 1,500 MG in DEXTROSE 5%-WATER 100 ML IV SCH (19:12)
[2018-03-13] MEDS: WARFARIN SODIUM 3 MG TABLET PO SCH (21:05)
[2018-03-13] MEDS ORDERED: (PENDING PHARMACY ID) (Warfarin Sodium [Coumadin] 6 MG) PO SCH (22:00)
[2018-03-13 22:29] LABS: INTERNATIONAL RATION (INR) 2.38; PROTHROMBIN TIME 27.1 SEC (11.4-15.4)
[2018-03-14 05:36] LABS: ABSOLUTE BASOPHILS # (AUTO) 0.1 10^3/uL (0.0-0.2); ABSOLUTE EOSINOPHILS # (AUTO) 0.2 10^3/uL (0.0-0.6); ABSOLUTE LYMPHOCYTES (AUTO) 1.1 10^3/uL (0.5-4.7); ABSOLUTE MONOCYTES (AUTO) 0.8 10^3/uL (0.1-1.4); ABSOLUTE NEUT (AUTO) 4.7 10^3/uL (1.7-8.2); EOSINOPHILS % (AUTO) 3.5 % (0-6); HEMOGLOBIN 9.1 g/dL (13.5-17.0); LYMPHOCYTES % (AUTO) 15.6 % (13-45); MEAN CORPUSCULAR HEMOGLOBIN 31.9 pg (27.0-33.4); MEAN CORPUSCULAR HGB CONC 33.7 g/dL (32.0-36.0); MEAN CORPUSCULAR VOLUME 95 fl (80-97); MONOCYTES % (AUTO) 11.7 % (3-13); PLATELET COUNT 199 10^3/uL (150-450); RED BLOOD COUNT 2.85 10^6/uL (4.35-5.55); RED CELL DISTRIBUTION WIDTH 17.1 % (11.5-14.0); SEGMENTED NEUTROPHILS % (AUTO) 68.2 % (42-78); TOTAL CELLS COUNTED % (AUTO) 100 %; WHITE BLOOD COUNT 6.9 10^3/uL (4.0-10.5)
[2018-03-14 05:55] LABS: ALANINE AMINOTRANSFERASE 18 U/L (21-72); ALBUMIN 3.1 g/dL (3.5-5.0); ALKALINE PHOSPHATASE 101 U/L (38-126); ANION GAP 8 (5-19); ASPARTATE AMINO TRANSFERASE 12 U/L (17-59); BILIRUBIN,DIRECT 0.3 mg/dL (0.0-0.4); BILIRUBIN,TOTAL 0.8 mg/dL (0.2-1.3); BLOOD UREA NITROGEN 17 mg/dL (7-20); CALCIUM 9.3 mg/dL (8.4-10.2); CARBON DIOXIDE 28 mmol/L (22-30); CHLORIDE 102 mmol/L (98-107); GLUCOSE 114 mg/dL (75-110); POTASSIUM 4.3 mmol/L (3.6-5.0); SODIUM 137.5 mmol/L (137-145); TOTAL PROTEIN 5.8 g/dL (6.3-8.2)
[2018-03-14] MEDS: BUDESONIDE NEB 0.5 MG/2 ML AMPUL NEB SCH ×2 (08:09→20:21)
[2018-03-14] MEDS: IPRATROPIUM/ALBUTEROL 0.5-2.5 MG/3 ML AMPUL NEB PRN ×2 (08:09→12:33)
[2018-03-14] MEDS: FINASTERIDE 5 MG TABLET PO SCH (12:01)
[2018-03-14] MEDS: DOCUSATE SODIUM 100 MG CAPSULE PO SCH (12:01)
[2018-03-14] MEDS: CEFTRIAXONE SODIUM 1,500 MG in DEXTROSE 5%-WATER 100 ML IV SCH (12:01)
[2018-03-14] MEDS: FUROSEMIDE 20 MG TABLET PO SCH (12:01)
[2018-03-14] MEDS: CYANOCOBALAMIN (VITAMIN B-12) 1,000 MCG TABLET PO SCH (12:02)
[2018-03-14] MEDS: LISINOPRIL 5 MG TABLET PO SCH (12:02)
[2018-03-14] MEDS: TAMSULOSIN HCL 0.4 MG CAP.SR.24H PO SCH (12:03)
[2018-03-14] MEDS: ALLOPURINOL 300 MG TABLET PO SCH (12:03)
[2018-03-14] MEDS: AMLODIPINE BESYLATE 10 MG TABLET PO SCH (12:03)
[2018-03-14] MEDS: ASPIRIN 81 MG TABLET, ENT COATED PO SCH (12:04)
[2018-03-14] MEDS: ASCORBIC ACID 500 MG TABLET PO SCH (12:04)
[2018-03-14] MEDS: METFORMIN HCL 500 MG TABLET PO SCH ×2 (12:04→18:55)
[2018-03-14] MEDS: CHOLECALCIFEROL (D3) 1,000 UNIT TABLET PO SCH (12:04)
[2018-03-14] MEDS: ATENOLOL 50 MG TABLET PO SCH (12:05)
[2018-03-14] MEDS: ATORVASTATIN CALCIUM 40 MG TABLET PO SCH (12:05)
[2018-03-14] MEDS: FERROUS SULFATE 325 MG TABLET PO SCH (12:05)
[2018-03-14] MEDS: FOLIC ACID 1 MG TABLET PO SCH (12:06)
--- NOTE | 2018-03-14 14:06 | PDOC PROGRESS REPORT ---
Subjective Progress Note for:: 03/14/18 Subjective:: Patient seen by the bedside he continues to require BiPAP without the device the oxygen saturation dropped to in the low 70s. 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 Reason For Visit: RESPIRATORY FAILURE Physical Exam Vital Signs: Temp Pulse Resp BP Pulse Ox 98.5 F 77 25 H 130/81 H 91 L 03/14/18 11:51 03/14/18 12:33 03/14/18 12:33 03/14/18 11:51 03/14/18 12:33 Intake & Output 03/13/18 03/14/18 03/15/18 06:59 06:59 06:59 Intake Total 118 336 Output Total 885 1050 Balance -767 -714 Weight 100 kg 99.6 kg General appearance: PRESENT: obese Eye exam: PRESENT: PERRLA Respiratory exam: PRESENT: clear to auscultation nelda Cardiovascular exam: PRESENT: +S1, +S2 Neurological exam: PRESENT: alert Results Laboratory Results: 03/14/18 04:58 03/14/18 04:58 03/14/18 03/14/18 04:58 04:58 WBC 6.9 RBC 2.85 L Hgb 9.1 L Hct 27.0 L MCV 95 MCH 31.9 MCHC 33.7 RDW 17.1 H Plt Count 199 Seg Neutrophils % 68.2 Lymphocytes % 15.6 Monocytes % 11.7 Eosinophils % 3.5 Basophils % 1.0 Absolute Neutrophils 4.7 Absolute Lymphocytes 1.1 Absolute Monocytes 0.8 Absolute Eosinophils 0.2 Absolute Basophils 0.1 Sodium 137.5 Potassium 4.3 Chloride 102 Carbon Dioxide 28 Anion Gap 8 BUN 17 Creatinine 1.19 Est GFR ( Amer) > 60 Est GFR (Non-Af Amer) 59 L Glucose 114 H Calcium 9.3 Total Bilirubin 0.8 AST 12 L ALT 18 L Alkaline Phosphatase 101 Total Protein 5.8 L Albumin 3.1 L 03/11/18 17:20 Clean Catch Midstream Urine Culture - Final Staphylococcus Aureus 03/11/18 03/11/18 03/11/18 03:15 06:26 06:26 Creatine Kinase 26 L CK-MB (CK-2) 0.85 Troponin I < 0.012 < 0.012 03/11/18 03/11/1818 12:32 12:32 18:09 Creatine Kinase 27 L 33 L CK-MB (CK-2) 1.02 Troponin I < 0.012 03/11/18 18:09 Creatine Kinase CK-MB (CK-2) 1.10 Troponin I < 0.012 Impressions: Chest X-Ray 03/11/18 03:14 IMPRESSION: Bibasilar pneumonia with pleural effusions. Assessment & Plan - Diagnosis (1) Acute and chronic respiratory failure Qualifiers: Respiratory failure complication: hypoxia and hypercapnia Qualified Code(s): J96.21 - Acute and chronic respiratory failure with hypoxia; J96.22 - Acute and chronic respiratory failure with hypercapnia Is this a current diagnosis for this admission?: Yes Plan: Continue BiPAP support patient is essentially BiPAP dependent, Needs to address CODE STATUS (2) Chronic diastolic heart failure Is this a current diagnosis for this admission?: Yes (3) Chronic atrial fibrillation Is this a current diagnosis for this admission?: Yes (4) Respiratory distress Is this a current diagnosis for this admission?: Yes (5) Severe pulmonary arterial systolic hypertension Is this a current diagnosis for this admission?: Yes (6) Urinary tract infection Qualifiers: Urinary tract infection type: site unspecified Hematuria presence: without hematuria Qualified Code(s): N39.0 - Urinary tract infection, site not specified Is this a current diagnosis for this admission?: Yes Plan: Continue ceftriaxone, staph aureus is not a typical uropathogen, there is a primary source for the staph aureus, probably the lung
[2018-03-14] MEDS ORDERED: IPRATROPIUM/ALBUTEROL 0.5-2.5 MG/3 ML AMPUL NEB SCH (14:30)
[2018-03-14] MEDS: FAMOTIDINE 20 MG TABLET PO SCH (18:55)
[2018-03-14] MEDS: IPRATROPIUM/ALBUTEROL 0.5-2.5 MG/3 ML AMPUL NEB SCH (20:23)
[2018-03-14 21:25] LABS: INTERNATIONAL RATION (INR) 2.96; PROTHROMBIN TIME 32.2 SEC (11.4-15.4)
[2018-03-14] MEDS: WARFARIN SODIUM 3 MG TABLET PO SCH (21:46)
[2018-03-15] MEDS: IPRATROPIUM/ALBUTEROL 0.5-2.5 MG/3 ML AMPUL NEB SCH ×3 (08:03→20:44)
[2018-03-15] MEDS: BUDESONIDE NEB 0.5 MG/2 ML AMPUL NEB SCH ×2 (08:03→20:44)
[2018-03-15] MEDS: FUROSEMIDE 20 MG TABLET PO SCH (08:36)
[2018-03-15] MEDS: FINASTERIDE 5 MG TABLET PO SCH (11:12)
[2018-03-15] MEDS: TAMSULOSIN HCL 0.4 MG CAP.SR.24H PO SCH (11:12)
[2018-03-15] MEDS: DOCUSATE SODIUM 100 MG CAPSULE PO SCH (11:13)
[2018-03-15] MEDS: LISINOPRIL 5 MG TABLET PO SCH (11:13)
[2018-03-15] MEDS: ASCORBIC ACID 500 MG TABLET PO SCH (11:13)
[2018-03-15] MEDS: FOLIC ACID 1 MG TABLET PO SCH (11:14)
[2018-03-15] MEDS: CHOLECALCIFEROL (D3) 1,000 UNIT TABLET PO SCH (11:14)
[2018-03-15] MEDS: ATORVASTATIN CALCIUM 40 MG TABLET PO SCH (11:14)
[2018-03-15] MEDS: ALLOPURINOL 300 MG TABLET PO SCH (11:14)
[2018-03-15] MEDS: AMLODIPINE BESYLATE 10 MG TABLET PO SCH (11:15)
[2018-03-15] MEDS: METFORMIN HCL 500 MG TABLET PO SCH ×2 (11:15→17:57)
[2018-03-15] MEDS: FERROUS SULFATE 325 MG TABLET PO SCH (11:15)
[2018-03-15] MEDS: CYANOCOBALAMIN (VITAMIN B-12) 1,000 MCG TABLET PO SCH (11:15)
[2018-03-15] MEDS: ATENOLOL 50 MG TABLET PO SCH (11:16)
[2018-03-15] MEDS: ASPIRIN 81 MG TABLET, ENT COATED PO SCH (11:16)
[2018-03-15] MEDS: CEFTRIAXONE SODIUM 1,500 MG in DEXTROSE 5%-WATER 100 ML IV SCH (11:26)
[2018-03-15] MEDS: FAMOTIDINE 20 MG TABLET PO SCH (17:57)
--- NOTE | 2018-03-15 20:37 | PDOC PROGRESS REPORT ---
Subjective Progress Note for:: 03/15/18 Subjective:: Patient remain dependent on supplemental oxygen via face mask and BiPAP support. His readmission story as per daughter at bedside suggested dependency on noninvasive respiratory support device and lack of usage knowledge. He denied any chest pain. No fever or chills. No abdominal pian, nausea or vomiting. Reason For Visit: RESPIRATORY FAILURE Physical Exam Vital Signs: Temp Pulse Resp BP Pulse Ox 98.6 F 70 34 H 105/54 L 93 03/15/18 16:11 03/15/18 18:51 03/15/18 16:40 03/15/18 16:11 03/15/18 16:40 Intake & Output 03/14/18 03/15/18 03/16/18 06:59 06:59 06:59 Intake Total 336 460 0 Output Total 1050 1050 600 Balance -714 -590 -600 Weight 99.6 kg 98.7 kg General appearance: PRESENT: mild distress - moderate level on face mask support presently while eating., obese Head exam: PRESENT: atraumatic, normocephalic Eye exam: PRESENT: conjunctiva pink, EOMI, PERRLA. ABSENT: scleral icterus Ear exam: PRESENT: normal external ear exam Mouth exam: PRESENT: moist Respiratory exam: PRESENT: decreased breath sounds - bilaterally, prolonged expiratory phas Cardiovascular exam: PRESENT: irregular rhythm, +S1, +S2. ABSENT: diastolic murmur, systolic murmur Vascular exam: PRESENT: normal capillary refill. ABSENT: pallor GI/Abdominal exam: PRESENT: normal bowel sounds, soft. ABSENT: distended, guarding, mass, organolmegaly, rebound, tenderness Extremities exam: ABSENT: pedal edema Musculoskeletal exam: PRESENT: deformity - related to multiple joints involvement with arthritis Neurological exam: PRESENT: alert, awake Psychiatric exam: PRESENT: agitated, appropriate affect Skin exam: PRESENT: dry, warm Results Laboratory Results: 03/14/18 04:58 03/14/18 04:58 03/11/18 06:26 Blood Blood Culture - Final Gram Positive Jakob 03/11/18 03/11/18 03/11/18 03:15 06:26 06:26 Creatine Kinase 26 L CK-MB (CK-2) 0.85 Troponin I < 0.012 < 0.012 12/22/18 12/22/18 12/22/18 12:32 12:32 18:09 Creatine Kinase 27 L 33 L CK-MB (CK-2) 1.02 Troponin I < 0.012 03/11/18 18:09 Creatine Kinase CK-MB (CK-2) 1.10 Troponin I < 0.012 Impressions: Chest X-Ray 03/11/18 03:14 IMPRESSION: Bibasilar pneumonia with pleural effusions. Assessment & Plan - Diagnosis (1) Acute and chronic respiratory failure Qualifiers: Respiratory failure complication: hypoxia and hypercapnia Qualified Code(s): J96.21 - Acute and chronic respiratory failure with hypoxia; J96.22 - Acute and chronic respiratory failure with hypercapnia Is this a current diagnosis for this admission?: Yes Plan: Maintain on BiPAP and face mask supplemental oxygen management. I will discuss with digital sales planner to evaluate for LTAC placement. (2) Bacterial infection due to Staphylococcus aureus Is this a current diagnosis for this admission?: Yes Plan: Maintain on IV Rocephin based on urine culture findings. (3) Lobar pneumonia, unspecified organism Is this a current diagnosis for this admission?: Yes Plan: Due to gram positive cocci in clusters probably Staph. aureus. Awaiting organism identification and sensitivity. Possible source of his UTI organism seeding. Maintain on IV Rocephin based on urine culture findings. (4) Chronic atrial fibrillation Is this a current diagnosis for this admission?: Yes Plan: Continue current medication management. (5) Chronic diastolic heart failure Is this a current diagnosis for this admission?: Yes Plan: Continue current medication management. (6) COPD (chronic obstructive pulmonary disease) Qualifiers: COPD type: COPD with acute lower respiratory infection Qualified Code(s): J44.0 - Chronic obstructive pulmonary disease with acute lower respiratory infection Is this a current diagnosis for this admission?: Yes Plan: Continue current medication management. (7) Diabetes mellitus type 2 in obese Is this a current diagnosis for this admission?: Yes Plan: Continue current medication management. (8) HTN (hypertension) Qualifiers: Hypertension type: essential hypertension Qualified Code(s): I10 - Essential (primary) hypertension Is this a current diagnosis for this admission?: Yes Plan: Continue current medication management. (9) HLD (hyperlipidemia) Qualifiers: Hyperlipidemia type: unspecified Qualified Code(s): E78.5 - Hyperlipidemia, unspecified Is this a current diagnosis for this admission?: Yes Plan: Continue current medication management. (10) Pulmonary hypertension Is this a current diagnosis for this admission?: Yes Plan: Continue current medication management. - Time Time Spent with patient: 25-34 minutes Medications reviewed and adjusted accordingly: Yes Anticipated discharge: Other - LTAC facility placement. - Inpatient Certification Based on my medical assessment, after consideration of the patient's comorbidities, presenting symptoms, or acuity I expect that the services needed warrant INPATIENT care.: Yes I certify that my determination is in accordance with my understanding of Medicare's requirements for reasonable and necessary INPATIENT services [42 CFR 412.3e].: Yes Medical Necessity: Need Close Monitoring Due to Risk of Patient Decompensation, Need For Continuous Telemetry Monitoring, Need for Nebulizer Therapy and Monitoring of Response, Need for IV Antibiotics, Risk of Complication if Not Cared For in Hospital Post Hospital Care: D/C or Transfer Summary - Plan Summary Plan Summary: See attending physician orders as per outlined care plan. Overall prognosis remain poor. I had extensive discussion with manoj and deven bedside jaelyn naqvi outlined plan and discharge to LTAC facility. They are in agreement with tis plan.
[2018-03-15 21:31] LABS: INTERNATIONAL RATION (INR) 3.57; PROTHROMBIN TIME 37.3 SEC (11.4-15.4)
[2018-03-15] MEDS: WARFARIN SODIUM 3 MG TABLET PO SCH (21:52)
[2018-03-16] MEDS: BUDESONIDE NEB 0.5 MG/2 ML AMPUL NEB SCH ×2 (07:57→19:45)
[2018-03-16] MEDS: IPRATROPIUM/ALBUTEROL 0.5-2.5 MG/3 ML AMPUL NEB SCH ×3 (07:57→19:45)
[2018-03-16] MEDS: FOLIC ACID 1 MG TABLET PO SCH (12:50)
[2018-03-16] MEDS: ATENOLOL 50 MG TABLET PO SCH (12:50)
[2018-03-16] MEDS: CEFTRIAXONE SODIUM 1,500 MG in DEXTROSE 5%-WATER 100 ML IV SCH (12:50)
[2018-03-16] MEDS: DOCUSATE SODIUM 100 MG CAPSULE PO SCH (12:51)
[2018-03-16] MEDS: ASCORBIC ACID 500 MG TABLET PO SCH (12:51)
[2018-03-16] MEDS: ASPIRIN 81 MG TABLET, ENT COATED PO SCH (12:51)
[2018-03-16] MEDS: FERROUS SULFATE 325 MG TABLET PO SCH (12:52)
[2018-03-16] MEDS: AMLODIPINE BESYLATE 10 MG TABLET PO SCH (12:52)
[2018-03-16] MEDS: CHOLECALCIFEROL (D3) 1,000 UNIT TABLET PO SCH (12:52)
[2018-03-16] MEDS: FUROSEMIDE 20 MG TABLET PO SCH (12:52)
[2018-03-16] MEDS: LISINOPRIL 5 MG TABLET PO SCH (12:53)
[2018-03-16] MEDS: METFORMIN HCL 500 MG TABLET PO SCH ×2 (12:53→18:09)
[2018-03-16] MEDS: CYANOCOBALAMIN (VITAMIN B-12) 1,000 MCG TABLET PO SCH (12:53)
[2018-03-16] MEDS: ALLOPURINOL 300 MG TABLET PO SCH (12:53)
[2018-03-16] MEDS: FINASTERIDE 5 MG TABLET PO SCH (12:54)
[2018-03-16] MEDS: ATORVASTATIN CALCIUM 40 MG TABLET PO SCH (12:54)
[2018-03-16] MEDS: TAMSULOSIN HCL 0.4 MG CAP.SR.24H PO SCH (12:54)
[2018-03-16] MEDS: FAMOTIDINE 20 MG TABLET PO SCH (18:08)
--- NOTE | 2018-03-16 19:47 | PDOC PROGRESS REPORT ---
Subjective Progress Note for:: 03/16/18 Subjective:: Patient remain dependent on supplemental oxygen via BiPAP or face mask usage. No chest pain. No fever or chills. No abdominal pain, nausea or vomiting. Reason For Visit: RESPIRATORY FAILURE Physical Exam Vital Signs: Temp Pulse Resp BP Pulse Ox 98.1 F 81 27 H 95/51 L 92 03/16/18 04:10 03/16/18 14:00 03/16/18 16:40 03/16/18 04:10 03/16/18 16:40 Intake & Output 03/15/18 03/16/18 03/17/18 06:59 06:59 06:59 Intake Total 460 100 Output Total 1050 600 Balance -590 -500 Weight 98.7 kg 98.5 kg Physical Exam: General appearance: PRESENT: mild distress - moderate level on face mask support presently while eating. BiPAP support while not eating, obese Head exam: PRESENT: atraumatic, normocephalic Eye exam: PRESENT: conjunctiva pink, EOMI, PERRLA. ABSENT: pallor, scleral icterus Ear exam: PRESENT: normal external ear exam Mouth exam: PRESENT: moist Respiratory exam: PRESENT: decreased breath sounds - bilaterally, prolonged expiratory phase Cardiovascular exam: PRESENT: irregular rhythm, +S1, +S2. ABSENT: diastolic murmur, systolic murmur GI/Abdominal exam: PRESENT: normal bowel sounds, soft. ABSENT: distended, guarding, mass, organomegaly, rebound, tenderness Extremities exam: ABSENT: pedal edema Musculoskeletal exam: PRESENT: deformity - related to multiple joints involvement with arthritis Neurological exam: PRESENT: alert, awake Psychiatric exam: PRESENT: agitated, appropriate affect Skin exam: PRESENT: dry, warm Results Laboratory Results: 03/14/18 04:58 03/14/18 04:58 03/11/18 03:10 Blood Blood Culture - Final NO GROWTH IN 5 DAYS 03/11/18 03/11/18 03/11/18 03:15 06:26 06:26 Creatine Kinase 26 L CK-MB (CK-2) 0.85 Troponin I < 0.012 < 0.012 03/11/18 03/11/18 03/11/18 12:32 12:32 18:09 Creatine Kinase 27 L 33 L CK-MB (CK-2) 1.02 Troponin I < 0.012 03/11/18 18:09 Creatine Kinase CK-MB (CK-2) 1.10 Troponin I < 0.012 Impressions: Chest X-Ray 03/11/18 03:14 IMPRESSION: Bibasilar pneumonia with pleural effusions. Assessment & Plan - Diagnosis (1) Acute and chronic respiratory failure Qualifiers: Respiratory failure complication: hypoxia and hypercapnia Qualified Code(s): J96.21 - Acute and chronic respiratory failure with hypoxia; J96.22 - Acute and chronic respiratory failure with hypercapnia Is this a current diagnosis for this admission?: Yes (2) Bacterial infection due to Staphylococcus aureus Is this a current diagnosis for this admission?: Yes (3) Lobar pneumonia, unspecified organism Is this a current diagnosis for this admission?: Yes (4) Chronic atrial fibrillation Is this a current diagnosis for this admission?: Yes (5) Chronic diastolic heart failure Is this a current diagnosis for this admission?: Yes (6) COPD (chronic obstructive pulmonary disease) Qualifiers: COPD type: COPD with acute lower respiratory infection Qualified Code(s): J44.0 - Chronic obstructive pulmonary disease with acute lower respiratory infection Is this a current diagnosis for this admission?: Yes (7) Diabetes mellitus type 2 in obese Is this a current diagnosis for this admission?: Yes (8) HTN (hypertension) Qualifiers: Hypertension type: essential hypertension Qualified Code(s): I10 - Essential (primary) hypertension Is this a current diagnosis for this admission?: Yes (9) HLD (hyperlipidemia) Qualifiers: Hyperlipidemia type: unspecified Qualified Code(s): E78.5 - Hyperlipidemia, unspecified Is this a current diagnosis for this admission?: Yes (10) Pulmonary hypertension Is this a current diagnosis for this admission?: Yes - Time Time Spent with patient: 25-34 minutes Medications reviewed and adjusted accordingly: Yes Anticipated discharge: Other - LTAC placement efforts in progress. - Inpatient Certification Based on my medical assessment, after consideration of the patient's comorbidities, presenting symptoms, or acuity I expect that the services needed warrant INPATIENT care.: Yes I certify that my determination is in accordance with my understanding of Medicare's requirements for reasonable and necessary INPATIENT services [42 CFR 412.3e].: Yes Medical Necessity: Need Close Monitoring Due to Risk of Patient Decompensation, Need For Continuous Telemetry Monitoring, Need for Nebulizer Therapy and Jade toring of Response, Risk of Complication if Not Cared For in Hospital Post Hospital Care: D/C or Transfer Summary - Plan Summary Plan Summary: Continue current medical management and ventilatory support. Continue efforts at placement in LTAC.
[2018-03-16 22:01] LABS: INTERNATIONAL RATION (INR) 4.52; PROTHROMBIN TIME 44.9 SEC (11.4-15.4)
[2018-03-16] MEDS: WARFARIN SODIUM 3 MG TABLET PO SCH (22:02)
[2018-03-17] MEDS: IPRATROPIUM/ALBUTEROL 0.5-2.5 MG/3 ML AMPUL NEB SCH ×3 (08:08→20:09)
[2018-03-17] MEDS: BUDESONIDE NEB 0.5 MG/2 ML AMPUL NEB SCH ×2 (08:08→20:09)
[2018-03-17] MEDS ORDERED: WARFARIN SODIUM 3 MG TABLET PO SCH ×2 (09:34)
[2018-03-17] MEDS: ASPIRIN 81 MG TABLET, ENT COATED PO SCH (10:40)
[2018-03-17] MEDS: DOCUSATE SODIUM 100 MG CAPSULE PO SCH (10:40)
[2018-03-17] MEDS: ASCORBIC ACID 500 MG TABLET PO SCH (10:40)
[2018-03-17] MEDS: FOLIC ACID 1 MG TABLET PO SCH (10:40)
[2018-03-17] MEDS: FERROUS SULFATE 325 MG TABLET PO SCH (10:40)
[2018-03-17] MEDS: TAMSULOSIN HCL 0.4 MG CAP.SR.24H PO SCH (10:40)
[2018-03-17] MEDS: CHOLECALCIFEROL (D3) 1,000 UNIT TABLET PO SCH (10:40)
[2018-03-17] MEDS: FINASTERIDE 5 MG TABLET PO SCH (10:40)
[2018-03-17] MEDS: ATORVASTATIN CALCIUM 40 MG TABLET PO SCH (10:40)
[2018-03-17] MEDS: CEFTRIAXONE SODIUM 1,500 MG in DEXTROSE 5%-WATER 100 ML IV SCH (10:40)
[2018-03-17] MEDS: ALLOPURINOL 300 MG TABLET PO SCH (10:40)
[2018-03-17] MEDS: METFORMIN HCL 500 MG TABLET PO SCH ×2 (10:40→18:23)
[2018-03-17] MEDS: CYANOCOBALAMIN (VITAMIN B-12) 1,000 MCG TABLET PO SCH (10:40)
[2018-03-17] MEDS: LISINOPRIL 5 MG TABLET PO SCH (10:41)
[2018-03-17] MEDS: AMLODIPINE BESYLATE 10 MG TABLET PO SCH (10:41)
[2018-03-17] MEDS: FUROSEMIDE 20 MG TABLET PO SCH (10:41)
[2018-03-17] MEDS: ATENOLOL 50 MG TABLET PO SCH (10:43)
--- NOTE | 2018-03-17 13:42 | PDOC PROGRESS REPORT ---
Subjective Progress Note for:: 03/17/18 Subjective:: More tachypneic today complains of dry throat thick sputum Reason For Visit: RESPIRATORY FAILURE Physical Exam Vital Signs: Temp Pulse Resp BP Pulse Ox 97.7 F 75 26 H 106/80 93 03/17/18 07:39 03/17/18 08:08 03/17/18 08:08 03/17/18 07:39 03/17/18 08:08 Intake & Output 03/16/18 03/17/18 03/18/18 06:59 06:59 06:59 Intake Total 100 390 Output Total 600 550 Balance -500 -160 Weight 98.5 kg 97.8 kg General appearance: PRESENT: cooperative, disheveled, mild distress, obese Head exam: PRESENT: atraumatic, normocephalic Eye exam: PRESENT: conjunctiva pale. ABSENT: nystagmus, scleral icterus Mouth exam: PRESENT: dry mucosa, neck supple, tongue midline Neck exam: ABSENT: carotid bruit, JVD, lymphadenopathy, thyromegaly, tracheal deviation, tracheostomy Respiratory exam: PRESENT: decreased breath sounds, prolonged expiratory phas, rhonchi, tachypnea. ABSENT: retraction, stridor Cardiovascular exam: PRESENT: RRR, +S1, +S2 Pulses: PRESENT: normal radial pulses GI/Abdominal exam: PRESENT: soft. ABSENT: tenderness Extremities exam: PRESENT: pedal edema. ABSENT: calf tenderness, clubbing, joint swelling Musculoskeletal exam: ABSENT: deformity, dislocation Neurological exam: PRESENT: alert, awake Psychiatric exam: PRESENT: appropriate affect Skin exam: PRESENT: dry, warm Results Laboratory Results: 03/14/18 04:58 03/14/18 04:58 03/11/18 03/11/18 03/11/18 03:15 06:26 06:26 Creatine Kinase 26 L CK-MB (CK-2) 0.85 Troponin I < 0.012 < 0.012 03/11/18 03/11/18 03/11/18 12:32 12:32 18:09 Creatine Kinase 27 L 33 L CK-MB (CK-2) 1.02 Troponin I < 0.012 03/11/18 18:09 Creatine Kinase CK-MB (CK-2) 1.10 Troponin I < 0.012 Impressions: Chest X-Ray 03/11/18 03:14 IMPRESSION: Bibasilar pneumonia with pleural effusions. Assessment & Plan - Diagnosis (1) Acute and chronic respiratory failure Qualifiers: Respiratory failure complication: hypoxia and hypercapnia Qualified Code(s): J96.21 - Acute and chronic respiratory failure with hypoxia; J96.22 - Acute and chronic respiratory failure with hypercapnia Is this a current diagnosis for this admission?: Yes Plan: Switch to avaps (2) Chronic atrial fibrillation Is this a current diagnosis for this admission?: Yes Plan: Stable at this time (3) Severe pulmonary arterial systolic hypertension Is this a current diagnosis for this admission?: Yes Plan: unchanged
[2018-03-17] MEDS: FAMOTIDINE 20 MG TABLET PO SCH (18:23)
--- NOTE | 2018-03-17 18:36 | PDOC PROGRESS REPORT ---
Subjective Progress Note for:: 03/17/18 Subjective:: Patient remain dependent on supplemental oxygen via BiPAP or face mask usage. No chest pain. No fever or chills. No abdominal pain, nausea or vomiting. Reason For Visit: RESPIRATORY FAILURE Physical Exam Vital Signs: Temp Pulse Resp BP Pulse Ox 98.6 F 82 28 H 121/84 93 03/17/18 12:27 03/17/18 14:00 03/17/18 16:00 03/17/18 12:27 03/17/18 16:00 Intake & Output 03/16/18 03/17/18 03/18/18 06:59 06:59 06:59 Intake Total 100 390 100 Output Total 600 550 Balance -500 -160 100 Weight 98.5 kg 97.8 kg Physical Exam: General appearance: PRESENT: severe distress - Remain on AVAPS, obese Head exam: PRESENT: atraumatic, normocephalic Eye exam: PRESENT: conjunctiva pink, EOMI, PERRLA. ABSENT: pallor, scleral icterus Ear exam: PRESENT: normal external ear exam Mouth exam: PRESENT: moist Respiratory exam: PRESENT: decreased breath sounds - bilaterally, prolonged expiratory phase Cardiovascular exam: PRESENT: irregular rhythm, +S1, +S2. ABSENT: diastolic murmur, systolic murmur GI/Abdominal exam: PRESENT: normal bowel sounds, soft. ABSENT: distended, guarding, mass, organomegaly, rebound, tenderness Extremities exam: ABSENT: pedal edema Musculoskeletal exam: PRESENT: deformity - related to multiple joints involvement with arthritis Neurological exam: PRESENT: alert, awake Psychiatric exam: PRESENT: agitated, appropriate affect Skin exam: PRESENT: dry, warm Results Laboratory Results: 03/14/18 04:58 03/14/18 04:58 03/11/18 03/11/18 03/11/18 03:15 06:26 06:26 Creatine Kinase 26 L CK-MB (CK-2) 0.85 Troponin I < 0.012 < 0.012 03/11/18 03/11/18 03/11/18 12:32 12:32 18:09 Creatine Kinase 27 L 33 L CK-MB (CK-2) 1.02 Troponin I < 0.012 03/11/18 18:09 Creatine Kinase CK-MB (CK-2) 1.10 Troponin I < 0.012 Impressions: Chest X-Ray 03/11/18 03:14 IMPRESSION: Bibasilar pneumonia with pleural effusions. Assessment & Plan - Diagnosis (1) Acute and chronic respiratory failure Qualifiers: Respiratory failure complication: hypoxia and hypercapnia Qualified Code(s): J96.21 - Acute and chronic respiratory failure with hypoxia; J96.22 - Acute and chronic respiratory failure with hypercapnia Is this a current diagnosis for this admission?: Yes (2) Bacterial infection due to Staphylococcus aureus Is this a current diagnosis for this admission?: Yes (3) Lobar pneumonia, unspecified organism Is this a current diagnosis for this admission?: Yes (4) Chronic atrial fibrillation Is this a current diagnosis for this admission?: Yes (5) Chronic diastolic heart failure Is this a current diagnosis for this admission?: Yes (6) COPD (chronic obstructive pulmonary disease) Qualifiers: COPD type: COPD with acute lower respiratory infection Qualified Code(s): J44.0 - Chronic obstructive pulmonary disease with acute lower respiratory infection Is this a current diagnosis for this admission?: Yes (7) Diabetes mellitus type 2 in obese Is this a current diagnosis for this admission?: Yes (8) HTN (hypertension) Qualifiers: Hypertension type: essential hypertension Qualified Code(s): I10 - Essential (primary) hypertension Is this a current diagnosis for this admission?: Yes (9) HLD (hyperlipidemia) Qualifiers: Hyperlipidemia type: unspecified Qualified Code(s): E78.5 - Hyperlipidemia, unspecified Is this a current diagnosis for this admission?: Yes (10) Pulmonary hypertension Is this a current diagnosis for this admission?: Yes - Time Time Spent with patient: 25-34 minutes Medications reviewed and adjusted accordingly: Yes Anticipated discharge: Other - LTAC placement Within: Other - Inpatient Certification Based on my medical assessment, after consideration of the patient's comorbidities, presenting symptoms, or acuity I expect that the services needed warrant INPATIENT care.: Yes I certify that my determination is in accordance with my understanding of Medicare's requirements for reasonable and necessary INPATIENT services [42 CFR 412.3e].: Yes Medical Necessity: Need Close Monitoring Due to Risk of Patient Decompensation, Need For Continuous Telemetry Monitoring, Need for Nebulizer Therapy and Monitoring of Response, Risk of Complication if Not Cared For in Hospital Post Hospital Care: D/C or Transfer Summary - Plan Summary Plan Summary: Continue current medication management with trial of decrease or holding off Lasix usage due to poor intake ability otherwise consider low flow IV fluid support.
[2018-03-17 22:09] LABS: PROTHROMBIN TIME 67.7 SEC (11.4-15.4)
[2018-03-17 22:10] LABS: INTERNATIONAL RATION (INR) 7.61
[2018-03-17] MEDS ORDERED: PHYTONADIONE 5 MG TABLET PO ONE (22:30)
[2018-03-17] MEDS ORDERED: PHYTONADIONE 5 MG TABLET ONE (22:44)
[2018-03-18 05:18] LABS: ARTERIAL BLOOD BASE EXCESS 2.3 mmol/L; ARTERIAL BLOOD FIO2 100%; ARTERIAL BLOOD H2CO3 1.34 mmol/L (1.05-1.35); ARTERIAL BLOOD HCO3 27.3 mmol/L (20-24); ARTERIAL BLOOD O2 SATURATION 91.4 % (94-98); ARTERIAL BLOOD PCO2 44.6 mmHg (35-45); ARTERIAL BLOOD PH 7.41 (7.35-7.45); ARTERIAL BLOOD TOTAL CO2 28.7 mmol/L (23-27)
[2018-03-18 05:42] LABS: ABSOLUTE BASOPHILS # (AUTO) 0.1 10^3/uL (0.0-0.2); ABSOLUTE EOSINOPHILS # (AUTO) 0.2 10^3/uL (0.0-0.6); ABSOLUTE MONOCYTES (AUTO) 0.9 10^3/uL (0.1-1.4); ABSOLUTE NEUT (AUTO) 7.8 10^3/uL (1.7-8.2); BASOPHILS % (AUTO) 1.3 % (0-2); EOSINOPHILS % (AUTO) 2.1 % (0-6); HEMATOCRIT 27.1 % (37.9-51.0); HEMOGLOBIN 9.1 g/dL (13.5-17.0); LYMPHOCYTES % (AUTO) 10.4 % (13-45); MEAN CORPUSCULAR HEMOGLOBIN 31.4 pg (27.0-33.4); MEAN CORPUSCULAR HGB CONC 33.4 g/dL (32.0-36.0); MEAN CORPUSCULAR VOLUME 94 fl (80-97); MONOCYTES % (AUTO) 8.7 % (3-13); PLATELET COUNT 248 10^3/uL (150-450); RED BLOOD COUNT 2.89 10^6/uL (4.35-5.55); RED CELL DISTRIBUTION WIDTH 16.1 % (11.5-14.0); SEGMENTED NEUTROPHILS % (AUTO) 77.5 % (42-78); TOTAL CELLS COUNTED % (AUTO) 100 %
[2018-03-18 06:02] LABS: PARTIAL THROMBOPLASTIN TIME 113.5 SEC (23.5-35.8)
[2018-03-18 06:09] LABS: ALANINE AMINOTRANSFERASE 16 U/L (21-72); ALBUMIN 3.2 g/dL (3.5-5.0); ALKALINE PHOSPHATASE 106 U/L (38-126); ANION GAP 12 (5-19); ASPARTATE AMINO TRANSFERASE 15 U/L (17-59); BILIRUBIN,DIRECT 0.5 mg/dL (0.0-0.4); BILIRUBIN,TOTAL 0.9 mg/dL (0.2-1.3); BLOOD UREA NITROGEN 29 mg/dL (7-20); CALCIUM 9.3 mg/dL (8.4-10.2); CARBON DIOXIDE 25 mmol/L (22-30); CHLORIDE 103 mmol/L (98-107); GLUCOSE 135 mg/dL (75-110); SODIUM 139.7 mmol/L (137-145); TOTAL PROTEIN 6.2 g/dL (6.3-8.2)
[2018-03-18 06:11] LABS: INTERNATIONAL RATION (INR) 5.36; PROTHROMBIN TIME 51.4 SEC (11.4-15.4)
[2018-03-18] MEDS ORDERED: FUROSEMIDE INJ/PF 20 MG/2 ML SDV ONE (06:49)
--- NOTE | 2018-03-18 06:58 | RADIOLOGY REPORT (SQ) ---
EXAM DESCRIPTION: XR CHEST 1 VIEW COMPLETED DATE/TME: 03/18/2018 00:00 CLINICAL HISTORY: 77 years, Male, respiratory distress COMPARISON: 03/11/2018 chest NUMBER OF VIEWS: 1 TECHNIQUE: Portable chest LIMITATIONS: None. FINDINGS: Cardiomegaly with stable postsurgical change. Bibasilar pleural effusions, greater on the right. Atheromatous change thoracic aorta. Interstitial edema. No pneumothorax. IMPRESSION: Little interval change. Cardiomegaly with interstitial edema and effusions bilaterally, greater on the right copyright 2010 [employer]- All Rights Reserved
[2018-03-18] MEDS ORDERED: PROPOFOL 1,000 MG/100 ML INFUS..BTL IV ONE (07:20)
[2018-03-18] MEDS ORDERED: NOREPINEPHRINE BITARTRATE INJ/PF 4 MG/4 ML SDV IV ONE (08:19)
[2018-03-18] MEDS: DEXTROSE 5%-WATER 250 ML with NOREPINEPHRINE BITARTRATE 4 MG IV PRN ×4 (08:25→14:21)
[2018-03-18] MEDS: BUDESONIDE NEB 0.5 MG/2 ML AMPUL NEB SCH ×2 (08:34→20:26)
[2018-03-18] MEDS: IPRATROPIUM/ALBUTEROL 0.5-2.5 MG/3 ML AMPUL NEB SCH ×3 (08:34→20:26)
[2018-03-18] MEDS ORDERED: MIDAZOLAM HCL 50 MG/100 ML RTUINJ ONE ×2 (08:49→11:56)
[2018-03-18] MEDS ORDERED: PHENYLEPHRINE HCL INJ/PF 10 MG/1 ML SDV ONE (08:49)
[2018-03-18] MEDS: MIDAZOLAM HCL 50 MG/100 ML RTUINJ IV PRN ×4 (08:55→22:07)
[2018-03-18] MEDS: DEXTROSE 5%-WATER 250 ML with PHENYLEPHRINE HCL 40 MG IV PRN ×8 (08:55→23:45)
--- NOTE | 2018-03-18 09:11 | RADIOLOGY REPORT (SQ) ---
EXAM DESCRIPTION: CHEST SINGLE VIEW COMPLETED DATE/TIME: 03/18/2018 8:39 am REASON FOR STUDY: POST INTUBATION COMPARISON: Earlier same day NUMBER OF VIEWS: One view. TECHNIQUE: Single frontal radiographic image of the chest acquired. LIMITATIONS: None. FINDINGS: LUNGS AND PLEURA: Stable appearance. No pneumothorax. MEDIASTINUM AND HEART: Stable heart size and mediastinal structures. SUPPORT DEVICES: Nasogastric tube extending into the left upper quadrant. Endotracheal tube between thoracic inlet and noble. BONY STRUCTURES: No acute findings. HARDWARE: None. OTHER: No other significant finding. IMPRESSION: Satisfactory position of endotracheal and nasogastric tubes. No pneumothorax. Reading location - IP/workstation name: [email or web address]
[2018-03-18 10:13] LABS: ARTERIAL BLOOD BASE EXCESS -1.9 mmol/L; ARTERIAL BLOOD FIO2 100%; ARTERIAL BLOOD H2CO3 1.36 mmol/L (1.05-1.35); ARTERIAL BLOOD HCO3 23.9 mmol/L (20-24); ARTERIAL BLOOD PCO2 45.1 mmHg (35-45); ARTERIAL BLOOD PH 7.34 (7.35-7.45); ARTERIAL BLOOD PO2 52.4 mmHg (80-100); ARTERIAL BLOOD TOTAL CO2 25.3 mmol/L (23-27)
[2018-03-18] MEDS ORDERED: SUCCINYLCHOLINE CHLORIDE INJ 200 MG/10 ML VIAL ONE (10:56)
--- NOTE | 2018-03-18 11:19 | RADIOLOGY REPORT (SQ) ---
EXAM DESCRIPTION: CHEST SINGLE VIEW COMPLETED DATE/TIME: 03/18/2018 11:02 am REASON FOR STUDY: CENTRAL LINE PLACEMENT COMPARISON: Earlier same day. NUMBER OF VIEWS: One view. TECHNIQUE: Single frontal radiographic image of the chest acquired. LIMITATIONS: None. FINDINGS: LUNGS AND PLEURA: Stable appearance. No pneumothorax. MEDIASTINUM AND HEART: Stable heart size and mediastinal structures. SUPPORT DEVICES: Interval placement of right-sided central line with tip overlying SVC. BONY STRUCTURES: No acute findings. HARDWARE: None. OTHER: No other significant finding. IMPRESSION: Satisfactory position of right central line. No pneumothorax. Reading location - IP/workstation name: [email or web address]
[2018-03-18] MEDS: FUROSEMIDE INJ/PF 20 MG/2 ML SDV IV SCH (12:10)
[2018-03-18] MEDS: DOCUSATE SODIUM 100 MG CAPSULE PO SCH (12:11)
[2018-03-18] MEDS: TAMSULOSIN HCL 0.4 MG CAP.SR.24H PO SCH (12:11)
[2018-03-18] MEDS: LISINOPRIL 5 MG TABLET PO SCH (12:12)
[2018-03-18] MEDS: AMLODIPINE BESYLATE 10 MG TABLET PO SCH (12:12)
[2018-03-18] MEDS: ATENOLOL 50 MG TABLET PO SCH (12:14)
[2018-03-18] MEDS: CHOLECALCIFEROL (D3) 1,000 UNIT TABLET PO SCH (12:14)
[2018-03-18] MEDS: FOLIC ACID 1 MG TABLET PO SCH (12:14)
[2018-03-18] MEDS: FINASTERIDE 5 MG TABLET PO SCH (12:15)
[2018-03-18] MEDS: ASPIRIN 81 MG TABLET, ENT COATED PO SCH (12:15)
[2018-03-18] MEDS: ASCORBIC ACID 500 MG TABLET PO SCH (12:15)
[2018-03-18] MEDS: FERROUS SULFATE 325 MG TABLET PO SCH (12:15)
[2018-03-18] MEDS: ATORVASTATIN CALCIUM 40 MG TABLET PO SCH (12:16)
[2018-03-18] MEDS: NORMAL SALINE 1000 ML 1,000 ML IV PRN ×2 (12:53→13:03)
--- NOTE | 2018-03-18 13:43 | PDOC PROGRESS REPORT ---
Subjective Progress Note for:: 03/18/18 Subjective:: This is a 77-year-old patient's with a significant history of the COPD pulmonary fibrosis chronic respiratory failure on a BiPAP last night patient was dissected and patient was intubated and placed in the ICU Patient's still very sick patient requires several pressure per the blood pressure is controlled Very extensive discussed with the family on the bedside will continues the current monitor family do not want to put any resuscitations if the patient heart stop Discussed with the patient's pulmonary Reason For Visit: RESPIRATORY FAILURE Physical Exam Vital Signs: Temp Pulse Resp BP Pulse Ox 98.4 F 84 14 103/57 L 95 03/18/18 10:00 03/18/18 08:30 03/18/18 08:30 03/18/18 03:33 03/18/18 12:00 Intake & Output 03/17/18 03/18/18 03/19/18 06:59 06:59 06:59 Intake Total 237 649 9599 Output Total 550 750 325 Balance -160 -248 979 Weight 97.8 kg 94.5 kg General appearance: PRESENT: mild distress Eye exam: PRESENT: PERRLA Respiratory exam: PRESENT: decreased breath sounds Cardiovascular exam: PRESENT: +S1, +S2 GI/Abdominal exam: PRESENT: normal bowel sounds, soft Neurological exam: PRESENT: altered Skin exam: PRESENT: dry Results Laboratory Results: 03/18/18 05:20 03/18/18 05:20 03/18/18 03/18/18 03/18/18 04:47 05:20 05:20 WBC 10.0 RBC 2.89 L Hgb 9.1 L Hct 27.1 L MCV 94 MCH 31.4 MCHC 33.4 RDW 16.1 H Plt Count 248 Seg Neutrophils % 77.5 Lymphocytes % 10.4 L Monocytes % 8.7 Eosinophils % 2.1 Basophils % 1.3 Absolute Neutrophils 7.8 Absolute Lymphocytes 1.0 Absolute Monocytes 0.9 Absolute Eosinophils 0.2 Absolute Basophils 0.1 Carbonic Acid 1.34 HCO3/H2CO3 Ratio 20:1 ABG pH 7.41 ABG pCO2 44.6 ABG pO2 61.0 L ABG HCO3 27.3 H ABG O2 Saturation 91.4 L ABG Base Excess 2.3 FiO2 100% Sodium 139.7 Potassium 4.0 Chloride 103 Carbon Dioxide 25 Anion Gap 12 BUN 29 H Creatinine 1.29 H Est GFR ( Amer) > 60 Est GFR (Non-Af Amer) 54 L Glucose 135 H Calcium 9.3 Magnesium 2.0 Total Bilirubin 0.9 AST 15 L ALT 16 L Alkaline Phosphatase 106 Total Protein 6.2 L Albumin 3.2 L 03/18/18 09:55 WBC RBC Hgb Hct MCV MCH MCHC RDW Plt Count Seg Neutrophils % Lymphocytes % Monocytes % Eosinophils % Basophils % Absolute Neutrophils Absolute Lymphocytes Absolute Monocytes Absolute Eosinophils Absolute Basophils Carbonic Acid 1.36 H HCO3/H2CO3 Ratio 17:1 ABG pH 7.34 L ABG pCO2 45.1 H ABG pO2 52.4 L ABG HCO3 23.9 ABG O2 Saturation 85.0 L ABG Base Excess -1.9 FiO2 100% Sodium Potassium Chloride Carbon Dioxide Anion Gap BUN Creatinine Est GFR ( Amer) Est GFR (Non-Af Amer) Glucose Calcium Magnesium Total Bilirubin AST ALT Alkaline Phosphatase Total Protein Albumin 03/12/18 18:38 Sputum Sputum Culture - Final Staphylococcus Aureus Normal Alix 03/11/18 03/11/18 03/11/18 03:15 06:26 06:26 Creatine Kinase 26 L CK-MB (CK-2) 0.85 Troponin I < 0.012 < 0.012 03/11/18 03/11/18 03/11/18 12:32 12:32 18:09 Creatine Kinase 27 L 33 L CK-MB (CK-2) 1.02 Troponin I < 0.012 03/11/18 18:09 Creatine Kinase CK-MB (CK-2) 1.10 Troponin I < 0.012 Impressions: Chest X-Ray 03/18/18 00:00 IMPRESSION: Satisfactory position of right central line. No pneumothorax. Assessment & Plan - Diagnosis (1) Acute and chronic respiratory failure Qualifiers: Respiratory failure complication: hypoxia and hypercapnia Qualified Code(s): J96.21 - Acute and chronic respiratory failure with hypoxia; J96.22 - Acute and chronic respiratory failure with hypercapnia Is this a current diagnosis for this admission?: Yes Plan: Currently intubated (2) Acute hypoxemic respiratory failure Is this a current diagnosis for this admission?: Yes (3) Bacterial infection due to Staphylococcus aureus Is this a current diagnosis for this admission?: Yes Plan: Continues to IV antibiotic (4) Chronic atrial fibrillation Is this a current diagnosis for this admission?: Yes Plan: Patient INR is high we will hold the Coumadin recheck the PT/INR (5) Chronic diastolic heart failure Is this a current diagnosis for this admission?: Yes Plan: Review the patient's echocardiograms if is not done will order it (6) COPD (chronic obstructive pulmonary disease) Qualifiers: COPD type: COPD with acute lower respiratory infection Qualified Code(s): J44.0 - Chronic obstructive pulmonary disease with acute lower respiratory infection Is this a current diagnosis for this admission?: Yes (7) Diabetes mellitus type 2 in obese Is this a current diagnosis for this admission?: Yes (8) End stage chronic obstructive pulmonary disease Is this a current diagnosis for this admission?: Yes (9) Pneumonia Qualifiers: Pneumonia type: due to unspecified organism Laterality: unspecified laterality Lung location: unspecified part of lung Qualified Code(s): J18.9 - Pneumonia, unspecified organism Is this a current diagnosis for this admission?: Yes - Time Time Spent with patient: 35 or more minutes Total Critical Time (Minutes): 30 Medications reviewed and adjusted accordingly: Yes Anticipated discharge: Other Within: Other - Plan Summary Plan Summary: Patient overall prognosis is very poor with the end-stage COPD respiratory failure and also heart issues Discussed with the family and family pretty much aware about the patient's poor prognosis Family is more tablets to be a DNR if the heart stop Will continues to current medications
[2018-03-18] MEDS: ALLOPURINOL 300 MG TABLET PO SCH (14:15)
[2018-03-18] MEDS: CEFTRIAXONE SODIUM 1,500 MG in DEXTROSE 5%-WATER 100 ML IV SCH ×2 (14:15→16:44)
[2018-03-18] MEDS: CYANOCOBALAMIN (VITAMIN B-12) 1,000 MCG TABLET PO SCH (14:15)
--- NOTE | 2018-03-18 15:47 | OPERATIVE REPORT E ---
Operative Report NAME: DONALD WESTON : 1940 AGE: 77Y DATE OF SURGERY: 03/18/2018 ROOM: 605 Preoperative DX: Poor peripheral veins for IV access,patient in ICU intubated Post op Dx: Same PROCEDURE: The patient is intubated and placed in slight Trendelenburg position. The right clavicular area was then prepped and draped in the usual sterile fashion. Local anesthesia infiltrated in the right infraclavicular area and the right subclavian vein punctured, and guidewire passed through the needle toward the superior vena cava. The needle was removed and the puncture site dilated, and a triple lumen catheter inserted through the guidewire to a distance of about 15 cm. All 3 ports aspirated blood easily and instilled saline easily. The catheter was then anchored to the skin with 3-0 silk. Sterile dressing was placed over the operative sites. The patient tolerated the procedure well. Chest x-ray showed catheter in SVC with no pneumothorax. DICTATING PHYSICIAN: AMY PFEIFFER M.D. [id number] Y#: [id number] ID: [id number] JOB#: [id number] ACCT: [id number] cc:AMY PFEIFFER M.D. > MTDD
[2018-03-18] MEDS: FAMOTIDINE 20 MG TABLET PO SCH (17:58)
[2018-03-18] MEDS: FAMOTIDINE INJ/PF 20 MG/2 ML SDV IV SCH (21:20)
[2018-03-18 21:43] LABS: INTERNATIONAL RATION (INR) 4.19; PROTHROMBIN TIME 42.3 SEC (11.4-15.4)
[2018-03-19] MEDS: NORMAL SALINE 1000 ML 1,000 ML IV PRN ×2 (02:38→18:03)
[2018-03-19] MEDS: DEXTROSE 5%-WATER 250 ML with NOREPINEPHRINE BITARTRATE 4 MG IV PRN ×4 (05:00→19:52)
[2018-03-19] MEDS: MIDAZOLAM HCL 50 MG/100 ML RTUINJ IV PRN ×3 (06:28→20:15)
--- NOTE | 2018-03-19 06:49 | RADIOLOGY REPORT (SQ) ---
EXAM DESCRIPTION: XR CHEST 1 VIEW COMPLETED DATE/TME: 03/19/2018 06:00 CLINICAL HISTORY: 77 years, Male, resp failure COMPARISON: 03/18/2018 chest x-ray NUMBER OF VIEWS: 1 TECHNIQUE: Portable chest LIMITATIONS: None. FINDINGS: Cardiomegaly. Median sternotomy wires with mediastinal clips. Central venous catheter in place. Endotracheal tube in place. Enteric tube in place. No pneumothorax. Underlying COPD is suspected. Ectasia thoracic aorta. Small right pleural effusion with minimal adjacent airspace opacity IMPRESSION: Slight improved aeration of the right lung base. Other findings are stable. copyright 2010 [employer]- All Rights Reserved
[2018-03-19 07:17] LABS: ABSOLUTE BASOPHILS # (AUTO) 0.1 10^3/uL (0.0-0.2); ABSOLUTE EOSINOPHILS # (AUTO) 0.3 10^3/uL (0.0-0.6); ABSOLUTE MONOCYTES (AUTO) 0.8 10^3/uL (0.1-1.4); ABSOLUTE NEUT (AUTO) 5.7 10^3/uL (1.7-8.2); BASOPHILS % (AUTO) 1.2 % (0-2); EOSINOPHILS % (AUTO) 3.4 % (0-6); HEMATOCRIT 27.4 % (37.9-51.0); LYMPHOCYTES % (AUTO) 12.4 % (13-45); MEAN CORPUSCULAR HEMOGLOBIN 30.7 pg (27.0-33.4); MEAN CORPUSCULAR HGB CONC 32.8 g/dL (32.0-36.0); MEAN CORPUSCULAR VOLUME 94 fl (80-97); MONOCYTES % (AUTO) 10.3 % (3-13); PLATELET COUNT 261 10^3/uL (150-450); RED BLOOD COUNT 2.92 10^6/uL (4.35-5.55); RED CELL DISTRIBUTION WIDTH 16.3 % (11.5-14.0); SEGMENTED NEUTROPHILS % (AUTO) 72.7 % (42-78); TOTAL CELLS COUNTED % (AUTO) 100 %; WHITE BLOOD COUNT 7.9 10^3/uL (4.0-10.5)
[2018-03-19 07:26] LABS: INTERNATIONAL RATION (INR) 4.94; PROTHROMBIN TIME 48.2 SEC (11.4-15.4)
[2018-03-19 07:46] LABS: ARTERIAL BLOOD BASE EXCESS -0.2 mmol/L; ARTERIAL BLOOD H2CO3 1.16 mmol/L (1.05-1.35); ARTERIAL BLOOD HCO3 24.3 mmol/L (20-24); ARTERIAL BLOOD O2 SATURATION 93.5 % (94-98); ARTERIAL BLOOD PCO2 38.6 mmHg (35-45); ARTERIAL BLOOD PH 7.42 (7.35-7.45); ARTERIAL BLOOD PO2 66.2 mmHg (80-100); ARTERIAL BLOOD TOTAL CO2 25.4 mmol/L (23-27)
[2018-03-19 07:47] LABS: ARTERIAL BLOOD FIO2 60%
[2018-03-19 07:58] LABS: ANION GAP 8 (5-19); BLOOD UREA NITROGEN 31 mg/dL (7-20); CALCIUM 8.6 mg/dL (8.4-10.2); CARBON DIOXIDE 27 mmol/L (22-30); CHLORIDE 103 mmol/L (98-107); CREATINE KINASE 39 U/L (55-170); GLUCOSE 131 mg/dL (75-110); PHOSPHORUS 3.8 mg/dL (2.5-4.5); POTASSIUM 3.8 mmol/L (3.6-5.0); SODIUM 137.8 mmol/L (137-145)
[2018-03-19 08:06] LABS: CREATINE KINASE MB 1.54 ng/mL (<4.55); NT PRO BNP 2520 pg/mL (<450)
[2018-03-19 08:07] LABS: TROPONIN I < 0.012 ng/mL
[2018-03-19] MEDS: BUDESONIDE NEB 0.5 MG/2 ML AMPUL NEB SCH ×2 (08:18→21:27)
[2018-03-19] MEDS: IPRATROPIUM/ALBUTEROL 0.5-2.5 MG/3 ML AMPUL NEB SCH ×3 (08:18→21:27)
[2018-03-19] MEDS: DOCUSATE SODIUM 100 MG CAPSULE PO SCH (09:43)
[2018-03-19] MEDS: TAMSULOSIN HCL 0.4 MG CAP.SR.24H PO SCH (09:43)
[2018-03-19] MEDS: AMLODIPINE BESYLATE 10 MG TABLET PO SCH (09:44)
[2018-03-19] MEDS: LISINOPRIL 5 MG TABLET PO SCH (09:44)
[2018-03-19] MEDS: FAMOTIDINE INJ/PF 20 MG/2 ML SDV IV SCH (10:42)
[2018-03-19] MEDS: FUROSEMIDE INJ/PF 20 MG/2 ML SDV IV SCH (10:42)
[2018-03-19] MEDS: ATORVASTATIN CALCIUM 40 MG TABLET PO SCH (10:43)
[2018-03-19] MEDS: FINASTERIDE 5 MG TABLET PO SCH (10:43)
[2018-03-19] MEDS: ASPIRIN 81 MG TABLET, ENT COATED PO SCH (10:43)
[2018-03-19] MEDS: CHOLECALCIFEROL (D3) 1,000 UNIT TABLET PO SCH (10:43)
[2018-03-19] MEDS: FERROUS SULFATE 325 MG TABLET PO SCH (10:43)
[2018-03-19] MEDS: ASCORBIC ACID 500 MG TABLET PO SCH (10:43)
[2018-03-19] MEDS: FOLIC ACID 1 MG TABLET PO SCH (10:43)
[2018-03-19] MEDS: CEFTRIAXONE SODIUM 1,500 MG in DEXTROSE 5%-WATER 100 ML IV SCH (10:44)
[2018-03-19] MEDS: ATENOLOL 50 MG TABLET PO SCH (10:44)
[2018-03-19] MEDS: ALLOPURINOL 300 MG TABLET PO SCH (10:45)
[2018-03-19] MEDS: CYANOCOBALAMIN (VITAMIN B-12) 1,000 MCG TABLET PO SCH (10:45)
--- NOTE | 2018-03-19 12:14 | PDOC PROGRESS REPORT ---
Subjective Subjective:: This is a 77-year-old patient's with a significant history of the COPD pulmonary fibrosis chronic respiratory failure on a BiPAP last night patient was dissected and patient was intubated and placed in the ICU Patient's still very sick patient requires several pressure per the blood pressure is controlled Very extensive discussed with the family on the bedside will continues the current monitor family do not want to put any resuscitations if the patient heart stop Discussed with the patient's pulmonary Reason For Visit: RESPIRATORY FAILURE Physical Exam Vital Signs: Temp Pulse Resp BP Pulse Ox 99.1 F 74 16 103/57 L 94 03/19/18 11:26 03/19/18 08:18 03/19/18 08:18 03/18/18 03:33 03/19/18 11:48 Intake & Output 03/18/18 03/19/18 03/20/18 06:59 06:59 06:59 Intake Total 502 3674 77 Output Total 750 935 230 Balance -248 2739 -153 Weight 94.5 kg 97.1 kg Physical Exam: Currently intubated General appearance: PRESENT: no acute distress Eye exam: PRESENT: PERRLA Respiratory exam: PRESENT: decreased breath sounds Cardiovascular exam: PRESENT: +S1, +S2 GI/Abdominal exam: PRESENT: normal bowel sounds, soft Extremities exam: ABSENT: pedal edema Results Laboratory Results: 03/19/18 06:50 03/19/18 06:50 03/19/18 03/19/18 03/19/18 06:50 06:50 07:30 WBC 7.9 RBC 2.92 L Hgb 9.0 L Hct 27.4 L MCV 94 MCH 30.7 MCHC 32.8 RDW 16.3 H Plt Count 261 Seg Neutrophils % 72.7 Lymphocytes % 12.4 L Monocytes % 10.3 Eosinophils % 3.4 Basophils % 1.2 Absolute Neutrophils 5.7 Absolute Lymphocytes 1.0 Absolute Monocytes 0.8 Absolute Eosinophils 0.3 Absolute Basophils 0.1 Carbonic Acid 1.16 HCO3/H2CO3 Ratio 20:1 ABG pH 7.42 ABG pCO2 38.6 ABG pO2 66.2 L ABG HCO3 24.3 H ABG O2 Saturation 93.5 L ABG Base Excess -0.2 FiO2 60% Sodium 137.8 Potassium 3.8 Chloride 103 Carbon Dioxide 27 Anion Gap 8 BUN 31 H Creatinine 1.42 H Est GFR ( Amer) 58 L Est GFR (Non-Af Amer) 48 L Glucose 131 H Calcium 8.6 Phosphorus 3.8 Magnesium 2.0 03/12/18 18:38 Sputum Sputum Culture - Final Staphylococcus Aureus Normal Alix 03/11/18 03/11/18 03/11/18 03:15 06:26 06:26 Creatine Kinase 26 L CK-MB (CK-2) 0.85 Troponin I < 0.012 < 0.012 NT-Pro-B Natriuret Pep 03/11/18 03/11/18 03/11/18 12:32 12:32 18:09 Creatine Kinase 27 L 33 L CK-MB (CK-2) 1.02 Troponin I < 0.012 NT-Pro-B Natriuret Pep 03/11/18 03/19/18 03/19/18 18:09 06:50 06:50 Creatine Kinase 39 L CK-MB (CK-2) 1.10 1.54 Troponin I < 0.012 < 0.012 NT-Pro-B Natriuret Pep 2520 H Impressions: Chest X-Ray 03/19/18 06:00 IMPRESSION: Slight improved aeration of the right lung base. Other findings are stable. copyright 2010 [employer]- All Rights Reserved Assessment & Plan - Diagnosis (1) Acute and chronic respiratory failure Qualifiers: Respiratory failure complication: hypoxia and hypercapnia Qualified Code(s): J96.21 - Acute and chronic respiratory failure with hypoxia; J96.22 - Acute and chronic respiratory failure with hypercapnia Is this a current diagnosis for this admission?: Yes Plan: Continues to pulmonary support (2) Acute hypoxemic respiratory failure Is this a current diagnosis for this admission?: Yes (3) Bacterial infection due to Staphylococcus aureus Is this a current diagnosis for this admission?: Yes Plan: Continues to IV antibiotic (4) Chronic atrial fibrillation Is this a current diagnosis for this admission?: Yes Plan: Patient INR is high we will hold the Coumadin recheck the PT/INR (5) Chronic diastolic heart failure Is this a current diagnosis for this admission?: Yes Plan: Review the patient's echocardiograms if is not done will order it (6) COPD (chronic obstructive pulmonary disease) Qualifiers: COPD type: COPD with acute lower respiratory infection Qualified Code(s): J44.0 - Chronic obstructive pulmonary disease with acute lower respiratory infection Is this a current diagnosis for this admission?: Yes (7) Diabetes mellitus type 2 in obese Is this a current diagnosis for this admission?: Yes (8) End stage chronic obstructive pulmonary disease Is this a current diagnosis for this admission?: Yes (9) Pneumonia Qualifiers: Pneumonia type: due to unspecified organism Laterality: unspecified laterality Lung location: unspecified part of lung Qualified Code(s): J18.9 - Pneumonia, unspecified organism Is this a current diagnosis for this admission?: Yes - Time Time Spent with patient: 25-34 minutes Total Critical Time (Minutes): 30 - Plan Summary Plan Summary: This with the family about patient's poor prognosis Discussed with the cardiology and suggest no need for further cardiac evaluation at this point Continues to follow with the pulmonary
[2018-03-19] MEDS: MORPHINE SULFATE 10 MG/ML INJ IV PRN (16:14)
[2018-03-19] MEDS ORDERED: ACETAMINOPHEN SOLN 325 MG/10.15 ML UDCUP ONE (20:14)
[2018-03-19] MEDS ORDERED: ACETAMINOPHEN SOLN 325 MG/10.15 ML UDCUP NG PRN (21:25)
[2018-03-20] MEDS: FAMOTIDINE INJ/PF 20 MG/2 ML SDV IV SCH ×3 (01:43→22:06)
--- NOTE | 2018-03-20 05:48 | RADIOLOGY REPORT (SQ) ---
EXAM DESCRIPTION: XR CHEST 1 VIEW COMPLETED DATE/TME: 03/20/2018 06:00 CLINICAL HISTORY: 77 years, Male, resp failure COMPARISON: 03/19/2018 chest NUMBER OF VIEWS: 1 TECHNIQUE: Portable chest LIMITATIONS: None. FINDINGS: Cardiomegaly. Grossly stable indwelling lines and catheters. Ectasia thoracic aorta. Osteopenia. No pneumothorax. Airspace opacity right lung base. Underlying COPD. IMPRESSION: Little interval change copyright 2010 [employer]- All Rights Reserved
[2018-03-20] MEDS: MIDAZOLAM HCL 50 MG/100 ML RTUINJ IV PRN ×2 (06:25→18:26)
[2018-03-20 07:08] LABS: ABSOLUTE BASOPHILS # (AUTO) 0.1 10^3/uL (0.0-0.2); ABSOLUTE EOSINOPHILS # (AUTO) 0.1 10^3/uL (0.0-0.6); ABSOLUTE LYMPHOCYTES (AUTO) 1.1 10^3/uL (0.5-4.7); ABSOLUTE MONOCYTES (AUTO) 1.1 10^3/uL (0.1-1.4); ABSOLUTE NEUT (AUTO) 8.3 10^3/uL (1.7-8.2); BASOPHILS % (AUTO) 1.2 % (0-2); EOSINOPHILS % (AUTO) 1.2 % (0-6); HEMATOCRIT 26.3 % (37.9-51.0); HEMOGLOBIN 8.7 g/dL (13.5-17.0); LYMPHOCYTES % (AUTO) 10.4 % (13-45); MEAN CORPUSCULAR HEMOGLOBIN 31.1 pg (27.0-33.4); MEAN CORPUSCULAR HGB CONC 33.2 g/dL (32.0-36.0); MEAN CORPUSCULAR VOLUME 94 fl (80-97); MONOCYTES % (AUTO) 10.5 % (3-13); PLATELET COUNT 263 10^3/uL (150-450); RED BLOOD COUNT 2.82 10^6/uL (4.35-5.55); RED CELL DISTRIBUTION WIDTH 16.8 % (11.5-14.0); SEGMENTED NEUTROPHILS % (AUTO) 76.7 % (42-78); TOTAL CELLS COUNTED % (AUTO) 100 %; WHITE BLOOD COUNT 10.8 10^3/uL (4.0-10.5)
[2018-03-20 07:26] LABS: ANION GAP 8 (5-19); BLOOD UREA NITROGEN 30 mg/dL (7-20); CALCIUM 8.3 mg/dL (8.4-10.2); CARBON DIOXIDE 25 mmol/L (22-30); CHLORIDE 105 mmol/L (98-107); GLUCOSE 131 mg/dL (75-110); PHOSPHORUS 3.9 mg/dL (2.5-4.5); POTASSIUM 3.9 mmol/L (3.6-5.0); SODIUM 137.7 mmol/L (137-145)
[2018-03-20 07:41] LABS: ARTERIAL BLOOD BASE EXCESS 0.2 mmol/L; ARTERIAL BLOOD FIO2 60%; ARTERIAL BLOOD H2CO3 1.06 mmol/L (1.05-1.35); ARTERIAL BLOOD HCO3 23.9 mmol/L (20-24); ARTERIAL BLOOD O2 SATURATION 91.4 % (94-98); ARTERIAL BLOOD PCO2 35.2 mmHg (35-45); ARTERIAL BLOOD PH 7.45 (7.35-7.45); ARTERIAL BLOOD PO2 57.6 mmHg (80-100)
[2018-03-20 08:18] LABS: INTERNATIONAL RATION (INR) 8.79; PROTHROMBIN TIME 75.9 SEC (11.4-15.4)
[2018-03-20] MEDS: IPRATROPIUM/ALBUTEROL 0.5-2.5 MG/3 ML AMPUL NEB SCH ×3 (08:34→20:26)
[2018-03-20] MEDS: BUDESONIDE NEB 0.5 MG/2 ML AMPUL NEB SCH ×2 (08:34→20:26)
[2018-03-20] MEDS: FUROSEMIDE INJ/PF 20 MG/2 ML SDV IV SCH (08:51)
[2018-03-20] MEDS: NORMAL SALINE 1000 ML 1,000 ML IV PRN ×2 (08:52→23:30)
[2018-03-20] MEDS ORDERED: PHYTONADIONE INJ 10 MG/1 ML AMPULE SUBCUT ONE (10:00)
[2018-03-20] MEDS ORDERED: PHYTONADIONE INJ 1 MG/0.5 ML DISP.SYRIN IM ONE (10:00)
[2018-03-20] MEDS: FERROUS SULFATE 325 MG TABLET PO SCH (11:12)
[2018-03-20] MEDS: ASCORBIC ACID 500 MG TABLET PO SCH (11:12)
[2018-03-20] MEDS: CYANOCOBALAMIN (VITAMIN B-12) 1,000 MCG TABLET PO SCH (11:12)
[2018-03-20] MEDS: ALLOPURINOL 300 MG TABLET PO SCH (11:12)
[2018-03-20] MEDS: FINASTERIDE 5 MG TABLET PO SCH (11:12)
[2018-03-20] MEDS: ATORVASTATIN CALCIUM 40 MG TABLET PO SCH (11:12)
[2018-03-20] MEDS: ASPIRIN 81 MG TABLET, ENT COATED PO SCH (11:13)
[2018-03-20] MEDS: DEXTROSE 5%-WATER 250 ML with NOREPINEPHRINE BITARTRATE 4 MG IV PRN ×2 (11:13)
[2018-03-20] MEDS: CHOLECALCIFEROL (D3) 1,000 UNIT TABLET PO SCH (11:13)
[2018-03-20] MEDS: FOLIC ACID 1 MG TABLET PO SCH (11:13)
[2018-03-20] MEDS: TAMSULOSIN HCL 0.4 MG CAP.SR.24H PO SCH (11:19)
[2018-03-20] MEDS: AMLODIPINE BESYLATE 10 MG TABLET PO SCH (11:19)
[2018-03-20] MEDS: DOCUSATE SODIUM 100 MG CAPSULE PO SCH (11:19)
[2018-03-20] MEDS: LISINOPRIL 5 MG TABLET PO SCH (11:20)
[2018-03-20] MEDS: ATENOLOL 50 MG TABLET PO SCH (11:44)
[2018-03-20] MEDS: CEFTRIAXONE SODIUM 1,500 MG in DEXTROSE 5%-WATER 100 ML IV SCH (13:27)
--- NOTE | 2018-03-20 15:03 | PDOC CONSULTATION ---
Consultation Consult Date: 03/13/18 Attending physician:: AMERICA CORREA Consult reason:: Acute on chronic respiratory failure History of Present Illness Admission Date/PCP: 03/11/18 05:10 E[facility]ATTS History of Present Illness: DONALD WESTON is a 77 year old male; actively he returns to the complaint increasing shortness of breath and had saturations in the 80s and high 70s he was subsequently readmitted to the floor and started on a VATS and high flow intermittently high flow oxygen with limited success because they were unable to get a saturation above 90 in any particular time he complains of a cough but is not particularly productive no fever chills nausea vomiting or diarrhea. He has advanced COPD as well as pulmonary fibrosis. He also suffers from congestive heart failure and atrial fibrillation. Past Medical History Cardiac Medical History: Reports: Atrial Fibrillation, Congestive Heart Failure, Coronary Artery Disease, Myocardial Infarction, Hyperlipidema, Hypertension Pulmonary Medical History: Reports: Chronic Obstructive Pulmonary Disease (COPD), Pneumonia Neurological Medical History: Denies: Seizures Endocrine Medical History: Reports: Diabetes Mellitus Type 2 Denies: Hyperthyroidism, Hypothyroidism Malignancy Medical History: Reports: Colorectal Cancer GI Medical History: Reports: Gastroesophageal Reflux Disease Denies: Crohn's Disease, Ulcerative Colitis Musculoskeltal Medical History: Reports: Arthritis Skin Medical History: Denies: Eczema, Psoriasis Psychiatric Medical History: Denies: Depression Infectious Medical History: Denies: HIV Past Surgical History Past Surgical History: Reports: Appendectomy, Coronary Artery Bypass Graft - 3 vessels, Tonsillectomy, Other - AAA Social History Smoking Status: Former Smoker Frequency of Alcohol Use: None Hx Recreational Drug Use: No Drugs: None Hx Prescription Drug Abuse: No - Advance Directive Resuscitation Status: Full Code Family History Family History: Hypertension, Malignancy Parental Family History Reviewed: Yes Children Family History Reviewed: Yes Sibling(s) Family History Reviewed.: Yes Medication/Allergy Home Medications: Allopurinol [Zyloprim 300 mg Tablet] 300 mg PO DAILY 03/11/18 Amlodipine/Atorvastatin [Amlodipine-Atorvast 10-40 mg] 1 each PO DAILY 03/11/18 Ascorbic Acid [Vitamin C] 500 mg PO DAILY 03/11/18 Aspirin [Ecotrin] 81 mg PO DAILY 03/11/18 Atenolol [Tenormin] 25 mg PO DAILY 03/11/18 Budesonide [Pulmicort Neb 0.5 mg/2 ml Ampul] 0.5 mg NEB RTQ12 03/11/18 Cholecalciferol (Vitamin D3) [Vitamin D] 2,000 unit PO DAILY 03/11/18 Cyanocobalamin (Vitamin B-12) [Vitamin B-12] 1,000 mcg PO DAILY 03/11/18 Docusate Calcium [Stool Softener] 240 mg PO DAILY 03/11/18 Famotidine [Pepcid] 20 mg PO QPM 03/11/18 Ferrous Sulfate [Feosol 325 mg Tablet] 325 mg PO DAILY 03/11/18 Finasteride [Proscar 5 mg Tablet] 5 mg PO DAILY 03/11/18 Folic Acid 0.8 mg PO DAILY 03/11/18 Formoterol Fumarate [Perforomist] 20 mcg IH Q12 03/11/18 Furosemide [Lasix 20 mg Tablet] 20 mg PO QAM 03/11/18 Insulin Regular, Human [Humulin R (Pyxis) Insulin 100 Unit/ml 3Ml] 0 unit SUBCUT .SLD SCALE 03/11/18 Ipratropium/Albuterol Sulfate [Duoneb 3 ml Ampul] 3 ml NEB RTQ4HP PRN 03/11/18 Lisinopril [Prinivil 2.5 mg Tablet] 2.5 mg PO DAILY 03/11/18 Metformin HCl [Glucophage 500 mg Tablet] 500 mg PO BID 03/11/18 Nystatin [Mycostatin Cream] 1 applic TP BID 03/11/18 [place]-3/Dha/Epa/Fish Oil [[place]-3 Fish Oil 1,000 Mg Sfgl] 1,000 mg PO DAILY 03/11/18 Tamsulosin HCl [Flomax 0.4 mg Cap.sr] 0.4 mg PO DAILY 03/11/18 Tiotropium [place] [Spiriva Respimat] 2 puff IH DAILY 03/11/18 Warfarin Sodium [Coumadin 3 mg Tablet] 3 mg PO SUSA@219903/11/18 Warfarin Sodium [Coumadin] 6 mg PO MOTUWETHFR@219903/11/18 Allergies/Adverse Reactions: No Known Allergies Allergy (Verified 03/11/18 03:24) Review of Systems ROS unobtainable: Due to mental status Physical Exam Vital Signs: Temp Pulse Resp BP Pulse Ox 97.7 F 75 26 H 106/80 93 03/17/18 07:39 03/17/18 08:08 03/17/18 08:08 03/17/18 07:39 03/17/18 08:08 Intake & Output 03/16/18 03/17/18 03/18/18 06:59 06:59 06:59 Intake Total 100 390 Output Total 600 550 Balance -500 -160 Weight 98.5 kg 97.8 kg General appearance: PRESENT: mild distress, obese Head exam: PRESENT: atraumatic, normocephalic Eye exam: PRESENT: conjunctiva pale, EOMI. ABSENT: nystagmus, scleral icterus Mouth exam: PRESENT: dry mucosa, neck supple, tongue midline Neck exam: ABSENT: carotid bruit, JVD, lymphadenopathy, thyromegaly, tracheal deviation, tracheostomy Respiratory exam: PRESENT: decreased breath sounds, prolonged expiratory phas, rales, rhonchi, symmetrical, tachypnea, wheezes. ABSENT: unlabored Cardiovascular exam: PRESENT: irregular rhythm, +S1, +S2, tachycardia Pulses: PRESENT: normal radial pulses GI/Abdominal exam: PRESENT: soft. ABSENT: tenderness Gentrourinary exam: PRESENT: indwelling catheter Extremities exam: PRESENT: pedal edema. ABSENT: calf tenderness, clubbing, joint swelling Musculoskeletal exam: ABSENT: deformity, dislocation Neurological exam: PRESENT: altered, awake Skin exam: PRESENT: dry, warm Results Laboratory Results: 03/14/18 04:58 03/14/18 04:58 03/11/18 03/11/18 03/11/18 03:15 06:26 06:26 Creatine Kinase 26 L CK-MB (CK-2) 0.85 Troponin I < 0.012 < 0.012 03/11/18 03/11/18 03/11/18 12:32 12:32 18:09 Creatine Kinase 27 L 33 L CK-MB (CK-2) 1.02 Troponin I < 0.012 03/11/18 18:09 Creatine Kinase CK-MB (CK-2) 1.10 Troponin I < 0.012 Impressions: Chest X-Ray 03/11/18 03:14 IMPRESSION: Bibasilar pneumonia with pleural effusions. Assessment & Plan - Diagnosis (1) Acute and chronic respiratory failure Qualifiers: Respiratory failure complication: hypoxia and hypercapnia Qualified Code(s ): J96.21 - Acute and chronic respiratory failure with hypoxia; J96.22 - Acute and chronic respiratory failure with hypercapnia Is this a current diagnosis for this admission?: Yes Plan: Switch to avaps (2) Acute on chronic diastolic heart failure Is this a current diagnosis for this admission?: Yes Plan: Fairly well controlled but still a contributing factor (3) Chronic atrial fibrillation Is this a current diagnosis for this admission?: Yes Plan: Stable at this time (4) Severe pulmonary arterial systolic hypertension Is this a current diagnosis for this admission?: Yes Plan: unchanged - Time Total Critical Time (Minutes): 50
--- NOTE | 2018-03-20 15:06 | PDOC PROGRESS REPORT ---
Subjective Progress Note for:: 03/16/18 Subjective:: perhaps little bit worse Reason For Visit: RESPIRATORY FAILURE Physical Exam Vital Signs: Temp Pulse Resp BP Pulse Ox 97.7 F 75 26 H 106/80 93 03/17/18 07:39 03/17/18 08:08 03/17/18 08:08 03/17/18 07:39 03/17/18 08:08 Intake & Output 03/16/18 03/17/18 03/18/18 06:59 06:59 06:59 Intake Total 100 390 Output Total 600 550 Balance -500 -160 Weight 98.5 kg 97.8 kg General appearance: PRESENT: disheveled, mild distress, obese Head exam: PRESENT: atraumatic, normocephalic Eye exam: PRESENT: conjunctiva pale, EOMI Mouth exam: PRESENT: dry mucosa, neck supple, tongue midline Neck exam: ABSENT: carotid bruit, JVD, lymphadenopathy, thyromegaly, tracheal deviation, tracheostomy Respiratory exam: PRESENT: decreased breath sounds, prolonged expiratory phas, rales, rhonchi, symmetrical, tachypnea, wheezes. ABSENT: retraction, stridor, unlabored Cardiovascular exam: PRESENT: irregular rhythm Pulses: PRESENT: normal radial pulses GI/Abdominal exam: PRESENT: soft. ABSENT: tenderness Extremities exam: ABSENT: calf tenderness, clubbing, joint swelling Musculoskeletal exam: ABSENT: deformity, dislocation Neurological exam: PRESENT: altered, awake Skin exam: PRESENT: dry, warm Results Laboratory Results: 03/14/18 04:58 03/14/18 04:58 03/11/18 03/11/18 03/11/18 03:15 06:26 06:26 Creatine Kinase 26 L CK-MB (CK-2) 0.85 Troponin I < 0.012 < 0.012 03/11/18 03/11/18 03/11/18 12:32 12:32 18:09 Creatine Kinase 27 L 33 L CK-MB (CK-2) 1.02 Troponin I < 0.012 03/11/18 18:09 Creatine Kinase CK-MB (CK-2) 1.10 Troponin I < 0.012 Impressions: Chest X-Ray 03/11/18 03:14 IMPRESSION: Bibasilar pneumonia with pleural effusions. Assessment & Plan - Diagnosis (1) Acute and chronic respiratory failure Qualifiers: Respiratory failure complication: hypoxia and hypercapnia Qualified Code(s): J96.21 - Acute and chronic respiratory failure with hypoxia; J96.22 - Acute and chronic respiratory failure with hypercapnia Is this a current diagnosis for this admission?: Yes Plan: Switch to avaps (2) Acute on chronic diastolic heart failure Is this a current diagnosis for this admission?: Yes Plan: Fairly well controlled but still a contributing factor (3) Severe pulmonary arterial systolic hypertension Is this a current diagnosis for this admission?: Yes Plan: unchanged
--- NOTE | 2018-03-20 15:09 | PDOC PROGRESS REPORT ---
Subjective Progress Note for:: 03/18/18 Subjective:: intubated and sedated Reason For Visit: RESPIRATORY FAILURE Physical Exam Vital Signs: Temp Pulse Resp BP Pulse Ox 98.1 F 84 14 103/57 L 92 03/18/18 08:00 03/18/18 08:30 03/18/18 08:30 03/18/18 03:33 03/18/18 08:30 Intake & Output 03/17/18 03/18/18 03/19/18 06:59 06:59 06:59 Intake Total 390 502 Output Total 550 750 150 Balance -160 -248 -150 Weight 97.8 kg 94.5 kg General appearance: PRESENT: no acute distress, disheveled, obese Head exam: PRESENT: atraumatic, normocephalic Eye exam: PRESENT: conjunctiva pale. ABSENT: EOMI, nystagmus, scleral icterus Mouth exam: PRESENT: dry mucosa, neck supple, tongue midline, other - ET tube in place Neck exam: ABSENT: carotid bruit, JVD, lymphadenopathy, thyromegaly, tracheal deviation, tracheostomy Respiratory exam: PRESENT: decreased breath sounds, prolonged expiratory phas, rales, rhonchi, unlabored, wheezes. ABSENT: stridor, symmetrical, tachypnea Cardiovascular exam: PRESENT: irregular rhythm Pulses: PRESENT: normal radial pulses GI/Abdominal exam: PRESENT: soft. ABSENT: tenderness Extremities exam: PRESENT: pedal edema. ABSENT: calf tenderness, clubbing, joint swelling Musculoskeletal exam: ABSENT: deformity, dislocation Neurological exam: ABSENT: awake Skin exam: PRESENT: dry, warm Results Laboratory Results: 03/18/18 05:20 03/18/18 05:20 03/18/18 03/18/18 03/18/18 04:47 05:20 05:20 WBC 10.0 RBC 2.89 L Hgb 9.1 L Hct 27.1 L MCV 94 MCH 31.4 MCHC 33.4 RDW 16.1 H Plt Count 248 Seg Neutrophils % 77.5 Lymphocytes % 10.4 L Monocytes % 8.7 Eosinophils % 2.1 Basophils % 1.3 Absolute Neutrophils 7.8 Absolute Lymphocytes 1.0 Absolute Monocytes 0.9 Absolute Eosinophils 0.2 Absolute Basophils 0.1 Carbonic Acid 1.34 HCO3/H2CO3 Ratio 20:1 ABG pH 7.41 ABG pCO2 44.6 ABG pO2 61.0 L ABG HCO3 27.3 H ABG O2 Saturation 91.4 L ABG Base Excess 2.3 FiO2 100% Sodium 139.7 Potassium 4.0 Chloride 103 Carbon Dioxide 25 Anion Gap 12 BUN 29 H Creatinine 1.29 H Est GFR ( Amer) > 60 Est GFR (Non-Af Amer) 54 L Glucose 135 H Calcium 9.3 Magnesium 2.0 Total Bilirubin 0.9 AST 15 L ALT 16 L Alkaline Phosphatase 106 Total Protein 6.2 L Albumin 3.2 L 03/18/18 09:55 WBC RBC Hgb Hct MCV MCH MCHC RDW Plt Count Seg Neutrophils % Lymphocytes % Monocytes % Eosinophils % Basophils % Absolute Neutrophils Absolute Lymphocytes Absolute Monocytes Absolute Eosinophils Absolute Basophils Carbonic Acid 1.36 H HCO3/H2CO3 Ratio 17:1 ABG pH 7.34 L ABG pCO2 45.1 H ABG pO2 52.4 L ABG HCO3 23.9 ABG O2 Saturation 85.0 L ABG Base Excess -1.9 FiO2 100% Sodium Potassium Chloride Carbon Dioxide Anion Gap BUN Creatinine Est GFR ( Amer) Est GFR (Non-Af Amer) Glucose Calcium Magnesium Total Bilirubin AST ALT Alkaline Phosphatase Total Protein Albumin 03/11/18 03/11/18 03/11/18 03:15 06:26 06:26 Creatine Kinase 26 L CK-MB (CK-2) 0.85 Troponin I < 0.012 < 0.012 03/11/18 03/11/18 03/11/18 12:32 12:32 18:09 Creatine Kinase 27 L 33 L CK-MB (CK-2) 1.02 Troponin I < 0.012 03/11/18 18:09 Creatine Kinase CK-MB (CK-2) 1.10 Troponin I < 0.012 Impressions: Chest X-Ray 03/18/18 00:00 IMPRESSION: Satisfactory position of endotracheal and nasogastric tubes. No pneumothorax. Assessment & Plan - Diagnosis (1) Acute and chronic respiratory failure Qualifiers: Respiratory failure complication: hypoxia and hypercapnia Qualified Code(s): J96.21 - Acute and chronic respiratory failure with hypoxia; J96.22 - Acute and chronic respiratory failure with hypercapnia Is this a current diagnosis for this admission?: Yes Plan: Per attending patient transferred to ICU where he was intubated and sedated (2) Chronic atrial fibrillation Is this a current diagnosis for this admission?: Yes Plan: Stable at this time (3) Severe pulmonary arterial systolic hypertension Is this a current diagnosis for this admission?: Yes Plan: unchanged - Time Total Critical Time (Minutes): 55
--- NOTE | 2018-03-20 15:10 | PDOC PROGRESS REPORT ---
Subjective Progress Note for:: 03/19/18 Subjective:: intubated and sedated Reason For Visit: RESPIRATORY FAILURE Physical Exam Vital Signs: Temp Pulse Resp BP Pulse Ox 99.1 F 74 16 103/57 L 94 03/19/18 11:26 03/19/18 08:18 03/19/18 08:18 03/18/18 03:33 03/19/18 11:48 Intake & Output 03/18/18 03/19/18 03/20/18 06:59 06:59 06:59 Intake Total 502 3674 77 Output Total 750 935 230 Balance -248 2739 -153 Weight 94.5 kg 97.1 kg General appearance: PRESENT: no acute distress, disheveled, obese. ABSENT: cooperative Head exam: PRESENT: atraumatic, normocephalic Eye exam: PRESENT: conjunctiva pale. ABSENT: EOMI, nystagmus, scleral icterus Mouth exam: PRESENT: dry mucosa, neck supple, tongue midline, other - ET tube in place Neck exam: ABSENT: carotid bruit, JVD, lymphadenopathy, thyromegaly, tracheal deviation, tracheostomy Respiratory exam: PRESENT: decreased breath sounds, prolonged expiratory phas, rales, rhonchi, unlabored, wheezes. ABSENT: retraction, stridor, symmetrical, tachypnea Cardiovascular exam: PRESENT: irregular rhythm, +S1, +S2 Pulses: PRESENT: normal radial pulses GI/Abdominal exam: PRESENT: soft. ABSENT: tenderness Gentrourinary exam: PRESENT: indwelling catheter Extremities exam: PRESENT: pedal edema. ABSENT: calf tenderness, clubbing, joint swelling Musculoskeletal exam: ABSENT: deformity, dislocation Neurological exam: ABSENT: awake Skin exam: PRESENT: dry, warm Results Laboratory Results: 03/19/18 06:50 03/19/18 06:50 03/19/18 03/19/18 03/19/18 06:50 06:50 07:30 WBC 7.9 RBC 2.92 L Hgb 9.0 L Hct 27.4 L MCV 94 MCH 30.7 MCHC 32.8 RDW 16.3 H Plt Count 261 Seg Neutrophils % 72.7 Lymphocytes % 12.4 L Monocytes % 10.3 Eosinophils % 3.4 Basophils % 1.2 Absolute Neutrophils 5.7 Absolute Lymphocytes 1.0 Absolute Monocytes 0.8 Absolute Eosinophils 0.3 Absolute Basophils 0.1 Carbonic Acid 1.16 HCO3/H2CO3 Ratio 20:1 ABG pH 7.42 ABG pCO2 38.6 ABG pO2 66.2 L ABG HCO3 24.3 H ABG O2 Saturation 93.5 L ABG Base Excess -0.2 FiO2 60% Sodium 137.8 Potassium 3.8 Chloride 103 Carbon Dioxide 27 Anion Gap 8 BUN 31 H Creatinine 1.42 H Est GFR ( Amer) 58 L Est GFR (Non-Af Amer) 48 L Glucose 131 H Calcium 8.6 Phosphorus 3.8 Magnesium 2.0 03/12/18 18:38 Sputum Sputum Culture - Final Staphylococcus Aureus Normal Alix 03/11/18 03/11/18 03/11/18 03:15 06:26 06:26 Creatine Kinase 26 L CK-MB (CK-2) 0.85 Troponin I < 0.012 < 0.012 NT-Pro-B Natriuret Pep 03/11/18 03/11/18 03/11/18 12:32 12:32 18:09 Creatine Kinase 27 L 33 L CK-MB (CK-2) 1.02 Troponin I < 0.012 NT-Pro-B Natriuret Pep 03/11/18 03/19/18 03/19/18 18:09 06:50 06:50 Creatine Kinase 39 L CK-MB (CK-2) 1.10 1.54 Troponin I < 0.012 < 0.012 NT-Pro-B Natriuret Pep 2520 H Impressions: Chest X-Ray 03/19/18 06:00 IMPRESSION: Slight improved aeration of the right lung base. Other findings are stable. copyright 2011 [employer]- All Rights Reserved Assessment & Plan - Diagnosis (1) Acute and chronic respiratory failure Qualifiers: Respiratory failure complication: hypoxia and hypercapnia Qualified Code(s): J96.21 - Acute and chronic respiratory failure with hypoxia; J96.22 - Acute and chronic respiratory failure with hypercapnia Is this a current diagnosis for this admission?: Yes Plan: intubated and sedated (2) Chronic atrial fibrillation Is this a current diagnosis for this admission?: Yes Plan: Stable at this time (3) Severe pulmonary arterial systolic hypertension Is this a current diagnosis for this admission?: Yes Plan: unchanged - Time Total Critical Time (Minutes): 40
[2018-03-20 16:48] LABS: INTERNATIONAL RATION (INR) 9.84; PROTHROMBIN TIME 82.9 SEC (11.4-15.4)
--- NOTE | 2018-03-20 19:16 | PDOC PROGRESS REPORT ---
Subjective Progress Note for:: 03/20/18 Subjective:: Remain intubated and vent supported. Patient was intubated due to impending acute respiratory failure. There is issue with excessive coagulation state. No rubén orifice bleeding. No reported fever. No diarrhea. Reason For Visit: RESPIRATORY FAILURE Physical Exam Vital Signs: Temp Pulse Resp BP Pulse Ox 100.8 F H 85 21 H 105/75 95 03/20/18 18:00 03/20/18 18:00 03/20/18 18:00 03/20/18 18:00 03/20/18 18:00 Intake & Output 03/19/18 03/20/18 03/21/18 06:59 06:59 06:59 Intake Total 3674 1739 1385 Output Total 935 1090 655 Balance 2739 649 730 Weight 97.1 kg 100.3 kg 100.3 kg Physical Exam: General appearance: Sedated with ET and OG tubes in situ. Remain ventilator supported. Obese Head exam: PRESENT: atraumatic, normocephalic Eye exam: PRESENT: conjunctiva pink. ABSENT: pallor, scleral icterus Ear exam: PRESENT: normal external ear exam Mouth exam: PRESENT: moist Respiratory exam: PRESENT: decreased breath sounds - bilaterally, prolonged expiratory phase Cardiovascular exam: PRESENT: irregular rhythm, +S1, +S2. ABSENT: diastolic murmur, systolic murmur GI/Abdominal exam: PRESENT: normal bowel sounds, soft. ABSENT: distended, guarding, mass, organomegaly, rebound, tenderness Extremities exam: ABSENT: pedal edema, SCD in use bilaterally. Musculoskeletal exam: PRESENT: deformity - related to multiple joints involvement with arthritis Neurological exam: PRESENT: Altered due to sedation Skin exam: PRESENT: dry, warm Results Laboratory Results: 03/20/18 06:45 03/20/18 06:45 03/20/18 03/20/18 03/20/18 06:45 06:45 06:45 WBC 10.8 H RBC 2.82 L Hgb 8.7 L Hct 26.3 L MCV 94 MCH 31.1 MCHC 33.2 RDW 16.8 H Plt Count 263 Seg Neutrophils % 76.7 Lymphocytes % 10.4 L Monocytes % 10.5 Eosinophils % 1.2 Basophils % 1.2 Absolute Neutrophils 8.3 H Absolute Lymphocytes 1.1 Absolute Monocytes 1.1 Absolute Eosinophils 0.1 Absolute Basophils 0.1 Carbonic Acid 1.06 HCO3/H2CO3 Ratio 22:1 ABG pH 7.45 ABG pCO2 35.2 ABG pO2 57.6 L ABG HCO3 23.9 ABG O2 Saturation 91.4 L ABG Base Excess 0.2 FiO2 60% Sodium 137.7 Potassium 3.9 Chloride 105 Carbon Dioxide 25 Anion Gap 8 BUN 30 H Creatinine 1.31 H Est GFR ( Amer) > 60 Est GFR (Non-Af Amer) 53 L Glucose 131 H Calcium 8.3 L Phosphorus 3.9 Magnesium 1.9 03/11/18 03/11/18 03/11/18 03:15 06:26 06:26 Creatine Kinase 26 L CK-MB (CK-2) 0.85 Troponin I < 0.012 < 0.012 NT-Pro-B Natriuret Pep 03/11/18 03/11/18 03/11/18 12:32 12:32 18:09 Creatine Kinase 27 L 33 L CK-MB (CK-2) 1.02 Troponin I < 0.012 NT-Pro-B Natriuret Pep 03/11/18 03/19/18 03/19/18 18:09 06:50 06:50 Creatine Kinase 39 L CK-MB (CK-2) 1.10 1.54 Troponin I < 0.012 < 0.012 NT-Pro-B Natriuret Pep 2520 H Impressions: Chest X-Ray 03/20/18 06:00 IMPRESSION: Little interval change copyright 2011 [employer]- All Rights Reserved Assessment & Plan - Diagnosis (1) Acute hypoxemic respiratory failure Is this a current diagnosis for this admission?: Yes Plan: Continue Ventilation support. Overall prognosis is very poor with eventual need for tracheostomy and permanent dependency on ventilator. Patient is currently on DNR status. (2) Excessive anticoagulation Is this a current diagnosis for this admission?: Yes Plan: Probably due to drug-drug interaction of Warfarin and other current medication management. Obtain his uric acid level and if less than 6.0 consider discontinuation of Allopurinol. Patient will receive FFP and Vitamin K therapy. (3) Acute and chronic respiratory failure Qualifiers: Respiratory failure complication: hypoxia and hypercapnia Qualified Code(s): J96.21 - Acute and chronic respiratory failure with hypoxia; J96.22 - Acute and chronic respiratory failure with hypercapnia Is this a current diagnosis for this admission?: Yes (4) Bacterial infection due to Staphylococcus aureus Is this a current diagnosis for this admission?: Yes (5) Lobar pneumonia, unspecified organism Is this a current diagnosis for this admission?: Yes (6) Chronic atrial fibrillation Is this a current diagnosis for this admission?: Yes (7) Chronic diastolic heart failure Is this a current diagnosis for this admission?: Yes (8) COPD (chronic obstructive pulmonary disease) Qualifiers: COPD type: COPD with acute lower respiratory infection Qualified Code(s): J44.0 - Chronic obstructive pulmonary disease with acute lower respiratory infection Is this a current diagnosis for this admission?: Yes (9) Diabetes mellitus type 2 in obese Is this a current diagnosis for this admission?: Yes (10) HTN (hypertension) Qualifiers: Hypertension type: essential hypertension Qualified Code(s): I10 - Essential (primary) hypertension Is this a current diagnosis for this admission?: Yes (11) HLD (hyperlipidemia) Qualifiers: Hyperlipidemia type: unspecified Qualified Code(s): E78.5 - Hyperlipidemia, unspecified Is this a current diagnosis for this admission?: Yes (12) Pulmonary hypertension Is this a current diagnosis for this admission?: Yes - Time Time Spent with patient: 25-34 minutes Medications reviewed and adjusted accordingly: Yes Anticipated discharge: Other Within: Other - Inpatient Certification Based on my medical assessment, after consideration of the patient's comorbidities, presenting symptoms, or acuity I expect that the services needed warrant INPATIENT care.: Yes I certify that my determination is in accordance with my understanding of Medicare's requirements for reasonable and necessary INPATIENT services [42 CFR 412.3e].: Yes Medical Necessity: Significant Comorbidiites Make Outpatient Treatment Too Risk y, Need Close Monitoring Due to Risk of Patient Decompensation, Need For Continuous Telemetry Monitoring, Need for Nebulizer Therapy and Monitoring of Response, Need for IV Antibiotics, Risk of Complication if Not Cared For in Hospital Post Hospital Care: D/C or Transfer Summary - Plan Summary Plan Summary: Continue current medication management. Follow up on pending labs ad culture findings. Obtain serum uric acid level.
[2018-03-20 19:29] LABS: ALANINE AMINOTRANSFERASE 19 U/L (21-72); ALBUMIN 2.5 g/dL (3.5-5.0); ALKALINE PHOSPHATASE 84 U/L (38-126); ASPARTATE AMINO TRANSFERASE 17 U/L (17-59); BILIRUBIN,DIRECT 0.5 mg/dL (0.0-0.4); BILIRUBIN,TOTAL 0.7 mg/dL (0.2-1.3); TOTAL PROTEIN 5.1 g/dL (6.3-8.2)
[2018-03-21] MEDS: DEXTROSE 5%-WATER 250 ML with NOREPINEPHRINE BITARTRATE 4 MG IV PRN ×2 (00:43)
[2018-03-21 03:16] LABS: ANION GAP 11 (5-19); BLOOD UREA NITROGEN 30 mg/dL (7-20); CALCIUM 8.5 mg/dL (8.4-10.2); CARBON DIOXIDE 24 mmol/L (22-30); CHLORIDE 105 mmol/L (98-107); GLUCOSE 136 mg/dL (75-110); POTASSIUM 4.1 mmol/L (3.6-5.0); SODIUM 139.6 mmol/L (137-145)
[2018-03-21 03:21] LABS: PROTHROMBIN TIME 27.9 SEC (11.4-15.4)
[2018-03-21] MEDS: BUDESONIDE NEB 0.5 MG/2 ML AMPUL NEB SCH ×2 (08:09→20:45)
[2018-03-21] MEDS: IPRATROPIUM/ALBUTEROL 0.5-2.5 MG/3 ML AMPUL NEB SCH ×3 (08:10→20:45)
[2018-03-21] MEDS: FUROSEMIDE INJ/PF 20 MG/2 ML SDV IV SCH ×3 (08:27→17:18)
[2018-03-21] MEDS ORDERED: CEFTRIAXONE SODIUM 1,000 MG in DEXTROSE 5%-WATER 50 ML IV SCH (10:00)
--- NOTE | 2018-03-21 10:15 | PDOC PROGRESS REPORT ---
Subjective Progress Note for:: 03/21/18 Subjective:: Patient remain intubated and vent supported. Family request 14 days trial of ventilator support before making decision about end of life care. He remain on Levophed and Midazolam infusion presently. Reason For Visit: RESPIRATORY FAILURE Physical Exam Vital Signs: Temp Pulse Resp BP Pulse Ox 98.1 F 70 16 101/58 L 98 03/21/18 08:00 03/21/18 08:11 03/21/18 08:11 03/21/18 08:00 03/21/18 08:11 Intake & Output 03/20/18 03/21/18 03/22/18 06:59 06:59 06:59 Intake Total 1739 3118 Output Total 1090 1045 60 Balance 649 2073 -60 Weight 100.3 kg 101.5 kg Physical Exam: General appearance: Sedated with ET and OG tubes in situ. Remain ventilator supported. Obese Head exam: PRESENT: atraumatic, normocephalic Eye exam: PRESENT: conjunctiva pink. ABSENT: pallor, scleral icterus Ear exam: PRESENT: normal external ear exam Mouth exam: PRESENT: moist Respiratory exam: PRESENT: decreased breath sounds - bilaterally, prolonged expiratory phase Cardiovascular exam: PRESENT: irregular rhythm, +S1, +S2. ABSENT: diastolic murmur, systolic murmur GI/Abdominal exam: PRESENT: normal bowel sounds, soft. ABSENT: distended, guarding, mass, organomegaly, rebound, tenderness Extremities exam: ABSENT: pedal edema, SCD in use bilaterally. Musculoskeletal exam: PRESENT: deformity - related to multiple joints involvem ent with arthritis Neurological exam: PRESENT: Altered due to sedation Skin exam: PRESENT: dry, warm Results Laboratory Results: 03/20/18 06:45 03/21/18 02:49 03/20/18 03/20/18 03/21/18 19:00 19:24 02:49 Sodium 139.6 Potassium 4.1 Chloride 105 Carbon Dioxide 24 Anion Gap 11 BUN 30 H Creatinine 1.14 Est GFR ( Amer) > 60 Est GFR (Non-Af Amer) > 60 Glucose 136 H Calcium 8.5 Magnesium 2.0 Total Bilirubin 0.7 AST 17 ALT 19 L Alkaline Phosphatase 84 Total Protein 5.1 L Albumin 2.5 L Blood Type A POSITIVE 03/11/18 03/11/18 03/11/18 03:15 06:26 06:26 Creatine Kinase 26 L CK-MB (CK-2) 0.85 Troponin I < 0.012 < 0.012 NT-Pro-B Natriuret Pep 03/11/18 03/11/18 03/11/18 12:32 12:32 18:09 Creatine Kinase 27 L 33 L CK-MB (CK-2) 1.02 Troponin I < 0.012 NT-Pro-B Natriuret Pep 03/11/18 03/19/18 03/19/18 18:09 06:50 06:50 Creatine Kinase 39 L CK-MB (CK-2) 1.10 1.54 Troponin I < 0.012 < 0.012 NT-Pro-B Natriuret Pep 2520 H Impressions: Chest X-Ray 03/20/18 06:00 IMPRESSION: Little interval change copyright 2011 [employer]- All Rights Reserved Assessment & Plan - Diagnosis (1) Acute hypoxemic respiratory failure Is this a current diagnosis for this admission?: Yes (2) Excessive anticoagulation Is this a current diagnosis for this admission?: Yes (3) Methicillin susceptible Staphylococcus aureus pneumonia Qualifiers: Lung location: unspecified part of lung Is this a current diagnosis for this admission?: Yes Plan: Continue IV Ceftriaxone coverage. Prognosis remain poor in view of his end stage lung disease process. (4) Acute and chronic respiratory failure Qualifiers: Respiratory failure complication: hypoxia and hypercapnia Qualified Code(s): J96.21 - Acute and chronic respiratory failure with hypoxia; J96.22 - Acute and chronic respiratory failure with hypercapnia Is this a current diagnosis for this admission?: Yes (5) Bacterial infection due to Staphylococcus aureus Is this a current diagnosis for this admission?: Yes (6) Chronic atrial fibrillation Is this a current diagnosis for this admission?: Yes Plan: There is improvement in his PT/INR parameters post FFP and vitamin K administration. (7) Chronic diastolic heart failure Is this a current diagnosis for this admission?: Yes (8) COPD (chronic obstructive pulmonary disease) Qualifiers: COPD type: COPD with acute lower respiratory infection Qualified Code(s): J 44.0 - Chronic obstructive pulmonary disease with acute lower respiratory infection Is this a current diagnosis for this admission?: Yes (9) Diabetes mellitus type 2 in obese Is this a current diagnosis for this admission?: Yes (10) HTN (hypertension) Qualifiers: Hypertension type: essential hypertension Qualified Code(s): I10 - Essential (primary) hypertension Is this a current diagnosis for this admission?: Yes (11) HLD (hyperlipidemia) Qualifiers: Hyperlipidemia type: unspecified Qualified Code(s): E78.5 - Hyperlipidemia, unspecified Is this a current diagnosis for this admission?: Yes (12) Pulmonary hypertension Is this a current diagnosis for this admission?: Yes - Time Time Spent with patient: 25-34 minutes Medications reviewed and adjusted accordingly: Yes Anticipated discharge: Other Within: Other - Inpatient Certification Based on my medical assessment, after consideration of the patient's comorbidities, presenting symptoms, or acuity I expect that the services needed warrant INPATIENT care.: Yes I certify that my determination is in accordance with my understanding of Medicare's requirements for reasonable and necessary INPATIENT services [42 CFR 412.3e].: Yes Medical Necessity: Significant Comorbidiites Make Outpatient Treatment Too Risky, Need Close Monitoring Due to Risk of Patient Decompensation, Need For IV Fluids, Need For Continuous Telemetry Monitoring, Need for Nebulizer Therapy and Monitoring of Response, Need for IV Antibiotics, Risk of Complication if Not Cared For in Hospital Post Hospital Care: Other - Plan Summary Plan Summary: Continue current medication management. Overall prognosis remain very poor.
[2018-03-21] MEDS: ATORVASTATIN CALCIUM 40 MG TABLET NG SCH (10:43)
[2018-03-21] MEDS: MIDAZOLAM HCL 50 MG/100 ML RTUINJ IV PRN (10:43)
[2018-03-21] MEDS: FAMOTIDINE INJ/PF 20 MG/2 ML SDV IV SCH ×2 (10:43→21:38)
[2018-03-21] MEDS: NORMAL SALINE 1000 ML 1,000 ML IV PRN (10:43)
[2018-03-21] MEDS: CYANOCOBALAMIN (VITAMIN B-12) 1,000 MCG TABLET PO SCH (10:44)
[2018-03-21] MEDS: ALLOPURINOL 300 MG TABLET NG SCH (10:44)
[2018-03-21] MEDS: ASCORBIC ACID 500 MG TABLET NG SCH (10:44)
[2018-03-21] MEDS: FERROUS SULFATE 325 MG TABLET PO SCH (10:44)
[2018-03-21] MEDS: CHOLECALCIFEROL (D3) 1,000 UNIT TABLET NG SCH (10:44)
[2018-03-21] MEDS: ASPIRIN 81 MG TABLET, ENT COATED PO SCH (10:45)
[2018-03-21] MEDS: FOLIC ACID 1 MG TABLET NG SCH (10:45)
[2018-03-21] MEDS: TAMSULOSIN HCL 0.4 MG CAP.SR.24H PO SCH (10:45)
[2018-03-21] MEDS: AMLODIPINE BESYLATE 10 MG TABLET NG SCH (10:45)
[2018-03-21] MEDS: DOCUSATE SODIUM 100 MG CAPSULE PO SCH (10:45)
[2018-03-21] MEDS: LISINOPRIL 5 MG TABLET NG SCH (10:46)
[2018-03-21] MEDS: FINASTERIDE 5 MG TABLET PO SCH (10:46)
[2018-03-21] MEDS: ATENOLOL 50 MG TABLET NG SCH (10:46)
--- NOTE | 2018-03-21 11:50 | PDOC PROGRESS REPORT ---
Subjective Progress Note for:: 03/21/18 Subjective:: intubated and sedated Reason For Visit: RESPIRATORY FAILURE Physical Exam Vital Signs: Temp Pulse Resp BP Pulse Ox 98.2 F 74 22 H 100/60 94 03/21/18 10:13 03/21/18 10:13 03/21/18 10:13 03/21/18 10:14 03/21/18 10:15 Intake & Output 03/20/18 03/21/18 03/22/18 06:59 06:59 06:59 Intake Total 1739 3218 785 Output Total 1090 1045 260 Balance 649 2173 525 Weight 100.3 kg 101.5 kg General appearance: PRESENT: no acute distress, disheveled, morbidly obese. ABSENT: cooperative Head exam: PRESENT: atraumatic, normocephalic Eye exam: PRESENT: conjunctiva pale. ABSENT: nystagmus, scleral icterus Mouth exam: PRESENT: dry mucosa, neck supple, tongue midline, other - ET tube Neck exam: ABSENT: carotid bruit, JVD, lymphadenopathy, thyromegaly, tracheal deviation, tracheostomy Respiratory exam: PRESENT: decreased breath sounds, prolonged expiratory phas, rales, rhonchi, tachypnea. ABSENT: retraction, stridor Cardiovascular exam: PRESENT: irregular rhythm Pulses: PRESENT: normal radial pulses GI/Abdominal exam: PRESENT: soft. ABSENT: tenderness - [id number] Gentrourinary exam: PRESENT: indwelling catheter Extremities exam: PRESENT: pedal edema. ABSENT: calf tenderness, clubbing, joint swelling Musculoskeletal exam: ABSENT: ambulatory, deformity, dislocation Neurological exam: ABSENT: awake Skin exam: PRESENT: dry, warm - [id number] Results Laboratory Results: 03/20/18 06:45 03/21/18 02:49 03/20/18 03/20/18 03/21/18 19:00 19:24 02:49 Sodium 139.6 Potassium 4.1 Chloride 105 Carbon Dioxide 24 Anion Gap 11 BUN 30 H Creatinine 1.14 Est GFR ( Amer) > 60 Est GFR (Non-Af Amer) > 60 Glucose 136 H Calcium 8.5 Magnesium 2.0 Total Bilirubin 0.7 AST 17 ALT 19 L Alkaline Phosphatase 84 Total Protein 5.1 L Albumin 2.5 L Blood Type A POSITIVE 12/22/18 12/22/18 12/22/18 03:15 06:26 06:26 Creatine Kinase 26 L CK-MB (CK-2) 0.85 Troponin I < 0.012 < 0.012 NT-Pro-B Natriuret Pep 03/11/18 03/11/18 03/11/18 12:32 12:32 18:09 Creatine Kinase 27 L 33 L CK-MB (CK-2) 1.02 Troponin I < 0.012 NT-Pro-B Natriuret Pep 03/11/18 03/19/18 03/19/18 18:09 06:50 06:50 Creatine Kinase 39 L CK-MB (CK-2) 1.10 1.54 Troponin I < 0.012 < 0.012 NT-Pro-B Natriuret Pep 2520 H Impressions: Chest X-Ray 03/20/18 06:00 IMPRESSION: Little interval change copyright 2011 [employer]- All Rights Reserved Assessment & Plan - Diagnosis (1) Acute and chronic respiratory failure Qualifiers: Respiratory failure complication: hypoxia and hypercapnia Qualified Code(s): J96.21 - Acute and chronic respiratory failure with hypoxia; J96.22 - Acute and chronic respiratory failure with hypercapnia Is this a current diagnosis for this admission?: Yes Plan: discussed with PCP/Cardiology agree with plans for comfort care (2) Chronic atrial fibrillation Is this a current diagnosis for this admission?: Yes Plan: Stable at this time (3) Severe pulmonary arterial systolic hypertension Is this a current diagnosis for this admission?: Yes Plan: unchanged
[2018-03-22] MEDS: NORMAL SALINE 1000 ML 1,000 ML IV PRN ×2 (02:00→15:10)
[2018-03-22] MEDS: MIDAZOLAM HCL 50 MG/100 ML RTUINJ IV PRN ×2 (03:42→15:10)
[2018-03-22 04:58] LABS: ARTERIAL BLOOD BASE EXCESS 0.2 mmol/L; ARTERIAL BLOOD H2CO3 1.12 mmol/L (1.05-1.35); ARTERIAL BLOOD HCO3 24.3 mmol/L (20-24); ARTERIAL BLOOD O2 SATURATION 90.2 % (94-98); ARTERIAL BLOOD PCO2 37.1 mmHg (35-45); ARTERIAL BLOOD PH 7.43 (7.35-7.45); ARTERIAL BLOOD TOTAL CO2 25.4 mmol/L (23-27)
[2018-03-22 04:59] LABS: ARTERIAL BLOOD FIO2 60%; HEMATOCRIT 24.8 % (37.9-51.0); HEMOGLOBIN 8.1 g/dL (13.5-17.0); RED BLOOD COUNT 2.66 10^6/uL (4.35-5.55); WHITE BLOOD COUNT 9.6 10^3/uL (4.0-10.5)
[2018-03-22 05:00] LABS: ABSOLUTE BASOPHILS # (AUTO) 0.1 10^3/uL (0.0-0.2); ABSOLUTE EOSINOPHILS # (AUTO) 0.2 10^3/uL (0.0-0.6); ABSOLUTE LYMPHOCYTES (AUTO) 0.8 10^3/uL (0.5-4.7); ABSOLUTE MONOCYTES (AUTO) 0.7 10^3/uL (0.1-1.4); ABSOLUTE NEUT (AUTO) 7.7 10^3/uL (1.7-8.2); EOSINOPHILS % (AUTO) 2.1 % (0-6); LYMPHOCYTES % (AUTO) 8.8 % (13-45); MEAN CORPUSCULAR HEMOGLOBIN 30.5 pg (27.0-33.4); MEAN CORPUSCULAR HGB CONC 32.7 g/dL (32.0-36.0); MEAN CORPUSCULAR VOLUME 93 fl (80-97); MONOCYTES % (AUTO) 7.7 % (3-13); PLATELET COUNT 291 10^3/uL (150-450); RED CELL DISTRIBUTION WIDTH 16.8 % (11.5-14.0); SEGMENTED NEUTROPHILS % (AUTO) 80.4 % (42-78); TOTAL CELLS COUNTED % (AUTO) 100 %
[2018-03-22 05:05] LABS: INTERNATIONAL RATION (INR) 1.36; PROTHROMBIN TIME 17.5 SEC (11.4-15.4)
[2018-03-22 05:11] LABS: ANION GAP 7 (5-19); BLOOD UREA NITROGEN 33 mg/dL (7-20); CALCIUM 8.5 mg/dL (8.4-10.2); CARBON DIOXIDE 25 mmol/L (22-30); CHLORIDE 108 mmol/L (98-107); GLUCOSE 129 mg/dL (75-110); SODIUM 139.9 mmol/L (137-145)
--- NOTE | 2018-03-22 06:32 | RADIOLOGY REPORT (SQ) ---
EXAM DESCRIPTION: XR CHEST 1 VIEW COMPLETED DATE/TME: 03/22/2018 06:00 CLINICAL HISTORY: 77 years Male, pna/resp failure COMPARISON: 2 days prior. NUMBER OF VIEWS/TECHNIQUE: 1/AP FINDINGS: Bilateral lower thoracic opacity/effusion. Adequate appearing endotracheal tube. Likely adequate appearing enteric tube partially obscured. Adequate appearing right subclavian central line. Sternotomy. Atherosclerotic vascular disease. Right PICC appears adequate. Moderately enlarged cardiac silhouette. No pneumothorax. Stable bony thorax. IMPRESSION: No significant change.
--- NOTE | 2018-03-22 07:57 | PDOC PROGRESS REPORT ---
Subjective Progress Note for:: 03/22/18 Subjective:: Remain intubated and vent supported. Sedated on Midazolam. Tolerating enteral tube feeding. Currently off Levophed. Reason For Visit: RESPIRATORY FAILURE Physical Exam Vital Signs: Temp Pulse Resp BP Pulse Ox 98.4 F 76 22 H 116/65 98 03/22/18 05:24 03/21/18 20:45 03/21/18 20:45 03/22/18 05:00 03/22/18 05:15 Intake & Output 03/21/18 03/22/18 03/23/18 06:59 06:59 06:59 Intake Total 3218 2468 Output Total 1045 1185 Balance 2173 1283 Weight 101.5 kg 102.2 kg Physical Exam: General appearance: Sedated with ET and OG tubes in situ. Remain ventilator supported. Obese Head exam: PRESENT: atraumatic, normocephalic Eye exam: PRESENT: conjunctiva pink. ABSENT: pallor, scleral icterus Ear exam: PRESENT: normal external ear exam Mouth exam: PRESENT: moist Respiratory exam: PRESENT: decreased breath sounds - bilaterally, prolonged expiratory phase Cardiovascular exam: PRESENT: irregular rhythm, +S1, +S2. ABSENT: diastolic murmur, systolic murmur GI/Abdominal exam: PRESENT: normal bowel sounds, soft. ABSENT: distended, guarding, mass, organomegaly, rebound, tenderness Extremities exam: ABSENT: pedal edema, SCD in use bilaterally. Musculoskeletal exam: PRESENT: deformity - related to multiple joints involvement with arthritis Neurological exam: PRESENT: Altered due to sedation Skin exam: PRESENT: dry, warm Results Laboratory Results: 03/22/18 04:45 03/22/18 04:45 03/22/18 03/22/18 03/22/18 04:45 04:45 04:45 WBC 9.6 RBC 2.66 L Hgb 8.1 L Hct 24.8 L MCV 93 MCH 30.5 MCHC 32.7 RDW 16.8 H Plt Count 291 Seg Neutrophils % 80.4 H Lymphocytes % 8.8 L Monocytes % 7.7 Eosinophils % 2.1 Basophils % 1.0 Absolute Neutrophils 7.7 Absolute Lymphocytes 0.8 Absolute Monocytes 0.7 Absolute Eosinophils 0.2 Absolute Basophils 0.1 Carbonic Acid 1.12 HCO3/H2CO3 Ratio 21:1 ABG pH 7.43 ABG pCO2 37.1 ABG pO2 56.0 L ABG HCO3 24.3 H ABG O2 Saturation 90.2 L ABG Base Excess 0.2 FiO2 60% Sodium 139.9 Potassium 4.0 Chloride 108 H Carbon Dioxide 25 Anion Gap 7 BUN 33 H Creatinine 1.22 Est GFR ( Amer) > 60 Est GFR (Non-Af Amer) 57 L Glucose 129 H Calcium 8.5 Magnesium 2.1 03/11/18 03/11/18 03/11/18 03:15 06:26 06:26 Creatine Kinase 26 L CK-MB (CK-2) 0.85 Troponin I < 0.012 < 0.012 NT-Pro-B Natriuret Pep 03/11/18 03/11/18 03/11/18 12:32 12:32 18:09 Creatine Kinase 27 L 33 L CK-MB (CK-2) 1.02 Troponin I < 0.012 NT-Pro-B Natriuret Pep 03/11/18 03/19/18 03/19/18 18:09 06:50 06:50 Creatine Kinase 39 L CK-MB (CK-2) 1.10 1.54 Troponin I < 0.012 < 0.012 NT-Pro-B Natriuret Pep 2520 H Impressions: Chest X-Ray 03/22/18 06:00 IMPRESSION: No significant change. Assessment & Plan - Diagnosis (1) Acute hypoxemic respiratory failure Is this a current diagnosis for this admission?: Yes (2) Excessive anticoagulation Is this a current diagnosis for this admission?: Yes (3) Methicillin susceptible Staphylococcus aureus pneumonia Qualifiers: Lung location: unspecified part of lung Is this a current diagnosis for this admission?: Yes (4) Acute and chronic respiratory failure Qualifiers: Respiratory failure complication: hypoxia and hypercapnia Qualified Cod e(s): J96.21 - Acute and chronic respiratory failure with hypoxia; J96.22 - Acute and chronic respiratory failure with hypercapnia Is this a current diagnosis for this admission?: Yes (5) Bacterial infection due to Staphylococcus aureus Is this a current diagnosis for this admission?: Yes (6) Chronic atrial fibrillation Is this a current diagnosis for this admission?: Yes (7) Chronic diastolic heart failure Is this a current diagnosis for this admission?: Yes (8) COPD (chronic obstructive pulmonary disease) Qualifiers: COPD type: COPD with acute lower respiratory infection Qualified Code(s): J44.0 - Chronic obstructive pulmonary disease with acute lower respiratory infection Is this a current diagnosis for this admission?: Yes (9) Diabetes mellitus type 2 in obese Is this a current diagnosis for this admission?: Yes (10) HTN (hypertension) Qualifiers: Hypertension type: essential hypertension Qualified Code(s): I10 - Essential (primary) hypertension Is this a current diagnosis for this admission?: Yes (11) HLD (hyperlipidemia) Qualifiers: Hyperlipidemia type: unspecified Qualified Code(s): E78.5 - Hyperlipidemia, unspecified Is this a current diagnosis for this admission?: Yes (12) Pulmonary hypertension Is this a current diagnosis for this admission?: Yes - Time Time Spent with patient: 25-34 minutes Medications reviewed and adjusted accordingly: Yes Anticipated discharge: Other Within: Other - Inpatient Certification Based on my medical assessment, after consideration of the patient's comorbidities, presenting symptoms, or acuity I expect that the services needed warrant INPATIENT care.: Yes I certify that my determination is in accordance with my understanding of Medicare's requirements for reasonable and necessary INPATIENT services [42 CFR 412.3e].: Yes Medical Necessity: Need Close Monitoring Due to Risk of Patient Decompensation, Need For Continuous Telemetry Monitoring, Need for Nebulizer Therapy and Monitoring of Response, Need for IV Antibiotics, Risk of Complication if Not Cared For in Hospital Post Hospital Care: Other - Plan Summary Plan Summary: D/C IV Lasix. Continue all other current medication management. Add serum uric a violet level to this am lab request.
[2018-03-22] MEDS: IPRATROPIUM/ALBUTEROL 0.5-2.5 MG/3 ML AMPUL NEB SCH ×3 (08:06→20:02)
[2018-03-22] MEDS: BUDESONIDE NEB 0.5 MG/2 ML AMPUL NEB SCH ×2 (08:06→20:02)
[2018-03-22] MEDS: ASPIRIN 81 MG TABLET, ENT COATED PO SCH (10:00)
[2018-03-22] MEDS: CHOLECALCIFEROL (D3) 1,000 UNIT TABLET NG SCH (10:00)
[2018-03-22] MEDS: FAMOTIDINE INJ/PF 20 MG/2 ML SDV IV SCH ×2 (10:00→21:29)
[2018-03-22] MEDS: ALLOPURINOL 300 MG TABLET NG SCH (10:00)
[2018-03-22] MEDS: CEFTRIAXONE 1 GM/D5W RTU 1 GM/50 ML RTUPB IV SCH (10:00)
[2018-03-22] MEDS: FOLIC ACID 1 MG TABLET NG SCH (10:00)
[2018-03-22] MEDS: ASCORBIC ACID 500 MG TABLET NG SCH (10:00)
[2018-03-22] MEDS: TAMSULOSIN HCL 0.4 MG CAP.SR.24H PO SCH (10:01)
[2018-03-22] MEDS: ATORVASTATIN CALCIUM 40 MG TABLET NG SCH (10:01)
[2018-03-22] MEDS: AMLODIPINE BESYLATE 10 MG TABLET NG SCH (10:01)
[2018-03-22] MEDS: ATENOLOL 50 MG TABLET NG SCH (10:01)
[2018-03-22] MEDS: FINASTERIDE 5 MG TABLET PO SCH (10:01)
[2018-03-22] MEDS: DOCUSATE SODIUM 100 MG CAPSULE PO SCH (10:01)
[2018-03-22] MEDS: FERROUS SULFATE 325 MG TABLET PO SCH (10:01)
[2018-03-22] MEDS: LISINOPRIL 5 MG TABLET NG SCH (10:01)
[2018-03-22] MEDS: CYANOCOBALAMIN (VITAMIN B-12) 1,000 MCG TABLET PO SCH (10:02)
--- NOTE | 2018-03-22 10:52 | PDOC PROGRESS REPORT ---
Subjective Progress Note for:: 03/20/18 Subjective:: intubated and sedated Reason For Visit: RESPIRATORY FAILURE Physical Exam Vital Signs: Temp Pulse Resp BP Pulse Ox 99.0 F 77 18 110/69 97 03/20/18 07:58 03/20/18 08:35 03/20/18 08:35 03/20/18 07:58 03/20/18 08:35 Intake & Output 03/19/18 03/20/18 03/21/18 06:59 06:59 06:59 Intake Total 3674 1739 1000 Output Total 935 1090 60 Balance 2739 649 940 Weight 97.1 kg 100.3 kg General appearance: PRESENT: no acute distress, disheveled, obese. ABSENT: cooperative Head exam: PRESENT: atraumatic, normocephalic Eye exam: PRESENT: conjunctiva pale. ABSENT: EOMI, nystagmus, scleral icterus Mouth exam: PRESENT: dry mucosa, neck supple, tongue midline, other - ET tube in place Neck exam: ABSENT: carotid bruit, JVD, lymphadenopathy, thyromegaly, tracheal deviation, tracheostomy Respiratory exam: PRESENT: decreased breath sounds, prolonged expiratory phas, rales, rhonchi, symmetrical, unlabored, wheezes. ABSENT: retraction, stridor, tachypnea Cardiovascular exam: PRESENT: irregular rhythm Pulses: PRESENT: normal radial pulses GI/Abdominal exam: PRESENT: soft. ABSENT: tenderness Gentrourinary exam: PRESENT: indwelling catheter Extremities exam: PRESENT: pedal edema. ABSENT: calf tenderness, clubbing, joint swelling Musculoskeletal exam: ABSENT: deformity, dislocation Neurological exam: ABSENT: awake Skin exam: PRESENT: dry, warm Results Laboratory Results: 03/20/18 06:45 03/20/18 06:45 03/20/18 03/20/18 03/20/18 06:45 06:45 06:45 WBC 10.8 H RBC 2.82 L Hgb 8.7 L Hct 26.3 L MCV 94 MCH 31.1 MCHC 33.2 RDW 16.8 H Plt Count 263 Seg Neutrophils % 76.7 Lymphocytes % 10.4 L Monocytes % 10.5 Eosinophils % 1.2 Basophils % 1.2 Absolute Neutrophils 8.3 H Absolute Lymphocytes 1.1 Absolute Monocytes 1.1 Absolute Eosinophils 0.1 Absolute Basophils 0.1 Carbonic Acid 1.06 HCO3/H2CO3 Ratio 22:1 ABG pH 7.45 ABG pCO2 35.2 ABG pO2 57.6 L ABG HCO3 23.9 ABG O2 Saturation 91.4 L ABG Base Excess 0.2 FiO2 60% Sodium 137.7 Potassium 3.9 Chloride 105 Carbon Dioxide 25 Anion Gap 8 BUN 30 H Creatinine 1.31 H Est GFR ( Amer) > 60 Est GFR (Non-Af Amer) 53 L Glucose 131 H Calcium 8.3 L Phosphorus 3.9 Magnesium 1.9 03/11/18 03/11/18 03/11/18 03:15 06:26 06:26 Creatine Kinase 26 L CK-MB (CK-2) 0.85 Troponin I < 0.012 < 0.012 NT-Pro-B Natriuret Pep 03/11/18 03/11/18 03/11/18 12:32 12:32 18:09 Creatine Kinase 27 L 33 L CK-MB (CK-2) 1.02 Troponin I < 0.012 NT-Pro-B Natriuret Pep 03/11/18 03/19/18 03/19/18 18:09 06:50 06:50 Creatine Kinase 39 L CK-MB (CK-2) 1.10 1.54 Troponin I < 0.012 < 0.012 NT-Pro-B Natriuret Pep 2520 H Impressions: Chest X-Ray 03/20/18 06:00 IMPRESSION: Little interval change copyright 2011 [employer]- All Rights Reserved Assessment & Plan - Diagnosis (1) Acute and chronic respiratory failure Qualifiers: Respiratory failure complication: hypoxia and hypercapnia Qualified Code(s): J96.21 - Acute and chronic respiratory failure with hypoxia; J96.22 - Acute and chronic respiratory failure with hypercapnia Is this a current diagnosis for this admission?: Yes Plan: intubated and sedated (2) Chronic atrial fibrillation Is this a current diagnosis for this admission?: Yes Plan: Stable at this time (3) Severe pulmonary arterial systolic hypertension Is this a current diagnosis for this admission?: Yes Plan: unchanged - Time Total Critical Time (Minutes): 40
--- NOTE | 2018-03-22 10:54 | PDOC PROGRESS REPORT ---
Subjective Progress Note for:: 03/22/18 Subjective:: intubated and sedated Reason For Visit: RESPIRATORY FAILURE Physical Exam Vital Signs: Temp Pulse Resp BP Pulse Ox 98.4 F 73 18 115/66 100 03/22/18 05:24 03/22/18 08:06 03/22/18 08:06 03/22/18 08:20 03/22/18 08:20 Intake & Output 03/21/18 03/22/18 03/23/18 06:59 06:59 06:59 Intake Total 3218 2468 Output Total 1045 1185 Balance 2173 1283 Weight 101.5 kg 102.2 kg General appearance: PRESENT: no acute distress, disheveled, well-developed, well-nourished Head exam: PRESENT: atraumatic, normocephalic Eye exam: PRESENT: conjunctiva pale. ABSENT: nystagmus, scleral icterus Mouth exam: PRESENT: dry mucosa, neck supple, tongue midline, other - ET tube Neck exam: ABSENT: carotid bruit, JVD, lymphadenopathy, thyromegaly, tracheal deviation, tracheostomy Respiratory exam: PRESENT: decreased breath sounds, prolonged expiratory phas, rales, rhonchi, tachypnea, unlabored. ABSENT: retraction Cardiovascular exam: PRESENT: RRR, +S1, +S2 Pulses: PRESENT: normal radial pulses GI/Abdominal exam: PRESENT: soft. ABSENT: tenderness Gentrourinary exam: PRESENT: indwelling catheter Extremities exam: PRESENT: pedal edema. ABSENT: calf tenderness, clubbing, joint swelling Musculoskeletal exam: ABSENT: ambulatory, deformity, dislocation Neurological exam: ABSENT: awake Skin exam: PRESENT: dry, warm Results Laboratory Results: 03/22/18 04:45 03/22/18 04:45 03/22/18 03/22/18 03/22/18 04:45 04:45 04:45 WBC 9.6 RBC 2.66 L Hgb 8.1 L Hct 24.8 L MCV 93 MCH 30.5 MCHC 32.7 RDW 16.8 H Plt Count 291 Seg Neutrophils % 80.4 H Lymphocytes % 8.8 L Monocytes % 7.7 Eosinophils % 2.1 Basophils % 1.0 Absolute Neutrophils 7.7 Absolute Lymphocytes 0.8 Absolute Monocytes 0.7 Absolute Eosinophils 0.2 Absolute Basophils 0.1 Carbonic Acid 1.12 HCO3/H2CO3 Ratio 21:1 ABG pH 7.43 ABG pCO2 37.1 ABG pO2 56.0 L ABG HCO3 24.3 H ABG O2 Saturation 90.2 L ABG Base Excess 0.2 FiO2 60% Sodium 139.9 Potassium 4.0 Chloride 108 H Carbon Dioxide 25 Anion Gap 7 BUN 33 H Creatinine 1.22 Est GFR ( Amer) > 60 Est GFR (Non-Af Amer) 57 L Glucose 129 H Calcium 8.5 Magnesium 2.1 03/18/18 16:45 Sputum Gram Stain - Final 03/18/18 16:45 Sputum Sputum Culture - Final Staphylococcus Aureus Greatly Reduced Normal Alix 03/11/18 03/11/18 03/11/18 03:15 06:26 06:26 Creatine Kinase 26 L CK-MB (CK-2) 0.85 Troponin I < 0.012 < 0.012 NT-Pro-B Natriuret Pep 03/11/18 03/11/18 03/11/18 12:32 12:32 18:09 Creatine Kinase 27 L 33 L CK-MB (CK-2) 1.02 Troponin I < 0.012 NT-Pro-B Natriuret Pep 03/11/18 03/19/18 03/19/18 18:09 06:50 06:50 Creatine Kinase 39 L CK-MB (CK-2) 1.10 1.54 Troponin I < 0.012 < 0.012 NT-Pro-B Natriuret Pep 2520 H Impressions: Chest X-Ray 03/22/18 06:00 IMPRESSION: No significant change. Assessment & Plan - Diagnosis (1) Acute and chronic respiratory failure Qualifiers: Respiratory failure complication: hypoxia and hypercapnia Qualified Code(s): J96.21 - Acute and chronic respiratory failure with hypoxia; J96.22 - Acute and chronic respiratory failure with hypercapnia Is this a current diagnosis for this admission?: Yes Plan: intubated and sedated (2) Chronic atrial fibrillation Is this a current diagnosis for this admission?: Yes Plan: Stable at this time (3) Severe pulmonary arterial systolic hypertension Is this a current diagnosis for this admission?: Yes Plan: unchanged - Time Total Critical Time (Minutes): 40
[2018-03-23] MEDS: MIDAZOLAM HCL 50 MG/100 ML RTUINJ IV PRN ×2 (04:56→19:32)
[2018-03-23] MEDS: NORMAL SALINE 1000 ML 1,000 ML IV PRN ×2 (04:56→19:32)
[2018-03-23 05:00] LABS: ABSOLUTE BASOPHILS # (AUTO) 0.1 10^3/uL (0.0-0.2); ABSOLUTE EOSINOPHILS # (AUTO) 0.3 10^3/uL (0.0-0.6); ABSOLUTE LYMPHOCYTES (AUTO) 0.9 10^3/uL (0.5-4.7); ABSOLUTE MONOCYTES (AUTO) 0.7 10^3/uL (0.1-1.4); BASOPHILS % (AUTO) 1.1 % (0-2); EOSINOPHILS % (AUTO) 2.8 % (0-6); HEMATOCRIT 24.6 % (37.9-51.0); HEMOGLOBIN 8.1 g/dL (13.5-17.0); LYMPHOCYTES % (AUTO) 10.5 % (13-45); MEAN CORPUSCULAR HEMOGLOBIN 30.7 pg (27.0-33.4); MEAN CORPUSCULAR VOLUME 93 fl (80-97); MONOCYTES % (AUTO) 7.4 % (3-13); PLATELET COUNT 294 10^3/uL (150-450); RED BLOOD COUNT 2.65 10^6/uL (4.35-5.55); SEGMENTED NEUTROPHILS % (AUTO) 78.2 % (42-78); TOTAL CELLS COUNTED % (AUTO) 100 %
[2018-03-23 05:05] LABS: ARTERIAL BLOOD BASE EXCESS -1.1 mmol/L; ARTERIAL BLOOD H2CO3 1.08 mmol/L (1.05-1.35); ARTERIAL BLOOD HCO3 23.1 mmol/L (20-24); ARTERIAL BLOOD O2 SATURATION 80.2 % (94-98); ARTERIAL BLOOD PCO2 35.8 mmHg (35-45); ARTERIAL BLOOD PH 7.43 (7.35-7.45); ARTERIAL BLOOD PO2 42.8 mmHg (80-100); ARTERIAL BLOOD TOTAL CO2 24.2 mmol/L (23-27)
[2018-03-23 05:06] LABS: ARTERIAL BLOOD FIO2 60%; INTERNATIONAL RATION (INR) 1.23; PROTHROMBIN TIME 16.1 SEC (11.4-15.4)
[2018-03-23 05:27] LABS: ANION GAP 7 (5-19); BLOOD UREA NITROGEN 35 mg/dL (7-20); CALCIUM 8.4 mg/dL (8.4-10.2); CARBON DIOXIDE 24 mmol/L (22-30); CHLORIDE 110 mmol/L (98-107); GLUCOSE 132 mg/dL (75-110); POTASSIUM 3.8 mmol/L (3.6-5.0); SODIUM 141.3 mmol/L (137-145)
--- NOTE | 2018-03-23 06:10 | RADIOLOGY REPORT (SQ) ---
EXAM DESCRIPTION: XR CHEST 1 VIEW COMPLETED DATE/TME: 03/23/2018 06:00 CLINICAL HISTORY: Respiratory Distress. 77 years Male, resp failure COMPARISON: One day prior. NUMBER OF VIEWS/TECHNIQUE: 1/AP FINDINGS: Bilateral lower thoracic opacity/effusion. Sternotomy. Adequate appearing endotracheal tube. Adequate appearing enteric tube with tip at the left upper abdominal quadrant. Adequate appearing right jugular central line. Cardiac/mediastinal hardware/clips. Moderately enlarged cardiac silhouette. No pneumothorax. Stable bony thorax. IMPRESSION: No significant change.
--- NOTE | 2018-03-23 07:56 | PDOC PROGRESS REPORT ---
Subjective Progress Note for:: 03/23/18 Subjective:: Remain intubated and vent supported. Sedated on versed. Tolerating tube feeding with minimal residual volume. No reported fever. Reason For Visit: RESPIRATORY FAILURE Physical Exam Vital Signs: Temp Pulse Resp BP Pulse Ox 97.9 F 78 17 108/59 L 97 03/23/18 03:47 03/22/18 21:57 03/22/18 20:02 03/23/18 05:59 03/23/18 06:00 Intake & Output 03/22/18 03/23/18 03/24/18 06:59 06:59 06:59 Intake Total 2468 2673 Output Total 1185 910 Balance 1283 1763 Weight 102.2 kg 103.1 kg Physical Exam: General appearance: Intubated and sedated with ET and OG tubes in situ. Obese Head exam: PRESENT: atraumatic, normocephalic Eye exam: PRESENT: conjunctiva pink. ABSENT: pallor, scleral icterus Ear exam: PRESENT: normal external ear exam Mouth exam: PRESENT: moist Respiratory exam: PRESENT: decreased breath sounds - bilaterally, prolonged expiratory phase Cardiovascular exam: PRESENT: irregular rhythm, +S1, +S2. ABSENT: diastolic murmur, systolic murmur GI/Abdominal exam: PRESENT: normal bowel sounds, soft. ABSENT: distended, guarding, mass, organomegaly, rebound, tenderness Extremities exam: ABSENT: pedal edema, SCD in use bilaterally. Musculoskeletal exam: PRESENT: deformity - related to multiple joints involvement with arthritis Neurological exam: PRESENT: Altered due to sedation Skin exam: PRESENT: dry, warm Results Laboratory Results: 03/23/18 04:50 03/23/18 04:50 03/22/18 03/23/18 03/23/18 04:45 04:50 04:50 WBC RBC Hgb Hct MCV MCH MCHC RDW Plt Count Seg Neutrophils % Lymphocytes % Monocytes % Eosinophils % Basophils % Absolute Neutrophils Absolute Lymphocytes Absolute Monocytes Absolute Eosinophils Absolute Basophils Carbonic Acid 1.08 HCO3/H2CO3 Ratio 21:1 ABG pH 7.43 ABG pCO2 35.8 ABG pO2 42.8 L ABG HCO3 23.1 ABG O2 Saturation 80.2 L ABG Base Excess -1.1 FiO2 60% Sodium 141.3 Potassium 3.8 Chloride 110 H Carbon Dioxide 24 Anion Gap 7 BUN 35 H Creatinine 1.19 Est GFR ( Amer) > 60 Est GFR (Non-Af Amer) 59 L Glucose 132 H Uric Acid 4.7 Calcium 8.4 Magnesium 2.3 03/23/18 04:50 WBC 9.0 RBC 2.65 L Hgb 8.1 L Hct 24.6 L MCV 93 MCH 30.7 MCHC 33.0 RDW 17.0 H Plt Count 294 Seg Neutrophils % 78.2 H Lymphocytes % 10.5 L Monocytes % 7.4 Eosinophils % 2.8 Basophils % 1.1 Absolute Neutrophils 7.0 Absolute Lymphocytes 0.9 Absolute Monocytes 0.7 Absolute Eosinophils 0.3 Absolute Basophils 0.1 Carbonic Acid HCO3/H2CO3 Ratio ABG pH ABG pCO2 ABG pO2 ABG HCO3 ABG O2 Saturation ABG Base Excess FiO2 Sodium Potassium Chloride Carbon Dioxide Anion Gap BUN Creatinine Est GFR ( Amer) Est GFR (Non-Af Amer) Glucose Uric Acid Calcium Magnesium 03/12/18 18:38 Sputum Gram Stain - Final 03/12/18 18:38 Sputum Sputum Culture - Final Staphylococcus Aureus Normal Alix 03/18/18 16:45 Sputum Gram Stain - Final 03/18/18 16:45 Sputum Sputum Culture - Final Staphylococcus Aureus Greatly Reduced Normal Alix 03/11/18 03/11/18 03/11/18 03:15 06:26 06:26 Creatine Kinase 26 L CK-MB (CK-2) 0.85 Troponin I < 0.012 < 0.012 NT-Pro-B Natriuret Pep 03/11/18 03/11/18 03/11/18 12:32 12:32 18:09 Creatine Kinase 27 L 33 L CK-MB (CK-2) 1.02 Troponin I < 0.012 NT-Pro-B Natriuret Pep 03/11/18 03/19/18 03/19/18 18:09 06:50 06:50 Creatine Kinase 39 L CK-MB (CK-2) 1.10 1.54 Troponin I < 0.012 < 0.012 NT-Pro-B Natriuret Pep 2520 H Impressions: Chest X-Ray 03/23/18 06:00 IMPRESSION: No significant change. Assessment & Plan - Diagnosis (1) Acute hypoxemic respiratory failure Is this a current diagnosis for this admission?: Yes (2) Excessive anticoagulation Is this a current diagnosis for this admission?: Yes (3) Methicillin susceptible Staphylococcus aureus pneumonia Qualifiers: Lung location: unspecified part of lung Is this a current diagnosis for this admission?: Yes (4) Acute and chronic respiratory failure Qualifiers: Respiratory failure complication: hypoxia and hypercapnia Qualified Code(s): J96.21 - Acute and chronic respiratory failure with hypoxia; J96.22 - Acute and chronic respiratory failure with hypercapnia Is this a current diagnosis for this admission?: Yes (5) Bacterial infection due to Staphylococcus aureus Is this a current diagnosis for this admission?: Yes (6) Chronic atrial fibrillation Is this a current diagnosis for this admission?: Yes (7) Chronic diastolic heart failure Is this a current diagnosis for this admission?: Yes (8) COPD (chronic obstructive pulmonary disease) Qualifiers: COPD type: COPD with acute lower respiratory infection Qualified Code(s): J44.0 - Chronic obstructive pulmonary disease with acute lower respiratory infection Is this a current diagnosis for this admission?: Yes (9) Diabetes mellitus type 2 in obese Is this a current diagnosis for this admission?: Yes (10) HTN (hypertension) Qualifiers: Hypertension type: essential hypertension Qualified Code(s): I10 - Essential (primary) hypertension Is this a current diagnosis for this admission?: Yes (11) HLD (hyperlipidemia) Qualifiers: Hyperlipidemia type: unspecified Qualified Code(s): E78.5 - Hyperlipidemia, unspecified Is this a current diagnosis for this admission?: Yes (12) Pulmonary hypertension Is this a current diagnosis for this admission?: Yes - Time Time Spent with patient: 25-34 minutes Medications reviewed and adjusted accordingly: Yes Anticipated discharge: Other Within: Other - Inpatient Certification Based on my medical assessment, after consideration of the patient's comorbidities, presenting symptoms, or acuity I expect that the services needed warrant INPATIENT care.: Yes I certify that my determination is in accordance with my understanding of Medicare's requirements for reasonable and necessary INPATIENT services [42 CFR 412.3e].: Yes Medical Necessity: Need Close Monitoring Due to Risk of Patient Decompensation, Need For Continuous Telemetry Monitoring, Need for Nebulizer Therapy and Monitoring of Response, Need for IV Antibiotics, Risk of Complication if Not Cared For in Hospital Post Hospital Care: Other - Plan Summary Plan Summary: Continue current medication management. Advance tube feeding rate as tolerated at 5ml/hour q shift to recommended maximum rate. Overall prognosis remain poor.
[2018-03-23] MEDS: BUDESONIDE NEB 0.5 MG/2 ML AMPUL NEB SCH ×2 (09:10→19:40)
[2018-03-23] MEDS: IPRATROPIUM/ALBUTEROL 0.5-2.5 MG/3 ML AMPUL NEB SCH ×3 (09:10→19:40)
[2018-03-23] MEDS: FAMOTIDINE INJ/PF 20 MG/2 ML SDV IV SCH ×2 (10:06→21:35)
[2018-03-23] MEDS: ATORVASTATIN CALCIUM 40 MG TABLET NG SCH (10:06)
[2018-03-23] MEDS: CYANOCOBALAMIN (VITAMIN B-12) 1,000 MCG TABLET PO SCH (10:06)
[2018-03-23] MEDS: ASPIRIN 81 MG TABLET, ENT COATED PO SCH (10:06)
[2018-03-23] MEDS: ASCORBIC ACID 500 MG TABLET NG SCH (10:06)
[2018-03-23] MEDS: FOLIC ACID 1 MG TABLET NG SCH (10:06)
[2018-03-23] MEDS: CEFTRIAXONE 1 GM/D5W RTU 1 GM/50 ML RTUPB IV SCH (10:06)
[2018-03-23] MEDS: CHOLECALCIFEROL (D3) 1,000 UNIT TABLET NG SCH (10:06)
[2018-03-23] MEDS: ALLOPURINOL 300 MG TABLET NG SCH (10:06)
[2018-03-23] MEDS: FERROUS SULFATE 325 MG TABLET PO SCH (10:07)
[2018-03-23] MEDS: ATENOLOL 50 MG TABLET NG SCH (10:07)
[2018-03-23] MEDS: TAMSULOSIN HCL 0.4 MG CAP.SR.24H PO SCH (10:07)
[2018-03-23] MEDS: LISINOPRIL 5 MG TABLET NG SCH (10:07)
[2018-03-23] MEDS: AMLODIPINE BESYLATE 10 MG TABLET NG SCH (10:07)
[2018-03-23] MEDS: FINASTERIDE 5 MG TABLET PO SCH (10:07)
[2018-03-23] MEDS: DOCUSATE SODIUM 100 MG CAPSULE PO SCH (10:07)
[2018-03-23] MEDS: MORPHINE SULFATE 10 MG/ML INJ IV PRN (20:25)
[2018-03-24 05:28] LABS: ARTERIAL BLOOD H2CO3 1.14 mmol/L (1.05-1.35); ARTERIAL BLOOD HCO3 22.6 mmol/L (20-24); ARTERIAL BLOOD O2 SATURATION 86.9 % (94-98); ARTERIAL BLOOD PH 7.39 (7.35-7.45); ARTERIAL BLOOD PO2 52.2 mmHg (80-100); ARTERIAL BLOOD TOTAL CO2 23.8 mmol/L (23-27)
[2018-03-24 05:29] LABS: HEMATOCRIT 24.7 % (37.9-51.0); HEMOGLOBIN 8.1 g/dL (13.5-17.0); MEAN CORPUSCULAR HEMOGLOBIN 30.9 pg (27.0-33.4); MEAN CORPUSCULAR HGB CONC 32.9 g/dL (32.0-36.0); MEAN CORPUSCULAR VOLUME 94 fl (80-97); PLATELET COUNT 313 10^3/uL (150-450); RED BLOOD COUNT 2.63 10^6/uL (4.35-5.55); RED CELL DISTRIBUTION WIDTH 17.2 % (11.5-14.0); WHITE BLOOD COUNT 9.9 10^3/uL (4.0-10.5)
[2018-03-24 05:30] LABS: ARTERIAL BLOOD FIO2 80%
[2018-03-24 05:49] LABS: ANION GAP 7 (5-19); BLOOD UREA NITROGEN 35 mg/dL (7-20); CALCIUM 8.5 mg/dL (8.4-10.2); CARBON DIOXIDE 22 mmol/L (22-30); CHLORIDE 112 mmol/L (98-107); GLUCOSE 133 mg/dL (75-110); POTASSIUM 4.2 mmol/L (3.6-5.0); SODIUM 141.4 mmol/L (137-145)
[2018-03-24 05:51] LABS: ABSOLUTE LYMPHOCYTES# (MANUAL) 0.7 10^3/uL (0.5-4.7); ABSOLUTE MONOCYTES # (MANUAL) 0.7 10^3/uL (0.1-1.4); ABSOLUTE NEUTROPHILS# (MANUAL) 8.2 10^3/uL (1.7-8.2); BASOPHILS % (MANUAL) 0 % (0-2); EOSINOPHILS % (MANUAL) 3 % (0-6); LYMPHOCYTES % (MANUAL) 7 % (13-45); MONOCYTES % (MANUAL) 7 % (3-13); SEGMENTED NEUTROPHILS % (MAN) 83 % (42-78); TOTAL CELLS COUNTED 100
[2018-03-24 05:52] LABS: ANISOCYTOSIS 1+; PLATELET COMMENT ADEQUATE; TOXIC GRANULATION SLIGHT; TOXIC VACUOLATION PRESENT
--- NOTE | 2018-03-24 06:31 | RADIOLOGY REPORT (SQ) ---
EXAM DESCRIPTION: XR CHEST 1 VIEW COMPLETED DATE/TME: 03/24/2018 06:00 CLINICAL HISTORY: Respiratory Distress. 77 years Male, resp failure COMPARISON: One day prior. NUMBER OF VIEWS/TECHNIQUE: 1/AP FINDINGS: Bilateral lower thoracic opacity/effusion. Adequate appearing endotracheal tube. Likely adequate appearing enteric tube partially obscured. Adequate appearing right subclavian central line. Cardiac/mediastinal hardware/clips. Sternotomy. Atherosclerotic vascular disease. Moderately enlarged cardiac silhouette. No pneumothorax. Stable bony thorax. IMPRESSION: No significant change.
[2018-03-24] MEDS: BUDESONIDE NEB 0.5 MG/2 ML AMPUL NEB SCH ×2 (08:35→20:52)
[2018-03-24] MEDS: IPRATROPIUM/ALBUTEROL 0.5-2.5 MG/3 ML AMPUL NEB SCH ×3 (08:36→20:52)
--- NOTE | 2018-03-24 08:36 | PDOC PROGRESS REPORT ---
Subjective Progress Note for:: 03/24/18 Subjective:: Remain intubated and vent supported. Family had conference with Dr. Winn, rehabilitation specialist, earlier today and decided to schedule patient for terminal extubation tomorrow. No reported fever. Reason For Visit: RESPIRATORY FAILURE Physical Exam Vital Signs: Temp Pulse Resp BP Pulse Ox 98.6 F 97 26 H 107/63 98 03/23/18 22:00 03/23/18 22:00 03/24/18 08:01 03/24/18 08:00 03/24/18 08:01 Intake & Output 03/23/18 03/24/18 03/25/18 06:59 06:59 06:59 Intake Total 2673 1880 Output Total 910 1040 Balance 1763 840 Weight 103.1 kg 105.6 kg Physical Exam: ET and OG tubes in situ. Head exam: PRESENT: atraumatic, normocephalic Ear exam: PRESENT: normal external ear exam Respiratory exam: PRESENT: decreased breath sounds - at lung bases Cardiovascular exam: PRESENT: RRR, +S1, +S2. ABSENT: diastolic murmur, systolic murmur Vascular exam: ABSENT: pallor GI/Abdominal exam: PRESENT: normal bowel sounds Extremities exam: ABSENT: pedal edema Neurological exam: PRESENT: altered - sedated on versed infusion Skin exam: PRESENT: dry, warm Results Laboratory Results: 03/24/18 05:15 03/24/18 05:15 03/24/18 03/24/18 03/24/18 05:15 05:15 05:15 WBC 9.9 RBC 2.63 L Hgb 8.1 L Hct 24.7 L MCV 94 MCH 30.9 MCHC 32.9 RDW 17.2 H Plt Count 313 Seg Neutrophils % Not Reportable Lymphocytes % Not Reportable Monocytes % Not Reportable Eosinophils % Not Reportable Basophils % Not Reportable Absolute Neutrophils Not Reportable Absolute Lymphocytes Not Reportable Absolute Monocytes Not Reportable Absolute Eosinophils Not Reportable Absolute Basophils Not Reportable Carbonic Acid 1.14 HCO3/H2CO3 Ratio 19:1 ABG pH 7.39 ABG pCO2 38.0 ABG pO2 52.2 L ABG HCO3 22.6 ABG O2 Saturation 86.9 L ABG Base Excess -2.0 FiO2 80% Sodium 141.4 Potassium 4.2 Chloride 112 H Carbon Dioxide 22 Anion Gap 7 BUN 35 H Creatinine 1.18 Est GFR ( Amer) > 60 Est GFR (Non-Af Amer) > 60 Glucose 133 H Calcium 8.5 Magnesium 2.3 03/11/18 03/11/18 03/11/18 03:15 06:26 06:26 Creatine Kinase 26 L CK-MB (CK-2) 0.85 Troponin I < 0.012 < 0.012 NT-Pro-B Natriuret Pep 03/11/18 03/11/18 03/11/18 12:32 12:32 18:09 Creatine Kinase 27 L 33 L CK-MB (CK-2) 1.02 Troponin I < 0.012 NT-Pro-B Natriuret Pep 03/11/18 03/19/18 03/19/18 18:09 06:50 06:50 Creatine Kinase 39 L CK-MB (CK-2) 1.10 1.54 Troponin I < 0.012 < 0.012 NT-Pro-B Natriuret Pep 2520 H Impressions: Chest X-Ray 03/24/18 06:00 IMPRESSION: No significant change. Assessment & Plan - Diagnosis (1) Acute hypoxemic respiratory failure Is this a current diagnosis for this admission?: Yes (2) Excessive anticoagulation Is this a current diagnosis for this admission?: Yes (3) Methicillin susceptible Staphylococcus aureus pneumonia Qualifiers: Lung location: unspecified part of lung Is this a current diagnosis for this admission?: Yes (4) Acute and chronic respiratory failure Qualifiers: Respiratory failure complication: hypoxia and hypercapnia Qualified Code(s): J96.21 - Acute and chronic respiratory failure with hypoxia; J96.22 - Acute and chronic respiratory failure with hypercapnia Is this a current diagnosis for this admission?: Yes (5) Bacterial infection due to Staphylococcus aureus Is this a current diagnosis for this admission?: Yes (6) Chronic atrial fibrillation Is this a current diagnosis for this admission?: Yes (7) Chronic diastolic heart failure Is this a current diagnosis for this admission?: Yes (8) COPD (chronic obstructive pulmonary disease) Qualifiers: COPD type: COPD with acute lower respiratory infection Qualified Code(s): J44.0 - Chronic obstructive pulmonary disease with acute lower respiratory infection Is this a current diagnosis for this admission?: Yes (9) Diabetes mellitus type 2 in obese Is this a current diagnosis for this admission?: Yes (10) HTN (hypertension) Qualifiers: Hypertension type: essential hypertension Qualified Code(s): I10 - Essential (primary) hypertension Is this a current diagnosis for this admission?: Yes (11) HLD (hyperlipidemia) Qualifiers: Hyperlipidemia type: unspecified Qualified Code(s): E78.5 - Hyperlipidemia, unspecified Is this a current diagnosis for this admission?: Yes (12) Pulmonary hypertension Is this a current diagnosis for this admission?: Yes - Time Time Spent with patient: 25-34 minutes Medications reviewed and adjusted accordingly: Yes Anticipated discharge: Other Within: Other - Inpatient Certification Based on my medical assessment, after consideration of the patient's comorbidities, presenting symptoms, or acuity I expect that the services needed warrant INPATIENT care.: Yes I certify that my determination is in accordance with my understanding of Medicare's requirements for reasonable and necessary INPATIENT services [42 CFR 412.3e].: Yes Medical Necessity: Need Close Monitoring Due to Risk of Patient Decompensation, Need For Continuous Telemetry Monitoring, Need for Nebulizer Therapy and Monitoring of Response, Need for IV Antibiotics, Risk of Complication if Not Cared For in Hospital Post Hospital Care: Other - Plan Summary Plan Summary: Continue current medication management. Follow up with family as schedule tomorrow for terminal extubation. Pulmonary websphere commerce consultant input appreciated.
[2018-03-24] MEDS: MIDAZOLAM HCL 50 MG/100 ML RTUINJ IV PRN ×2 (09:14→21:55)
[2018-03-24] MEDS: NORMAL SALINE 1000 ML 1,000 ML IV PRN ×2 (09:15→21:55)
[2018-03-24] MEDS: ASCORBIC ACID 500 MG TABLET NG SCH (09:51)
[2018-03-24] MEDS: FAMOTIDINE INJ/PF 20 MG/2 ML SDV IV SCH ×2 (09:51→21:55)
[2018-03-24] MEDS: ASPIRIN 81 MG TABLET, ENT COATED PO SCH (09:51)
[2018-03-24] MEDS: DOCUSATE SODIUM 100 MG CAPSULE PO SCH (09:51)
[2018-03-24] MEDS: CYANOCOBALAMIN (VITAMIN B-12) 1,000 MCG TABLET PO SCH (09:51)
[2018-03-24] MEDS: ALLOPURINOL 300 MG TABLET NG SCH (09:51)
[2018-03-24] MEDS: CEFTRIAXONE 1 GM/D5W RTU 1 GM/50 ML RTUPB IV SCH (09:51)
[2018-03-24] MEDS: ATORVASTATIN CALCIUM 40 MG TABLET NG SCH (09:51)
[2018-03-24] MEDS: CHOLECALCIFEROL (D3) 1,000 UNIT TABLET NG SCH (09:51)
[2018-03-24] MEDS: FERROUS SULFATE 325 MG TABLET PO SCH (09:51)
[2018-03-24] MEDS: FOLIC ACID 1 MG TABLET NG SCH (09:51)
[2018-03-24] MEDS: ATENOLOL 50 MG TABLET NG SCH (09:52)
[2018-03-24] MEDS: FINASTERIDE 5 MG TABLET PO SCH (09:52)
[2018-03-24] MEDS: AMLODIPINE BESYLATE 10 MG TABLET NG SCH (09:52)
[2018-03-24] MEDS: LISINOPRIL 5 MG TABLET NG SCH (09:52)
[2018-03-24] MEDS: TAMSULOSIN HCL 0.4 MG CAP.SR.24H PO SCH (09:52)
[2018-03-24] MEDS ORDERED: MIDAZOLAM 2 MG/2 ML INJ IV PRN (19:13)
[2018-03-24] MEDS ORDERED: MORPHINE SULFATE 10 MG/ML INJ IV PRN (19:13)
[2018-03-25 05:06] LABS: ARTERIAL BLOOD BASE EXCESS -2.5 mmol/L; ARTERIAL BLOOD H2CO3 1.03 mmol/L (1.05-1.35); ARTERIAL BLOOD HCO3 21.6 mmol/L (20-24); ARTERIAL BLOOD O2 SATURATION 92.1 % (94-98); ARTERIAL BLOOD PCO2 34.2 mmHg (35-45); ARTERIAL BLOOD PH 7.42 (7.35-7.45); ARTERIAL BLOOD TOTAL CO2 22.6 mmol/L (23-27)
[2018-03-25 05:12] LABS: ARTERIAL BLOOD FIO2 65%
[2018-03-25 05:42] LABS: ANION GAP 5 (5-19); BLOOD UREA NITROGEN 34 mg/dL (7-20); CALCIUM 8.6 mg/dL (8.4-10.2); CARBON DIOXIDE 23 mmol/L (22-30); CHLORIDE 114 mmol/L (98-107); GLUCOSE 119 mg/dL (75-110); POTASSIUM 4.2 mmol/L (3.6-5.0); SODIUM 142.3 mmol/L (137-145)
[2018-03-25] MEDS: MIDAZOLAM HCL 50 MG/100 ML RTUINJ IV PRN (07:01)
--- NOTE | 2018-03-25 08:21 | RADIOLOGY REPORT (SQ) ---
EXAM DESCRIPTION: CHEST SINGLE VIEW COMPLETED DATE/TIME: 03/25/2018 7:13 am REASON FOR STUDY: RESP FAILURE COMPARISON: 03/24/2018. FINDINGS: Single-view chest AP portable upright at approximately 0641 hours. Stable lines and tubes including endotracheal tube. Diminished basilar aeration, as before. At least some component of pleural fluid. Overall similar a ppearance. TECHNICAL DOCUMENTATION: JOB ID: [id number] Reading location - IP/workstation name: [email or web address]
[2018-03-25] MEDS: BUDESONIDE NEB 0.5 MG/2 ML AMPUL NEB SCH (09:01)
[2018-03-25] MEDS: IPRATROPIUM/ALBUTEROL 0.5-2.5 MG/3 ML AMPUL NEB SCH ×2 (09:01→13:35)
--- NOTE | 2018-03-25 09:44 | PDOC PROGRESS REPORT ---
Subjective Progress Note for:: 03/25/18 Subjective:: Patient remain intubated and sedated. awaiting family arival for planned terminal extubation. Reason For Visit: RESPIRATORY FAILURE Physical Exam Vital Signs: Temp Pulse Resp BP Pulse Ox 98.1 F 76 16 107/82 92 03/25/18 08:00 03/25/18 08:00 03/25/18 08:00 03/25/18 08:00 03/25/18 08:00 Intake & Output 03/24/18 03/25/18 03/26/18 06:59 06:59 06:59 Intake Total 1930 2507 Output Total 1040 910 40 Balance 890 1597 -40 Weight 105.6 kg 108 kg Physical Exam: ET and OG tubes in situ. Head exam: PRESENT: atraumatic, normocephalic Ear exam: PRESENT: normal external ear exam Respiratory exam: PRESENT: decreased breath sounds - at lung bases Cardiovascular exam: PRESENT: RRR, +S1, +S2. ABSENT: diastolic murmur, systolic murmur Vascular exam: ABSENT: pallor GI/Abdominal exam: PRESENT: normal bowel sounds Extremities exam: ABSENT: pedal edema Neurological exam: PRESENT: altered - sedated on versed infusion Skin exam: PRESENT: dry, warm Results Laboratory Results: 03/24/18 05:15 03/25/18 04:55 03/25/18 03/25/18 04:55 04:55 Carbonic Acid 1.03 L HCO3/H2CO3 Ratio 20:1 ABG pH 7.42 ABG pCO2 34.2 L ABG pO2 61.0 L ABG HCO3 21.6 ABG O2 Saturation 92.1 L ABG Base Excess -2.5 FiO2 65% Sodium 142.3 Potassium 4.2 Chloride 114 H Carbon Dioxide 23 Anion Gap 5 BUN 34 H Creatinine 1.15 Est GFR ( Amer) > 60 Est GFR (Non-Af Amer) > 60 Glucose 119 H Calcium 8.6 Magnesium 2.3 03/11/18 03/11/18 03/11/18 03:15 06:26 06:26 Creatine Kinase 26 L CK-MB (CK-2) 0.85 Troponin I < 0.012 < 0.012 NT-Pro-B Natriuret Pep 03/11/18 03/11/18 03/11/18 12:32 12:32 18:09 Creatine Kinase 27 L 33 L CK-MB (CK-2) 1.02 Troponin I < 0.012 NT-Pro-B Natriuret Pep 03/11/18 03/19/18 03/19/18 18:09 06:50 06:50 Creatine Kinase 39 L CK-MB (CK-2) 1.10 1.54 Troponin I < 0.012 < 0.012 NT-Pro-B Natriuret Pep 2520 H Assessment & Plan - Diagnosis (1) Acute hypoxemic respiratory failure Is this a current diagnosis for this admission?: Yes (2) Excessive anticoagulation Is this a current diagnosis for this admission?: Yes (3) Methicillin susceptible Staphylococcus aureus pneumonia Qualifiers: Lung location: unspecified part of lung Is this a current diagnosis for this admission?: Yes (4) Acute and chronic respiratory failure Qualifiers: Respiratory failure complication: hypoxia and hypercapnia Qualified Code(s): J96.21 - Acute and chronic respiratory failure with hypoxia; J96.22 - Acute and chronic respiratory failure with hypercapnia Is this a current diagnosis for this admission?: Yes (5) Bacterial infection due to Staphylococcus aureus Is this a current diagnosis for this admission?: Yes (6) Chronic atrial fibrillation Is this a current diagnosis for this admission?: Yes (7) Chronic diastolic heart failure Is this a current diagnosis for this admission?: Yes (8) COPD (chronic obstructive pulmonary disease) Qualifiers: COPD type: COPD with acute lower respiratory infection Qualified Code(s): J44.0 - Chronic obstructive pulmonary disease with acute lower respiratory infection Is this a current diagnosis for this admission?: Yes (9) Diabetes mellitus type 2 in obese Is this a current diagnosis for this admission?: Yes (10) HTN (hypertension) Qualifiers: Hypertension type: essential hypertension Qualified Code(s): I10 - Essential (primary) hypertension Is this a current diagnosis for this admission?: Yes (11) HLD (hyperlipidemia) Qualifiers: Hyperlipidemia type: unspecified Qualified Code(s): E78.5 - Hyperlipidemia, unspecified Is this a current diagnosis for this admission?: Yes (12) Pulmonary hypertension Is this a current diagnosis for this admission?: Yes - Time Time Spent with patient: 25-34 minutes Medications reviewed and adjusted accordingly: Yes Anticipated discharge: Other Within: Other - Inpatient Certification Based on my medical assessment, after consideration of the patient's comorbidities, presenting symptoms, or acuity I expect that the services needed warrant INPATIENT care.: Yes I certify that my determination is in accordance with my understanding of Medicare's requirements for reasonable and necessary INPATIENT services [42 CFR 412.3e].: Yes Medical Necessity: Need Close Monitoring Due to Risk of Patient Decompensation, Need For IV Fluids, Need For Continuous Telemetry Monitoring, Need for Nebulizer Therapy and Monitoring of Response, Risk of Complication if Not Cared For in Hospital Post Hospital Care: Other - Plan Summary Plan Summary: Continue current management. Follow up with family regarding care plan.
[2018-03-25] MEDS: DOCUSATE SODIUM 100 MG CAPSULE PO SCH (10:14)
[2018-03-25] MEDS: FERROUS SULFATE 325 MG TABLET PO SCH (10:25)
[2018-03-25] MEDS: TAMSULOSIN HCL 0.4 MG CAP.SR.24H PO SCH (10:25)
[2018-03-25] MEDS: ASPIRIN 81 MG TABLET, ENT COATED PO SCH (10:25)
[2018-03-25] MEDS: FOLIC ACID 1 MG TABLET NG SCH (10:26)
[2018-03-25] MEDS: ATORVASTATIN CALCIUM 40 MG TABLET NG SCH (10:27)
[2018-03-25] MEDS: AMLODIPINE BESYLATE 10 MG TABLET NG SCH (10:28)
[2018-03-25] MEDS: FAMOTIDINE INJ/PF 20 MG/2 ML SDV IV SCH (10:32)
[2018-03-25] MEDS: LISINOPRIL 5 MG TABLET NG SCH (10:32)
[2018-03-25] MEDS: FINASTERIDE 5 MG TABLET PO SCH (10:33)
[2018-03-25] MEDS: ATENOLOL 50 MG TABLET NG SCH (10:33)
[2018-03-25] MEDS: CEFTRIAXONE 1 GM/D5W RTU 1 GM/50 ML RTUPB IV SCH (10:33)
[2018-03-25] MEDS: CYANOCOBALAMIN (VITAMIN B-12) 1,000 MCG TABLET PO SCH (10:34)
[2018-03-25] MEDS: ASCORBIC ACID 500 MG TABLET NG SCH (10:34)
[2018-03-25] MEDS: ALLOPURINOL 300 MG TABLET NG SCH (10:34)
[2018-03-25] MEDS: CHOLECALCIFEROL (D3) 1,000 UNIT TABLET NG SCH (10:34)
[2018-03-25] MEDS: MORPHINE SULFATE 10 MG/ML INJ IV PRN (13:33)
[2018-03-25 13:34] VITALS: BP 104/65
--- NOTE | 2018-03-27 13:38 | Death Summary ---
Summary Date : 03/25/18 Autopsy: No Resuscitation Status: Full Code Primary Care Provider: EJ WATTS MD Consulting Provider: DIDIER WINN MD - Final Diagnosis (1) Methicillin susceptible Staphylococcus aureus pneumonia Is this a current diagnosis for this admission?: Yes (2) Bacterial infection due to Staphylococcus aureus Is this a current diagnosis for this admission?: Yes (3) Acute hypoxemic respiratory failure Is this a current diagnosis for this admission?: Yes (4) Acute and chronic respiratory failure Is this a current diagnosis for this admission?: Yes (5) COPD (chronic obstructive pulmonary disease) Is this a current diagnosis for this admission?: Yes (6) Chronic atrial fibrillation Is this a current diagnosis for this admission?: Yes (7) Chronic diastolic heart failure Is this a current diagnosis for this admission?: Yes (8) Excessive anticoagulation Is this a current diagnosis for this admission?: Yes (9) Diabetes mellitus type 2 in obese Is this a current diagnosis for this admission?: Yes (10) HTN (hypertension) Is this a current diagnosis for this admission?: Yes (11) HLD (hyperlipidemia) Is this a current diagnosis for this admission?: Yes (12) Pulmonary hypertension Is this a current diagnosis for this admission?: Yes Hospital Course:: DONALD WESTON is a 77 year old male who was admitted on 03/11/2018 a day after his discharge from this hospital due to worsening difficulty with breathing and associated hypoxemia. He has history of end stage COPD with other morbidities including chronic diastolic heart failure, chronic atrial fibrillation, diabetes mellitus type 2, hypertension, hyperlipidemia, pulmonary hypertension, and benign prostate hyperplasia. He was discharged home on Trilogy ventilator support but family and patient were not able to operate the equipment. Daughter activated EMS and patient was brought back to the ED on Ambu bag. Despite all intervention with BiPAP and face mask supplemental oxygen support he continue to decompensate. Family maintain him on full code status and in view of acute respiratory distress with hypoxemia he was eventually intubated and transferred to the ICU. Patient was seen in consultation by Dr Didier Winn, telecom engineer, who has been involved with his care on multiple admissions to the hospital. Subsequently family requested for 14 days on ventilator support before making any decision on further care decision. Following further discussion with family, it was decided to terminally extubate the patient on 03/25/2018. This wish was carried out on 03/25/2018 at 1330 hour and patient at 1340 hour. Autopsy was declined and family intent to take patient's body to [place] for burial through prearrange service with company called [employer].
== END 2018-03-25 13:40 | disposition expired | DRG 207 ==
LOC: ER 03:04 → EH 05:10 → 3W 08:06 → ICU 03-18 04:59
PROVIDERS: ADMIT Internal Medicine; ATTEND Internal Medicine Geriatric Medicine
PROC: 5A1955Z Respiratory Ventilation, Greater than 96 Consecutive Hours (ICD-10-PCS; principal; 2018-03-11)
PROC: 0BH17EZ Insertion of Endotracheal Airway into Trachea, Via Natural or Artificial Opening (ICD-10-PCS; 2018-03-18)
PROC: 02HV33Z Insertion of Infusion Device into Superior Vena Cava, Percutaneous Approach (ICD-10-PCS; 2018-03-18)
DX: J96.22 Acute and chronic respiratory failure with hypercapnia (principal); J15.212 Pneumonia due to Methicillin resistant Staphylococcus aureus; I50.33 Acute on chronic diastolic (congestive) heart failure; N39.0 Urinary tract infection, site not specified; J44.0 Chronic obstructive pulmonary disease with (acute) lower respiratory infection; J96.21 Acute and chronic respiratory failure with hypoxia; I48.2 Chronic atrial fibrillation; I11.0 Hypertensive heart disease with heart failure; E78.5 Hyperlipidemia, unspecified; E11.9 Type 2 diabetes mellitus without complications; Z79.01 Long term (current) use of anticoagulants; Z79.899 Other long term (current) drug therapy; I27.20 Pulmonary hypertension, unspecified; N40.0 Benign prostatic hyperplasia without lower urinary tract symptoms; I25.10 Atherosclerotic heart disease of native coronary artery without angina pectoris; I25.2 Old myocardial infarction; Z85.038 Personal history of other malignant neoplasm of large intestine; K21.9 Gastro-esophageal reflux disease without esophagitis; M19.90 Unspecified osteoarthritis, unspecified site; Z95.1 Presence of aortocoronary bypass graft; Z87.891 Personal history of nicotine dependence; Z79.82 Long term (current) use of aspirin; Z79.4 Long term (current) use of insulin
CPT/HCPCS: 31500; 36415; 36430; 36600; 71045; 80048; 80053; 80061; 80076; 80307; 81001; 82140; 82150; 82550; 82553; 82803; 82962; 83036; 83690; 83735; 83880; 84100; 84439; 84443; 84484; 84550; 85025; 85362; 85384; 85610; 85730; 86900; 86901; 87040; 87070; 87077; 87086; 87088; 87186; 87205; 93005; 93010; 94002; 94003; 94660; 96374; 99285; C1751; J0330; J0696; J1940; J2250; J2270; J2370; J2704; J3430; J3490; J7030; J7060; J7620; P9017; S0028